=== PATIENT | male | born 1960 | race Two or more races ===

== ENCOUNTER 2016-04-04 10:57 | Inpatient (IN) | payer MEDICAID ==
--- NOTE | 2016-04-04 13:16 | SOAPPROG ---
TIFFANI Progress Note Assessment/Plan: Assessment: 1.) Stage IV Colon Cancer on systemic Tx with FOLFOX + Avastin 2.) Tobacco use 3.) Social situation- has no home address and no local family support. 4.) IV access needs for inpt. chemotherapy. Plan: 1.) PICC line placement 2.) FOLFOX ( Oxaliplatin + Leukovorin IV over 2 hours - day 1, 5 FU IVP, then 5 FU 46 hour IV continuous infusion + Avastin as 1-2 hour infusion on one day) 3.) Monitor toxicity of Tx. 4.) Discharge when stable 5.) Continue inpt. and outpt. meds during and after chemotherapy. 6.) Follow up with Dr. Lott at [facility] after discharge. 04/04/16 13:12 Subjective: Ed returns for his next cycle of FOLFOX + Avastin and has noted less abdominal pain since his last course of Tx. Objective: Ed is in NAD and is in good spirits. He is thin, VSS, Afebrile as noted here. HEENT- anicteric. Tobacco stained newton, no oral lesions Neck- supple, without LN enlargement Chest- clear CVS- RSR, no extra HS ABD- soft, NT, no mass, BS+, non-distended EXT- no edema, skin intact Vital Signs Temp Pulse Resp BP Pulse Ox 36.6 C 101 H 18 102/74 93 04/04/16 12:51 04/04/16 12:51 04/04/16 12:51 04/04/16 12:51 04/04/16 12:51 ICD10 Worksheet Patient Problems: Problems Problem Status Diagnosed Abdominal pain Acute Liver lesion Acute
[2016-04-04] MEDS ORDERED: ALTEPLASE 2 MG VIAL IVP PRN (13:29)
[2016-04-04] MEDS ORDERED: LORazepam 0.5 MG TAB PO PRN (13:31)
[2016-04-04] MEDS ORDERED: ONDANSETRON 4 MG/2 ML VIAL IVP PRN (13:31)
[2016-04-04] MEDS ORDERED: PROMETHAZINE HCL 25 MG/ML VIAL IVP PRN (13:31)
[2016-04-04] MEDS ORDERED: PROCHLORPERAZINE MALEATE 10 MG TAB PO PRN (14:21)
[2016-04-04] MEDS: ACETAMINOPHEN 325 MG TAB PO PRN ×2 (14:49→19:43)
[2016-04-04] MEDS: oxyCODONE IR 5 MG TAB PO PRN ×2 (14:49→19:41)
--- NOTE | 2016-04-04 14:54 | GHP ---
[f rep st] HISTORY AND PHYSICAL DATE OF ADMISSION: 04/04/2016 CHIEF COMPLAINT: Abdominal pain. Here for chemotherapy. HISTORY OF PRESENT ILLNESS: The patient is a 55-year-old homeless man with recently diagnosed metastatic colon cancer, being admitted for chemotherapy. His 1st round was in early February, second round late February, and he is here for his 3rd round. His main complaint is right upper quadrant pain where the bulk of his tumor has been located. Since his last chemotherapy, he says the pain has improved and he is hopeful that he will continue to improve with chemo. He is currently homeless. He has intermittent nausea that comes in waves. He denies any other chest pain, coughing, shortness of breath. No lower extremity edema. No urinary or bowel changes. REVIEW OF SYSTEMS: A 10-point review of systems was done, with pertinent positives present in the HPI. PAST MEDICAL HISTORY: 1. Metastatic colon cancer. 2. Type 2 diabetes. MEDICATIONS: The patient ran out of all of his medications except for Compazine. He was on DiaBeta 2.5 mg daily, oxy IR as needed, Ativan as needed for pain. ALLERGIES: No known drug allergies. SOCIAL HISTORY: He is homeless. He smokes about half a pack a day and denies any alcohol use. FAMILY HISTORY: Reviewed and noncontributory. PHYSICAL EXAMINATION: VITAL SIGNS: Afebrile. Heart rate 101, blood pressure 103/74, respirations 18. He is 92% on room air. GENERAL: He is a very pleasant, disheveled 55-year-old man. Mild distress. He is alert and oriented. HEENT atraumatic. Pupils equal. Extraocular movements intact. Mucous membranes moist. Oropharynx clear. NECK: Supple. No adenopathy. HEART: Regular rate and rhythm. No murmurs, gallop or rub. LUNGS: Clear to auscultation. No wheeze, rhonchi, or rales. ABDOMEN: He does have a hard, tender area in his right upper quadrant that is quite tender to palpation and he has some voluntary guarding. Left side is benign. Positive bowel sounds. EXTREMITIES: No clubbing, cyanosis, or edema. Pulses intact. MUSCULOSKELETAL : No obvious joint effusions or deformities. NEUROLOGICAL: He is intact. LABORATORY DATA: CBC is normal except for hemoglobin of 17.0. Platelet count of 138. Electrolytes are normal. Blood sugars 128. LFTs are unremarkable. CEA is 223. ASSESSMENT AND PLAN: A 55-year-old with metastatic colon cancer., presents for ongoing chemotherapy. Main issue is right upper quadrant pain due to tumor mass. 1. Metastatic colon cancer. Undergoing chemotherapy. Will need to place a PICC line. Defer to Oncology for chemo orders. Continue supportive care. 2. Tobacco use. Will provide a nicotine patch. 3. Type 2 diabetes. Controlled with DiaBeta. Will continue that at this time. Measure sugars q.a.c. and h.s. 4. DVT prophylaxis. Will provide low-molecular weight heparin. /[id number]/MODL MTDD
--- NOTE | 2016-04-04 19:53 | IR ---
Imaging Guided Peripherally Inserted Central Catheter History: Cancer of the liver. Technique: Following informed consent, the right arm was prepped and draped in sterile fashion. All e lements of maximal sterile barrier technique including cap, mask, sterile gown, sterile gloves, large sterile sheet, hand hygiene, and 2% chlorhexidine for cutaneous antisepsis, followed. Ultrasound tra nsducer was placed in sterile sleeve and sterile coupling gel was used. Ultrasound evaluation of pote ntial access sites was performed. After successfully identifying a patent vessel of adequate size, 1% Xylocaine was used for local anesthetic. Ultrasound guidance was used to puncture the basilic vein with a 21-gauge needle. 0.018 measuring wire was passed centrally under fluoroscopic control. A skin gibran with scalpel blade was followed by removing the access needle. A 5.5 Tristanian peel-away sheath wa s followed by a 5 Tristanian double-lumen central catheter , trimmed to 44 cm length. The tip of the cat heter was positioned centrally and the guidewire removed. AP fluoroscopic spot image was obtained in inspiration. The catheter irrigated easily. The hub of the catheter was secured to the skin using a S tatLock adhesive device, and a sterile dressing was applied. Fluoroscopy time in minutes: 0.1 . Estimated exposure in mGy: 1.4 . Findings: The tip of the central catheter terminates at the junction of the superior vena cava and th e right atrium. Impression: 5 Tristanian double lumen peripherally inserted central catheter is ready to use. - - - - - - - - - - - - - - - - - - - - - - - - - - - - - - - - - - - - - - - - - (Cross-cutting measures: Current medications were listed in the medical record, including all known prescriptions, [id number] medications, herbal medications, and nutritional supplements. The pat ient does not smoke. )
[2016-04-05 05:37] LABS: % IMMATURE GRANULYOCYTES 0.5 % (0.0-1.1); ABSOLUTE IMMATURE GRANULOCYTES 0.03 10^3/uL (0.00-0.10); ADD DIFF? NO; ADD MORPH? NO; ADD SCAN? NO; ATYPICAL LYMPHOCYTE FLAG 70 (0-99); FRAGMENT RBC FLAG 0 (0-99); HEMATOCRIT 43.3 % (40.0-51.0); HEMOGLOBIN 14.5 g/dL (13.7-17.5); LEFT SHIFT FLG 0 (0-99); LIPEMIA HEMOLYSIS FLAG 80 (0-99); MEAN CELL HEMOGLOBIN CONCENTR. 33.5 g/dL (32.4-36.7); MEAN CELL VOLUME 86.6 fL (81.5-99.8); MEAN PLATELET VOLUME 10.2 fL (8.7-11.7); PLATELET CLUMPS FLAG 0 (0-99); PLATELET COUNT 108 10^3/uL (150-400); RED CELL DISTRIBUTION WIDTH 16.4 % (11.5-15.2)
[2016-04-05] MEDS: ACETAMINOPHEN 325 MG TAB PO PRN ×2 (05:48→11:30)
[2016-04-05] MEDS: oxyCODONE IR 5 MG TAB PO PRN ×2 (05:49→11:30)
[2016-04-05] MEDS: ONDANSETRON DISINTEGRATING 4 MG TAB PO PRN ×2 (05:50→18:57)
[2016-04-05 05:52] LABS: ALANINE AMINOTRANSFERASE 61 IU/L (21-72); ALBUMIN 3.1 g/dL (3.5-5.0); ALKALINE PHOSPHATASE 201 IU/L (38-126); ANION GAP 7 mEq/L (8-16); ASPARTATE AMINOTRANSFERASE 46 IU/L (17-59); BILIRUBIN,TOTAL 0.6 mg/dL (0.1-1.4); CARBON DIOXIDE 26 mEq/l (22-31); CHLORIDE 108 mEq/L (97-110); CREATININE 0.7 mg/dL (0.7-1.3); GLOMERULAR FILTRATION RATE > 60; GLUCOSE 87 mg/dL (70-100); POTASSIUM 4.4 mEq/L (3.5-5.2); SODIUM 141 mEq/L (134-144); TOTAL PROTEIN 5.5 g/dL (6.3-8.2)
[2016-04-05] MEDS ORDERED: NICOTINE 21 MG/24 HR PATCH TD SCH (09:00)
[2016-04-05] MEDS ORDERED: PALONOSETRON HCL 0.25 MG/5 ML VIAL IVP ONE (09:30)
[2016-04-05] MEDS ORDERED: DEXAMETHASONE SOD PHOSPHATE 10 MG in NS 50 ML IV ONE (09:30)
[2016-04-05] MEDS: MULTIVITAMINS 1 EACH TAB PO SCH (09:58)
[2016-04-05] MEDS: CHOLECALCIFEROL VIT D3 1,000 UNITS TAB PO SCH (09:58)
[2016-04-05] MEDS: glyBURIDE 2.5 MG TAB PO SCH (09:58)
[2016-04-05] MEDS: ASCORBIC ACID 500 MG TAB PO SCH (09:58)
[2016-04-05] MEDS ORDERED: NS IV ONE (10:00)
[2016-04-05] MEDS ORDERED: BEVACIZUMAB IV ONE (10:00)
[2016-04-05] MEDS: ENOXAPARIN 40 MG/0.4 ML SYR SC SCH (10:07)
[2016-04-05] MEDS ORDERED: LEUCOVORIN CALCIUM IV ONE (11:00)
[2016-04-05] MEDS ORDERED: D5W IV ONE ×3 (11:00→13:30)
[2016-04-05] MEDS ORDERED: OXALIPLATIN IV ONE (11:00)
[2016-04-05] MEDS ORDERED: FLUOROURACIL IV ONE ×2 (13:15→13:30)
--- NOTE | 2016-04-05 13:46 | SOAPPROG ---
TIFFANI Progress Note Assessment/Plan: Assessment: 1.) Stage IV Colon Cancer on systemic Tx with FOLFOX + Avastin 2.) Tobacco use 3.) Social situation- has no home address and no local family support. 4.) IV access needs for inpt. chemotherapy. 5.) Tx related myelosuppression ( mild T-penia) Plan: 1.) PICC line placement 2.) FOLFOX ( Oxaliplatin + Leukovorin IV over 2 hours - day 1, 5 FU IVP, then 5 FU 46 hour IV continuous infusion + Avastin as 1-2 hour infusion on one day) 3.) Monitor toxicity of Tx. 4.) Discharge when stable 5.) Continue inpt. and outpt. meds during and after chemotherapy. 6.) Follow up with Dr. Lott at [facility] after discharge. 7.) Consider Mediport placement if feasible, instead of new PICC line with each course of Tx. 04/05/16 13:46 Subjective: Doing well with first day of this course of chemotherapy. No new sx. PICC line comfortable. Objective: VSS, afebrile as noted here HEENT- anicteric, no oral lesions Neck- supple, Chest- clear CVS- RSR, no extra HS ABD- soft, NT no mass or HSM EXT- Right PICC line in place and infusing. No LE edema. Labs as noted here. PLT 108,000 Vital Signs Temp Pulse Resp BP Pulse Ox 36.7 C 69 16 116/79 93 04/05/16 11:05 04/05/16 11:05 04/05/16 11:05 04/05/16 11:05 04/05/16 11:05 Laboratory Results 04/05/16 05:30 04/05/16 05:30 04/04/16 04/05/16 04/06/16 05:59 05:59 05:59 Intake Total 500 Balance 500 ICD10 Worksheet Patient Problems: Problems Problem Status Diagnosed Abdominal pain Acute Liver lesion Acute
[2016-04-05] MEDS ORDERED: NICOTINE POLACRILEX 2 MG GUM B PRN (16:12)
--- NOTE | 2016-04-05 19:12 | HOSPPROG ---
Hospitalist Progress Note Assessment/Plan: Assessment: 55-year-old male presents with stage IV colon cancer requiring inpatient chemotherapy Plan: 1. Stage IV colon cancer. Patient requires inpatient administration of FOLFOX and Avastin, orders being administered by the Oncology service -continue to monitor daily labs -patient currently tolerating treatment well -will require outpatient oncology follow-up 2. Diabetes mellitus type 2. Continue patient's home diabetic medications 3. Tobacco use disorder. Patient requiring adjustment from nicotine replacement patch to nicotine replacement gum Diet. Diabetic Prophylaxis. High risk patient, currently ambulating, will administer Lovenox 40 given his high risk from colon cancer Code. Full Disposition. Anticipated discharge is 04/07/2016, pending completion of inpatient chemotherapy. Subjective: Patient reports that he is feeling well and currently has no complaints Objective: Vital Signs Temp Pulse Resp BP Pulse Ox 36.8 C 76 16 127/79 H 91 L 04/05/16 17:30 04/05/16 17:30 04/05/16 17:30 04/05/16 17:30 04/05/16 17:30 Laboratory Results 04/05/16 05:30 04/05/16 05:30 04/04/16 04/05/16 04/06/16 05:59 05:59 05:59 Intake Total 500 Balance 500 - Physical Exam Constitutional: no apparent distress, appears nourished, not in pain, No uncomfortable Cardiovascular: regular rate and rhythym, no murmur, rub, or gallop Respiratory: no respiratory distress, no rales or rhonchi, clear to auscultation Gastrointestinal: normoactive bowel sounds, soft, non-tender abdomen, no palpable masses Skin: no rashes or abrasions, no fluctuance, no induration Neurologic: AAOx3, sensation intact bilaterally Psychiatric: interacting appropriately, not anxious, not encephalopathic, thought process linear ICD10 Worksheet Patient Problems: Problems Problem Status Diagnosed Abdominal pain Acute Liver lesion Acute
[2016-04-06] MEDS: ONDANSETRON DISINTEGRATING 4 MG TAB PO PRN (03:18)
[2016-04-06] MEDS: oxyCODONE IR 5 MG TAB PO PRN ×2 (03:18→11:53)
[2016-04-06] MEDS: ACETAMINOPHEN 325 MG TAB PO PRN ×2 (03:18→11:53)
--- NOTE | 2016-04-06 07:33 | SOAPPROG ---
TIFFANI Progress Note Assessment/Plan: Assessment: 1.) Stage IV Colon Cancer on systemic Tx with FOLFOX + Avastin 2.) Tobacco use 3.) Social situation- has no home address and no local family support. 4.) IV access needs for inpt. chemotherapy. 5.) Tx related myelosuppression ( mild T-penia) Plan: 1.) PICC line placement 2.) FOLFOX ( Oxaliplatin + Leukovorin IV over 2 hours - day 1, 5 FU IVP, then 5 FU 46 hour IV continuous infusion + Avastin as 1-2 hour infusion on one day) 3.) Monitor toxicity of Tx. 4.) Discharge when stable- pt's infusion will finish 04/07/16, with anticipated discharge late Sunday if pt. stable 5.) Continue inpt. and outpt. meds during and after chemotherapy. 6.) Follow up with Dr. Lott at [facility] after discharge. 7.) Consider Mediport placement if feasible, instead of new PICC line with each course of Tx. 04/06/16 07:32 Subjective: No new tx. toxicity or sx. 5 FU infusing well, except when patient bends his elbow. No diarrhea or mouth sores thus far. Objective: in NAD, VSS stable as noted here. HEENT- anicteric, no oral lesions. Neck - supple Chest- clear CVS- RSR, no extra HS ABD- soft, NT, no ascites, BS+ EXT- no edema. Skin intact Labs Hgb 14.5 PLT 108 - on 04/05. Vital Signs Temp Pulse Resp BP Pulse Ox 37.1 C 73 20 107/67 93 04/05/16 20:00 04/05/16 20:00 04/05/16 20:00 04/05/16 20:00 04/05/16 20:00 Laboratory Results 04/05/16 05:30 04/05/16 05:30 04/05/16 04/06/16 04/07/16 05:59 05:59 05:59 Intake Total 2064 Balance 2064 ICD10 Worksheet Patient Problems: Problems Problem Status Diagnosed Abdominal pain Acute Liver lesion Acute
[2016-04-06] MEDS: PROMETHAZINE HCL 25 MG TAB PO PRN ×2 (09:08→09:43)
[2016-04-06 09:30] VITALS: RESP 16
[2016-04-06] MEDS: ASCORBIC ACID 500 MG TAB PO SCH (11:48)
[2016-04-06] MEDS: CHOLECALCIFEROL VIT D3 1,000 UNITS TAB PO SCH (11:49)
[2016-04-06] MEDS: MULTIVITAMINS 1 EACH TAB PO SCH (11:49)
[2016-04-06] MEDS: ENOXAPARIN 40 MG/0.4 ML SYR SC SCH (11:54)
[2016-04-06] MEDS: glyBURIDE 2.5 MG TAB PO SCH (11:55)
[2016-04-06] MEDS ORDERED: D5W IV ONE (12:30)
[2016-04-06] MEDS ORDERED: FLUOROURACIL IV ONE (12:30)
[2016-04-06] MEDS ORDERED: LACTULOSE 20 GM/30 ML UDCUP PO PRN (12:55)
[2016-04-06] MEDS ORDERED: MAGNESIUM CITRATE 300 ML BOTTLE PO ONE (12:55)
[2016-04-06] MEDS ORDERED: POLYETHYLENE GLYCOL 3350 17 GM PKT PO PRN (12:55)
[2016-04-06] MEDS ORDERED: SENNOSIDES/DOCUSATE SODIUM TAB PO PRN (12:55)
[2016-04-06] MEDS ORDERED: BISACODYL 10 MG SUPP PR PRN (12:55)
[2016-04-06] MEDS ORDERED: MAGNESIUM HYDROXIDE 30 ML UDCUP PO PRN (12:55)
[2016-04-06] MEDS: DRONABINOL 2.5 MG CAP PO SCH ×2 (13:56→19:20)
[2016-04-06 15:03] VITALS: O2SAT 94
--- NOTE | 2016-04-06 16:58 | HOSPPROG ---
Hospitalist Progress Note Assessment/Plan: Assessment: 55-year-old male presents with stage IV colon cancer requiring inpatient chemotherapy Plan: 1. Stage IV colon cancer. Patient requires inpatient administration of FOLFOX and Avastin, orders being administered by the Oncology service -will have f/u labs next week as outpt -patient currently tolerating treatment well, has approx 24hrs remaining -will require outpatient oncology follow-up next week, will consider mediport to be arranged through Dr. Lott's office -adding marinol scheduled for nausea, plus ongoing use of PRN Rx 2. Diabetes mellitus type 2. Continue patient's home diabetic medications 3. Tobacco use disorder. Patient requiring adjustment from nicotine replacement patch to nicotine replacement gum 4. Constipation. Add Mag Cit + bowel regimen Diet. Diabetic Prophylaxis. High risk patient, currently ambulating, will administer Lovenox 40 given his high risk from colon cancer Code. Full Disposition. Anticipated discharge is 04/07/2016, pending completion of inpatient chemotherapy. It was noted by staff the patient had a knife in his bag, and the patient was approached by our security team to remove the weapon from the room. At no time were any staff members threatened by the knife, but after the weapon was removed from the room the patient became very aggressive in his resistance of the security team searching his other belongings for any other potentially dangerous items. Situation escalated, and the patient was counseled by our clinic in lead comma community living coach, oncology coordination nurse, director of case management, the floor nurse, and this physician. The patient requested to leave against medical advice, and we were able to deescalate the situation and reassure him that he would continue to receive all of his medical care as originally planned for the completion of his chemotherapy. Patient has agreed to complete his inpatient chemotherapy, and he has also requested that we contact the [facility] and request a medical bed for him on Sunday and Sunday nights. This request has been shared with our case consultant. Our intention is to complete his chemotherapy and provide him with of his necessary medications scripts tomorrow. Subjective: The patient was initially very calm, requesting additional as needed medications for nausea, has not moved his bowels Objective: Vital Signs Temp Pulse Resp BP Pulse Ox 36.8 C 49 L 16 126/80 H 94 04/06/16 15:02 04/06/16 15:02 04/06/16 15:02 04/06/16 15:02 04/06/16 15:02 Laboratory Results 04/05/16 05:30 04/05/16 05:30 04/05/16 04/06/16 04/07/16 05:59 05:59 05:59 Intake Total 2064 Balance 2064 - Time Spent With Patient Time Spent with Patient: greater than 35 minutes Time Spent with Patient: Greater than 35 minutes spent on this patients care, greater than 50% of time spent counseling, educating, and coordinating care regarding the above mentioned plan. - Physical Exam Constitutional: not in pain, uncomfortable Cardiovascular: regular rate and rhythym, no murmur, rub, or gallop Respiratory: no respiratory distress, no rales or rhonchi, clear to auscultation Gastrointestinal: normoactive bowel sounds, tenderness (Upper half of his abdomen), No guarding, No distension Neurologic: AAOx3, sensation intact bilaterally Psychiatric: interacting appropriately, not anxious, not encephalopathic, thought process linear, agitated (Somewhat) ICD10 Worksheet Patient Problems: Problems Problem Status Diagnosed Abdominal pain Acute Liver lesion Acute
[2016-04-07] MEDS ORDERED: DRONABINOL 2.5 MG CAP PO SCH
[2016-04-07] MEDS: PROMETHAZINE HCL 25 MG TAB PO PRN ×2 (01:45→12:36)
--- NOTE | 2016-04-07 08:00 | SOAPPROG ---
TIFFANI Progress Note Assessment/Plan: Assessment: 1.) Stage IV Colon Cancer on systemic Tx with FOLFOX + Avastin 2.) Tobacco use 3.) Social situation- has no home address and no local family support. 4.) IV access needs for inpt. chemotherapy. 5.) Tx related myelosuppression ( mild T-penia) Plan: 1.) PICC line to be D/C'ed prior to discharge today. 2.) FOLFOX ( Oxaliplatin + Leukovorin IV over 2 hours - day 1, 5 FU IVP, then 5 FU 46 hour IV continuous infusion + Avastin as 1-2 hour infusion on one day) to be completed by mid-day today 3.) Pt to follow up with Dr. Lott at [facility] next week as discussed with patient this AM. Rx at discharge: Oxycodone 5 mg, two tabs prn pain Q 8 hours, # 180 for 30 days. Dronabinol 5 mg prn nausea, # 30 Glyburide 2.5 mg QD, # 30. Rx placed in patient's floor chart, as d/w patient and staffing analyst. 04/07/16 08:00 Subjective: Had some nausea yesterday and now better controlled. Stated that dronabinol worked well. No mucositis or diarrhea as TX toxicity as of this AM. PICC line comfortable Objective: HEENT- anicteric, no oral lesions Neck- supple Chest- clear CVS- RSR, no extra HS ABD- soft, BS+, NT EXT- no edema, skin intact, PICC line intact and NT Labs- noted PLT 108,000 BMP WNL. Vital Signs Temp Pulse Resp BP Pulse Ox 36.8 C 49 L 16 126/80 H 94 04/06/16 15:02 04/06/16 15:02 04/06/16 15:02 04/06/16 15:02 04/06/16 15:02 Laboratory Results 04/05/16 05:30 04/05/16 05:30 04/06/16 04/07/16 04/08/16 05:59 05:59 05:59 Intake Total 5 964 Balance 5 964 ICD10 Worksheet Patient Problems: Problems Problem Status Diagnosed Abdominal pain Acute Liver lesion Acute
[2016-04-07 08:07] VITALS: BP 134/81; PULSE 70; TEMP 96.6
[2016-04-07] MEDS: ENOXAPARIN 40 MG/0.4 ML SYR SC SCH (08:19)
[2016-04-07] MEDS: glyBURIDE 2.5 MG TAB PO SCH (08:30)
[2016-04-07] MEDS: CHOLECALCIFEROL VIT D3 1,000 UNITS TAB PO SCH (08:30)
[2016-04-07] MEDS: MULTIVITAMINS 1 EACH TAB PO SCH (08:30)
[2016-04-07] MEDS: DRONABINOL 2.5 MG CAP PO SCH (08:30)
[2016-04-07] MEDS: ASCORBIC ACID 500 MG TAB PO SCH (08:30)
--- NOTE | 2016-04-07 14:42 | PDDCSUM ---
Discharge Summary Discharge Summary: DISCHARGE SUMMARY FOLLOW-UP ITEMS: Follow up blood counts next week at the discretion of Dr. Lott Placed MediPort once able DATE OF ADMISSION: 04/04/2016 DATE OF DISCHARGE: 04/07/2016 DISCHARGE DIAGNOSES: 1. Stage IV colon cancer 2. Diabetes mellitus type 2 3. Chronic pain with continuous opiate dependency CONSULTATIONS: Oncology PROCEDURES / IMAGING: PICC line placement and removal CHIEF COMPLAINT: Presented for chemotherapy, inpatient SUBJECTIVE: Patient is feeling well at time of discharge, he is experiencing some degree of nausea PHYSICAL EXAM ON DISCHARGE: Systolic blood pressure is 120, heart rate 170, afebrile overnight, satting well on room air, awake oriented x3, somewhat aggressive affect LABS ON DISCHARGE: None HOSPITAL COURSE BY PROBLEM: 1. Stage IV colon cancer. The patient required inpatient administration of FOLFOX and Avastin and his treatment completed on 04/07/2016 at 5:00 p.m.. The patient's main side effect from treatment was nausea as well as ongoing abdominal pain, and the patient was treated aggressively with oxycodone as needed, Phenergan as needed, pre treatment with Aloxi, and treatment with Marinol and Ativan. The patient will be discharged home with prescriptions for all of these medications, other than aloxi. He will follow up with Dr. Lott after an appointment has been arranged next week by javascript application developer Ann-Marie. He will have follow-up labs at that time. An outpatient MediPort will be arranged. 2. Diabetes mellitus type 2. Patient was continued on his home dose of glyburide. 3. Chronic pain with continuous opiate dependency. Patient requires oxycodone immediate release 10 mg for pain management and will continue to require this med. DISCHARGE MEDICATIONS: Please see official discharge medication reconciliation sheet in chart , oxycodone immediate release 5-10 mg as needed, Ativan 1 mg as needed, Marinol 5 mg as needed, Phenergan 25 mg as needed, glyburide 2.5 mg daily. DISCHARGE INSTRUCTIONS: Please contact Ann-Marie on Sunday to schedule follow-up appointment. TIME SPENT: Greater than 30 minutes were spent on direct patient care, as well as discharge planning and preparation.
[2016-04-07 16:40] LABS: % IMMATURE GRANULYOCYTES 0.5 % (0.0-1.1); ABSOLUTE IMMATURE GRANULOCYTES 0.02 10^3/uL (0.00-0.10); ADD DIFF? NO; ADD MORPH? NO; ADD SCAN? NO; ATYPICAL LYMPHOCYTE FLAG 10 (0-99); FRAGMENT RBC FLAG 0 (0-99); HEMATOCRIT 49.5 % (40.0-51.0); HEMOGLOBIN 17.5 g/dL (13.7-17.5); LEFT SHIFT FLG 0 (0-99); LIPEMIA HEMOLYSIS FLAG 90 (0-99); MEAN CELL HEMOGLOBIN 29.7 pg (27.9-34.1); MEAN CELL HEMOGLOBIN CONCENTR. 35.4 g/dL (32.4-36.7); MEAN PLATELET VOLUME 9.4 fL (8.7-11.7); PLATELET CLUMPS FLAG 0 (0-99); PLATELET COUNT 110 10^3/uL (150-400); RED BLOOD CELL COUNT 5.89 10^6/uL (4.40-6.38); RED CELL DISTRIBUTION WIDTH 17.1 % (11.5-15.2)
[2016-04-07 18:03] LABS: ANION GAP 9 mEq/L (8-16); CALCIUM 9.2 mg/dL (8.5-10.4); CARBON DIOXIDE 29 mEq/l (22-31); CHLORIDE 99 mEq/L (97-110); CREATININE 0.6 mg/dL (0.7-1.3); GLOMERULAR FILTRATION RATE > 60; GLUCOSE 115 mg/dL (70-100); POTASSIUM 4.6 mEq/L (3.5-5.2); SODIUM 137 mEq/L (134-144)
== END 2016-04-07 17:45 | disposition home or self-care (01) | DRG 847 ==
LOC: F1N 12:34 → OBSVTOIN 13:31 → UNDODISIN 04-07 17:00
PROVIDERS: ADMIT Internal Medicine Hematology & Oncology; ATTEND Internal Medicine Hematology & Oncology
PROC: 02HV33Z Insertion of Infusion Device into Superior Vena Cava, Percutaneous Approach (ICD-10-PCS; principal; 2016-04-04)
DX: Z51.11 Encounter for antineoplastic chemotherapy (principal); C18.9 Malignant neoplasm of colon, unspecified; Z59.0 Homelessness; E11.9 Type 2 diabetes mellitus without complications; K59.00 Constipation, unspecified; G89.29 Other chronic pain; F11.20 Opioid dependence, uncomplicated; F17.210 Nicotine dependence, cigarettes, uncomplicated
CPT/HCPCS: C1751; J0640; J1650; J2469; J2550; J9035; J9190; J9263

== ENCOUNTER 2016-04-18 17:50 | Inpatient (IN) | payer MEDICAID ==
[2016-04-18] MEDS ORDERED: ACETAMINOPHEN 325 MG TAB PO PRN ×2 (20:03→20:12)
[2016-04-18] MEDS ORDERED: ONDANSETRON 4 MG/2 ML VIAL IVP PRN (20:03)
[2016-04-18] MEDS ORDERED: ONDANSETRON DISINTEGRATING 4 MG TAB PO PRN (20:03)
--- NOTE | 2016-04-18 20:45 | GHP ---
[f rep st] HISTORY AND PHYSICAL DATE OF ADMISSION: 04/18/2016 HISTORY OF PRESENT ILLNESS: The patient is a pleasant 56-year-old gentleman with a history of metast atic colon cancer who presents for elective chemotherapy and port placement tomorrow. Since his disc harge from the hospital on the of this month, the patient has been doing well, eating and drinki ng well. No diarrhea. No fever chills, cough, sputum, nausea, vomiting, diarrhea. He has no compla ints today. He is eating well. REVIEW OF SYSTEMS: Complete 10-point review of systems conducted and negative except as noted in HPI . PAST MEDICAL HISTORY: 1. Metastatic colon cancer with mets to the liver. 2. Type 2 diabetes. ALLERGIES: No known drug allergies. HOME MEDICATIONS: Glyburide, OxyIR, Ativan, and vitamins. SOCIAL HISTORY: Homeless, smokes about a half pack a day. No alcohol. FAMILY HISTORY: Reviewed and unremarkable. PHYSICAL EXAM: VITAL SIGNS: Patient's presenting vitals: Pulse 70, blood pressure 134/81, __ 16, breathing 94% on room air, temp 36.9. GENERAL: No acute distress. HEENT: Sclerae anicteri c. Oropharynx clear. Mucous membranes are moist. NECK: Supple without lymphadenopathy or JVD. FAY NGS: Clear to auscultation bilaterally. HEART: S1, S2. ABDOMEN: Soft, nontender, nondistended. LOWER EXTREMITIES: Without edema. Calves are nontender. SKIN: Without rash. NEUROLOGIC: Nonfoca l. LABS: White count 8, hematocrit 47, platelets are 105,000. His Chem-7 is normal. LFTs are normal, other than elevated alkaline phosphatase 256. A1c is 7.2. Triglycerides are 176, LDL is 68. There is no imaging. ASSESSMENT/PLAN: This is a 56-year-old gentleman who presents for elective chemotherapy and port fabrizio cement. 1. Port placement. N.p.o. past midnight. His platelets of 105,000 should not preclude safe placeme nt. 2. Metastatic colon cancer. Chemotherapy to begin on the . 3. Diabetes. I will hold his Glyburide for now. We can start sliding scale after tomorrow. 4. Disposition: Inpatient status. /[id number]/MODL
[2016-04-18] MEDS: LORazepam 1 MG TAB PO PRN (21:11)
[2016-04-18] MEDS: DRONABINOL 2.5 MG CAP PO PRN (21:12)
[2016-04-18] MEDS: PROMETHAZINE HCL 25 MG TAB PO PRN (21:12)
[2016-04-18] MEDS: oxyCODONE IR 5 MG TAB PO PRN (21:12)
[2016-04-19 05:38] LABS: % IMMATURE GRANULYOCYTES 0.7 % (0.0-1.1); ABSOLUTE IMMATURE GRANULOCYTES 0.06 10^3/uL (0.00-0.10); ADD DIFF? NO; ADD MORPH? NO; ADD SCAN? NO; ATYPICAL LYMPHOCYTE FLAG 30 (0-99); FRAGMENT RBC FLAG 0 (0-99); HEMATOCRIT 42.1 % (40.0-51.0); HEMOGLOBIN 14.7 g/dL (13.7-17.5); LEFT SHIFT FLG 0 (0-99); LIPEMIA HEMOLYSIS FLAG 90 (0-99); MEAN CELL HEMOGLOBIN 30.1 pg (27.9-34.1); MEAN CELL HEMOGLOBIN CONCENTR. 34.9 g/dL (32.4-36.7); MEAN CELL VOLUME 86.3 fL (81.5-99.8); MEAN PLATELET VOLUME 9.4 fL (8.7-11.7); PLATELET CLUMPS FLAG 0 (0-99); PLATELET COUNT 97 10^3/uL (150-400); RED BLOOD CELL COUNT 4.88 10^6/uL (4.40-6.38); RED CELL DISTRIBUTION WIDTH 16.3 % (11.5-15.2)
[2016-04-19 05:49] LABS: PROTIME(PATIENT) 13.1 SEC (12.0-15.0)
[2016-04-19 05:50] LABS: APTT 27.1 SEC (23.0-38.0)
[2016-04-19 05:55] LABS: ANION GAP 8 mEq/L (8-16); CARBON DIOXIDE 22 mEq/l (22-31); CHLORIDE 107 mEq/L (97-110); CREATININE 0.6 mg/dL (0.7-1.3); GLOMERULAR FILTRATION RATE > 60; GLUCOSE 87 mg/dL (70-100); POTASSIUM 4.1 mEq/L (3.5-5.2); SODIUM 137 mEq/L (134-144)
[2016-04-19] MEDS ORDERED: LIDOCAINE 1% 30 ML SDV ONE (06:55)
[2016-04-19] MEDS ORDERED: BUPIVACAINE 0.5% 30 ML SDV ONE (06:55)
[2016-04-19] MEDS ORDERED: SODIUM BICARBONATE 10 MEQ/10 ML SYR IVP ONE (06:55)
[2016-04-19] MEDS ORDERED: MIDAZOLAM 2 MG/2 ML VIAL ONE (07:03)
[2016-04-19] MEDS ORDERED: PROPOFOL 200 MG/20 ML VIAL ONE ×2 (07:22→07:24)
--- NOTE | 2016-04-19 08:09 | SOAPPROG ---
TIFFANI Progress Note Assessment/Plan: Assessment: 56 MALE WITH METASTATIC COLON CA IN NEED OF PORT FOR CHEMO RISKS AND OPTIONS FULLY DISCUSSED AND HE WISHES TO PROCEED Plan: PORT 04/19/16 08:08 Objective: Vital Signs Temp Pulse Resp BP Pulse Ox 36.4 C 83 16 131/80 H 93 04/18/16 20:40 04/18/16 20:40 04/18/16 20:40 04/18/16 20:40 04/18/16 20:40 Laboratory Results 04/19/16 05:30 04/19/16 05:30 04/18/16 04/19/16 04/20/16 05:59 05:59 05:59 Intake Total 200 Balance 200 PT 13.1 SEC (12.0-15.0) 04/19/16 05:30 INR 1.00 (0.83-1.16) 04/19/16 05:30 ICD10 Worksheet Patient Problems: Problems Problem Status Diagnosed Abdominal pain Acute Liver lesion Acute
--- NOTE | 2016-04-19 08:15 | POSTOPPROG ---
Post Op Note Date of Operation: 04/19/16 Surgeon: Babatunde Martinez Anesthesiologist: SHAHLA Anesthesia: GET(General Endotracheal) Pre-op Diagnosis: METASTATIC COLON CA Post-op Diagnosis: SAME Indication: CHEMO ACCESS Procedure: RT SUBCLAVIAN PORT WITH FLOURO Findings: GOOD FLOW AND POSITION Inf/Abcess present in the surg proc area at time of surgery?: No Depth: Deep Incisional (Fascial) EBL: Minimal Complications: 0
[2016-04-19] MEDS ORDERED: oxyCODONE IR 5 MG TAB PO PRN (08:26)
--- NOTE | 2016-04-19 10:46 | DX ---
AP Upright portable chest Reason for examination: Follow-up port placement; comparison to the prior study February 03, 2016. FINDINGS: There has been placement of a right subclavian port with the tip projecting over the right heart. No pneumothorax is seen. Heart size remains normal and the lungs are clear. IMPRESSION: Uncomplicated port placement with no pneumothorax identified.
--- NOTE | 2016-04-19 10:59 | DX ---
Fluoroscopy: 21.5 seconds, 3.92 mGy, of intraoperative fluoroscopy was utilized by Dr. Babatunde ty for port plac ement. A single digital radiograph shows a port positioned from a right-sided approach.
--- NOTE | 2016-04-19 11:12 | GOP ---
[f rep st] OPERATIVE REPORT DATE OF OPERATION: 04/19/2016 SURGEON: Babatunde Martinez MD [employer] MANAGER: None. ANESTHESIOLOGIST: Dr. Daly. PREOPERATIVE DIAGNOSIS: Metastatic colon cancer. POSTOPERATIVE DIAGNOSIS: Metastatic colon cancer. PROCEDURE PERFORMED: Right subclavian port placement with fluoroscopic guidance. FINDINGS: Patient was found to have good position and good flow of the catheter. Chest x-ray is pending at the time of this dictation. ESTIMATED BLOOD LOSS: Negligible. DESCRIPTION OF PROCEDURE: Patient was taken to the operating room where he received satisfactory general laryngeal mask anesthesia by Dr. Daly. Prepped and draped in usual sterile fashion. Placed in supine position. He was then placed in Trendelenburg. A single stick was made in the right subclavian vein. A guidewire was introduced. Position was confirmed with fluoroscopy. A subcu pocket was made in the 2nd intercostal space. The port tubing was then passed from that pocket to the subclavian insertion site, trimmed to the appropriate length using fluoroscopic guidance, and introduced through the introducer sheath into the right atrium. Good backflow was achieved. The catheter was flushed with heparin and saline. The port was secured to the fascia with 3-0 Vicryl. The pocket was closed with 3-0 Vicryl in the subcu and a 4-0 Prolene subcuticular stitch for the skin. The entrance site was closed with a Prolene mattress suture. The wound was dressed. He tolerated the procedure well. He was taken to the recovery room in good condition. COMPLICATIONS: None. /[id number]/MODL MTDD
[2016-04-19] MEDS: CHOLECALCIFEROL VIT D3 1,000 UNITS TAB PO SCH (15:55)
[2016-04-19] MEDS: ASCORBIC ACID 500 MG TAB PO SCH (15:55)
[2016-04-19] MEDS: MULTIVITAMINS 1 EACH TAB PO SCH (15:55)
[2016-04-19] MEDS ORDERED: PROMETHAZINE HCL 25 MG/ML INJ IVP PRN (16:45)
[2016-04-19] MEDS: PROMETHAZINE HCL 25 MG TAB PO PRN (17:03)
[2016-04-19] MEDS: DRONABINOL 2.5 MG CAP PO PRN (17:08)
--- NOTE | 2016-04-19 17:29 | HOSPPROG ---
Hospitalist Progress Note Assessment/Plan: DIAGNOSIS: COLON CANCER, ADMITTED FOR PORT PLACEMENT AND TO BEGIN CHEMOTHERAPY DIABETES MELLITUS TYPE 2 ON ORAL THERAPY CHRONIC PAIN SYNDROME WITH CHRONIC PRESCRIBED NARCOTIC USE DAILY PLANS: -port placement today and OR with Dr. Martinez -begin chemotherapy after port placement -he is having nausea so I have increased the nausea medication orders at this time -fingerstick checks -DVT prophylaxis -pain management SUBJECTIVE: the patient mainly complains of nausea today so far not ideally controlled with current medicines. His pain is reasonable. OBJECTIVE Vitals reviewed: Stable without fever Exam: alert oriented skin warm dry color ok resps not labored lungs clear BSs heart regular abd soft nondistended nontender, bowel sounds present limbs warm, no edema iv site ok Objective: Vital Signs Temp Pulse Resp BP Pulse Ox 36.3 C 83 18 117/72 93 04/19/16 08:01 04/18/16 20:40 04/19/16 09:00 04/19/16 09:00 04/19/16 09:00 Laboratory Results 04/19/16 05:30 04/19/16 05:30 04/18/16 04/19/16 04/20/16 06:59 06:59 06:59 Intake Total 200 1000 Output Total 10 Balance 200 990 PT 13.1 SEC (12.0-15.0) 04/19/16 05:30 INR 1.00 (0.83-1.16) 04/19/16 05:30 ICD10 Worksheet Patient Problems: Problems Problem Status Diagnosed Abdominal pain Acute Liver lesion Acute
[2016-04-19] MEDS: oxyCODONE IR 5 MG TAB PO PRN (21:24)
[2016-04-20] MEDS: oxyCODONE IR 5 MG TAB PO PRN ×2 (06:13→14:46)
[2016-04-20] MEDS: LORazepam 1 MG TAB PO PRN ×2 (06:14→14:47)
[2016-04-20] MEDS: CHOLECALCIFEROL VIT D3 1,000 UNITS TAB PO SCH (09:22)
[2016-04-20] MEDS: ASCORBIC ACID 500 MG TAB PO SCH (09:22)
[2016-04-20] MEDS: PROCHLORPERAZINE MALEATE 10 MG TAB PO PRN ×2 (09:22→14:47)
[2016-04-20] MEDS: DRONABINOL 2.5 MG CAP PO PRN (09:22)
[2016-04-20] MEDS: MULTIVITAMINS 1 EACH TAB PO SCH (09:22)
[2016-04-20] MEDS ORDERED: DEXAMETHASONE SOD PHOSPHATE 10 MG in NS 50 ML IV SCH (14:00)
[2016-04-20] MEDS ORDERED: PALONOSETRON HCL 0.25 MG/5 ML VIAL IVP SCH (14:00)
[2016-04-20] MEDS ORDERED: BEVACIZUMAB IV SCH (14:30)
[2016-04-20] MEDS ORDERED: NS IV SCH (14:30)
--- NOTE | 2016-04-20 15:13 | GCON ---
[f rep st] CONSULTATION ONCOLOGY CONSULTATION NOTE. REASON FOR CONSULTATION: Patient with metastatic rectosigmoid carcinoma, admitted for chemotherapy. HISTORY OF PRESENT ILLNESS: Ricky Martinez is a 56-year-old male who was diagnosed in January 2016 wi th a sigmoid colon cancer. The tumor was resected but was adherent to the pelvic wall, and he was no karla to have significant liver disease. The tumor was staged as a stage IVb (T4b N0 M1b). Zero of 25 lymph nodes were involved, and the histology was consistent with adenocarcinoma. The patient is essentially homeless and has been receiving treatment in the hospital. He has receive d 3 cycles of chemotherapy thus far and just had a followup PET CT on March 14 showing multiple masses in the liver. He had a CT scan in January, and the PET CT was after only 1 cycle of chemothe rapy. CEA was 360 and more recently on April 18, has fallen to 79. The patient is generally tolerating the treatment well. He has some nausea and some diarrhea, but fi nds it manageable. He had a port placed last night with Dr. Martinez. He feels his abdominal pain is i mproving. PAST MEDICAL HISTORY: Diabetes mellitus type 2. PAST SURGICAL HISTORY: Partial colectomy in January 2016. FAMILY HISTORY: Noncontributory. SOCIAL HISTORY: Ricky is . He currently is not working. He is homeless and does not reall y have a support system. REVIEW OF SYSTEMS: Ten point of review of systems is negative other than HPI. PHYSICAL EXAMINATION: GENERAL: He is a relatively healthy-appearing, somewhat disheveled male who i s in no distress. VITAL SIGNS: Blood pressure 116/71, heart rate 68, respiratory rate 16, O2 sat 93 % on room air. He is afebrile. A port in the right upper chest without any erythema. LABORATORY DATA: White blood cell count 8.1, hematocrit 42, platelets are 97, and metabolic panel is unremarkable. IMPRESSION: This is a 56-year-old male with metastatic adenocarcinoma of the sigmoid colon, who is b eing admitted for his 4th cycle of chemotherapy with FOLFOX and Avastin. The significant drop in the CEA would suggest that he is responding to the treatment. He is tolerating the treatment well. The re is no indication for dose modifications. PLAN: He will start on cycle 4 of FOLFOX with Avastin today. Anticipate discharge on Sunday. /[id number]/MODL
--- NOTE | 2016-04-20 15:24 | HOSPPROG ---
Hospitalist Progress Note Assessment/Plan: DIAGNOSIS: -COLON CANCER, ADMITTED FOR PORT PLACEMENT AND TO BEGIN CHEMOTHERAPY -DIABETES MELLITUS TYPE 2 ON ORAL THERAPY - this may be elevated with steroids if used for nausea -CHRONIC PAIN SYNDROME WITH CHRONIC PRESCRIBED NARCOTIC USE DAILY -NAUSEA (BEFORE ONSET OF CHEMO) PLANS: -begin FOLFOX and avastin today -antiemetics as needed -fingerstick checks -DVT prophylaxis -pain management -follow closely for chemo side effects Anticipate discharge 04/22 unless complications arise. I have reviewed his condition and care plan in detail with Dr Colunga today. SUBJECTIVE: the patient mainly complains of nausea today so far not ideally controlled with current medicines. His pain is reasonable. OBJECTIVE Vitals reviewed: Stable without fever Exam: alert oriented skin warm dry color ok resps not labored lungs clear BSs heart regular abd soft nondistended nontender, bowel sounds present limbs warm, no edema iv site ok Objective: Vital Signs Temp Pulse Resp BP Pulse Ox 36.5 C 68 16 116/71 93 04/20/16 08:38 04/20/16 08:38 04/20/16 08:38 04/20/16 08:38 04/20/16 08:38 Laboratory Results 04/19/16 05:30 04/19/16 05:30 04/19/16 04/20/16 04/21/16 06:59 06:59 06:59 Intake Total 200 3100 Output Total 10 Balance 200 3090 PT 13.1 SEC (12.0-15.0) 04/19/16 05:30 INR 1.00 (0.83-1.16) 04/19/16 05:30 ICD10 Worksheet Patient Problems: Problems Problem Status Diagnosed Abdominal pain Acute Liver lesion Acute
[2016-04-20] MEDS ORDERED: LEUCOVORIN CALCIUM IV SCH (15:30)
[2016-04-20] MEDS ORDERED: OXALIPLATIN IV SCH (15:30)
[2016-04-20] MEDS ORDERED: D5W IV SCH ×3 (15:30→17:40)
[2016-04-20] MEDS ORDERED: FLUOROURACIL IV SCH ×2 (17:30→17:40)
[2016-04-20] MEDS: PROMETHAZINE HCL 25 MG TAB PO PRN (18:06)
[2016-04-21 08:14] VITALS: RESP 16
[2016-04-21] MEDS: ASCORBIC ACID 500 MG TAB PO SCH (08:24)
[2016-04-21] MEDS: oxyCODONE IR 5 MG TAB PO PRN (08:24)
[2016-04-21] MEDS: CHOLECALCIFEROL VIT D3 1,000 UNITS TAB PO SCH (08:24)
[2016-04-21] MEDS: MULTIVITAMINS 1 EACH TAB PO SCH (08:24)
[2016-04-21] MEDS: DRONABINOL 2.5 MG CAP PO PRN (09:37)
--- NOTE | 2016-04-21 10:46 | HOSPPROG ---
Hospitalist Progress Note Assessment/Plan: DIAGNOSIS: -COLON CANCER, ADMITTED FOR PORT PLACEMENT AND TO BEGIN CHEMOTHERAPY -DIABETES MELLITUS TYPE 2 ON ORAL THERAPY - this may be elevated if steroids are used for nausea -CHRONIC PAIN SYNDROME WITH CHRONIC PRESCRIBED NARCOTIC USE DAILY -NAUSEA (BEFORE ONSET OF CHEMO) PLANS: -continue FOLFOX and avastin today; should be able to discharge tomorrow -antiemetics as needed -fingerstick checks; he has been declining fingerstick checking so far but at this point it sounds like he will agree to checks -DVT prophylaxis -pain management -follow closely for chemo side effects I have reviewed his condition and care plan in detail with Dr Boykin today. SUBJECTIVE: Still with some nausea, better than yesterday and able to eat but needs more medication Pain is at his baseline of 6 and he seems reasonably satisfied with that at the moment OBJECTIVE Vitals reviewed: Stable without fever Exam: alert oriented skin warm dry color ok resps not labored lungs clear BSs heart regular abd soft nondistended nontender, bowel sounds present limbs warm, no edema iv site ok Objective: Vital Signs Temp Pulse Resp BP Pulse Ox 36.4 C 66 16 136/85 H 95 04/21/16 08:00 04/21/16 08:00 04/21/16 08:00 04/21/16 08:00 04/21/16 08:00 Laboratory Results 04/19/16 05:30 04/19/16 05:30 04/20/16 04/21/16 04/22/16 06:59 06:59 06:59 Intake Total 3100 2400 Output Total 10 Balance 3090 2400 PT 13.1 SEC (12.0-15.0) 04/19/16 05:30 INR 1.00 (0.83-1.16) 04/19/16 05:30 ICD10 Worksheet Patient Problems: Problems Problem Status Diagnosed Abdominal pain Acute Liver lesion Acute
--- NOTE | 2016-04-21 14:03 | SOAPPROG ---
SOAP Progress Note Assessment/Plan: A/P: * Metastatic colon cancer, responding to therapy. C4D2 FOLFOX/Avastin. After lengthy discussions with staff, he plans to leave AMA as he cannot leave the floor with chemo running. He has a behavioral contract in place. Safety issues were explained. I emphasized the effective administration of chemotherapy and that I would not interrupt his chemo periodically for him to leave the floor. Nicotine patch, etc. was offered. 04/21/16 14:04 Subjective: S: Port placed yesterday and chemo started last night. He is frustrated about not being able to leave the floor while receiving chemo. O: VS reviewed. Gen: Talking on the phone. NAD. Skin: port site without tenderness, erythema. Abd: refuses exam. Objective: Vital Signs Temp Pulse Resp BP Pulse Ox 36.4 C 66 16 136/85 H 95 04/21/16 08:00 04/21/16 08:00 04/21/16 08:00 04/21/16 08:00 04/21/16 08:00 Laboratory Results 04/19/16 05:30 04/19/16 05:30 04/20/16 04/21/16 04/22/16 05:59 05:59 05:59 Intake Total 3100 2400 Output Total 10 Balance 3090 2400 PT 13.1 SEC (12.0-15.0) 04/19/16 05:30 INR 1.00 (0.83-1.16) 04/19/16 05:30 ICD10 Worksheet Patient Problems: Problems Problem Status Diagnosed Abdominal pain Acute Liver lesion Acute
[2016-04-21] MEDS: NICOTINE 21 MG/24 HR PATCH TD SCH (14:58)
[2016-04-21] MEDS ORDERED: D5W IV SCH (16:40)
[2016-04-21] MEDS ORDERED: FLUOROURACIL IV SCH (16:40)
[2016-04-22] MEDS: PROMETHAZINE HCL 25 MG TAB PO PRN (08:30)
[2016-04-22] MEDS: oxyCODONE IR 5 MG TAB PO PRN ×2 (08:31→17:50)
[2016-04-22 08:35] VITALS: O2SAT 94
[2016-04-22] MEDS: DRONABINOL 2.5 MG CAP PO PRN ×2 (10:39→14:33)
--- NOTE | 2016-04-22 10:49 | SOAPPROG ---
SOAP Progress Note Assessment/Plan: Assessment/Plan 56 yo man w metastatic colon cancer admitted for C4 of FOLFOX + Avastin. CEA falling and liver smaller No dose adjustments made Labs and vitals not clinically significant Cont pain control and antiemetics D/C in morning 04/22/16 10:46 Subjective: No acute events Pt did not end up leaving AMA yesterday Objective: Vital Signs Temp Pulse Resp BP Pulse Ox 36.9 C 66 16 117/79 94 04/22/16 08:33 04/22/16 08:33 04/22/16 08:33 04/22/16 08:33 04/22/16 08:33 Laboratory Results 04/19/16 05:30 04/19/16 05:30 04/21/16 04/22/16 04/23/16 05:59 05:59 05:59 Intake Total 2400 1300 Output Total 4 Balance 2400 1296 PT 13.1 SEC (12.0-15.0) 04/19/16 05:30 INR 1.00 (0.83-1.16) 04/19/16 05:30 Gen - NAD, chronically ill HEENT - anicteric CV - RRR Lungs - clear did not examine abdomen Ext - no edema ICD10 Worksheet Patient Problems: Problems Problem Status Diagnosed Abdominal pain Acute Liver lesion Acute
--- NOTE | 2016-04-22 12:47 | HOSPPROG ---
Hospitalist Progress Note Assessment/Plan: DIAGNOSIS: -COLON CANCER, ADMITTED FOR PORT PLACEMENT AND TO BEGIN CHEMOTHERAPY -DIABETES MELLITUS TYPE 2 ON ORAL THERAPY - the patient is not allowing fingerstick monitoring -CHRONIC PAIN SYNDROME WITH CHRONIC PRESCRIBED NARCOTIC USE DAILY -NAUSEA (BEFORE ONSET OF CHEMO AND NOW WORSENED WITH CHEMOTHERAPY) PLANS: -continue FOLFOX and avastin today; he will finish after 8 o'clock tonight and the deadline for getting into a long term is at 7:30 a.m. so he will likely need to stay here over night again tonight - will increase antiemetics today -fingerstick checks; he has been declining fingerstick checking so far -DVT prophylaxis -pain management -follow closely for chemo side effects I have reviewed his condition and care plan in detail with Dr Friend today. SUBJECTIVE: Still with some nausea, increase this morning Pain is at his usual baseline of 6 and he seems reasonably satisfied with that at the moment OBJECTIVE Vitals reviewed: Stable without fever Exam: alert oriented skin warm dry color ok resps not labored lungs clear BSs heart regular abd soft nondistended nontender, bowel sounds present limbs warm, no edema iv site ok Objective: Vital Signs Temp Pulse Resp BP Pulse Ox 36.9 C 66 16 117/79 94 04/22/16 08:33 04/22/16 08:33 04/22/16 08:33 04/22/16 08:33 04/22/16 08:33 Laboratory Results 04/19/16 05:30 04/19/16 05:30 04/21/16 04/22/16 04/23/16 06:59 06:59 06:59 Intake Total 2400 1300 Output Total 4 Balance 2400 1296 PT 13.1 SEC (12.0-15.0) 04/19/16 05:30 INR 1.00 (0.83-1.16) 04/19/16 05:30 ICD10 Worksheet Patient Problems: Problems Problem Status Diagnosed Abdominal pain Acute Liver lesion Acute
[2016-04-22] MEDS: NICOTINE 21 MG/24 HR PATCH TD SCH (13:36)
[2016-04-22] MEDS: glyBURIDE 2.5 MG TAB PO SCH (13:42)
[2016-04-22] MEDS: ASCORBIC ACID 500 MG TAB PO SCH (14:29)
[2016-04-22] MEDS: CHOLECALCIFEROL VIT D3 1,000 UNITS TAB PO SCH (14:29)
[2016-04-22] MEDS: MULTIVITAMINS 1 EACH TAB PO SCH (14:30)
[2016-04-22 22:52] VITALS: BP 102/70; PULSE 80; TEMP 98
[2016-04-23] MEDS: NICOTINE 21 MG/24 HR PATCH TD SCH (07:59)
[2016-04-23] MEDS: ASCORBIC ACID 500 MG TAB PO SCH (09:31)
[2016-04-23] MEDS: oxyCODONE IR 5 MG TAB PO PRN (09:31)
[2016-04-23] MEDS: MULTIVITAMINS 1 EACH TAB PO SCH (09:32)
[2016-04-23] MEDS: CHOLECALCIFEROL VIT D3 1,000 UNITS TAB PO SCH (09:32)
[2016-04-23] MEDS: glyBURIDE 2.5 MG TAB PO SCH (09:32)
[2016-04-23] MEDS: PROMETHAZINE HCL 25 MG TAB PO PRN (09:32)
--- NOTE | 2016-04-23 17:10 | PDDCSUM ---
Discharge Summary Discharge Summary: DISCHARGE DIAGNOSES: -COLON CANCER, ADMITTED FOR PORT PLACEMENT AND TO BEGIN CHEMOTHERAPY -DIABETES MELLITUS TYPE 2 ON ORAL THERAPY - the patient is not allowing fingerstick monitoring -CHRONIC PAIN SYNDROME WITH CHRONIC PRESCRIBED NARCOTIC USE DAILY -NAUSEA (BEFORE ONSET OF CHEMO AND NOW WORSENED WITH CHEMOTHERAPY) CONSULTANTS: Dr. Babatunde Colunga PROCEDURES: Placement of MediPort Chemotherapy with FolFox HOSPITAL COURSE SUMMARY: This patient with known history of metastatic colon cancer has been receiving chemotherapy. He came in at this time to receive placement of MediPort and further chemotherapy. His MediPort placement without complication. He then received his chemotherapy without significant complications. He does have chronic pain, chronic nausea, and diabetes. All these were symptomatic in the hospital requiring medical attention but they were pretty much in his usual range in responded to his usual treatments. There are no signs of infection or other complications. The patient at this time is done his chemotherapy, is eating well, is up and about on his feet, has no respiratory issues, minimal oral mucosa symptoms. MEDICATION CHANGES: None FOLLOW-UP PLAN: At Oncology Clinic this week Greater than 35 minutes bedside and care coordination time today
== END 2016-04-23 11:14 | disposition home or self-care (01) | DRG 949 ==
LOC: F1N 17:50
PROVIDERS: ADMIT Surgery; ATTEND Internal Medicine
DX: Z45.2 Encounter for adjustment and management of vascular access device (principal); C18.9 Malignant neoplasm of colon, unspecified; C78.7 Secondary malignant neoplasm of liver and intrahepatic bile duct; F11.20 Opioid dependence, uncomplicated; E11.9 Type 2 diabetes mellitus without complications; G89.4 Chronic pain syndrome; Z59.0 Homelessness; Z72.0 Tobacco use
CPT/HCPCS: 82607-90; C1788; J0640; J0690; J2250; J2469; J2550; J2704; J9035; J9190; J9263

== ENCOUNTER 2016-05-09 14:25 | Inpatient (IN) | payer MEDICAID ==
[2016-05-09] MEDS ORDERED: PALONOSETRON HCL 0.25 MG/5 ML VIAL IVP SCH (16:00)
[2016-05-09] MEDS ORDERED: DEXAMETHASONE SOD PHOSPHATE 10 MG in NS 50 ML IV SCH (16:00)
[2016-05-09] MEDS ORDERED: BEVACIZUMAB IV SCH (16:30)
[2016-05-09] MEDS ORDERED: NS IV SCH (16:30)
[2016-05-09] MEDS ORDERED: LEUCOVORIN CALCIUM IV SCH (17:00)
[2016-05-09] MEDS ORDERED: OXALIPLATIN IV SCH (17:00)
[2016-05-09] MEDS ORDERED: D5W IV SCH ×2 (17:00)
[2016-05-09] MEDS ORDERED: ACETAMINOPHEN 325 MG TAB PO PRN (17:28)
[2016-05-09] MEDS ORDERED: ONDANSETRON 4 MG/2 ML VIAL IVP PRN (17:28)
[2016-05-09] MEDS ORDERED: ONDANSETRON DISINTEGRATING 4 MG TAB PO PRN (17:28)
[2016-05-09] MEDS ORDERED: D50W 25 GM/50 ML SYR IVP PRN (17:32)
[2016-05-09] MEDS ORDERED: PROCHLORPERAZINE MALEATE 10 MG TAB PO PRN (17:32)
[2016-05-09] MEDS ORDERED: LORazepam 1 MG TAB PO PRN (17:32)
[2016-05-09] MEDS ORDERED: MAGNESIUM HYDROXIDE 30 ML UDCUP PO PRN (17:33)
[2016-05-09] MEDS ORDERED: BISACODYL 10 MG SUPP PR PRN (17:33)
[2016-05-09] MEDS ORDERED: LACTULOSE 20 GM/30 ML UDCUP PO PRN (17:33)
[2016-05-09] MEDS ORDERED: POLYETHYLENE GLYCOL 3350 17 GM PKT PO PRN (17:33)
[2016-05-09] MEDS ORDERED: NICOTINE POLACRILEX 2 MG GUM B PRN (17:37)
--- NOTE | 2016-05-09 18:10 | GHP ---
[f rep st] HISTORY AND PHYSICAL DATE OF ADMISSION: 05/09/2016 CHIEF COMPLAINT: Admission for chemotherapy. HISTORY OF PRESENT ILLNESS: The patient is a 56-year-old male who was diagnosed with metastatic colon cancer in January 2016, and presents to the hospital after seeing his outpatient oncologist, Dr. Lott, to resume chemotherapy. He was initially admitted to [facility] on February 03, 2016, with right upper quadrant abdominal pain. He underwent workup, and ultimately a laparoscopic sigmoid colectomy for an obstructing colon cancer. He was also found to have widespread intra-abdominal metastatic disease, including hepatic metastases. He has since been followed by Dr. Lott and started chemotherapy in February 2016. He has tolerated chemotherapy fairly well. He does report chronic nausea, and chronic abdominal pain, for which he takes oxycodone. He denies fevers, though he endorses chills. He denies vomiting or diarrhea, and states he has a regular bowel movements. He did report a recent hemorrhoid that bled; but he denies any rectal bleeding for the past week. He had labs yesterday at his outpatient oncology office, which revealed a normal hemoglobin and hematocrit. At this time, he denies chest pain, shortness of breath, headache, vision changes, or other acute symptoms. He is admitted to the hospital for chemo. Dr. Lott has written chemo orders. He states his weight has been stable. He actually was up 1 pound at his recent clinic visit. PAST MEDICAL HISTORY: 1. Metastatic colon cancer. 2. Diabetes mellitus. 3. Depression. PAST SURGICAL HISTORY: Status post sigmoid colectomy, January 2016. MEDICATIONS: Please see [facility] for complete updated outpatient medication list. ALLERGIES: Patient has no known drug allergies. SOCIAL HISTORY: The patient is homeless. He smokes half a pack per day. He denies alcohol or drug use. He states he is working on getting housing; but that will not happen until August. FAMILY HISTORY: Reviewed and unremarkable. REVIEW OF SYSTEMS: A 10-point review of systems was performed and is negative except as per HPI. PHYSICAL EXAMINATION: VITAL SIGNS: Temperature is 36.8, blood pressure 114/82 , heart rate 91, respiratory rate 14. He is 92% on room air. GENERAL: The patient is awake, alert, oriented, no acute distress. HEENT: Head is atraumatic, normocephalic. Pupils equal, round, react to light. Extraocular muscles are intact. Oropharynx clear. Mucous members are moist. NECK: Supple. There is no JVD. HEART: Regular rate and rhythm. No murmur. LUNGS: Clear to auscultation bilaterally. ABDOMEN: Soft, nondistended. He has tenderness to palpation, mostly in the right upper quadrant with hepatomegaly. The border of the liver is palpated approximately 2-3 cm below the right costal margin versus palpable tumor in this region. He has normoactive bowel sounds. EXTREMITIES: Without cyanosis, clubbing, or edema. NEUROLOGIC: Grossly nonfocal. LABORATORY DATA: I reviewed his labs from yesterday. He had a normal white count, a normal Chem panel with the exception of slightly elevated blood sugar. Will repeat labs in the morning. ASSESSMENT AND PLAN: The patient is a 56-year-old male with a history of metastatic colon cancer. He was admitted to the hospital for chemotherapy. 1. Metastatic colon cancer: The patient most recently completed his 4th cycle of FOLFOX and Avastin on April 22, 2016. His CEA has been falling. It was initially 379 at the time of diagnosis, and his CEA yesterday was down to 46. Chemo orders are written per Dr. Lott. I will defer imaging plans to his Oncology team tomorrow. We will continue his p.r.n. Marinol to help stimulate his appetite. 2. Diabetes mellitus: I reviewed the patient's last hemoglobin A1c. It was 7.2. Will hold his glyburide, as he may have decreased oral intake given his nausea and chemotherapy plans. We will give him a dose-adjusted sliding scale insulin as needed, and follow the q.a.c., h.s. blood sugars. 3. Depression: The patient seems to be in better spirits than the last time I saw him. We will continue his p.r.n. Ativan for anxiety symptoms. Looks like he is not currently on an antidepressant. I think he declined this in the past. 4. Tobacco dependence: The patient again has preferred Nicorette gum, which was ordered during his hospitalization. 5. DVT prophylaxis: Lovenox. 6. Code status: Patient is full code. 7. Disposition: Patient admitted to inpatient status. Will likely require greater than 48 hours hospitalization for ongoing chemotherapy and close monitoring. /[id number]/MODL MTDD
[2016-05-09] MEDS: oxyCODONE IR 5 MG TAB PO PRN (18:11)
[2016-05-09] MEDS ORDERED: FLUOROURACIL IV SCH (19:00)
[2016-05-09] MEDS: DRONABINOL 2.5 MG CAP PO PRN (22:05)
[2016-05-09] MEDS: INSULIN LISPRO 100 UNIT/ML SC SCH (22:06)
[2016-05-09] MEDS: SENNOSIDES/DOCUSATE SODIUM TAB PO SCH (22:07)
[2016-05-10] MEDS: FLUOROURACIL IV SCH (02:48)
[2016-05-10] MEDS: D5W IV SCH (02:48)
[2016-05-10 02:50] LABS: % IMMATURE GRANULYOCYTES 1.2 % (0.0-1.1); ABSOLUTE IMMATURE GRANULOCYTES 0.04 10^3/uL (0.00-0.10); ADD DIFF? NO; ADD MORPH? NO; ADD SCAN? NO; ATYPICAL LYMPHOCYTE FLAG 30 (0-99); FRAGMENT RBC FLAG 0 (0-99); HEMATOCRIT 44.4 % (40.0-51.0); HEMOGLOBIN 15.3 g/dL (13.7-17.5); LEFT SHIFT FLG 10 (0-99); LIPEMIA HEMOLYSIS FLAG 90 (0-99); MEAN CELL HEMOGLOBIN 30.5 pg (27.9-34.1); MEAN CELL HEMOGLOBIN CONCENTR. 34.5 g/dL (32.4-36.7); MEAN CELL VOLUME 88.4 fL (81.5-99.8); MEAN PLATELET VOLUME 9.8 fL (8.7-11.7); PLATELET CLUMPS FLAG 0 (0-99); PLATELET COUNT 130 10^3/uL (150-400); RED BLOOD CELL COUNT 5.02 10^6/uL (4.40-6.38); RED CELL DISTRIBUTION WIDTH 17.5 % (11.5-15.2)
[2016-05-10 02:56] LABS: INR 0.95 (0.83-1.16); PROTIME(PATIENT) 12.6 SEC (12.0-15.0)
[2016-05-10 03:03] LABS: ALANINE AMINOTRANSFERASE 46 IU/L (21-72); ALBUMIN 3.4 g/dL (3.5-5.0); ALKALINE PHOSPHATASE 194 IU/L (38-126); ANION GAP 7 mEq/L (8-16); ASPARTATE AMINOTRANSFERASE 40 IU/L (17-59); BILIRUBIN,TOTAL 0.4 mg/dL (0.1-1.4); CALCIUM 8.8 mg/dL (8.5-10.4); CARBON DIOXIDE 25 mEq/l (22-31); CHLORIDE 102 mEq/L (97-110); CREATININE 0.5 mg/dL (0.7-1.3); GLOMERULAR FILTRATION RATE > 60; GLUCOSE 319 mg/dL (70-100); POTASSIUM 4.7 mEq/L (3.5-5.2); SODIUM 134 mEq/L (134-144); TOTAL PROTEIN 6.2 g/dL (6.3-8.2)
[2016-05-10] MEDS: INSULIN LISPRO 100 UNIT/ML SC SCH ×3 (08:31→19:43)
[2016-05-10] MEDS: oxyCODONE IR 5 MG TAB PO PRN ×2 (09:13→21:21)
[2016-05-10] MEDS: SENNOSIDES/DOCUSATE SODIUM TAB PO SCH (10:44)
[2016-05-10] MEDS: ENOXAPARIN 40 MG/0.4 ML SYR SC SCH (10:44)
[2016-05-10] MEDS: DRONABINOL 2.5 MG CAP PO PRN (13:27)
--- NOTE | 2016-05-10 15:14 | GHP ---
[f rep st] HISTORY AND PHYSICAL DATE OF ADMISSION: 05/09/2016 HISTORY OF PRESENT ILLNESS: The patient is a 56-year-old male with metastatic colon carcinoma admit karla for his 5th cycle of FOLFOX with Avastin. The patient was diagnosed in the Fall of 2015. He hernandez d a tumor adherent to his pelvic wall and multiple liver metastasis. He has done well on chemothera py and his CEA has been falling. He currently feels reasonably well. PAST MEDICAL HISTORY: Significant for metastatic colon cancer, diabetes, and depression. SOCIAL HISTORY: He is homeless, smokes about half pack cigarettes a day. REVIEW OF SYSTEMS: Otherwise negative except as discussed above. PHYSICAL EXAMINATION: VITAL SIGNS: Blood pressure 122/79, pulse 67, O2 saturation 93%. He is afeb rile. He is not icteric. LYMPH: I detect no adenopathy. LUNGS: Clear. CARDIAC: Exam is unrema rkable. ABDOMEN: Benign. The liver edge is palpated in the right upper quadrant. EXTREMITIES: N o edema. LABORATORY DATA: White count 3.24, hemoglobin 15.3, hematocrit 44, platelets 130,000, glucose is 31 9, alk phos 194, albumin 3.4. IMPRESSION: The patient is okay for a 5th cycle of FOLFOX with Avastin. We will proceed with treat ment as written. He will continue outpatient followup with Dr. Lott. PLAN: Six cycles of FOLFOX with Avastin and then Avastin maintenance. It is unclear from looking a t Dr. Lott's notes whether he also was to continue infusional 5-FU as part of the maintenance the rapy. /[id number]/MODL
--- NOTE | 2016-05-10 16:44 | HOSPPROG ---
Hospitalist Progress Note Assessment/Plan: # Metastatic colon cancer- presenting for elective chemotherapy- tolerated treatment overnight chest x-ray 04/11 ( personally reviewed and interpreted) no acute finding- oxygen saturations 95% on room air - continue chemo per Oncology - continue daily laboratory monitoring # diabetes- hemoglobin A1c 7 last checked - agree hold glyburide - sliding scale insulin as needed # mild constipation acute- bowel regimen # prophylaxis Lovenox # diet regular # disposition greater than 2 midnights as patient presenting for scheduled chemotherapy administration I have discussed the case with the RN- will advance bowel regimen as needed today Subjective: denies pain Objective: Vital Signs Temp Pulse Resp BP Pulse Ox 36.8 C 67 12 122/79 H 93 05/10/16 02:33 05/10/16 02:33 05/10/16 02:33 05/10/16 02:33 05/10/16 02:33 Laboratory Results 05/10/16 02:39 05/10/16 02:39 05/09/16 05/10/16 05/11/16 05:59 05:59 05:59 Intake Total 1445 Output Total 400 Balance 1045 PT 12.6 SEC (12.0-15.0) 05/10/16 02:39 INR 0.95 (0.83-1.16) 05/10/16 02:39 - Physical Exam Constitutional: chronically ill appearing Eyes: anicteric sclera Ears, Nose, Mouth, Throat: dry mucous membranes Cardiovascular: regular rate and rhythym Respiratory: no respiratory distress, no rales or rhonchi Gastrointestinal: normoactive bowel sounds, soft, non-tender abdomen Genitourinary: no bladder fullness Skin: warm, normal color Musculoskeletal: No asymmetric calves Neurologic: AAOx3 Psychiatric: interacting appropriately, No agitated Lymph, Heme, Immunologic: no cervical LAD ICD10 Worksheet Patient Problems: Problems Problem Status Onset Abdominal pain Acute Liver lesion Acute
[2016-05-10] MEDS: PROMETHAZINE HCL 25 MG TAB PO PRN (21:21)
[2016-05-11] MEDS: D5W IV SCH (02:09)
[2016-05-11] MEDS: FLUOROURACIL IV SCH (02:09)
[2016-05-11] MEDS: SENNOSIDES/DOCUSATE SODIUM TAB PO SCH ×3 (03:38→19:47)
[2016-05-11] MEDS: INSULIN LISPRO 100 UNIT/ML SC SCH ×3 (10:24→19:46)
[2016-05-11] MEDS: ENOXAPARIN 40 MG/0.4 ML SYR SC SCH (10:25)
[2016-05-11] MEDS: PROMETHAZINE HCL 25 MG TAB PO PRN ×2 (10:42→19:19)
[2016-05-11] MEDS: DRONABINOL 2.5 MG CAP PO PRN ×2 (10:43→19:19)
--- NOTE | 2016-05-11 15:13 | HOSPPROG ---
Hospitalist Progress Note Assessment/Plan: #Metastatic colon cancer: elective chemo 5/6 cycles of FOLFOX and Avastin, then Avastin maintenance #Constipation: bowel regimen #Controlled diabetes with hyperglycemia: holding Metformin. SSI (he has been refusing) #Diet: regular #DVT ppx: will DC Lovenox since refusing #Disp: DC once chemo completed Subjective: refusing exam. Minimal response to my questions Objective: Vital Signs Temp Pulse Resp BP Pulse Ox 36.9 C 71 20 139/82 H 93 05/11/16 09:48 05/11/16 09:48 05/11/16 09:48 05/11/16 09:48 05/11/16 09:48 Laboratory Results 05/10/16 02:39 05/10/16 02:39 05/10/16 05/11/16 05/12/16 05:59 05:59 05:59 Intake Total 1445 545 350 Output Total 400 1050 Balance 1045 545 -700 PT 12.6 SEC (12.0-15.0) 05/10/16 02:39 INR 0.95 (0.83-1.16) 05/10/16 02:39 - Physical Exam Constitutional: no apparent distress Neurologic: AAOx3, CN II-XII Intact Psychiatric: flat affect, agitated ICD10 Worksheet Patient Problems: Problems Problem Status Onset Abdominal pain Acute Liver lesion Acute
--- NOTE | 2016-05-11 15:48 | GHP ---
[f rep st] HISTORY AND PHYSICAL DATE OF ADMISSION: 05/09/2016 The patient is a 56-year-old male with metastatic colon carcinoma who is admitted for his 5th cycle of FOLFOX with Avastin. This afternoon, for unclear reasons, he wants to be discharged against [facility] advice. He has finished his oxaliplatin and bolus 5-FU, and has about 11 more hours to go on hi s infusional 5-FU. I discussed with him this decision. He is aware that this may impact the qualit y of remission from his chemotherapy, but he is quite insistent that he wants to be discharged. He is welcome to follow up with Dr. Chino Lott, his primary oncologist. /[id number]/MODL
[2016-05-11] MEDS: oxyCODONE IR 5 MG TAB PO PRN (19:19)
[2016-05-12 09:10] VITALS: BP 113/79; PULSE 105; RESP 12; TEMP 98.2; O2SAT 94
[2016-05-12] MEDS: PROMETHAZINE HCL 25 MG TAB PO PRN (09:25)
[2016-05-12] MEDS: DRONABINOL 2.5 MG CAP PO PRN (09:27)
[2016-05-12] MEDS: SENNOSIDES/DOCUSATE SODIUM TAB PO SCH (09:44)
[2016-05-12] MEDS: INSULIN LISPRO 100 UNIT/ML SC SCH ×2 (10:02→11:53)
--- NOTE | 2016-05-12 13:21 | GDS ---
[f rep st] DISCHARGE SUMMARY DISCHARGE DIAGNOSES: 1. Metastatic colon cancer: admission for 5th cycle FOLFOX with Avastin. 2. Diabetes. 3. Depression. HISTORY OF PRESENT ILLNESS: Patient is a 56-year-old male recently diagnosed with metastatic colon cancer in January 2016, presenting to the hospital for elective chemo per his primary oncologist Dr. Lott. He has tolerated chemo fairly well, that has started in February. He does report chronic nausea, abdominal pain. Denies fevers, vomiting or diarrhea. HOSPITAL COURSE BY PROBLEM: 1. Metastatic colon cancer: Patient was admitted for 5th cycle of FOLFOX with Avastin. 2. Control diabetes with hyperglycemia. Received sliding scale insulin here but he was refusing. Can continue glyburide. 3. Constipation with bowel regimen. 4. Chronic abdominal pain, p.r.n. oxycodone. 5. Depression/anxiety, p.r.n. Ativan. 6. Disposition. Patient stable for discharge. FOLLOWUP: Dr. Lott. /[id number]/MODL MTDD
== END 2016-05-12 14:00 | disposition left against medical advice (07) | DRG 847 ==
LOC: F1N 14:25
PROVIDERS: ADMIT Internal Medicine Hematology & Oncology; ATTEND Internal Medicine
DX: Z51.11 Encounter for antineoplastic chemotherapy (principal); C18.9 Malignant neoplasm of colon, unspecified; E11.9 Type 2 diabetes mellitus without complications; Z59.0 Homelessness
CPT/HCPCS: J0640; J2469; J9035; J9190; J9263

== ENCOUNTER 2016-05-24 06:38 | Inpatient (IN) | payer MEDICAID ==
[2016-05-24 11:03] LABS: % IMMATURE GRANULOCYTES 0.7 % (0.0-1.1); ABSOLUTE IMMATURE GRANULOCYTES 0.03 10^3/uL (0-0.10); HEMATOCRIT 42.7 % (40.0-51.0); HEMOGLOBIN 14.7 g/dL (13.7-17.5); MEAN CELL HEMOGLOBIN 30.6 pg (27.9-34.1); MEAN CELL HEMOGLOBIN CONC. 34.4 g/dL (32.4-36.7); MEAN PLATELET VOLUME 9.9 fL (8.7-11.7); RED BLOOD CELL COUNT 4.8 10^6/uL (4.40-6.38); RED CELL DISTRIBUTION WIDTH 17.2 % (11.5-15.2)
[2016-05-24 11:20] LABS: ALANINE AMINOTRANSFERASE 37 IU/L (21-72); ALBUMIN 3.4 g/dL (3.5-5.0); ALKALINE PHOSPHATASE 186 IU/L (38-126); ANION GAP 11 mEq/L (8-16); ASPARTATE AMINOTRANSFERASE 34 IU/L (17-59); BILIRUBIN,TOTAL 0.5 mg/dL (0.1-1.4); CARBON DIOXIDE 26 mEq/l (22-31); CHLORIDE 102 mEq/L (97-110); CREATININE 0.7 mg/dL (0.7-1.3); GLOMERULAR FILTRATION RATE > 60; GLUCOSE 177 mg/dL (70-100); POTASSIUM 4.8 mEq/L (3.5-5.2); SODIUM 139 mEq/L (134-144); TOTAL PROTEIN 6.9 g/dL (6.3-8.2)
[2016-05-25] MEDS ORDERED: ONDANSETRON 4 MG/2 ML VIAL IVP PRN (14:30)
[2016-05-25] MEDS ORDERED: PROMETHAZINE HCL 25 MG/ML INJ IVP PRN (14:30)
[2016-05-25] MEDS ORDERED: ACETAMINOPHEN 325 MG TAB PO PRN (14:30)
[2016-05-25] MEDS ORDERED: LIDOCAINE/PRILOCAINE 1 EACH CRTUBE TP ONE (14:30)
[2016-05-25] MEDS ORDERED: D50W 25 GM/50 ML SYR IVP PRN (14:38)
--- NOTE | 2016-05-25 15:11 | GHP ---
DATE OF ADMISSION: 05/25/2016 CHIEF COMPLAINT: Here for chemotherapy. HISTORY OF PRESENT ILLNESS: This is a 56-year-old male with history of metastatic colon cancer, sta tus post 5th cycle of FOLFOX with Avastin given to 05/10/2016 through 05/12/2016. He was directly a dmitted to the Cancer Care Unit to start cycle 6 of his chemotherapy. The patient states he has been having trouble with dental infection. He has been under the care of an oral surgeon who put him on penicillin which he took his last dose of this morning. He continues to have moderate to severe pain over his right lower jaw. He is planning to have a dental extracti on after this round of chemotherapy. He denies any fevers or chills. He reports a regular diet. H e denies any nausea, vomiting, or diarrhea. PAST MEDICAL HISTORY: 1. Metastatic colon cancer diagnosed in the fall with tumor adherent to the pelvic wall and multiple liver metastases. 2. Diabetes. 3. Depression. PAST SURGICAL HISTORY: 1. Appendectomy. 2. Sigmoid colon resection in January 2016. HOME MEDICATIONS: Reviewed. Refer to [facility] for details. ALLERGIES: No known drug allergies. SOCIAL HISTORY: The patient is homeless. He continues to smoke half pack a day. Denies any alcoho l or illicit drug use. FAMILY HISTORY: Reviewed and unremarkable. REVIEW OF SYSTEMS: Comprehensive 10-point review of systems was done and is negative except for as mentioned in the HPI. PHYSICAL EXAMINATION: VITAL SIGNS: Blood pressure 115/75, pulse 74, respiratory rate 16, O2 satura tion 89% on room air. Temperature afebrile. HEAD: Normocephalic, atraumatic. Eyes are PERRLA. S clerae anicteric. Mouth: Moist mucous membranes. There is poor dentition. The right molar is most ly absent and cracked and appears to be draining purulent material. NECK: Supple. There is no cer vical or submandibular lymphadenopathy. CARDIOVASCULAR: S1, S2. No murmurs, rubs, clicks, gallops, or JVD. No lower extremity edema. PULMONARY: Lungs are clear. No wheezes, rales, or rhonchi. A BDOMEN: Soft, mildly distended. There is no guarding or rebound tenderness. Normoactive bowel keiry nds. EXTREMITIES: No clubbing or cyanosis. NEURO: Cranial nerves 2-12 grossly intact. No focal motor or sensory deficits. SKIN: Clear. No rashes. DIAGNOSTIC STUDIES: WBC is 4, hemoglobin 14.7, hematocrit 42.7, platelets 142. Sodium 139, potassiu m 4.8, chloride 102, CO2 of 26, BUN 13, creatinine 0.7, glucose 177. CEA is 25.1, down from 46.4 on May 08, 2016. ASSESSMENT AND PLAN: This is a 56-year-old male with history of metastatic colon cancer presenting with: 1. Metastatic colon cancer with falling CEA. Plan: The patient will be admitted to the oncology u [facility] for cycle 6 of FOLFOX per Oncology. 2. Dental abscess. Plan: The patient will be started on Augmentin 875 mg p.o. twice daily and estella l be given oxycodone as needed for pain. If he continues to have severe pain and drainage, we may c onsider inpatient oral surgery consultation; otherwise, he can follow up with his oral surgeon as an outpatient for further definitive treatment of his abscessed tooth. 3. History of diabetes mellitus. Plan: The patient's home dose of glyburide will be held out of c oncerns for hypoglycemia. Will monitor his blood sugars AC and HS and treat with correctional insul in as indicated. 4. The patient will be admitted to the hospital under inpatient status. /[id number]/MODL
[2016-05-25] MEDS: AMOXICILLIN/CLAVULANATE POT 875/125 MG TAB PO SCH ×2 (15:31→21:10)
[2016-05-25] MEDS: oxyCODONE IR 5 MG TAB PO PRN ×2 (15:31→21:16)
--- NOTE | 2016-05-25 16:40 | GCON ---
INPATIENT ONCOLOGY CONSULTATION. DATE OF CONSULTATION: 05/25/2016 REFERRING PHYSICIAN: Tip Hoffmann DO OUTPATIENT ONCOLOGIST: Chino Lott MD. REASON FOR ADMISSION: Cycle 6 of FOLFOX chemo plus Avastin chemotherapy. HISTORY OF PRESENT ILLNESS: The patient is a 56-year-old man with metastatic colon cancer. He presented with a sigmoid tumor adherent to the pelvic wall and also had significant metastatic disease to the liver. He had surgery to remove the primary tumor and then started on FOLFOX and Avastin chemotherapy. He appears to be having a very good response with a marked reduction in his CEA. It was 1600 at diagnosis and has fallen to 25. He will be due for another CT scan shortly. He has not had any major complications of therapy including neuropathy. He has developed an abscess in some of his teeth as a result of some tooth fractures. He has been on amoxicillin. He is trying to schedule with an oral surgeon to have his teeth extracted. PAST MEDICAL HISTORY: Diabetes. CURRENT MEDICATIONS: Oxycodone, glyburide. ALLERGIES: He has no known drug allergies. FAMILY HISTORY: Noncontributory. SOCIAL HISTORY: He is homeless, he [place] [address] He does not smoke cigarettes or drink alcohol. REVIEW OF SYSTEMS: Aside from pertinent positives noted in the HPI, a 14-point review of systems was negative. PHYSICAL EXAMINATION: VITAL SIGNS: His temperature is 36.7, blood pressure 115/ 75, heart rate 74, oxygen saturation 90% on room air. GENERAL: He is chronically ill-appearing, though in no acute distress. EYES: Sclerae anicteric. LUNGS: Clear to auscultation bilaterally. CARDIAC: Regular rate and rhythm. No murmurs, gallops, rubs. ABDOMEN: Normoactive bowel sounds, nontender , nondistended. EXTREMITIES: Without edema. 2+ pulses. NEUROLOGIC: He is alert and oriented x3. Strength and sensation grossly normal. LABORATORY DATA: White count 4.2, hemoglobin 14.7, platelets 142. IMPRESSION: This is a 56-year-old man with metastatic colon cancer responding nicely to FOLFOX and Avastin. He has not had any dose-limiting toxicities and can proceed with his 6th cycle of chemotherapy today. We will put him on Augmentin for broader coverage of his dental infection. I encouraged him to schedule his oral surgery shortly before his next planned cycle of chemotherapy to minimize the risk of infectious complications. If the problem is getting worse during this admission, we will have oral surgery see him in-house. /[id number]/MODL MTDD
[2016-05-25] MEDS ORDERED: DEXAMETHASONE SOD PHOSPHATE 10 MG in NS 50 ML IV SCH (17:00)
[2016-05-25] MEDS ORDERED: PALONOSETRON HCL 0.25 MG/5 ML VIAL IVP SCH (17:00)
[2016-05-25] MEDS ORDERED: NS IV SCH (17:30)
[2016-05-25] MEDS ORDERED: BEVACIZUMAB IV SCH (17:30)
[2016-05-25] MEDS ORDERED: D5W IV SCH ×2 (18:00)
[2016-05-25] MEDS ORDERED: LEUCOVORIN CALCIUM IV SCH (18:00)
[2016-05-25] MEDS ORDERED: OXALIPLATIN IV SCH (18:00)
[2016-05-25] MEDS: INSULIN LISPRO 100 UNIT/ML SC SCH (18:13)
[2016-05-25] MEDS ORDERED: FLUOROURACIL IV SCH (20:00)
[2016-05-25] MEDS: FLUOROURACIL IV SCH (20:55)
[2016-05-25] MEDS: D5W IV SCH (20:55)
[2016-05-25] MEDS: NICOTINE 14 MG/24 HR PATCH TD SCH (22:31)
[2016-05-26] MEDS: oxyCODONE IR 5 MG TAB PO PRN ×4 (07:22→18:31)
[2016-05-26] MEDS: INSULIN LISPRO 100 UNIT/ML SC SCH ×3 (08:38→18:27)
[2016-05-26] MEDS: ENOXAPARIN 40 MG/0.4 ML SYR SC SCH (09:19)
[2016-05-26] MEDS: AMOXICILLIN/CLAVULANATE POT 875/125 MG TAB PO SCH ×2 (09:34→19:55)
[2016-05-26] MEDS: NICOTINE 14 MG/24 HR PATCH TD SCH (09:35)
--- NOTE | 2016-05-26 10:11 | SOAPPROG ---
SOAP Progress Note Assessment/Plan: Assessment: 1. Metastatic colon cancer 2. Dental infection Plan: - continue chemo - oral surgery consult - would be helpful to address his teeth while he is in house. His counts are fine right now. - anticipate d/c tomorrow -needs f/u with Dr. Lott 05/26/16 10:10 Subjective: feels well, except for his tooth which is hurting more. Objective: exam unchanged Vital Signs Temp Pulse Resp BP Pulse Ox 36.8 C 55 L 16 108/69 90 L 05/26/16 08:40 05/26/16 08:40 05/26/16 08:40 05/26/16 08:40 05/26/16 08:40 Laboratory Results 05/24/16 10:56 05/24/16 10:56 05/25/16 05/26/16 05/27/16 05:59 05:59 05:59 Intake Total 1077 Balance 1077 ICD10 Worksheet Patient Problems: Problems Problem Status Onset Abdominal pain Acute Liver lesion Acute
[2016-05-26 10:24] LABS: % IMMATURE GRANULYOCYTES 1.4 % (0.0-1.1); ABSOLUTE IMMATURE GRANULOCYTES 0.06 10^3/uL (0.00-0.10); ADD DIFF? NO; ADD MORPH? NO; ADD SCAN? NO; ATYPICAL LYMPHOCYTE FLAG 20 (0-99); FRAGMENT RBC FLAG 0 (0-99); HEMATOCRIT 40.9 % (40.0-51.0); HEMOGLOBIN 14.2 g/dL (13.7-17.5); LEFT SHIFT FLG 20 (0-99); LIPEMIA HEMOLYSIS FLAG 90 (0-99); MEAN CELL HEMOGLOBIN 30.2 pg (27.9-34.1); MEAN CELL HEMOGLOBIN CONCENTR. 34.7 g/dL (32.4-36.7); MEAN PLATELET VOLUME 9.7 fL (8.7-11.7); PLATELET CLUMPS FLAG 0 (0-99); PLATELET COUNT 178 10^3/uL (150-400); RED CELL DISTRIBUTION WIDTH 16.6 % (11.5-15.2)
--- NOTE | 2016-05-26 10:29 | HOSPPROG ---
Hospitalist Progress Note Assessment/Plan: 56 y/o male with metastatic colon cancer here for chemotherapy -cont chemo per onc -anticipate dc 05/27 #dental infection/tooth abscess -cont Augment D#2 -no oral surgeon clinical implementation specialist today -will need outpt followup and outpt antibiotics #tobacco abuse #h/o DM -cont correctional insulin and plan on restarting oral meds on dc Subjective: no fever or chills. tolerating diet Objective: Vital Signs Temp Pulse Resp BP Pulse Ox 36.8 C 55 L 16 108/69 90 L 05/26/16 08:40 05/26/16 08:40 05/26/16 08:40 05/26/16 08:40 05/26/16 08:40 Laboratory Results 05/26/16 10:09 05/25/16 05/26/16 05/27/16 05:59 05:59 05:59 Intake Total 1077 Balance 1077 - Physical Exam Constitutional: no apparent distress, appears nourished, not in pain Ears, Nose, Mouth, Throat: moist mucous membranes, hearing normal, ears appear normal, no oral mucosal ulcers, other (improved purulent drainage from broken right lower molar) Cardiovascular: regular rate and rhythym, no murmur, rub, or gallop Respiratory: no respiratory distress, no rales or rhonchi, clear to auscultation ICD10 Worksheet Patient Problems: Problems Problem Status Onset Liver lesion Acute Abdominal pain Acute
[2016-05-26 10:45] LABS: ANION GAP 5 mEq/L (8-16); CARBON DIOXIDE 26 mEq/l (22-31); CHLORIDE 104 mEq/L (97-110); CREATININE 0.5 mg/dL (0.7-1.3); GLOMERULAR FILTRATION RATE > 60; GLUCOSE 189 mg/dL (70-100); POTASSIUM 4.8 mEq/L (3.5-5.2); SODIUM 135 mEq/L (134-144)
[2016-05-26] MEDS ORDERED: IBUPROFEN 200 MG TAB PO PRN (14:39)
[2016-05-26] MEDS: FLUOROURACIL IV SCH (19:56)
[2016-05-26] MEDS: D5W IV SCH (19:56)
[2016-05-27] MEDS: NICOTINE 14 MG/24 HR PATCH TD SCH (07:55)
[2016-05-27] MEDS: ENOXAPARIN 40 MG/0.4 ML SYR SC SCH (07:55)
[2016-05-27] MEDS: INSULIN LISPRO 100 UNIT/ML SC SCH ×3 (07:55→16:49)
[2016-05-27] MEDS: AMOXICILLIN/CLAVULANATE POT 875/125 MG TAB PO SCH ×2 (09:58→22:34)
--- NOTE | 2016-05-27 10:04 | HOSPPROG ---
Hospitalist Progress Note Assessment/Plan: Colon cancer - receiving Cycle 6 Folfox, followed by Dr. Lott. Will complete chemo heriberto chung dc in am. Case discussed with Oncology. Tooth infection - Day 3 augmentin, no more pain. 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 Will refer to outpt oral surgery. DM - bg's 100-200. Glyburide held due to hypoglycemia risk with decreased appetite. Cont dose adjusted Lispro. Resume oral meds at d/c. DVT PPLX - Lovenox DNR Dispo - likely to intermediate tomorrow Subjective: Pt resting comfortably. Denies oral pain. No abdominal pain, N/V. Decreased appetite. Reports normal BM's. No fevers. Objective: Vital Signs Temp Pulse Resp BP Pulse Ox 36.9 C 69 18 124/71 H 92 05/26/16 19:58 05/26/16 19:58 05/26/16 19:58 05/26/16 19:58 05/26/16 19:58 Laboratory Results 05/26/16 10:09 05/26/16 10:09 05/26/16 05/27/16 05/28/16 05:59 05:59 05:59 Intake Total 1077 1220 Balance 1077 1220 - Physical Exam Constitutional: no apparent distress Eyes: PERRL Ears, Nose, Mouth, Throat: moist mucous membranes Cardiovascular: regular rate and rhythym, no murmur, rub, or gallop Respiratory: no respiratory distress, clear to auscultation Gastrointestinal: normoactive bowel sounds, soft, non-tender abdomen Skin: warm Neurologic: AAOx3 Psychiatric: interacting appropriately ICD10 Worksheet Patient Problems: Problems Problem Status Onset Liver lesion Acute Abdominal pain Acute
--- NOTE | 2016-05-27 12:21 | SOAPPROG ---
SOAP Progress Note Assessment/Plan: E&M colon cancer * Metastatic colon cancer: on FOLFOX which finishes late tonight. Probably go to nursing home early in am * Dental infection: seems better now tooth fell out. If no pain or swelling can hold off abx vs. out on PCN * Follow up with Dr. Lott in couple of weeks (prior to next cycle) Subjective: Denies any complaints. No further oral pain as tooth "fell out" Objective: Vital Signs Temp Pulse Resp BP Pulse Ox 36.9 C 69 18 124/71 H 92 05/26/16 19:58 05/26/16 19:58 05/26/16 19:58 05/26/16 19:58 05/26/16 19:58 Laboratory Results 05/26/16 10:09 05/26/16 10:09 05/26/16 05/27/16 05/28/16 05:59 05:59 05:59 Intake Total 1077 1220 Balance 1077 1220 Physical Exam - Physical Exam General Appearance: no apparent distress EENT: pharynx normal, other (tooth root back right in place but no sign of infection) Respiratory: lungs clear Cardiac/Chest: regular rate, rhythm Abdomen: non-tender, soft ICD10 Worksheet Patient Problems: Problems Problem Status Onset Abdominal pain Acute Liver lesion Acute
[2016-05-27] MEDS: oxyCODONE IR 5 MG TAB PO PRN (12:32)
[2016-05-27 13:57] LABS: % IMMATURE GRANULYOCYTES 0.7 % (0.0-1.1); ABSOLUTE IMMATURE GRANULOCYTES 0.02 10^3/uL (0.00-0.10); ADD DIFF? NO; ADD MORPH? NO; ADD SCAN? NO; ATYPICAL LYMPHOCYTE FLAG 20 (0-99); FRAGMENT RBC FLAG 0 (0-99); HEMATOCRIT 43.6 % (40.0-51.0); HEMOGLOBIN 15.1 g/dL (13.7-17.5); LEFT SHIFT FLG 10 (0-99); LIPEMIA HEMOLYSIS FLAG 90 (0-99); MEAN CELL HEMOGLOBIN 30.1 pg (27.9-34.1); MEAN CELL HEMOGLOBIN CONCENTR. 34.6 g/dL (32.4-36.7); MEAN CELL VOLUME 86.9 fL (81.5-99.8); MEAN PLATELET VOLUME 9.3 fL (8.7-11.7); PLATELET CLUMPS FLAG 0 (0-99); PLATELET COUNT 132 10^3/uL (150-400); RED BLOOD CELL COUNT 5.02 10^6/uL (4.40-6.38); RED CELL DISTRIBUTION WIDTH 16.9 % (11.5-15.2)
[2016-05-27 14:10] LABS: ANION GAP 9 mEq/L (8-16); CARBON DIOXIDE 27 mEq/l (22-31); CHLORIDE 101 mEq/L (97-110); CREATININE 0.6 mg/dL (0.7-1.3); GLOMERULAR FILTRATION RATE > 60; GLUCOSE 137 mg/dL (70-100); POTASSIUM 4.2 mEq/L (3.5-5.2); SODIUM 137 mEq/L (134-144)
[2016-05-28] MEDS: ENOXAPARIN 40 MG/0.4 ML SYR SC SCH (07:27)
[2016-05-28] MEDS: INSULIN LISPRO 100 UNIT/ML SC SCH (07:27)
[2016-05-28] MEDS: NICOTINE 14 MG/24 HR PATCH TD SCH (07:28)
[2016-05-28 09:20] VITALS: BP 124/91; PULSE 91; RESP 16; TEMP 97.4; O2SAT 94
[2016-05-28] MEDS: oxyCODONE IR 5 MG TAB PO PRN (09:29)
[2016-05-28] MEDS: AMOXICILLIN/CLAVULANATE POT 875/125 MG TAB PO SCH (09:30)
[2016-05-28 09:55] LABS: HEMATOCRIT 46.8 % (40.0-51.0); HEMOGLOBIN 16.3 g/dL (13.7-17.5); MEAN CELL HEMOGLOBIN 30.6 pg (27.9-34.1); MEAN CELL HEMOGLOBIN CONCENTR. 34.8 g/dL (32.4-36.7); MEAN CELL VOLUME 87.8 fL (81.5-99.8); RED BLOOD CELL COUNT 5.33 10^6/uL (4.40-6.38); RED CELL DISTRIBUTION WIDTH 17.1 % (11.5-15.2)
[2016-05-28 10:05] LABS: ANION GAP 11 mEq/L (8-16); CALCIUM 8.9 mg/dL (8.5-10.4); CARBON DIOXIDE 26 mEq/l (22-31); CHLORIDE 101 mEq/L (97-110); CREATININE 0.6 mg/dL (0.7-1.3); GLOMERULAR FILTRATION RATE > 60; GLUCOSE 197 mg/dL (70-100); POTASSIUM 3.9 mEq/L (3.5-5.2); SODIUM 138 mEq/L (134-144)
--- NOTE | 2016-05-28 21:34 | GDS ---
DISCHARGE DIAGNOSES: 1. Metastatic colon cancer. 2. Odontogenic infection. 3. Diabetes mellitus. CONSULTANTS: Dr. Cecilio Stallings, Oncology. HISTORY: For details, please see dictated history and physical dated May 25, 2016. In brief, the patient is a 56-year-old male with history of metastatic colon cancer who was directly admitted to [facility] to start cycle 6 of his chemotherapy. HOSPITAL COURSE: The patient was admitted to the oncology unit. Chemotherapy was administered per his oncology team. He completed his 6th cycle of FOLFOX the evening before discharge. Given his ho meless status, he was discharged to the half-way the following morning. During his hospitalization, he was found to have a dental infection. He was started on Augmentin. His tooth apparently fell ou t and his pain was significantly improved. He is discharged to complete 1 more week of Augmentin. DISPOSITION: Patient is discharged to the homeless half-way in stable condition. DISCHARGE MEDICATIONS: Please see [facility] for complete updated outpatient medication list. New me dication on discharge includes Augmentin 875 p.o. b.i.d., #14, no refills. He will continue all oth er outpatient medications as prescribed. FOLLOWUP: 1. Dr. Chino Lott, Oncology. 2. Dr. Darlene Neal, primary care provider. /[id number]/MODL
== END 2016-05-28 11:53 | disposition home or self-care (01) | DRG 847 ==
LOC: RMCCLAB 06:38 → EDSTATUS 05-25 12:15 → F1N 05-25 12:18 → OBSVTOIN 05-25 12:18 → F1N 05-25 12:34
PROVIDERS: ADMIT Internal Medicine Hematology & Oncology; ATTEND Family Medicine
PROC: 3E0330M Introduction of Antineoplastic, Monoclonal Antibody, into Peripheral Vein, Percutaneous Approach (ICD-10-PCS; principal; 2016-05-25)
DX: Z51.11 Encounter for antineoplastic chemotherapy (principal); C18.9 Malignant neoplasm of colon, unspecified; K04.7 Periapical abscess without sinus; E11.65 Type 2 diabetes mellitus with hyperglycemia; Z72.0 Tobacco use; Z59.0 Homelessness
CPT/HCPCS: J0640; J2405; J2469; J9035; J9190; J9263

== ENCOUNTER 2016-06-06 16:29 | Inpatient (IN) | payer MEDICAID ==
[2016-06-06] MEDS ORDERED: NS 1,000 ML IV ONE ×2 (16:48→18:47)
[2016-06-06] MEDS ORDERED: ONDANSETRON 4 MG/2 ML VIAL IVP ONE (17:06)
[2016-06-06] MEDS ORDERED: HYDROmorphONE/DILAUDID 1 MG/ML SYR IVP ONE (17:06)
--- NOTE | 2016-06-06 17:13 | EDPHY ---
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 Reports associated tooth and gum pain for over a week. Reports recent UTI for which he was treated with amoxicillin apparently during a recent hospitalization. Reports he was scheduled for an abdominal CT yesterday with Dr. Lott and missed his appointment. Denies URI symptoms, shortness of breath, chest pain, current abdominal pain, vomiting, diarrhea, , urinary symptoms, back or flank pain. Long-time 1/2 pack daily smoker with type 2 diabetes, chronic pain syndrome with chronic narcotic use, chronic nausea with metastatic colon CA with mets to the liver. He has been on chemo with folfox, last May 25. ROS:10 point review of systems is negative other than as stated in HPI Source: Patient Exam Limitations: No limitations - Personal History Current Tetanus/Diphtheria Vaccine: Yes Current Tetanus Diphtheria and Acellular Pertussis (TDAP): Yes - Medical/Surgical History Hx Asthma: No Hx Chronic Respiratory Disease: No Hx Diabetes: No Hx Cardiac Disease: No Hx Renal Disease: No Hx Cirrhosis: No Hx Alcoholism: No Hx HIV/AIDS: No Hx Splenectomy or Spleen Trauma: No Other PMH: diabetes type 2, Colon CA, stage 4 hepatic cancer - Family History Significant Family History: No pertinent family hx - Social History Smoking Status: Current every day smoker Alcohol Use: Rarely Drug Use: None Additional Social History: Occasionally homeless - Physical Exam Exam: Vital signs stable, reviewed by me General: Awake, alert, calm, cooperative. No acute distress. Head: Normalocephalic. Atraumatic. EENT: PERRLA. EOMI. No pallor or injection. Anicteric. No nystagmus. No injection. TMs intact bilaterally with normal landmarks. No rhinnorhea, nasal passages clear. Oropharynx without redness, exudates, or lesions. Tonsils 2+ bilaterally, no exudates. Neck: Supple, nontender. No lymphadenopathy. Full range of motion. No meningismus. Respiratory: Breathing unlabored. Breath sounds with fine rales right lower lobe. CV: Chest nontender, atraumatic. Heart rate regular. No murmur, distal pulses 2+ bilaterally. Brisk cap refill all extremities. GI: Abdomen soft, nontender. Bowel sounds normoactive and positive x4 quadrants. : No CVA or flank tenderness. Neuro: Alert. Oriented x 3. Speech clear. Nonfocal cranial nerves throughout. Sensation intact all extremities. Skin: Skin warm, dry, intact. No rashes, abrasions, or lacerations. Skin turgor normal. Dentition: Multiple necrotic teeth both posterior left and right molars. No evidence of purulent discharge or significant buccal edema Extremities: Full range of motion in all 4 extremities. Strength 5+ all extremities. Constitutional: Initial Vital Signs Temperature (C) 37.1 C 06/06/16 16:36 Heart Rate 98 06/06/16 16:36 Respiratory Rate 17 06/06/16 16:36 Blood Pressure 128/78 H 06/06/16 16:36 O2 Sat (%) 95 06/06/16 16:36 O2 Delivery Mode Room Air Allergies/Adverse Reactions: No Known Allergies Allergy (Verified 06/06/16 16:36) Home Medications: Medication Instructions Recorded Ascorbic Acid [Vitamin C 500 mg 2,000 mg PO DAILY 04/04/16 (*)] Cholecalciferol Vit D3 [Vitamin D3 1,000 units PO DAILY 04/04/16 (*)] Multivitamins [Multivitamin (*)] 1 each PO DAILY 04/04/16 Dronabinol [Marinol 2.5 MG (*)] 5 mg PO Q8H PRN #30 cap 04/07/16 Prochlorperazine Maleate 10 mg PO Q6HRS PRN 05/09/16 [Compazine 10mg (*)] Promethazine HCl [Phenergan 25mg 12.5 - 25 mg PO Q6HRS PRN #30 tab 05/12/16 (*)] Amoxicillin/Clavulanate Pot 875 mg PO BID #14 tab 05/28/16 [Augmentin 875 MG TAB (*)] LORazepam [Ativan (*)] 1 mg PO Q8 PRN #30 tab 05/28/16 glyBURIDE [Micronase] 2.5 mg PO DAILY@0800 #30 tab 05/28/16 oxyCODONE IR [Oxycodone Ir (*)] 5 - 10 mg PO Q6H PRN #30 tab 05/28/16 Medical Decision Making - Diagnostics Imaging: Chest, PA and Lateral History: Rales Comparison: 04/19/2016 Findings: A right chest wall implanted port remains in place with tip of its catheter at the cavoatrial junction. Lungs are clear, without infiltrate or consolidation. Heart size and pulmonary vascularity are normal. There is no pulmonary edema. Lung volumes are prominent consistent with a degree of air trapping. There is no adenopathy or mass lesion. There is no pleural effusion . There is chronic degenerative spurring in the lower thoracic spine.. Impression: No evidence for pneumonia or pulmonary edema. Dictated By: Cecilio Ewing MD Maxillofacial CT: Indication: Rule out mandibular abscess: Multiple periapical abscesses in his molars but no evidence of soft tissue abscess, final report pending at time this dictation ED Course/Re-evaluation: 48-year-old male presents to emergency department with chief concern profound fatigue, myalgias, arthralgias associated with chills x3 days. He is a type 2 diabetic with a history of metastatic colon CA. Reports recent diagnosis with possible tooth/jaw all abscess for which he was supposed to be evaluated by an oral surgeon but has not yet done so, as well as recent diagnosis of UTI. He has been receiving Folfax under the care of Dr. Lott. Was scheduled for a CT with Dr. Lott yesterday and missed his appointment. 171: IV started. Labs drawn. White count 88596. RBCs 4.68, hemoglobin 16.3, hematocrit 41.5. Platelets 88. Lactic acid 1.4. Sodium 131. CO2 21. Anion gap 11. Total bili 0.9, conjugated bili 0.6, unconjugated bili 0.3, alk-phos 189. Negative for flu. Chest x-ray negative for evidence of pneumonia or infiltrate, urinalysis pending, maxillofacial CT with IV contrast pending. 0: Pain has improved somewhat after [address] negative for soft tissue abscess. There are multiple periapical abscesses in his molars. Will begin a course of Augmentin. 1st dose given in ED. Patient understands he needs to follow up with an oral surgeon. 2nd L normal saline hung. Urinalysis still pending. 1900: Dr. Friend of Oncology was notified of this patient's ER visit. I have consulted Dr. Deacon Anderson of the hospitalist service and patient admission is pending. Care of this patient has been transferred to my colleague Dr. Miguel Angel Lopez. Differential Diagnosis: Differential diagnosis includes but is not limited to UTI, pneumonia, sepsis, dental abscess, metabolic derangement, metastasis - Data Points Laboratory Results: Laboratory Results 06/06/16 17:15 06/06/16 17:15 06/06/16 06/06/16 06/06/16 17:30 17:15 17:15 WBC RBC Hgb Hct MCV MCH MCHC RDW Plt Count MPV Neut % (Auto) Lymph % (Auto) Polk % (Auto) Eos % (Auto) Baso % (Auto) Nucleat RBC Rel Count Absolute Neuts (auto) Absolute Lymphs (auto) Absolute Monos (auto) Absolute Eos (auto) Absolute Basos (auto) Absolute Nucleated RBC Immature Gran % Immature Gran # VBG Lactic Acid 1.4 mmol/L mmol/L (0.7-2.1) Sodium 131 mEq/L L mEq/L (134-144) Potassium 4.2 mEq/L mEq/L (3.5-5.2) Chloride 99 mEq/L mEq/L (97-110) Carbon Dioxide 21 mEq/l L mEq/l (22-31) Anion Gap 11 mEq/L mEq/L (8-16) BUN 14 mg/dL mg/dL (7-23) Creatinine 0.6 mg/dL L mg/dL (0.7-1.3) Estimated GFR > 60 Glucose 169 mg/dL H mg/dL (70-100) Calcium 8.5 mg/dL mg/dL (8.5-10.4) Total Bilirubin 0.9 mg/dL mg/dL (0.1-1.4) Conjugated Bilirubin 0.6 mg/dL H mg/dL (0.0-0.5) Unconjugated Bilirubin 0.3 mg/dL mg/dL (0.0-1.1) AST 28 IU/L IU/L (17-59) ALT 38 IU/L IU/L (21-72) Alkaline Phosphatase 189 IU/L H IU/L (38-126) Total Protein 6.6 g/dL g/dL (6.3-8.2) Albumin 3.4 g/dL L g/dL (3.5-5.0) Influenza Typ A,B (DFA) NEGATIVE FOR FLU (NEGATIVE) 06/06/16 17:15 WBC 11.44 10^3/uL H 10^3/uL (3.80-9.50) RBC 4.68 10^6/uL 10^6/uL (4.40-6.38) Hgb 14.3 g/dL g/dL (13.7-17.5) Hct 41.5 % % (40.0-51.0) MCV 88.7 fL fL (81.5-99.8) MCH 30.6 pg pg (27.9-34.1) MCHC 34.5 g/dL g/dL (32.4-36.7) RDW 16.6 % H % (11.5-15.2) Plt Count 88 10^3/uL L 10^3/uL (150-400) MPV 9.5 fL fL (8.7-11.7) Neut % (Auto) 80.4 % H % (39.3-74.2) Lymph % (Auto) 10.9 % L % (15.0-45.0) Polk % (Auto) 7.8 % % (4.5-13.0) Eos % (Auto) 0.3 % L % (0.6-7.6) Baso % (Auto) 0.3 % % (0.3-1.7) Nucleat RBC Rel Count 0.0 % % (0.0-0.2) Absolute Neuts (auto) 9.20 10^3/uL H 10^3/uL (1.70-6.50) Absolute Lymphs (auto) 1.25 10^3/uL 10^3/uL (1.00-3.00) Absolute Monos (auto) 0.89 10^3/uL H 10^3/uL (0.30-0.80) Absolute Eos (auto) 0.03 10^3/uL 10^3/uL (0.03-0.40) Absolute Basos (auto) 0.03 10^3/uL 10^3/uL (0.02-0.10) Absolute Nucleated RBC 0.00 10^3/uL 10^3/uL (0-0.01) Immature Gran % 0.3 % % (0.0-1.1) Immature Gran # 0.04 10^3/uL 10^3/uL (0.00-0.10) VBG Lactic Acid Sodium Potassium Chloride Carbon Dioxide Anion Gap BUN Creatinine Estimated GFR Glucose Calcium Total Bilirubin Conjugated Bilirubin Unconjugated Bilirubin AST ALT Alkaline Phosphatase Total Protein Albumin Influenza Typ A,B (DFA) Medications Given: Discontinued Medications Hydromorphone HCl (Dilaudid) 1 mg IVP EDNOW ONE Stop: 06/06/16 17:07 Last Admin: 06/06/16 17:20 Dose: 1 mg Sodium Chloride (Ns) 1,000 mls @ 0 mls/hr IV ONCE ONE PRN Reason: Wide Open Stop: 06/06/16 16:49 Last Admin: 06/06/16 17:20 Dose: 1,000 mls Ondansetron HCl (Zofran) 4 mg IVP EDNOW ONE Stop: 06/06/16 17:07 Last Admin: 06/06/16 17:20 Dose: 4 mg Departure - Departure Referrals: Patient,NotPresent [Unknown] - As per Instructions
[2016-06-06 17:27] LABS: % IMMATURE GRANULYOCYTES 0.3 % (0.0-1.1); ABSOLUTE IMMATURE GRANULOCYTES 0.04 10^3/uL (0.00-0.10); ADD DIFF? NO; ADD MORPH? NO; ADD SCAN? NO; ATYPICAL LYMPHOCYTE FLAG 50 (0-99); FRAGMENT RBC FLAG 0 (0-99); HEMATOCRIT 41.5 % (40.0-51.0); HEMOGLOBIN 14.3 g/dL (13.7-17.5); LEFT SHIFT FLG 0 (0-99); LIPEMIA HEMOLYSIS FLAG 90 (0-99); MEAN CELL HEMOGLOBIN 30.6 pg (27.9-34.1); MEAN CELL HEMOGLOBIN CONCENTR. 34.5 g/dL (32.4-36.7); MEAN CELL VOLUME 88.7 fL (81.5-99.8); MEAN PLATELET VOLUME 9.5 fL (8.7-11.7); PLATELET CLUMPS FLAG 0 (0-99); PLATELET COUNT 88 10^3/uL (150-400); RED BLOOD CELL COUNT 4.68 10^6/uL (4.40-6.38); RED CELL DISTRIBUTION WIDTH 16.6 % (11.5-15.2)
[2016-06-06] MEDS ORDERED: IOPAMIDOL (ISOVUE-300) 100 ML BTL IV ONE (17:41)
[2016-06-06 17:48] LABS: ALANINE AMINOTRANSFERASE 38 IU/L (21-72); ALBUMIN 3.4 g/dL (3.5-5.0); ALKALINE PHOSPHATASE 189 IU/L (38-126); ANION GAP 11 mEq/L (8-16); ASPARTATE AMINOTRANSFERASE 28 IU/L (17-59); BILIRUBIN,TOTAL 0.9 mg/dL (0.1-1.4); BILIRUBIN-CONJUGATED 0.6 mg/dL (0.0-0.5); BILIRUBIN-UNCONJUGATED 0.3 mg/dL (0.0-1.1); CALCIUM 8.5 mg/dL (8.5-10.4); CARBON DIOXIDE 21 mEq/l (22-31); CHLORIDE 99 mEq/L (97-110); CREATININE 0.6 mg/dL (0.7-1.3); GLOMERULAR FILTRATION RATE > 60; GLUCOSE 169 mg/dL (70-100); POTASSIUM 4.2 mEq/L (3.5-5.2); SODIUM 131 mEq/L (134-144); TOTAL PROTEIN 6.6 g/dL (6.3-8.2)
[2016-06-06] MEDS ORDERED: AMOXICILLIN/CLAVULANATE POT 875/125 MG TAB PO ONE (18:40)
[2016-06-06] MEDS ORDERED: ONDANSETRON 4 MG/2 ML VIAL IVP PRN (19:40)
[2016-06-06] MEDS ORDERED: PROMETHAZINE HCL 25 MG TAB PO PRN ×2 (19:40→21:05)
[2016-06-06] MEDS ORDERED: ONDANSETRON DISINTEGRATING 4 MG TAB PO PRN (19:40)
[2016-06-06] MEDS ORDERED: diphenhydrAMINE 25 MG CAP PO PRN (19:40)
[2016-06-06 20:28] LABS: COLOR YELLOW; LEUKOCYTE ESTERASE,URINE 1+ (NEGATIVE); NITRITE,URINE NEGATIVE (NEGATIVE)
[2016-06-06 20:39] LABS: WBC,URINE 50-182 /hpf (0-3)
[2016-06-06] MEDS: NS 1,000 ML IV SCH (21:05)
[2016-06-06] MEDS: HYDROmorphONE/DILAUDID 2 MG TAB PO PRN (21:05)
[2016-06-06] MEDS ORDERED: AMOXICILLIN/CLAVULANATE POT 875/125 MG TAB PO SCH (21:30)
[2016-06-07] MEDS: NS 1,000 ML IV SCH (03:38)
[2016-06-07 06:03] LABS: % IMMATURE GRANULYOCYTES 0.6 % (0.0-1.1); ABSOLUTE IMMATURE GRANULOCYTES 0.06 10^3/uL (0.00-0.10); ADD DIFF? NO; ADD MORPH? NO; ADD SCAN? NO; ATYPICAL LYMPHOCYTE FLAG 0 (0-99); FRAGMENT RBC FLAG 0 (0-99); HEMATOCRIT 39.1 % (40.0-51.0); HEMOGLOBIN 13.5 g/dL (13.7-17.5); LEFT SHIFT FLG 0 (0-99); LIPEMIA HEMOLYSIS FLAG 90 (0-99); MEAN CELL HEMOGLOBIN 30.9 pg (27.9-34.1); MEAN CELL HEMOGLOBIN CONCENTR. 34.5 g/dL (32.4-36.7); MEAN CELL VOLUME 89.5 fL (81.5-99.8); PLATELET CLUMPS FLAG 10 (0-99); PLATELET COUNT 78 10^3/uL (150-400); RED BLOOD CELL COUNT 4.37 10^6/uL (4.40-6.38); RED CELL DISTRIBUTION WIDTH 16.3 % (11.5-15.2)
[2016-06-07 06:13] LABS: ALANINE AMINOTRANSFERASE 35 IU/L (21-72); ALBUMIN 3.1 g/dL (3.5-5.0); ALKALINE PHOSPHATASE 177 IU/L (38-126); ANION GAP 7 mEq/L (8-16); ASPARTATE AMINOTRANSFERASE 25 IU/L (17-59); BILIRUBIN,TOTAL 0.8 mg/dL (0.1-1.4); CALCIUM 8.1 mg/dL (8.5-10.4); CARBON DIOXIDE 23 mEq/l (22-31); CHLORIDE 105 mEq/L (97-110); CREATININE 0.6 mg/dL (0.7-1.3); GLOMERULAR FILTRATION RATE > 60; GLUCOSE 134 mg/dL (70-100); POTASSIUM 4.3 mEq/L (3.5-5.2); SODIUM 135 mEq/L (134-144)
[2016-06-07] MEDS: glyBURIDE 2.5 MG TAB PO SCH (07:58)
[2016-06-07] MEDS: oxyCODONE IR 5 MG TAB PO PRN ×2 (08:02→14:34)
[2016-06-07] MEDS: MULTIVITAMINS 1 EACH TAB PO SCH (08:02)
[2016-06-07] MEDS: ASCORBIC ACID 500 MG TAB PO SCH (08:02)
[2016-06-07] MEDS: ENOXAPARIN 40 MG/0.4 ML SYR SC SCH (08:05)
[2016-06-07] MEDS ORDERED: AMOXICILLIN/CLAVULANATE POT 875/125 MG TAB PO SCH (09:00)
--- NOTE | 2016-06-07 10:55 | GHP ---
[f rep st] HISTORY AND PHYSICAL DATE OF ADMISSION: 06/06/2016 PRIMARY ONCOLOGIST: Dr. Chino Lott. CHIEF COMPLAINT: Acute weakness. HISTORY OF PRESENT ILLNESS: A 56-year-old male presenting with acute weakness characterized as inability to ambulate secondary to generalized sensation of weakness with associated myalgias, arthralgias, chills. Onset of symptoms on the day of presentation and duration persistent and worsening thereafter. The patient's partner reports that he was unable to physically ambulate on the day of this presentation. The patient has experienced anorexia since his most recent chemotherapy treatment and he also reports that his teeth have begun to fracture and fall out. This has occurred in the setting of him taking the antibiotic he was prescribed at discharge, notably Augmentin. He reports that he has also had oliguria and poor oral intake of liquids. He reports that these symptoms are very different than any symptom he has experienced after any of his previous cycles of chemotherapy. He reports that his bowel movements have been normal in consistency and he has not been vomiting. He does endorse a mild cough and sore lymph nodes. REVIEW OF SYSTEMS: Significant for myalgias, arthralgias, chills, weakness. All other 10-point review of systems otherwise negative. PAST MEDICAL HISTORY: 1. Stage IV colon cancer with pelvic wall and liver metastases, status post FOLFOX chemotherapy, 6th cycle on 05/25/2016. 2. Periodontal abscesses with recent prescription of Augmentin. 3. Diabetes mellitus type 2. 4. Depression. PAST SURGICAL HISTORY: Appendectomy, sigmoid resection in January of 2016. HOME MEDICATIONS: Yet to be reconciled. SOCIAL HISTORY: The patient smokes. He does not drink alcohol. He is homeless. FAMILY HISTORY: The patient's partner/fiancee reports that she has been experiencing viral symptoms over the past several days but they have been improving. ALLERGIES: No known drug allergies. PHYSICAL EXAMINATION: VITAL SIGNS: Systolic blood pressure 128, heart rate 98, respirations 17, SpO2 95% on room air, temperature 37.1. GENERAL: Alert, awake, oriented x3. Mild amount of distress. The patient is symptomatically in pain. He is chronically ill appearing. NEUROLOGICAL: Motor strength is 5/5 bilateral lower extremities and 5/5 in the bilateral upper extremities. Sensation is intact bilaterally. The patient has facial symmetry. PSYCHIATRIC: Flat affect, not encephalopathic, not anxious or agitated. ENT: Moist mucous membranes, poor dentition, no oral thrush. EYES: Pupils equal, round, reactive to light, slightly injected. Conjunctivae anicteric. LYMPH: Tender 2+ cm bilateral anterior cervical lymph nodes without any posterior cervical lymphadenopathy or supraclavicular lymphadenopathy. RESPIRATORY: Clear to auscultation bilaterally. No crackles or wheezes. CARDIAC: Regular rate and rhythm. No murmurs, rubs, or gallops appreciated. No lower extremity edema. MUSCULOSKELETAL: Tenderness to palpation in the proximal tendon insertions of the calf muscles. No tenderness to palpation over the distal quad muscles. Full range of motion of bilateral knees and ankles without any pain. SKIN: No erythema, no ecchymosis, no induration at the port site. DATA: Lab values: Serum sodium 131, creatinine 0.6, white blood cell count 11, 400, hemoglobin 14.3, platelets 88,000. Lactate 1.4, flu DFA negative, liver panel unremarkable. IMAGING: Chest x-ray demonstrates no focal infiltrate. I personally interpreted this study. CT of the face demonstrates some periodontal abscesses. Outside records: 05/28/[address] Chandni Richter describes patient's most recent hospitalization for his 6th cycle of FOLFOX complicated by periodontal abscesses, prescribed 1 week of Augmentin at time of discharge. ASSESSMENT: A 56-year-old male presents with acute viral syndrome vs. bacteremia in the setting of recent chemotherapy. PLAN: 1. Suspected viral syndrome. Acute, new problem for this provider, further workup indicated. The symptoms include arthralgias, myalgias and chills with diffuse body pain. Discussed with Johana Ordoñez, emergency department provider. She has informed me that the patient has a negative flu DFA but I would like to get a flu PCR to ensure that he does not have contagious influenza. We will otherwise treat him supportively with IV fluids, Tylenol, ibuprofen, Dilaudid and advance his diet as tolerates. Will send blood cultures to rule out bacteremia. 2. I do not believe that this represents a FOLFOX toxicity as he has not experienced these symptoms after his chemotherapy regimens in the past. 3. Metastatic colon cancer. We will consult with the Oncology service in the a.m. He was due for staging as an outpatient and we will defer to them whether staging occurs at this time. 4. Diet. Regular. 5. Prophylaxis. High risk patient, Lovenox 40. 6. Code status. Full. DISPOSITION: Anticipated discharge uncertain, pending further w/u above, anticipate he will require > 48hrs inpatient admission to evaluate for possible bacteremia given how clinically ill he appears at present, as well as his high risk comorbidities. It was a pleasure serving the patient. /[id number]/MODL MTDD
--- NOTE | 2016-06-07 14:01 | GCON ---
[f rep st] CONSULTATION NEW PATIENT CONSULTATION. REQUESTING PHYSICIAN: ED Department and YAMILA Dorantes. REASON FOR CONSULTATION: Patient known to Dr. Lott with metastatic colon cancer, admitted with weakness, myalgias, and arthralgias. HISTORY OF PRESENT ILLNESS: The patient is a 56-year-old gentleman with a diagnosis of sigmoid colon cancer in January of 2016. This was resected, but was discovered to be adherent to pelvic wall and subsequently significant liver disease was discovered. He has significant psychosocial issues that complicate his therapy that include currently being homeless. He has been on FOLFOX therapy, recently completed cycle 6 of FOLFOX, which was given in hospital 05/25. He has also been getting Avastin for metastatic colorectal cancer. He was due for restaging scans this week, but he presented to the emergency department complaining of myalgias, arthralgias, and weakness. On recent admission, he was discovered to have a tooth abscess and was put on Augmentin. He did not fill the Augmentin as an outpatient, and then he started to complain of dysuria and cloudy urine, and then he filled the Augmentin and felt like his urinary symptoms resolved. Yesterday, he presented with acute weakness characterized by inability to ambulate with associated myalgias, arthralgias, and chills. He did not take a temperature at home. Patient has had anorexia and mild to moderate toxicities from his chemotherapy. He reported oliguria and poor intake of fluids. REVIEW OF SYSTEMS: As per HPI. Otherwise, he reports the dysuria had improved on the Augmentin. He denies any hematuria, new cough, bone pain, or neurologic symptoms. PAST MEDICAL HISTORY: 1. Stage IV colon cancer with pelvic wall and liver mets on FOLFOX chemotherapy status post cycle six 05/25/2016 pending restaging scans. 2. Periodontal abscess with recent prescription of Augmentin. 3. Diabetes mellitus type 2. 4. Depression. PAST SURGICAL HISTORY: 1. Appendectomy. 2. Sigmoid resection January 2016. MEDICATIONS: At home, reviewed in EMR. SOCIAL: Patient smokes. He does not drink alcohol. He is homeless. FAMILY HISTORY: Noncontributory. ALLERGIES: No known drug allergies. PHYSICAL EXAM: VITAL SIGNS: Blood pressure 125/74, pulse 71, respiration 18, saturating 95% on room air, temperature 37.1, on presentation was 36.6. GENERAL : Middle-age man, chronically ill appearing, not in acute distress. HEENT: Anicteric. Oropharynx is dry. HEART: Regular rate and rhythm. LUNGS: Clear to auscultation. ABDOMEN: Soft, tender to palpation right upper quadrant. Bowel sounds are positive. Denies suprapubic pain or tenderness to palpation. LOWER EXTREMITIES: No edema. SKIN: No rash. LABORATORY DATA: Today, white blood cell count 9.69, hemoglobin 13.5, hematocrit 39.1, platelet count of 78,000. Lactic acid was 1.4, sodium 135, potassium 4.3, BUN 9, creatinine 0.6, glucose 134, calcium 8.1, total bilirubin 0.8, AST 25, ALT 35, alkaline phosphatase 177, total protein 6.0. Urinalysis was yellow clear, 1+ blood with 10-15 RBCs, urine WBCs 50-182, leukocyte esterase was 1+. He was negative for flu. His blood cultures drawn yesterday came back positive for gram-negative rods growth in 2 out of 2 bottles. The final culture is E coli, and it seems as though sensitivities are pending. ASSESSMENT AND PLAN: A 56-year-old homeless gentleman with metastatic colorectal cancer on FOLFOX and Avastin chemotherapy most recently 05/25/2016. Patient presented with nonspecific weakness, myalgias and arthralgias, now discovered to have blood cultures positive for Escherichia coli and urinalysis suggestive of genitourinary source. 1. Urosepsis. Sensitivities on Escherichia coli are pending. Currently on ceftriaxone, which I think is reasonable, although patient reports urinary tract infections in the past and may have developed resistance. Vital signs are stable and patient is being hydrated. Was pending repeat imaging for restaging, and I think it is reasonable to hold off on this imaging, but important to evaluate why he may have recurrent urinary tract symptoms. Would discuss w ID whether or not MediPORT should be removed given positive blood cultures. May not need to be w E.coli 2. Recent periodontal abscess. Patient reports this pain is improved and remains on Augmentin. Will be discontinues now on ceftriaxone. The imaging done on this admission shows periapical abscess involving right maxillary and mandibular molars. No soft tissue abscess was identified. 3. Metastatic colon cancer, presumably responding to treatment and has been on FOLFOX and Avastin. Restaging scans were pending to determine if he was going to move on to maintenance Avastin. Patient has had a hard time with chemotherapy and requires hospital admission for infusion. 4. Pain, nausea and vomiting. Patient has outpatient p.r.n. medications including oxycodone and lorazepam. More than 30 minutes were spent with the patient, more than 50% of the time counseling and coordinating care. Will discuss with primary oncologist Dr. Lott and discuss with hospitalist. /[id number]/MODL MTDD
[2016-06-07] MEDS: LORazepam 1 MG TAB PO PRN (16:10)
[2016-06-07] MEDS: DRONABINOL 2.5 MG CAP PO PRN (16:10)
--- NOTE | 2016-06-07 16:17 | HOSPPROG ---
Hospitalist Progress Note Assessment/Plan: # acute E coli bacteremia- suspected source is urinary- patient presented with nonspecific complaints and leukocytosis status post recent chemotherapy urinalysis was abnormal at presentation with history of recurrent UTIs- - IV ceftriaxone empirically while awaiting sensitivities - will treat until the patient clears cultures- approximately 4 days of IV antibiotics - discuss with ID no need to remove the port in the setting of E coli bacteremia - surveillance cultures tomorrow # acute UTI- antibiotics as outlined above # acute leukocytosis- as above- chest x-ray (personally reviewed and interpreted) no infiltrates- oxygen saturations 93% on room air # stage IV metastatic colon cancer- oncology consulting # prophylaxis Lovenox # diet is tolerated # disposition greater than 2 midnights as patient is requiring IV antibiotics for gram-negative bacteremia I have discussed the case with Oncology- we will keep the patient's chemotherapy port in place and treat through with IV antibiotic Subjective: still feels weak Objective: Vital Signs Temp Pulse Resp BP Pulse Ox 36.4 C 79 18 127/83 H 93 06/07/16 12:00 06/07/16 12:00 06/07/16 12:00 06/07/16 12:00 06/07/16 12:00 Laboratory Results 06/07/16 05:40 06/07/16 05:40 06/06/16 06/07/16 06/08/16 05:59 05:59 05:59 Intake Total 3769 Output Total 975 Balance 2794 - Physical Exam Constitutional: chronically ill appearing Eyes: anicteric sclera Ears, Nose, Mouth, Throat: dry mucous membranes Cardiovascular: regular rate and rhythym Respiratory: no respiratory distress Gastrointestinal: normoactive bowel sounds, tenderness Genitourinary: no bladder fullness Skin: warm, normal color Musculoskeletal: No asymmetric calves Neurologic: AAOx3 Psychiatric: interacting appropriately Lymph, Heme, Immunologic: no cervical LAD ICD10 Worksheet Patient Problems: Problems Problem Status Onset Abdominal pain Acute Liver lesion Acute
[2016-06-07] MEDS: IBUPROFEN 200 MG TAB PO PRN (22:10)
[2016-06-07] MEDS: HYDROmorphONE/DILAUDID 2 MG TAB PO PRN (22:10)
[2016-06-08 03:59] LABS: HEMATOCRIT 42.2 % (40.0-51.0); HEMOGLOBIN 14.6 g/dL (13.7-17.5); MEAN CELL HEMOGLOBIN 30.9 pg (27.9-34.1); MEAN CELL HEMOGLOBIN CONCENTR. 34.6 g/dL (32.4-36.7); MEAN CELL VOLUME 89.2 fL (81.5-99.8); RED BLOOD CELL COUNT 4.73 10^6/uL (4.40-6.38); RED CELL DISTRIBUTION WIDTH 15.9 % (11.5-15.2)
[2016-06-08 04:10] LABS: ANION GAP 8 mEq/L (8-16); CALCIUM 8.5 mg/dL (8.5-10.4); CARBON DIOXIDE 25 mEq/l (22-31); CHLORIDE 107 mEq/L (97-110); CREATININE 0.6 mg/dL (0.7-1.3); GLOMERULAR FILTRATION RATE > 60; GLUCOSE 103 mg/dL (70-100); POTASSIUM 4.2 mEq/L (3.5-5.2); SODIUM 140 mEq/L (134-144)
[2016-06-08] MEDS: oxyCODONE IR 5 MG TAB PO PRN ×2 (07:53→20:14)
[2016-06-08] MEDS: glyBURIDE 2.5 MG TAB PO SCH (07:53)
[2016-06-08] MEDS: MULTIVITAMINS 1 EACH TAB PO SCH (09:38)
[2016-06-08] MEDS: ASCORBIC ACID 500 MG TAB PO SCH (09:38)
[2016-06-08] MEDS: ENOXAPARIN 40 MG/0.4 ML SYR SC SCH (09:40)
--- NOTE | 2016-06-08 14:11 | SOAPPROG ---
SOAP Progress Note Assessment/Plan: Assessment/Plan: 56 yo w Stage IV colorectal ca who p/w myalgias, arthralgias, and weakness discovered to have e. coli bacteremia presumably from urinary source 1. E. Coli bacteremia - on IV ceftriaxone. awaiting sensitivities but patient feeling much better Repeat blood cultures pending No need to remove MediPORT per IM/ID 2. Periodontal abscess - appear improved s/p abx 3. Stage IV colorectal ca w mets to liver - most recently on FOLFOX+Avastin and seemingly having a good response Pending re-staging scans May be moving towards maintenance Avastin 4. Pain, N/V - prn meds 5. Thrombocytopenia - chemo induced, improving 06/08/16 14:12 Subjective: Denies acute events Feeling better since admission Objective: Vital Signs Temp Pulse Resp BP Pulse Ox 36.3 C 63 12 126/79 H 95 06/08/16 08:00 06/08/16 08:00 06/08/16 08:00 06/08/16 08:00 06/08/16 08:00 Laboratory Results 06/08/16 03:55 06/08/16 03:55 Gen - NAD, up walking around HEENT - anicteric CV - RRR Abd -soft, TTP RUQ Ext - no sig edema ICD10 Worksheet Patient Problems: Problems Problem Status Onset Abdominal pain Acute Liver lesion Acute
--- NOTE | 2016-06-08 14:46 | HOSPPROG ---
Hospitalist Progress Note Assessment/Plan: # Acute E coli bacteremia- suspected source is urinary- patient presented with nonspecific complaints and leukocytosis status post recent chemotherapy urinalysis was abnormal at presentation with history of recurrent UTIs- WBC normalized to 6 this am on Ceftriaxone - IV ceftriaxone empirically while awaiting sensitivities - will treat until the patient clears cultures- - surveillance cultures drawn today if negative at 48 hours can dc on PO # acute UTI- antibiotics as outlined above # acute leukocytosis- as above- chest x-ray - no infiltrates- oxygen saturations 93% on room air # Acute on chronic Sinusitis - Face CT (personally reviewed and interpreted) shows bilateral sinusitis - cont ceftriaxone # stage IV metastatic colon cancer- oncology following # prophylaxis Lovenox # diet is tolerated # disposition greater than 2 midnights as patient is requiring IV antibiotics for gram-negative bacteremia I have discussed the case with RN - Surveillance cultures today to help guide length of IV antibiotics Subjective: feeling better Objective: Vital Signs Temp Pulse Resp BP Pulse Ox 36.3 C 63 12 126/79 H 95 06/08/16 08:00 06/08/16 08:00 06/08/16 08:00 06/08/16 08:00 06/08/16 08:00 Laboratory Results 06/08/16 03:55 06/08/16 03:55 - Physical Exam Constitutional: chronically ill appearing Eyes: anicteric sclera Ears, Nose, Mouth, Throat: moist mucous membranes Cardiovascular: regular rate and rhythym Respiratory: no respiratory distress Gastrointestinal: normoactive bowel sounds, soft, non-tender abdomen Genitourinary: no bladder fullness Skin: warm, normal color Musculoskeletal: No asymmetric calves Neurologic: AAOx3 Psychiatric: interacting appropriately Lymph, Heme, Immunologic: no cervical LAD ICD10 Worksheet Patient Problems: Problems Problem Status Onset Abdominal pain Acute Liver lesion Acute
[2016-06-09] MEDS: DRONABINOL 2.5 MG CAP PO PRN ×2 (00:20→15:37)
[2016-06-09] MEDS: LORazepam 1 MG TAB PO PRN ×2 (00:20→15:37)
[2016-06-09] MEDS: HYDROmorphONE/DILAUDID 1 MG/ML SYR IVP PRN ×7 (01:47→16:43)
[2016-06-09] MEDS ORDERED: KETOROLAC 30 MG/1 ML SDV IVP ONE (03:00)
[2016-06-09] MEDS ORDERED: HYDROmorphONE/DILAUDID 1 MG/ML SYR IVP ONE (03:00)
[2016-06-09] MEDS: oxyCODONE IR 5 MG TAB PO PRN (03:03)
[2016-06-09] MEDS ORDERED: oxyCODONE IR 5 MG TAB PO PRN (06:34)
[2016-06-09] MEDS: ENOXAPARIN 40 MG/0.4 ML SYR SC SCH (08:50)
[2016-06-09] MEDS: ASCORBIC ACID 500 MG TAB PO SCH (08:50)
[2016-06-09] MEDS: MULTIVITAMINS 1 EACH TAB PO SCH (08:50)
[2016-06-09] MEDS: glyBURIDE 2.5 MG TAB PO SCH (08:50)
[2016-06-09] MEDS: NS 1,000 ML IV SCH ×2 (08:58→15:36)
[2016-06-09] MEDS: CHOLECALCIFEROL VIT D3 1,000 UNITS TAB PO SCH (11:50)
--- NOTE | 2016-06-09 13:08 | SOAPPROG ---
SOAP Progress Note Assessment/Plan: Assessment: 1.) E. Coli Urosepsis 2.) Stage IV Colon cancer with liver mets at diagnosis, showing good response to multiple months of FOLFOX + Avastin regimen 3.) Abd. pain possibly due to ileus 4.) Hx. of Tobacco use 5.) Social situation: Homeless living arrangement 6.) COPD Plan: 1.) Continue antibiotics pending E. Coli sensitivities 2.) Abd. XRay today to evaluate for potential ileus 3.) Supportive meds 4.) Pt will need full recovery from this episode of sepsis before continuing Tx for his colon cancer. 06/09/16 13:08 Subjective: Very flat affect/ sedated/ looks uncomfortable, but in NAD. Friend at the bedside at the time of this visit. Objective: Looks withdrawn. VSS, Afebrile HEENT- pale anicteric, no oral thrush Neck - supple, no LN enlargement Chest- clear Mediport accessed/NT CVS- RSR, no extra HS ABD- soft,mildly distended, BS+, No ascites. No rebound EXT- no peripheral edema. Labs as noted here. E. Coli bacteremia awaiting sensitivities Vital Signs Temp Pulse Resp BP Pulse Ox 36.6 C 54 L 16 186/87 H 94 06/09/16 08:00 06/09/16 08:00 06/09/16 08:00 06/09/16 08:00 06/09/16 08:00 Laboratory Results 06/08/16 03:55 06/08/16 03:55 ICD10 Worksheet Patient Problems: Problems Problem Status Onset Abdominal pain Acute Liver lesion Acute
--- NOTE | 2016-06-09 15:04 | HOSPPROG ---
Hospitalist Progress Note Assessment/Plan: # Acute E coli bacteremia- suspected source is urinary- patient presented with nonspecific complaints and leukocytosis status post recent chemotherapy urinalysis was abnormal at presentation with history of recurrent UTIs- WBC normalized to 6 this am on Ceftriaxone - IV ceftriaxone - will transition to Levofloxacin PO as romo-sensitive when bcx neg x 48 hours - surveillance cultures negative x 24 hours # acute abdominal pain - new ovenright - normal BM yesterday - check Abd films to r/o ileus/SBO # acute UTI- antibiotics as outlined above # acute leukocytosis- as above- chest x-ray - no infiltrates- oxygen saturations 94% on room air # Acute on chronic Sinusitis - Face CT - shows bilateral sinusitis - cont ceftriaxone # stage IV metastatic colon cancer- oncology following # prophylaxis Lovenox # diet is tolerated # disposition greater than 2 midnights as patient is requiring IV antibiotics for gram-negative bacteremia I have discussed the case with RN - will check Abd film to rule out ileus Subjective: abd pain Objective: Vital Signs Temp Pulse Resp BP Pulse Ox 36.7 C 68 14 179/102 H 94 06/09/16 14:56 06/09/16 14:56 06/09/16 14:56 06/09/16 14:56 06/09/16 14:56 Laboratory Results 06/08/16 03:55 06/08/16 03:55 - Physical Exam Constitutional: chronically ill appearing Eyes: anicteric sclera Ears, Nose, Mouth, Throat: moist mucous membranes Cardiovascular: regular rate and rhythym Respiratory: no respiratory distress, no rales or rhonchi Gastrointestinal: normoactive bowel sounds, tenderness, No guarding, No rebound Genitourinary: no bladder fullness Skin: warm, normal color Musculoskeletal: No asymmetric calves Neurologic: AAOx3 Psychiatric: interacting appropriately, not anxious Lymph, Heme, Immunologic: no cervical LAD ICD10 Worksheet Patient Problems: Problems Problem Status Onset Abdominal pain Acute Liver lesion Acute
[2016-06-09] MEDS ORDERED: MAGNESIUM CITRATE 300 ML BOTTLE PO ONE (19:41)
[2016-06-09] MEDS: POLYETHYLENE GLYCOL 3350 17 GM PKT PO SCH ×2 (20:18→22:58)
[2016-06-10 04:45] LABS: HEMATOCRIT 54.8 % (40.0-51.0); HEMOGLOBIN 19.1 g/dL (13.7-17.5); MEAN CELL HEMOGLOBIN 30.4 pg (27.9-34.1); MEAN CELL HEMOGLOBIN CONCENTR. 34.9 g/dL (32.4-36.7); MEAN CELL VOLUME 87.1 fL (81.5-99.8); RED BLOOD CELL COUNT 6.29 10^6/uL (4.40-6.38); RED CELL DISTRIBUTION WIDTH 17.4 % (11.5-15.2)
[2016-06-10] MEDS: CHOLECALCIFEROL VIT D3 1,000 UNITS TAB PO SCH (08:12)
[2016-06-10] MEDS: ENOXAPARIN 40 MG/0.4 ML SYR SC SCH (08:12)
[2016-06-10] MEDS: ASCORBIC ACID 500 MG TAB PO SCH (08:15)
[2016-06-10] MEDS: MULTIVITAMINS 1 EACH TAB PO SCH (08:15)
[2016-06-10] MEDS: glyBURIDE 2.5 MG TAB PO SCH (08:15)
[2016-06-10] MEDS: POLYETHYLENE GLYCOL 3350 17 GM PKT PO SCH ×3 (08:29→20:33)
[2016-06-10] MEDS ORDERED: NS 1,000 ML IV ONE ×2 (08:45→15:52)
[2016-06-10] MEDS ORDERED: MAGNESIUM CITRATE 300 ML BOTTLE PO ONE (08:46)
--- NOTE | 2016-06-10 11:42 | HOSPPROG ---
Hospitalist Progress Note Assessment/Plan: # Sepsis - new leukocytosis and tachycardia - pt with abd pain overnight - Abd xray (personally reviewed and interpreted) constipation for obstruction or ileus Clinically seems stable and is without fever - entire CBC seems out of recent measurements (wonder if inaccurate) - tx with IVF bolus - more aggressive bowel regimen - if no improvement in VS or exam with order CT scan to rule out occult GI source # Acute E coli bacteremia- suspected source is urinary- patient presented with nonspecific complaints and leukocytosis status post recent chemotherapy urinalysis was abnormal at presentation with history of recurrent UTIs- WBC normalized to 6 this am on Ceftriaxone - IV ceftriaxone - will transition to Levofloxacin PO as romo-sensitive when bcx neg x 48 hours - surveillance cultures negative x 48 hours # acute UTI- antibiotics as outlined above # acute leukocytosis- 15-> 6 now 16 chest x-ray - no infiltrates- oxygen saturations 94% on room air # Acute on chronic Sinusitis - Face CT - shows bilateral sinusitis - cont ceftriaxone # stage IV metastatic colon cancer- oncology following # prophylaxis Lovenox # diet is tolerated # disposition greater than 2 midnights as patient is requiring IV antibiotics for gram-negative bacteremia and tx and work up for abd pain and tachycardia I have discussed the case with RN - we will begin with IVF and bowel regimen this am Subjective: still with abd pain Objective: Vital Signs Temp Pulse Resp BP Pulse Ox 36.6 C 137 H 18 98/75 L 93 06/10/16 08:00 06/10/16 08:00 06/10/16 08:00 06/10/16 08:00 06/10/16 08:00 Laboratory Results 06/10/16 04:15 06/08/16 03:55 06/09/16 06/10/16 06/11/16 05:59 05:59 05:59 Intake Total 1200 Output Total 750 Balance 450 - Physical Exam Constitutional: chronically ill appearing Eyes: anicteric sclera Ears, Nose, Mouth, Throat: dry mucous membranes Cardiovascular: tachycardia Respiratory: no respiratory distress Gastrointestinal: normoactive bowel sounds, tenderness Genitourinary: no bladder fullness Skin: warm Musculoskeletal: No asymmetric calves Neurologic: AAOx3 Psychiatric: depressed, flat affect Lymph, Heme, Immunologic: no cervical LAD ICD10 Worksheet Patient Problems: Problems Problem Status Onset Abdominal pain Acute Liver lesion Acute
--- NOTE | 2016-06-10 13:54 | SOAPPROG ---
SOAP Progress Note Assessment/Plan: A/P: * E. Coli sepsis: suspect urinary source. Abnl UA on admission 06/06, neg UCx may be due to antibiotic therapy. * Leukocytosis: suspicious that today's CBC results may be erroneous (normal plts and erythrocytosis today compared with his typical mild thrombocytopenia and low-nl Hgb). * Stage IV Colon cancer with liver mets at diagnosis, s/p C6 FOLFOX + Avastin (). * Abd. pain: xray with constipation. If persists despite constipation tx, may need CT. 06/10/16 13:49 Subjective: AP. Drinking mg citrate. No BM x 3days. PE: VS reviewed. Gen: fatigued. Lungs: breathing comfortably. Abd: distended. Microbiology 06/07/16 14:34 Urine,Clean Catch Urine Culture - Final 06/06/16 17:55 Blood Blood Culture - Final 06/06/16 17:55 Blood Blood Panel (PCR) - Final Escherichia Coli Escherichia Coli Laboratory Tests 06/10/16 04:15 WBC 16.62 H D Hgb 19.1 H Plt Count 359 D Objective: Vital Signs Temp Pulse Resp BP Pulse Ox 36.4 C 113 H 14 106/84 H 92 06/10/16 11:46 06/10/16 11:46 06/10/16 11:46 06/10/16 11:46 06/10/16 11:46 Laboratory Results 06/10/16 04:15 06/08/16 03:55 06/09/16 06/10/16 06/11/16 05:59 05:59 05:59 Intake Total 1200 Output Total 750 Balance 450 ICD10 Worksheet Patient Problems: Problems Problem Status Onset Abdominal pain Acute Liver lesion Acute
[2016-06-11 04:50] LABS: HEMATOCRIT 46.5 % (40.0-51.0); HEMOGLOBIN 16.5 g/dL (13.7-17.5); MEAN CELL HEMOGLOBIN 30.8 pg (27.9-34.1); MEAN CELL HEMOGLOBIN CONCENTR. 35.5 g/dL (32.4-36.7); MEAN CELL VOLUME 86.8 fL (81.5-99.8); RED BLOOD CELL COUNT 5.36 10^6/uL (4.40-6.38); RED CELL DISTRIBUTION WIDTH 16.7 % (11.5-15.2)
[2016-06-11 05:41] LABS: ANION GAP 16 mEq/L (8-16); CALCIUM 8.9 mg/dL (8.5-10.4); CARBON DIOXIDE 24 mEq/l (22-31); CHLORIDE 92 mEq/L (97-110); GLOMERULAR FILTRATION RATE > 60; GLUCOSE 251 mg/dL (70-100); POTASSIUM 4.7 mEq/L (3.5-5.2); SODIUM 132 mEq/L (134-144)
[2016-06-11] MEDS: ASCORBIC ACID 500 MG TAB PO SCH (09:01)
[2016-06-11] MEDS: POLYETHYLENE GLYCOL 3350 17 GM PKT PO SCH ×3 (09:02→20:42)
[2016-06-11] MEDS: glyBURIDE 2.5 MG TAB PO SCH (09:02)
[2016-06-11] MEDS: IBUPROFEN 200 MG TAB PO PRN (09:02)
[2016-06-11] MEDS: ENOXAPARIN 40 MG/0.4 ML SYR SC SCH (09:02)
[2016-06-11] MEDS: MULTIVITAMINS 1 EACH TAB PO SCH (09:02)
[2016-06-11] MEDS: CHOLECALCIFEROL VIT D3 1,000 UNITS TAB PO SCH (09:02)
[2016-06-11] MEDS ORDERED: NS 1,000 ML IV ONE (10:34)
--- NOTE | 2016-06-11 15:51 | HOSPPROG ---
Hospitalist Progress Note Assessment/Plan: # Sepsis - new leukocytosis and tachycardia - improved overnight - pt with abd pain Abd xray (personally reviewed and interpreted) constipation for obstruction or ileus patient treated with aggressive hydration and bowel regimen - with improved tachycardia and WBC - repeat IVF bolus this am - more aggressive bowel regimen # Acute E coli bacteremia- suspected source is urinary- patient presented with nonspecific complaints and leukocytosis status post recent chemotherapy urinalysis was abnormal at presentation with history of recurrent UTIs- WBC normalized to 6 this am on Ceftriaxone - IV ceftriaxone - will transition to Levofloxacin PO on discharge # acute UTI- antibiotics as outlined above # acute leukocytosis- 15-> 6 now 10 chest x-ray - no infiltrates- oxygen saturations 94% on room air # Acute on chronic Sinusitis - Face CT - shows bilateral sinusitis - cont ceftriaxone # stage IV metastatic colon cancer- oncology following # prophylaxis Lovenox # diet is tolerated # disposition greater than 2 midnights as patient is requiring IV antibiotics for gram-negative bacteremia and tx and work up for abd pain and tachycardia I have discussed the case with RN - we will repeat IVF this am - patient can dc tomorrow if tachycardia resolves Subjective: stooled Objective: Vital Signs Temp Pulse Resp BP Pulse Ox 36.4 C 101 H 16 133/88 H 93 06/11/16 08:00 06/11/16 08:00 06/11/16 08:00 06/11/16 08:00 06/11/16 08:00 Laboratory Results 06/11/16 04:30 06/11/16 04:30 06/10/16 06/11/16 06/12/16 05:59 05:59 05:59 Intake Total 1200 1000 1000 Output Total 750 Balance 450 1000 1000 - Physical Exam Constitutional: chronically ill appearing Eyes: anicteric sclera Ears, Nose, Mouth, Throat: dry mucous membranes Cardiovascular: tachycardia Respiratory: no respiratory distress, no rales or rhonchi Gastrointestinal: normoactive bowel sounds, tenderness Genitourinary: no bladder fullness Skin: warm, normal color Musculoskeletal: No asymmetric calves Neurologic: AAOx3 Psychiatric: interacting appropriately, not anxious Lymph, Heme, Immunologic: no cervical LAD ICD10 Worksheet Patient Problems: Problems Problem Status Onset Abdominal pain Acute Liver lesion Acute
[2016-06-12] MEDS: ASCORBIC ACID 500 MG TAB PO SCH (08:16)
[2016-06-12] MEDS: glyBURIDE 2.5 MG TAB PO SCH (08:16)
[2016-06-12] MEDS: CHOLECALCIFEROL VIT D3 1,000 UNITS TAB PO SCH (08:16)
[2016-06-12] MEDS: MULTIVITAMINS 1 EACH TAB PO SCH (08:16)
[2016-06-12] MEDS: POLYETHYLENE GLYCOL 3350 17 GM PKT PO SCH ×3 (08:16→20:19)
[2016-06-12] MEDS: ENOXAPARIN 40 MG/0.4 ML SYR SC SCH (08:17)
--- NOTE | 2016-06-12 08:50 | HOSPPROG ---
Hospitalist Progress Note Assessment/Plan: #Constipation: BM today and yesterday. AXR c/w ileus. D/C dilaudid IV/oral. PRN oxycodone less frequently. Bowel regimen. If symptoms don't improve, may need CT. Ensure electrolytes okay. #Sepsis: due to E Coli bacteremia. Cont IV Ceftriaxone #E Coli bacteremia: repeat bld cx 06/08 NGTD #Leukocytosis: improved #Tachycardia: resolved with IVFs #Sinusitis: on abx #Stage IV metastatic colon cancer: s/p C6 FOLFOX + Avastin Subjective: very small BM today. Passing flatus Objective: Vital Signs Temp Pulse Resp BP Pulse Ox 36.9 C 77 16 126/77 H 91 L 06/12/16 07:13 06/12/16 07:13 06/12/16 07:13 06/12/16 07:13 06/12/16 07:13 Laboratory Results 06/11/16 04:30 06/11/16 04:30 06/11/16 06/12/16 06/13/16 05:59 05:59 05:59 Intake Total 1000 1500 Balance 1000 1500 - Physical Exam Constitutional: chronically ill appearing Eyes: PERRL Ears, Nose, Mouth, Throat: moist mucous membranes, hearing normal, dry mucous membranes Cardiovascular: regular rate and rhythym, no murmur, rub, or gallop Respiratory: no respiratory distress, no rales or rhonchi Gastrointestinal: soft, non-tender abdomen, distension (not distended), other ( min distension. Quiet BS, but heard throughout) Genitourinary: no bladder fullness Skin: warm Musculoskeletal: full muscle strength Neurologic: AAOx3, CN II-XII Intact ICD10 Worksheet Patient Problems: Problems Problem Status Onset Abdominal pain Acute Liver lesion Acute
[2016-06-12] MEDS ORDERED: NS 1,000 ML IV SCH (11:30)
[2016-06-12] MEDS ORDERED: MAGNESIUM HYDROXIDE 30 ML UDCUP PO PRN (15:26)
[2016-06-12] MEDS ORDERED: BISACODYL 10 MG SUPP PR PRN (15:26)
[2016-06-12] MEDS ORDERED: MAGNESIUM CITRATE 300 ML BOTTLE PO ONE (16:00)
[2016-06-12] MEDS: SENNOSIDES/DOCUSATE SODIUM TAB PO SCH (20:37)
[2016-06-13] MEDS: POLYETHYLENE GLYCOL 3350 17 GM PKT PO SCH ×3 (05:32→23:01)
[2016-06-13 05:52] LABS: HEMATOCRIT 36.2 % (40.0-51.0); HEMOGLOBIN 12.4 g/dL (13.7-17.5); MEAN CELL HEMOGLOBIN 30.3 pg (27.9-34.1); MEAN CELL HEMOGLOBIN CONCENTR. 34.3 g/dL (32.4-36.7); MEAN CELL VOLUME 88.5 fL (81.5-99.8); RED BLOOD CELL COUNT 4.09 10^6/uL (4.40-6.38); RED CELL DISTRIBUTION WIDTH 15.8 % (11.5-15.2)
[2016-06-13 06:12] LABS: ANION GAP 8 mEq/L (8-16); CALCIUM 8.2 mg/dL (8.5-10.4); CARBON DIOXIDE 23 mEq/l (22-31); CHLORIDE 100 mEq/L (97-110); CREATININE 0.5 mg/dL (0.7-1.3); GLOMERULAR FILTRATION RATE > 60; GLUCOSE 119 mg/dL (70-100); SODIUM 131 mEq/L (134-144)
--- NOTE | 2016-06-13 08:37 | HOSPPROG ---
Hospitalist Progress Note Assessment/Plan: #Constipation: AXR c/w ileus, but still symptomatic. Stopped dilaudid IV/oral and oxycodone less frequently. Check CT today for obstruction. Electrolytes okay. #Sepsis: resolved. Due to E Coli bacteremia. Cont IV Ceftriaxone #E Coli bacteremia: repeat bld cx 06/08 NGTD #Leukocytosis: resolved #Tachycardia: resolved with IVFs #Sinusitis: on abx #Stage IV metastatic colon cancer: s/p C6 FOLFOX + Avastin #Controlled DM: glyburide #Diet: regular #DVT ppx: Lovenox #Disp: DC once tolerating PO and r/o obstruction Subjective: small BM and then loose stools thereafter. Mild nausea in morning Objective: Vital Signs Temp Pulse Resp BP Pulse Ox 36.8 C 66 14 143/86 H 93 06/13/16 08:00 06/13/16 08:00 06/13/16 08:00 06/13/16 08:00 06/13/16 08:00 Laboratory Results 06/13/16 05:40 06/13/16 05:40 06/12/16 06/13/16 06/14/16 05:59 05:59 05:59 Intake Total 1500 500 Balance 1500 500 - Physical Exam Constitutional: chronically ill appearing Eyes: PERRL Ears, Nose, Mouth, Throat: moist mucous membranes Cardiovascular: regular rate and rhythym, other (port in place with no erythema) Respiratory: no respiratory distress Gastrointestinal: tenderness (LLQ, hyperactive bowel sound) Genitourinary: no bladder fullness Skin: warm Musculoskeletal: full muscle strength Neurologic: AAOx3 ICD10 Worksheet Patient Problems: Problems Problem Status Onset Abdominal pain Acute Liver lesion Acute
[2016-06-13] MEDS: ASCORBIC ACID 500 MG TAB PO SCH (08:40)
[2016-06-13] MEDS: MULTIVITAMINS 1 EACH TAB PO SCH (08:41)
[2016-06-13] MEDS: CHOLECALCIFEROL VIT D3 1,000 UNITS TAB PO SCH (08:41)
[2016-06-13] MEDS: SENNOSIDES/DOCUSATE SODIUM TAB PO SCH ×2 (08:41→23:01)
[2016-06-13] MEDS: ENOXAPARIN 40 MG/0.4 ML SYR SC SCH (08:41)
[2016-06-13] MEDS: glyBURIDE 2.5 MG TAB PO SCH (08:41)
[2016-06-13] MEDS ORDERED: IOPAMIDOL (ISOVUE-300) 100 ML BTL IV ONE (14:09)
--- NOTE | 2016-06-13 17:01 | SOAPPROG ---
TIFFANI Progress Note Assessment/Plan: Assessment: 1) Metastatic colon cancer (responding to FOLFOX chemotherapy) 2) E.Coli sepsis 3) Enteritis Plan: I reviewed his CT results with him this evening. He appears to be responding to palliative chemotherapy with decreasing size of his known liver mets. He has no evidence of obstruction. He does have a segment of enteritis. Etiology unclear. Overall his symptoms are improving, so current management will be continued. He is slowly advancing his diet, and will hopefully be able to be discharged in next few days. I will notify Dr. Lott of his CT result. We will continue to follow his progress intermittantly. His questions were answered. Case d/w nursing. 06/13/16 16:57 06/13/16 16:58 06/13/16 17:03 Subjective: Still with intermittant diarrhea. Abdominal pain persists, but is improving. Had CT this afternoon. Objective: Vital Signs Temp Pulse Resp BP Pulse Ox 36.6 C 68 20 147/88 H 93 06/13/16 15:35 06/13/16 15:35 06/13/16 15:35 06/13/16 15:35 06/13/16 15:35 Microbiology 06/08/16 13:20 Blood Culture - Final Blood 06/08/16 13:14 Blood Culture - Final Blood Laboratory Results 06/13/16 05:40 06/13/16 05:40 06/12/16 06/13/16 06/14/16 05:59 05:59 05:59 Intake Total 1500 500 Balance 1500 500 - Time Spent With Patient Time Spent With Patient: 25 minutes Physical Exam - Physical Exam General Appearance: alert, no apparent distress EENT: PERRL/EOMI Abdomen: other (Soft. No distension. Mild mid abdominal tenderness with no mass or gaurding. No rebound tenderness.) Neuro/Psych: alert, normal mood/affect ICD10 Worksheet Patient Problems: Problems Problem Status Onset Abdominal pain Acute Liver lesion Acute
[2016-06-14 05:53] LABS: HEMATOCRIT 39.1 % (40.0-51.0); HEMOGLOBIN 13.6 g/dL (13.7-17.5); MEAN CELL HEMOGLOBIN CONCENTR. 34.8 g/dL (32.4-36.7); MEAN CELL VOLUME 86.1 fL (81.5-99.8); RED BLOOD CELL COUNT 4.54 10^6/uL (4.40-6.38); RED CELL DISTRIBUTION WIDTH 15.9 % (11.5-15.2)
[2016-06-14 06:07] LABS: ANION GAP 8 mEq/L (8-16); CALCIUM 8.3 mg/dL (8.5-10.4); CARBON DIOXIDE 23 mEq/l (22-31); CHLORIDE 102 mEq/L (97-110); CREATININE 0.5 mg/dL (0.7-1.3); GLOMERULAR FILTRATION RATE > 60; GLUCOSE 127 mg/dL (70-100); POTASSIUM 4.2 mEq/L (3.5-5.2); SODIUM 133 mEq/L (134-144)
--- NOTE | 2016-06-14 08:41 | HOSPPROG ---
Hospitalist Progress Note Assessment/Plan: #Constipation: AXR c/w ileus, but still symptomatic. Stopped dilaudid IV/oral and oxycodone less frequently. Check CT today for obstruction. Electrolytes okay. #Sepsis: resolved. Due to E Coli bacteremia. Cont IV Ceftriaxone #E Coli bacteremia: repeat bld cx 06/08 NGTD #Leukocytosis: resolved #Tachycardia: resolved with IVFs #Sinusitis: on abx #Stage IV metastatic colon cancer: s/p C6 FOLFOX + Avastin #Controlled DM: glyburide #Diet: regular #DVT ppx: Lovenox #Disp: Will DC in morning if conts to take in good PO Subjective: no N/V. Having BMs. Reports "black stool" Objective: Vital Signs Temp Pulse Resp BP Pulse Ox 36.7 C 73 16 133/83 H 95 06/14/16 08:00 06/14/16 08:00 06/14/16 08:00 06/14/16 08:00 06/14/16 08:00 Microbiology 06/08/16 13:20 Blood Culture - Final Blood 06/08/16 13:14 Blood Culture - Final Blood Laboratory Results 06/14/16 05:40 06/14/16 05:40 06/13/16 06/14/16 06/15/16 05:59 05:59 05:59 Intake Total 500 Balance 500 - Physical Exam Constitutional: cachectic Eyes: PERRL Ears, Nose, Mouth, Throat: moist mucous membranes, hearing normal Cardiovascular: regular rate and rhythym, no murmur, rub, or gallop Respiratory: no respiratory distress, no rales or rhonchi Gastrointestinal: tenderness (epigastrum) Genitourinary: no bladder fullness Skin: warm Musculoskeletal: full muscle strength Neurologic: AAOx3 Psychiatric: interacting appropriately ICD10 Worksheet Patient Problems: Problems Problem Status Onset Abdominal pain Acute Liver lesion Acute
[2016-06-14] MEDS: glyBURIDE 2.5 MG TAB PO SCH (10:27)
[2016-06-14] MEDS: IBUPROFEN 200 MG TAB PO PRN (10:27)
[2016-06-14] MEDS: ASCORBIC ACID 500 MG TAB PO SCH (10:28)
[2016-06-14] MEDS: CHOLECALCIFEROL VIT D3 1,000 UNITS TAB PO SCH (10:29)
[2016-06-14] MEDS: SENNOSIDES/DOCUSATE SODIUM TAB PO SCH ×2 (10:29→23:43)
[2016-06-14] MEDS: MULTIVITAMINS 1 EACH TAB PO SCH (10:29)
[2016-06-14] MEDS: ENOXAPARIN 40 MG/0.4 ML SYR SC SCH ×2 (10:29→10:36)
[2016-06-14] MEDS: POLYETHYLENE GLYCOL 3350 17 GM PKT PO SCH ×3 (10:30→23:43)
[2016-06-14] MEDS: DRONABINOL 2.5 MG CAP PO PRN (17:44)
[2016-06-14 22:56] VITALS: O2SAT 94
[2016-06-15] MEDS: ACETAMINOPHEN 325 MG TAB PO PRN ×2 (05:22→12:04)
[2016-06-15] MEDS: oxyCODONE IR 5 MG TAB PO PRN ×2 (05:22→12:04)
[2016-06-15 05:36] LABS: HEMATOCRIT 39.1 % (40.0-51.0); HEMOGLOBIN 13.6 g/dL (13.7-17.5); MEAN CELL HEMOGLOBIN 30.8 pg (27.9-34.1); MEAN CELL HEMOGLOBIN CONCENTR. 34.8 g/dL (32.4-36.7); MEAN CELL VOLUME 88.7 fL (81.5-99.8); RED BLOOD CELL COUNT 4.41 10^6/uL (4.40-6.38); RED CELL DISTRIBUTION WIDTH 15.9 % (11.5-15.2)
[2016-06-15 08:59] VITALS: BP 151/92; PULSE 63; RESP 18; TEMP 97.6
--- NOTE | 2016-06-15 09:25 | HOSPPROG ---
Hospitalist Progress Note Assessment/Plan: #Constipation: having BMs. Stopped dilaudid IV/oral and oxycodone less frequently. CT showed enteritis, no abscess or obstruction. Electrolytes okay. #Sepsis: resolved. Due to E Coli bacteremia. Transition to PO abx for total 14 days abx #E Coli bacteremia: repeat bld cx 06/08 NGTD. LQ x 5 days #Leukocytosis: resolved #Tachycardia: resolved with IVFs #Sinusitis: on abx #Stage IV metastatic colon cancer: s/p C6 FOLFOX + Avastin #Controlled DM: glyburide #Diet: regular #DVT ppx: Lovenox #Disp: DC today. Will FU with PCP for BZs, opioids. FU DR. Lott Subjective: no cough, dysuria, fever Objective: Vital Signs Temp Pulse Resp BP Pulse Ox 36.4 C 63 18 151/92 H 94 06/15/16 08:56 06/15/16 08:56 06/15/16 08:56 06/15/16 08:56 06/15/16 08:56 Laboratory Results 06/15/16 05:30 06/14/16 05:40 - Physical Exam Constitutional: no apparent distress Eyes: PERRL Ears, Nose, Mouth, Throat: moist mucous membranes, hearing normal Cardiovascular: regular rate and rhythym, no murmur, rub, or gallop Respiratory: no respiratory distress, no rales or rhonchi Gastrointestinal: normoactive bowel sounds, tenderness (mild TTP, +BS in all 4 quadrants) Genitourinary: no bladder fullness, no bladder tenderness Skin: warm Musculoskeletal: full muscle strength Neurologic: AAOx3 Psychiatric: interacting appropriately ICD10 Worksheet Patient Problems: Problems Problem Status Onset Abdominal pain Acute Liver lesion Acute
[2016-06-15] MEDS: ASCORBIC ACID 500 MG TAB PO SCH (09:53)
[2016-06-15] MEDS: CHOLECALCIFEROL VIT D3 1,000 UNITS TAB PO SCH (09:55)
[2016-06-15] MEDS: MULTIVITAMINS 1 EACH TAB PO SCH (09:56)
[2016-06-15] MEDS: ENOXAPARIN 40 MG/0.4 ML SYR SC SCH (09:58)
[2016-06-15] MEDS: SENNOSIDES/DOCUSATE SODIUM TAB PO SCH (09:58)
[2016-06-15] MEDS: POLYETHYLENE GLYCOL 3350 17 GM PKT PO SCH (09:58)
[2016-06-15] MEDS: glyBURIDE 2.5 MG TAB PO SCH (10:49)
--- NOTE | 2016-06-15 14:35 | GDS ---
[f rep st] DISCHARGE SUMMARY DISCHARGE DIAGNOSES: 1. Stage IV colon cancer with pelvic wall and liver metastasis on FOLFOX chemotherapy, status post cycle 6 on 05/25/2016. 2. Periodontal abscess with recent prescription of Augmentin. 3. Controlled Type 2 diabetes. 4. Depression. 5. Escherichia coli bacteremia. 6. Sepsis. 7. Leukocytosis. 8. Tachycardia. 9. Sinusitis. HISTORY OF PRESENT ILLNESS: Patient is a 56-year-old male with metastatic colon cancer with pelvic wall and liver mets, status post FOLFOX chemotherapy presented on 06/06 with generalized weakness, myalgias, and chills. His partner says he was unable to ambulate the day of presentation and has had anorexia since his most recent chemotherapy. Also says that his teeth have begun to fracture and fall out. He was recently taking Augmentin for a tooth infection. He also reports decreased urine output and poor oral intake. HOSPITAL COURSE BY PROBLEM: 1. Sepsis: Secondary to E coli bacteremia. This has since resolved. 2. Acute E coli bacteremia: seeded from UTI. Empirically treated with IV ceftriaxone and changed to Levaquin for total of 14 days abx. Blood cultures no growth to date from 06/08/2016. 3. Acute UTI. Antibiotics as noted above. 4. Acute leukocytosis likely secondary to bacteremia/UTI/enteritis. 5. Acute on chronic sinusitis. Face CT showed bilateral sinusitis. Patient was on appropriate therapy with ceftriaxone. 6. Stage IV metastatic colon cancer. The patient has finished 6 cycles FOLFOX on 05/25/2016. Follow up with Dr. Lott. 7. Tachycardia secondary to dehydration and sepsis. This has since resolved. 8. Constipation: Secondary to opioids. Had an x-ray that showed ileus, however, symptoms progressive. Obtained a CT that was negative for abscess or obstruction, showed some mild enteritis. Patient has remained afebrile. Blood cultures negative from 06/08/2016. 9. Patient is stable for discharge. FOLLOWUP: 1. PCP. 2. Dr. Lott. /[id number]/MODL MTDD
== END 2016-06-15 15:12 | disposition home or self-care (01) | DRG 872 ==
LOC: EDUNIT# → F3E 20:32 → OBSVTOIN 06-07 16:14
PROVIDERS: ADMIT Internal Medicine; ATTEND Internal Medicine
DX: A41.51 Sepsis due to Escherichia coli [E. coli] (principal); N39.0 Urinary tract infection, site not specified; K04.7 Periapical abscess without sinus; G89.4 Chronic pain syndrome; D69.59 Other secondary thrombocytopenia; E11.9 Type 2 diabetes mellitus without complications; J01.90 Acute sinusitis, unspecified; J32.9 Chronic sinusitis, unspecified; J44.9 Chronic obstructive pulmonary disease, unspecified; C18.9 Malignant neoplasm of colon, unspecified; C78.7 Secondary malignant neoplasm of liver and intrahepatic bile duct; C79.89 Secondary malignant neoplasm of other specified sites; K59.03 Drug induced constipation; F11.20 Opioid dependence, uncomplicated; F17.210 Nicotine dependence, cigarettes, uncomplicated; Z59.0 Homelessness
CPT/HCPCS: 96374; 97161-GP; G0378; J0696; J1170; J1650; J1885; J2405; Q9967

== ENCOUNTER 2016-06-27 08:29 | Inpatient (IN) | payer MEDICAID ==
[2016-06-27] MEDS ORDERED: ACETAMINOPHEN 325 MG TAB PO PRN (11:54)
--- NOTE | 2016-06-27 12:48 | GCON ---
[f rep st] CONSULTATION INPATIENT ONCOLOGY CONSULTATION DATE OF CONSULTATION: 06/27/2016 OUTPATIENT ONCOLOGIST: Dr. Chino Lott. REASON FOR CONSULTATION: FOLFOX chemotherapy for metastatic colon cancer. HISTORY OF PRESENT ILLNESS: The patient is a 56-year-old male with metastatic colon cancer. He pre sented with a sigmoid tumor adherent to the pelvic wall and also had multiple tumors in the liver. He underwent primary surgery to remove the primary tumor and then was started on FOLFOX and Avastin therapy. His CEA has fallen very dramatically from [address] scan also showed a very good response. He is currently admitted for cycle 7. He has had very few problems with the chemot herapy itself, though he does not like the inconvenience of coming into the hospital. He does repor t that he had E coli bacteremia which started as urinary tract infection. He was treated with 14 da ys of antibiotics. This delayed his 7th planned cycle of chemotherapy by several weeks. PAST MEDICAL HISTORY: 1. Metastatic colon cancer as described above. 2. Periodontal abscess. 3. Type 2 diabetes. CURRENT MEDICATIONS: Include Lovenox 40 mg subcutaneously daily, oxycodone, glyburide, Marinol as n eeded. ALLERGIES: He has no known drug allergies. FAMILY HISTORY: Noncontributory. SOCIAL HISTORY: He is homeless and is therefore admitted for his 48-hour chemotherapy infusions. REVIEW OF SYSTEMS: Aside from pertinent positives mentioned in HPI, 14-point review of systems nega tive. PHYSICAL EXAMINATION: VITAL SIGNS: Temperature is 36.6, blood pressure 119/76, heart rate 92, oxyg en saturation 94% on room air. GENERAL: He is a thin man in no acute distress. HEENT: Sclerae an icteric. Oropharynx clear. NECK: Supple without lymphadenopathy. LUNGS: Clear to auscultation b ilaterally. CARDIAC: Regular rate and rhythm. No murmurs, gallops, rubs. ABDOMEN: Normoactive b owel sounds, nontender. EXTREMITIES: No edema. 2+ pulses. NEUROLOGIC: Alert and oriented x3. LABORATORY DATA: White count 10.5, hemoglobin 13.5, platelets of 189. Comprehensive metabolic pane l was normal with the exception of an alk phos which was mildly elevated at 225. IMPRESSION: This is a 56-year-old man with metastatic colon cancer. He is having an excellent resp onse to chemotherapy. He recently had E coli urosepsis, for which he has completed a 14-day course of antibiotics. RECOMMENDATIONS: 1. Proceed with chemotherapy without any dose modification. 2. The patient asked about modifying or discontinuing the chemotherapy. I would suggest that he ta ke this up with Dr. Lott. I believe Dr. Lott is planning a total of 12 cycles and then we can reassess in terms of putting the patient on some sort of lower intensity maintenance therapy. 3. We should repeat his blood cultures while he is here to document clearance of the infection. /[id number]/MODL
[2016-06-27] MEDS ORDERED: DEXAMETHASONE SOD PHOSPHATE 10 MG in NS 50 ML IV SCH (13:30)
[2016-06-27] MEDS ORDERED: LIDOCAINE/PRILOCAINE 1 EACH CRTUBE TP ONE (13:30)
[2016-06-27] MEDS ORDERED: PALONOSETRON HCL 0.25 MG/5 ML VIAL IVP SCH (13:30)
[2016-06-27] MEDS ORDERED: BEVACIZUMAB IV SCH (14:00)
[2016-06-27] MEDS ORDERED: NS IV SCH (14:00)
[2016-06-27] MEDS ORDERED: LEUCOVORIN CALCIUM IV SCH (14:30)
[2016-06-27] MEDS ORDERED: D5W IV SCH ×3 (14:30→17:00)
[2016-06-27] MEDS ORDERED: OXALIPLATIN IV SCH (14:30)
[2016-06-27] MEDS ORDERED: PROMETHAZINE HCL 25 MG TAB PO PRN (14:38)
[2016-06-27] MEDS: oxyCODONE IR 15 MG TAB PO PRN ×2 (14:58→20:45)
[2016-06-27] MEDS ORDERED: FLUOROURACIL IV SCH ×2 (16:30→17:00)
--- NOTE | 2016-06-27 16:35 | PDGENHP ---
History and Physical - Chief Complaint Acute anxiety - History of Present Illness PCP: None Primary oncologist: Dr. Lott HPI: 56-year-old male presenting with acute anxiety characterized as frustration with an order for blood cultures, in the setting of associated chronic pain located in his right upper quadrant, onset is in the setting of scheduled inpatient chemotherapy. The patient is scheduled to complete cycle 7 of FOLFOX. He reports that he has otherwise been feeling well. He saw Dr. Lott yesterday and had labs drawn. His bowel movements have been normal and occasionally utilizes MiraLax. His abdominal pain has not been escalating recently. He chronically takes oxycodone as needed for pain relief. Lorazepam alleviates his anxiety. History Information - Allergies/Home Medication List Allergies/Adverse Reactions: No Known Allergies Allergy (Verified 06/06/16 16:36) Home Medications: Ascorbic Acid [Vitamin C 500 mg (*)] 2,000 mg PO DAILY 04/04/16 [Last Taken 04/11] Multivitamins [Multivitamin (*)] 1 each PO DAILY 04/04/16 [Last Taken 05/24/16] LORazepam [Ativan (*)] 1 mg PO Q8 PRN 06/06/16 [Last Taken 06/02/16] Promethazine HCl [Phenergan 25mg (*)] 12.5 - 25 mg PO Q6HRS PRN 06/06/16 [Last Taken Unknown] Cholecalciferol Vit D3 [Vitamin D3 (*)] 1,000 units PO DAILY 06/08/16 [Last Taken Unknown] Dronabinol [Marinol 2.5 MG (*)] 5 mg PO BID 06/27/16 [Last Taken 06/27/16] Polyethylene Glycol 3350 [Miralax 17 gm (*)] 17 gm PO DAILY 06/27/16 [Last Taken Unknown] oxyCODONE IR [Oxycodone Ir (*)] 15 mg PO Q4-6PRN PRN 06/27/16 [Last Taken Unknown] I have personally reviewed and updated: family history, medical history, social history, surgical history - Past Medical History diabetes type 2 Additional medical history: Stage IV colon cancer status post 6 cycles of FolFox with Avastin. E coli bacteremia secondary to UTI. Periodontal abscesses. Depression - Surgical History Additional surgical history: Colectomy of primary tumor - Family History Additional family history: His partner has not recently been sick - Social History Smoking Status: Current every day smoker Alcohol Use: None Drug Use: None Additional social history: Homeless Review of Systems ROS: 10pt was reviewed & negative except for what was stated in HPI & below Gastrointestinal: Reports: abdominal pain (Right upper quadrant) Neurological: Reports: other (Anxiety) Physical Exam Temp Pulse Resp BP Pulse Ox 36.6 C 92 16 119/76 94 06/27/16 11:48 06/27/16 11:48 06/27/16 11:48 06/27/16 11:48 06/27/16 11:48 Constitutional: no apparent distress, not in pain, chronically ill appearing, No uncomfortable Eyes: PERRL, anicteric sclera, EOMI Ears, Nose, Mouth, Throat: moist mucous membranes, no oral mucosal ulcers, No oral thrush Cardiovascular: regular rate and rhythym, no murmur, rub, or gallop, No edema Respiratory: no respiratory distress, no rales or rhonchi, clear to auscultation Gastrointestinal: normoactive bowel sounds, tenderness (Right upper quadrant), No guarding, No distension Skin: other (Port site has no erythema or surrounding induration) Neurologic: AAOx3, sensation intact bilaterally, No weakness (Motor strength 5/ 5 bilaterally) Psychiatric: not encephalopathic, thought process linear, anxious, agitated Assessment & Plan Assessment: 56-year-old male presents with stage IV colon cancer requiring cycle 7 of chemotherapy Plan: 1. Stage IV colon cancer. Initiating cycle 7 of FOLFOX, requires inpatient admission, receiving [facility] oncology consultation -chemo orders per Dr. Stallings -monitor baseline CBC and complete metabolic profile -hemoglobin and platelets stable on 06/26 lab drawn 2. Anxiety. Patient has a history of depression and suspected personality disorder versus a strong character traits which occasionally interfere with his care -discussed the indication for repeat blood cultures with Dr. Stallings, the patient has declined them at this time and he is becoming agitated -I have recommended that the patient discuss his concerns about repeating blood cultures with Dr. Stallings tomorrow -will continue the patient on his Ativan and Marinol 3. Chronic pain with continuous opiate dependency. Continue patient's oxycodone , patient utilizes this on a regular basis 4. History of recent E coli bacteremia. Reviewed outside records including 06/[address] Joelle Real, reporting the patient experienced E coli bacteremia secondary to UTI, with blood cultures no growth to date on 06/08/2016, transitioned from ceftriaxone to the levofloxacin and receiving a total of 14 days of therapy from negative culture date 5. Diabetes mellitus type 2. Continue sulfonylurea Diet. Regular diet as tolerated Prophylaxis. High risk patient, Lovenox 40 Code. Full Disposition. Anticipated discharge is uncertain this time, anticipated length stay is greater than 48 hours warranting inpatient admission status for inpatient chemotherapy for stage IV colon cancer as outlined above.
[2016-06-27] MEDS: LORazepam 1 MG TAB PO PRN (16:45)
[2016-06-27] MEDS: DRONABINOL 2.5 MG CAP PO SCH (20:45)
[2016-06-28 09:06] LABS: % IMMATURE GRANULYOCYTES 0.6 % (0.0-1.1); ABSOLUTE IMMATURE GRANULOCYTES 0.06 10^3/uL (0.00-0.10); ADD DIFF? NO; ADD MORPH? NO; ADD SCAN? NO; ATYPICAL LYMPHOCYTE FLAG 10 (0-99); FRAGMENT RBC FLAG 0 (0-99); HEMATOCRIT 40.5 % (40.0-51.0); HEMOGLOBIN 13.9 g/dL (13.7-17.5); LEFT SHIFT FLG 0 (0-99); LIPEMIA HEMOLYSIS FLAG 90 (0-99); MEAN CELL HEMOGLOBIN 30.5 pg (27.9-34.1); MEAN CELL HEMOGLOBIN CONCENTR. 34.3 g/dL (32.4-36.7); MEAN PLATELET VOLUME 8.9 fL (8.7-11.7); PLATELET CLUMPS FLAG 0 (0-99); PLATELET COUNT 163 10^3/uL (150-400); RED BLOOD CELL COUNT 4.55 10^6/uL (4.40-6.38); RED CELL DISTRIBUTION WIDTH 14.8 % (11.5-15.2)
[2016-06-28 09:41] LABS: ALANINE AMINOTRANSFERASE 33 IU/L (21-72); ALBUMIN 3.8 g/dL (3.5-5.0); ALKALINE PHOSPHATASE 219 IU/L (38-126); ANION GAP 13 mEq/L (8-16); ASPARTATE AMINOTRANSFERASE 28 IU/L (17-59); BILIRUBIN,TOTAL 0.8 mg/dL (0.1-1.4); CALCIUM 9.7 mg/dL (8.5-10.4); CARBON DIOXIDE 21 mEq/l (22-31); CHLORIDE 103 mEq/L (97-110); CREATININE 0.6 mg/dL (0.7-1.3); GLOMERULAR FILTRATION RATE > 60; GLUCOSE 151 mg/dL (70-100); MAGNESIUM 1.5 mg/dL (1.6-2.3); POTASSIUM 4.3 mEq/L (3.5-5.2); SODIUM 137 mEq/L (134-144); TOTAL PROTEIN 7.6 g/dL (6.3-8.2)
[2016-06-28] MEDS: MULTIVITAMINS 1 EACH TAB PO SCH (09:48)
[2016-06-28] MEDS: DRONABINOL 2.5 MG CAP PO SCH (09:48)
[2016-06-28] MEDS: glyBURIDE 2.5 MG TAB PO SCH (09:49)
[2016-06-28] MEDS: ASCORBIC ACID 500 MG TAB PO SCH (09:49)
[2016-06-28] MEDS: oxyCODONE IR 15 MG TAB PO PRN ×3 (09:49→18:31)
[2016-06-28] MEDS: CHOLECALCIFEROL VIT D3 1,000 UNITS TAB PO SCH (09:49)
[2016-06-28] MEDS: ENOXAPARIN 40 MG/0.4 ML SYR SC SCH (09:54)
[2016-06-28] MEDS: POLYETHYLENE GLYCOL 3350 17 GM PKT PO SCH (11:17)
--- NOTE | 2016-06-28 15:55 | SOAPPROG ---
SOAP Progress Note Assessment/Plan: Assessment: 1. Metastatic colon cancer 2. Recent E coli bacteremia Plan: - draw blood cultures today for surveillence- discussed the reason for this, he is willing to do it - complete chemo as scheduled. antiemetics PRN - f/u with Dr. Lott in 2 weeks 06/28/16 15:53 Subjective: mild nausea. Objective: exam unchanged Vital Signs Temp Pulse Resp BP Pulse Ox 36.6 C 75 16 125/82 H 95 06/28/16 08:27 06/28/16 08:27 06/28/16 08:27 06/28/16 08:27 06/28/16 08:27 Laboratory Results 06/28/16 08:43 06/28/16 08:43 06/27/16 06/28/16 06/29/16 05:59 05:59 05:59 Intake Total 2473.5 Output Total 1200 350 Balance 1273.5 -350 ICD10 Worksheet Patient Problems: Problems Problem Status Onset Abdominal pain Acute Liver lesion Acute
[2016-06-28] MEDS ORDERED: D5W IV SCH (16:00)
[2016-06-28] MEDS ORDERED: FLUOROURACIL IV SCH (16:00)
--- NOTE | 2016-06-28 16:12 | HOSPPROG ---
Hospitalist Progress Note Assessment/Plan: Assessment: 56-year-old male presents with stage IV colon cancer requiring cycle 7 of chemotherapy Plan: 1. Stage IV colon cancer. Initiated cycle 7 of FOLFOX, requires inpatient admission -appreciate oncology consultation -chemo orders per Dr. Stallings -monitor baseline CBC and complete metabolic profile -give phenergan for nausea 2. Anxiety. Patient has a history of depression and suspected personality disorder versus strong character traits which occasionally interfere with his care -will continue the patient on his Ativan and Marinol 3. Chronic pain with continuous opiate dependency. Continue patient's oxycodone , patient utilizes this on a regular basis 4. History of recent E coli bacteremia. Resolved 5. Diabetes mellitus type 2. Continue sulfonylurea Diet. Regular diet as tolerated Prophylaxis. High risk patient, Lovenox 40 Code. Full Disposition. Anticipated discharge pending completion of chemo. Subjective: Patient reports nausea, has had 1 bowel movement Objective: Vital Signs Temp Pulse Resp BP Pulse Ox 36.6 C 75 16 125/82 H 95 06/28/16 08:27 06/28/16 08:27 06/28/16 08:27 06/28/16 08:27 06/28/16 08:27 Laboratory Results 06/28/16 08:43 06/28/16 08:43 06/27/16 06/28/16 06/29/16 05:59 05:59 05:59 Intake Total 2473.5 Output Total 1200 350 Balance 1273.5 -350 - Physical Exam Constitutional: no apparent distress, not in pain, chronically ill appearing, uncomfortable Cardiovascular: regular rate and rhythym, no murmur, rub, or gallop Respiratory: no respiratory distress, no rales or rhonchi, clear to auscultation Gastrointestinal: normoactive bowel sounds, no palpable masses, tenderness ( Mild comma to moderate palpation), No distension Neurologic: AAOx3, No facial droop Psychiatric: not encephalopathic, thought process linear, anxious, flat affect ICD10 Worksheet Patient Problems: Problems Problem Status Onset Liver lesion Acute Abdominal pain Acute
[2016-06-29] MEDS: DRONABINOL 2.5 MG CAP PO SCH ×3 (00:56→18:39)
[2016-06-29] MEDS: ENOXAPARIN 40 MG/0.4 ML SYR SC SCH (08:28)
[2016-06-29] MEDS: LORazepam 1 MG TAB PO PRN ×2 (08:32→21:20)
[2016-06-29] MEDS: glyBURIDE 2.5 MG TAB PO SCH (08:33)
[2016-06-29] MEDS: MULTIVITAMINS 1 EACH TAB PO SCH (08:33)
[2016-06-29] MEDS: CHOLECALCIFEROL VIT D3 1,000 UNITS TAB PO SCH (08:33)
[2016-06-29] MEDS: ASCORBIC ACID 500 MG TAB PO SCH (08:33)
[2016-06-29] MEDS: POLYETHYLENE GLYCOL 3350 17 GM PKT PO SCH (10:08)
[2016-06-29] MEDS: oxyCODONE IR 15 MG TAB PO PRN ×3 (13:37→21:19)
--- NOTE | 2016-06-29 14:37 | HOSPPROG ---
Hospitalist Progress Note Assessment/Plan: Assessment: 56-year-old male presents with stage IV colon cancer requiring cycle 7 of chemotherapy Plan: 1. Stage IV colon cancer. Initiated cycle 7 of FOLFOX, requires inpatient admission -appreciate oncology consultation -chemo orders per Dr. Stallings -monitor baseline CBC and complete metabolic profile, if patient permits -give phenergan for nausea 2. Anxiety. Patient has a history of depression and suspected personality disorder versus strong character traits which occasionally interfere with his care -will continue the patient on his Ativan and Marinol -extensive patient and friend counseling today, mostly surrounding his despair surrounding his chemo and ultimate trajectory -he currently feels hopeless that his condition will not improve, and he is contemplating discontinuing further chemo if he is unable to become more hopeful -one of his significant concerns is chemo-induced anorexia and weight loss, loss of taste for food -we will start megace 400mg now and gauge effect -message left for Ann-Marie Wang, managed care provider, to request emotional asst for patient -will d/w patient in AM whether he would like to have the Palliative team offer him a palliative perspective 3. Chronic pain with continuous opiate dependency. Continue patient's oxycodone , patient utilizes this on a regular basis 4. History of recent E coli bacteremia. Resolved 5. Diabetes mellitus type 2. Continue sulfonylurea Diet. Regular diet as tolerated Prophylaxis. High risk patient, Lovenox 40 Code. Full Disposition. Anticipated discharge pending completion of chemo, 06/30 Subjective: Patient is reporting significant amount of despair Objective: Vital Signs Temp Pulse Resp BP Pulse Ox 36.6 C 80 16 136/87 H 95 06/29/16 08:15 06/29/16 08:15 06/29/16 08:15 06/29/16 08:15 06/29/16 08:15 Laboratory Results 06/28/16 08:43 06/28/16 08:43 06/28/16 06/29/16 06/30/16 05:59 05:59 05:59 Intake Total 2473.5 3097 Output Total 1200 550 Balance 1273.5 2547 - Time Spent With Patient Time Spent with Patient: greater than 35 minutes Time Spent with Patient: Greater than 35 minutes spent on this patients care, greater than 50% of time spent counseling, educating, and coordinating care regarding the above mentioned plan. - Pending Discharge Pending Discharge Within 24 Hours: Yes Pending Discharge Date: 06/30/16 Pending Discharge Time: 11:00 - Physical Exam Constitutional: no apparent distress (Mild amount of distress), chronically ill appearing, uncomfortable Psychiatric: anxious, depressed, flat affect ICD10 Worksheet Patient Problems: Problems Problem Status Onset Liver lesion Acute Abdominal pain Acute
[2016-06-29] MEDS: MEGESTROL ACETATE 400 MG/10 ML UDL PO SCH (18:35)
[2016-06-30 05:45] VITALS: BP 100/70; PULSE 97; RESP 17; TEMP 98; O2SAT 93
[2016-06-30 05:51] LABS: % IMMATURE GRANULYOCYTES 0.2 % (0.0-1.1); ABSOLUTE IMMATURE GRANULOCYTES 0.01 10^3/uL (0.00-0.10); ADD DIFF? NO; ADD MORPH? NO; ADD SCAN? NO; ATYPICAL LYMPHOCYTE FLAG 0 (0-99); FRAGMENT RBC FLAG 0 (0-99); HEMATOCRIT 42.3 % (40.0-51.0); HEMOGLOBIN 14.7 g/dL (13.7-17.5); LEFT SHIFT FLG 0 (0-99); LIPEMIA HEMOLYSIS FLAG 90 (0-99); MEAN CELL HEMOGLOBIN 30.9 pg (27.9-34.1); MEAN CELL HEMOGLOBIN CONCENTR. 34.8 g/dL (32.4-36.7); MEAN CELL VOLUME 89.1 fL (81.5-99.8); PLATELET CLUMPS FLAG 20 (0-99); PLATELET COUNT 140 10^3/uL (150-400); RED BLOOD CELL COUNT 4.75 10^6/uL (4.40-6.38); RED CELL DISTRIBUTION WIDTH 14.7 % (11.5-15.2)
[2016-06-30] MEDS: oxyCODONE IR 15 MG TAB PO PRN ×2 (05:51→10:41)
[2016-06-30 06:05] LABS: ALANINE AMINOTRANSFERASE 43 IU/L (21-72); ALBUMIN 3.8 g/dL (3.5-5.0); ALKALINE PHOSPHATASE 179 IU/L (38-126); ANION GAP 12 mEq/L (8-16); ASPARTATE AMINOTRANSFERASE 31 IU/L (17-59); CALCIUM 9.4 mg/dL (8.5-10.4); CARBON DIOXIDE 24 mEq/l (22-31); CHLORIDE 100 mEq/L (97-110); CREATININE 0.6 mg/dL (0.7-1.3); GLOMERULAR FILTRATION RATE > 60; GLUCOSE 165 mg/dL (70-100); MAGNESIUM 2.2 mg/dL (1.6-2.3); POTASSIUM 4.3 mEq/L (3.5-5.2); SODIUM 136 mEq/L (134-144); TOTAL PROTEIN 7.3 g/dL (6.3-8.2)
[2016-06-30] MEDS: glyBURIDE 2.5 MG TAB PO SCH (08:25)
[2016-06-30] MEDS ORDERED: MEGESTROL ACETATE 400 MG/10 ML UDL PO SCH (09:00)
[2016-06-30] MEDS: ENOXAPARIN 40 MG/0.4 ML SYR SC SCH (09:39)
[2016-06-30] MEDS: ASCORBIC ACID 500 MG TAB PO SCH (10:31)
[2016-06-30] MEDS: MULTIVITAMINS 1 EACH TAB PO SCH (10:31)
[2016-06-30] MEDS: CHOLECALCIFEROL VIT D3 1,000 UNITS TAB PO SCH (10:32)
[2016-06-30] MEDS: DRONABINOL 2.5 MG CAP PO SCH (10:35)
[2016-06-30] MEDS: MEGESTROL ACETATE 400 MG/10 ML UDL PO SCH (10:39)
--- NOTE | 2016-06-30 10:54 | PDDCSUM ---
Discharge Summary Discharge Summary: DISCHARGE SUMMARY FOLLOW-UP ITEMS: Outpatient labs, outpatient oral surgery follow-up DATE OF ADMISSION: 06/27/16 DATE OF DISCHARGE: 06/29/16 DISCHARGE DIAGNOSES: 1. Stage IV colon cancer 2. Anxiety 3. Chronic pain with continuous opiate and benzodiazepine dependency 4. History of recent E coli bacteremia 5. Diabetes mellitus type 2 CONSULTATIONS: Oncology PROCEDURES / IMAGING: None CHIEF COMPLAINT: Inpatient chemotherapy SUBJECTIVE: Patient is feeling well at time of discharge, he reports that his appetite has improved with Megace PHYSICAL EXAM ON DISCHARGE: Vital signs stable, chronically ill-appearing, thin, pain level 0/10 LABS ON DISCHARGE: White blood cell count 5000, hemoglobin 14.7, platelets [id number], creatinine 0.6, liver panel unremarkable, potassium 4.3 HOSPITAL COURSE BY PROBLEM: 1. Stage IV colon cancer. Patient received inpatient FOLFOX, cycle 7, requiring inpatient admission. He tolerated the treatment well with some nausea and anorexia. His anorexia has been increasingly bothersome and he would like to start an appetite stimulant. We initiated Megace, and he noted significant benefit. We will discharge him with a prescription for daily dosing and he can follow up with Dr. Lott regarding ongoing use of this medication. Will also be discharged with scheduled Marinol. The patient also began to question whether he would like to continue his chemotherapy treatments and we offered him the support of our cancer nebulizer. The patient declined palliative consultation during this hospitalization but I would recommend reassessing this need with the patient in the future. 2. Anxiety. Chronic with a history of depression suspected personality disorder versus strong character traits which occasionally interfere with his care. The patient intermittently refused lab draws and requested anxiolytic medications on a regular basis. At the time of discharge, the patient is feeling calm and he is able to care for himself. 3. Chronic pain with continuous opiate and benzodiazepine dependency. Patient was continued on oxycodone and Ativan during this hospitalization, provided with scripts both of these meds at discharge. 4. History recent E coli bacteremia. Patient declined repeat blood cultures to demonstrate ongoing clearance. Patient did request a reference for an oral surgeon to evaluate his teeth, as the patient believes this was the source of his infection. That being said review of his previous records indicate that his medical providers felt like his primary source was urinary. 5. Diabetes mellitus type 2. Patient was continued on a sulfonylurea. DISCHARGE MEDICATIONS: Please see official discharge medication reconciliation sheet in chart , Megace 400 mg daily, continue all other home medications. DISCHARGE INSTRUCTIONS: Please follow up with Dr. Lott as scheduled and have labs drawn at that time. TIME SPENT: Greater than 30 minutes were spent on direct patient care, as well as discharge planning and preparation.
[2016-06-30] MEDS: POLYETHYLENE GLYCOL 3350 17 GM PKT PO SCH (11:52)
== END 2016-06-30 13:06 | disposition home or self-care (01) | DRG 847 ==
LOC: F1N 11:07
PROVIDERS: ADMIT Internal Medicine; ATTEND Internal Medicine
DX: Z51.11 Encounter for antineoplastic chemotherapy (principal); C18.9 Malignant neoplasm of colon, unspecified; F41.9 Anxiety disorder, unspecified; E11.9 Type 2 diabetes mellitus without complications; G89.29 Other chronic pain; F11.20 Opioid dependence, uncomplicated; F13.20 Sedative, hypnotic or anxiolytic dependence, uncomplicated; Z59.0 Homelessness
CPT/HCPCS: J0640; J1642; J1650; J2469; J9035; J9190; J9263

== ENCOUNTER 2016-07-11 10:43 | Inpatient (IN) | payer MEDICAID ==
[2016-07-11] MEDS ORDERED: TEMAZEPAM 15 MG CAP PO PRN (11:04)
[2016-07-11] MEDS ORDERED: ACETAMINOPHEN 325 MG TAB PO PRN (11:04)
[2016-07-11] MEDS ORDERED: NS 1,000 ML IV ONE (11:15)
--- NOTE | 2016-07-11 11:49 | GHP ---
[f rep st] HISTORY AND PHYSICAL DATE OF ADMISSION: 07/11/2016 CHIEF COMPLAINT: Admitted for chemotherapy, abdominal pain. HISTORY OF PRESENT ILLNESS: This is a 56-year-old man with a history of stage IV colon cancer, who is admitted for inpatient chemotherapy. Plan is to complete cycle 8 of FOLFOX. He complains of an acute onset of abdominal pain. This morning. He describes it as lower abdominal radiating up into his upper abdomen, it is bilateral and severe. He has had about a dozen episodes of emesis today. He had a small bowel movement this morning. He notes that he ate meatballs at [facility] last night. He had some chills but no real fevers today. He is refusing to have l abs drawn at this point as he had labs drawn yesterday. PAST MEDICAL HISTORY: 1. Diabetes mellitus type 2. 2. Stage IV colon cancer status post 7 cycles of FOLFOX. 3. History of E coli bacteremia presumed secondary to a UTI. 4. Periodontal abscess. 5. Depression. PAST SURGICAL HISTORY: Colectomy. FAMILY HISTORY: No history of colon cancer. SOCIAL HISTORY: He is currently smoking and he is homeless. REVIEW OF SYSTEMS: A 10-point review of systems is conducted and is negative except per HPI. PHYSICAL EXAM: GENERAL: The patient appears mildly uncomfortable lying in bed, holding his abdomen , in some distress. HEENT: Shows him to be normocephalic, atraumatic. CARDIOVASCULAR: Shows a re gular rate and rhythm. No murmurs, rubs, or gallops. PULMONARY: Shows lungs clear to auscultation bilaterally. ABDOMEN: Shows him to have a soft abdomen. I do not appreciate any masses or hepato splenomegaly. He is diffusely tender to palpation. There is no guarding or rebound. He has normal bowel sounds. SKIN: No rash. : Shows no Alvarez. NEUROLOGIC: Shows him to be alert and orient ed x3. He is moving all extremities. PSYCHIATRIC: Shows normal mood and affect. LABS: Labs from yesterday were reviewed. They show platelets of 121, white count of 8.9, creatinin e of 0.9. CEA of 14. DATA: 1. I briefly discussed this with Dr. Royal, including plans to admit for chemotherapy and obtain a CT scan. 2. I reviewed his old chart. IMPRESSION AND PLAN: A 56-year-old man admitted electively for chemotherapy with acute onset of abd ominal pain. 1. Abdominal pain: Given history of colon cancer I will get a stat CT scan. He had creatinine nadiya wn yesterday which was 0.9. I will give him IV contrast. Multiple potential etiologies, we will in [facility]ve Surgery if there appears to be a surgical need. 2. Stage IV colon cancer: Admitted for cycle 8 of FOLFOX. We will wait until we see the results o f the CT scan to review this. 3. Homelessness: We will need some case management support. 4. Diabetes: We will likely continue his glyburide. 5. Chronic pain on continuous narcotics: We will continue these. 6. Anxiety: We will continue his Ativan. 7. Code status: He would like to be do not resuscitate. 8. Venous thromboembolism risk: He is moderate to high risk: I will give him Lovenox. /[id number]/MODL
--- NOTE | 2016-07-11 12:09 | GHP ---
[f rep st] HISTORY AND PHYSICAL DATE OF ADMISSION: 07/11/2016 HISTORY OF PRESENT ILLNESS: The patient is a 56-year-old male who presented last year with colon ca rcinoma metastatic to the liver. He has been on chemotherapy with FOLFOX plus Avastin and has recei jorgito 7 cycles. So far, he has tolerated chemotherapy well and a recent CT scan done 2-3 weeks ago sh ows significant improvement in his known liver metastasis. His CEA has been dropping as well. He i s admitted for his 8th cycle of FOLFOX with Avastin; however, over the last 12 hours or so, has deve loped some abdominal pain and a number of significant vomiting episodes without diarrhea. He did ea t at a homeless care home last night. He says the pain is primarily in his mid abdomen. He denies an y fevers or chills. PAST MEDICAL HISTORY: Significant for metastatic colon cancer and type 2 diabetes. ALLERGIES: He has no known drug allergies. SOCIAL HISTORY: He is homeless. PHYSICAL EXAMINATION: GENERAL: Today, he is in mild distress. VITAL SIGNS: Pending. HEENT: He is not icteric. Mucous membranes are well hydrated. NECK/LYMPH: I detect no adenopathy. LUNGS: Clear. CARDIAC: Unremarkable. ABDOMEN: Somewhat high-pitched bowel sounds. He is slightly tende r to percussion without rebound. LABORATORY: Exam from yesterday shows a white count of 8.95, hemoglobin of 13.8, hematocrit of 40.9 , platelets are 121,000. Chemistry panel was generally unremarkable. IMPRESSION: Patient with metastatic colon cancer and fairly acute onset of nausea and some abdomina l pain. I am more suspicious of a food poisoning type issue rather than progression of his colon ca ncer which seems to have been under very good control. He is status post an exploratory laparotomy, so something such as a bowel obstruction related to adhesions could also be a possibility. PLAN: To obtain a CT scan of his abdomen and pelvis. Hydrate him and follow him carefully. We are going to hold chemotherapy until this acute issue is sorted out. /[id number]/MODL
[2016-07-11] MEDS ORDERED: LIDOCAINE/PRILOCAINE 1 EACH CRTUBE TP PRN (12:18)
[2016-07-11] MEDS: oxyCODONE IR 15 MG TAB PO PRN ×3 (12:58→21:24)
[2016-07-11] MEDS: ONDANSETRON 4 MG/2 ML VIAL IVP PRN (13:28)
[2016-07-11 13:41] LABS: % IMMATURE GRANULYOCYTES 0.5 % (0.0-1.1); ABSOLUTE IMMATURE GRANULOCYTES 0.04 10^3/uL (0.00-0.10); ADD DIFF? NO; ADD MORPH? NO; ADD SCAN? NO; ATYPICAL LYMPHOCYTE FLAG 60 (0-99); FRAGMENT RBC FLAG 0 (0-99); HEMATOCRIT 38.9 % (40.0-51.0); HEMOGLOBIN 13.3 g/dL (13.7-17.5); LEFT SHIFT FLG 0 (0-99); LIPEMIA HEMOLYSIS FLAG 90 (0-99); MEAN CELL HEMOGLOBIN 30.4 pg (27.9-34.1); MEAN CELL HEMOGLOBIN CONCENTR. 34.2 g/dL (32.4-36.7); MEAN CELL VOLUME 88.8 fL (81.5-99.8); MEAN PLATELET VOLUME 8.7 fL (8.7-11.7); PLATELET CLUMPS FLAG 0 (0-99); PLATELET COUNT 96 10^3/uL (150-400); RED BLOOD CELL COUNT 4.38 10^6/uL (4.40-6.38); RED CELL DISTRIBUTION WIDTH 14.8 % (11.5-15.2)
[2016-07-11 13:57] LABS: INR 0.96 (0.83-1.16); PROTIME(PATIENT) 12.7 SEC (12.0-15.0)
[2016-07-11 14:13] LABS: ALANINE AMINOTRANSFERASE 44 IU/L (21-72); ALBUMIN 3.6 g/dL (3.5-5.0); ALKALINE PHOSPHATASE 217 IU/L (38-126); ANION GAP 9 mEq/L (8-16); ASPARTATE AMINOTRANSFERASE 36 IU/L (17-59); BILIRUBIN,TOTAL 0.7 mg/dL (0.1-1.4); CARBON DIOXIDE 21 mEq/l (22-31); CHLORIDE 106 mEq/L (97-110); CREATININE 0.5 mg/dL (0.7-1.3); GLOMERULAR FILTRATION RATE > 60; GLUCOSE 139 mg/dL (70-100); POTASSIUM 4.1 mEq/L (3.5-5.2); SODIUM 136 mEq/L (134-144); TOTAL PROTEIN 6.6 g/dL (6.3-8.2)
[2016-07-11] MEDS: MEGESTROL ACETATE 400 MG/10 ML UDL PO SCH (16:30)
[2016-07-11] MEDS ORDERED: IOPAMIDOL (ISOVUE-300) 100 ML BTL IV ONE (16:39)
[2016-07-11] MEDS ORDERED: POLYETHYLENE GLYCOL 3350 17 GM PKT PO PRN (17:30)
[2016-07-12] MEDS: oxyCODONE IR 15 MG TAB PO PRN ×5 (01:00→20:04)
[2016-07-12] MEDS: ONDANSETRON 4 MG/2 ML VIAL IVP PRN ×4 (01:00→20:03)
[2016-07-12] MEDS: NS 1,000 ML IV SCH ×2 (07:49→16:35)
[2016-07-12] MEDS: ENOXAPARIN 40 MG/0.4 ML SYR SC SCH (08:39)
[2016-07-12 09:16] LABS: % IMMATURE GRANULYOCYTES 0.6 % (0.0-1.1); ABSOLUTE IMMATURE GRANULOCYTES 0.04 10^3/uL (0.00-0.10); ADD DIFF? NO; ADD MORPH? NO; ADD SCAN? NO; ATYPICAL LYMPHOCYTE FLAG 50 (0-99); FRAGMENT RBC FLAG 0 (0-99); LEFT SHIFT FLG 0 (0-99); LIPEMIA HEMOLYSIS FLAG 80 (0-99); MEAN CELL HEMOGLOBIN 30.2 pg (27.9-34.1); MEAN CELL HEMOGLOBIN CONCENTR. 33.3 g/dL (32.4-36.7); MEAN CELL VOLUME 90.5 fL (81.5-99.8); MEAN PLATELET VOLUME 9.3 fL (8.7-11.7); PLATELET CLUMPS FLAG 0 (0-99); PLATELET COUNT 99 10^3/uL (150-400); RED BLOOD CELL COUNT 4.31 10^6/uL (4.40-6.38); RED CELL DISTRIBUTION WIDTH 14.9 % (11.5-15.2)
[2016-07-12 09:34] LABS: ALANINE AMINOTRANSFERASE 38 IU/L (21-72); ALBUMIN 3.3 g/dL (3.5-5.0); ALKALINE PHOSPHATASE 197 IU/L (38-126); ANION GAP 6 mEq/L (8-16); ASPARTATE AMINOTRANSFERASE 36 IU/L (17-59); BILIRUBIN,TOTAL 0.6 mg/dL (0.1-1.4); CALCIUM 8.5 mg/dL (8.5-10.4); CARBON DIOXIDE 24 mEq/l (22-31); CHLORIDE 103 mEq/L (97-110); CREATININE 0.6 mg/dL (0.7-1.3); GLOMERULAR FILTRATION RATE > 60; GLUCOSE 203 mg/dL (70-100); POTASSIUM 4.2 mEq/L (3.5-5.2); SODIUM 133 mEq/L (134-144); TOTAL PROTEIN 6.4 g/dL (6.3-8.2)
--- NOTE | 2016-07-12 10:40 | HOSPPROG ---
Hospitalist Progress Note Assessment/Plan: 56-year-old man with stage IV colon cancer admitted for elective chemotherapy. Found to have a partial small bowel obstruction. # partial SBO - seems to be responding to conservative treatment - cont IVF, recheck AXR, hope to advance diet # colon ca, stage IV - holding chemo until SBO resolves # homeless # DM2 - glyburide # chronic pain on continuous narcotics ## discussed with Dr Royal Subjective: no BM; ongoing abd pain; no emesis Objective: Vital Signs Temp Pulse Resp BP Pulse Ox 36.7 C 82 16 141/83 H 95 07/12/16 08:15 07/12/16 08:15 07/12/16 08:15 07/12/16 08:15 07/12/16 08:15 Laboratory Results 07/12/16 08:47 07/12/16 08:47 07/11/16 07/12/16 07/13/16 05:59 05:59 05:59 Intake Total 1200 Output Total 600 300 Balance 600 -300 PT 12.7 SEC (12.0-15.0) 07/11/16 13:33 INR 0.96 (0.83-1.16) 07/11/16 13:33 - Physical Exam Constitutional: no apparent distress, appears nourished Gastrointestinal: other (+BS; soft; TTP, mostly RUQ; not distended) ICD10 Worksheet Patient Problems: Problems Problem Status Onset Abdominal pain Acute Liver lesion Acute
[2016-07-12] MEDS: MEGESTROL ACETATE 400 MG/10 ML UDL PO SCH (10:49)
[2016-07-12] MEDS: glyBURIDE 2.5 MG TAB PO SCH (10:49)
[2016-07-12] MEDS: POLYETHYLENE GLYCOL 3350 17 GM PKT PO SCH ×2 (10:50→15:29)
--- NOTE | 2016-07-12 10:52 | SOAPPROG ---
SOAP Progress Note Assessment/Plan: Assessment: 1. colon ca 2. bowel obstruction 3. diabetes Plan:Conservative rx bowel obstruction, hopefully from benign stricture, hold chemo for now 07/12/16 10:50 Subjective: Feels a bit better Objective: Vital Signs Temp Pulse Resp BP Pulse Ox 98.0 F 82 16 141/83 H 95 07/12/16 08:15 07/12/16 08:15 07/12/16 08:15 07/12/16 08:15 07/12/16 08:15 Laboratory Results 07/12/16 08:47 07/12/16 08:47 07/11/16 07/12/16 07/13/16 05:59 05:59 05:59 Intake Total 1200 Output Total 600 300 Balance 600 -300 PT 12.7 SEC (12.0-15.0) 07/11/16 13:33 INR 0.96 (0.83-1.16) 07/11/16 13:33 Physical Exam - Physical Exam General Appearance: alert, no apparent distress Respiratory: normal breath sounds Cardiac/Chest: regular rate, rhythm Abdomen: non-tender, No normal bowel sounds (few bs) ICD10 Worksheet Patient Problems: Problems Problem Status Onset Abdominal pain Acute Liver lesion Acute
[2016-07-13] MEDS: PROMETHAZINE HCL 25 MG TAB PO PRN (00:09)
[2016-07-13] MEDS: oxyCODONE IR 15 MG TAB PO PRN ×6 (00:09→22:00)
[2016-07-13] MEDS: ENOXAPARIN 40 MG/0.4 ML SYR SC SCH (07:40)
--- NOTE | 2016-07-13 08:46 | HOSPPROG ---
Hospitalist Progress Note Assessment/Plan: #Recurrent SBO: due to colon cancer. Symptoms improved, having BMs. Advance diet #Metastatic colon cancer: chemo tomorrow if clinically stable #Controlled DM: glyburide #Chronic abd pain: cont home meds #Diet: regular #DVt ppx: Lovenox Disp: inpt admission, chemo tomorrow Subjective: having BMs. No N/V Objective: Vital Signs Temp Pulse Resp BP Pulse Ox 36.7 C 90 16 148/90 H 93 07/13/16 00:00 07/13/16 00:00 07/13/16 00:00 07/13/16 00:00 07/13/16 00:00 Laboratory Results 07/12/16 08:47 07/12/16 08:47 07/12/16 07/13/16 07/14/16 05:59 05:59 05:59 Intake Total 1200 4868 Output Total 600 2003 Balance 600 2865 PT 12.7 SEC (12.0-15.0) 07/11/16 13:33 INR 0.96 (0.83-1.16) 07/11/16 13:33 - Physical Exam Constitutional: no apparent distress Eyes: PERRL Ears, Nose, Mouth, Throat: moist mucous membranes Cardiovascular: regular rate and rhythym, no murmur, rub, or gallop Respiratory: no respiratory distress, no rales or rhonchi Gastrointestinal: normoactive bowel sounds, soft, non-tender abdomen, tenderness (RLQ, no rebound, guarding) ICD10 Worksheet Patient Problems: Problems Problem Status Onset Abdominal pain Acute Liver lesion Acute
[2016-07-13] MEDS: glyBURIDE 2.5 MG TAB PO SCH (09:38)
[2016-07-13] MEDS: POLYETHYLENE GLYCOL 3350 17 GM PKT PO SCH ×2 (09:39→18:13)
[2016-07-13] MEDS: MEGESTROL ACETATE 400 MG/10 ML UDL PO SCH (09:39)
[2016-07-13] MEDS: ONDANSETRON DISINTEGRATING 4 MG TAB PO PRN ×4 (09:44→21:24)
--- NOTE | 2016-07-13 10:31 | SOAPPROG ---
SOAP Progress Note Assessment/Plan: Assessment: 1. colon ca 2. bowel obstruction, resolving 3. diabetes Plan:He feels much better with BM's times 3, wants to to try reg diet. Will plan on chemo tomorrow if he is ok 07/12/16 10:50 07/13/16 10:29 Subjective: Feels much better Objective: Vital Signs Temp Pulse Resp BP Pulse Ox 98.0 F 98 16 120/73 93 07/13/16 09:36 07/13/16 09:36 07/13/16 09:36 07/13/16 09:36 07/13/16 09:36 Laboratory Results 07/12/16 08:47 07/12/16 08:47 07/12/16 07/13/16 07/14/16 05:59 05:59 05:59 Intake Total 1200 4868 Output Total 600 2003 Balance 600 2865 PT 12.7 SEC (12.0-15.0) 07/11/16 13:33 INR 0.96 (0.83-1.16) 07/11/16 13:33 Physical Exam - Physical Exam General Appearance: no apparent distress Respiratory: lungs clear Cardiac/Chest: regular rate, rhythm Abdomen: normal bowel sounds, non-tender ICD10 Worksheet Patient Problems: Problems Problem Status Onset Abdominal pain Acute Liver lesion Acute
[2016-07-14] MEDS: oxyCODONE IR 15 MG TAB PO PRN ×5 (02:13→19:35)
[2016-07-14] MEDS: ONDANSETRON DISINTEGRATING 4 MG TAB PO PRN (06:17)
[2016-07-14 07:10] LABS: ANION GAP 7 mEq/L (8-16); CALCIUM 9.1 mg/dL (8.5-10.4); CARBON DIOXIDE 26 mEq/l (22-31); CHLORIDE 105 mEq/L (97-110); CREATININE 0.6 mg/dL (0.7-1.3); GLOMERULAR FILTRATION RATE > 60; GLUCOSE 129 mg/dL (70-100); POTASSIUM 4.5 mEq/L (3.5-5.2); SODIUM 138 mEq/L (134-144)
--- NOTE | 2016-07-14 08:30 | HOSPPROG ---
Hospitalist Progress Note Assessment/Plan: #Recurrent SBO: due to colon cancer. Having BMs. Tolerating regular diet #Metastatic colon cancer: chemo today #Controlled DM: glyburide #Chronic abd pain: cont home meds #Diet: regular #DVt ppx: Lovenox Disp: inpt admission, chemo tomorrow Subjective: having loose stools. No N/V Objective: Vital Signs Temp Pulse Resp BP Pulse Ox 36.8 C 84 16 114/77 95 07/13/16 19:58 07/13/16 19:58 07/13/16 19:58 07/13/16 19:58 07/13/16 19:58 Laboratory Results 07/12/16 08:47 07/14/16 Unknown 07/13/16 07/14/16 07/15/16 05:59 05:59 05:59 Intake Total 4868 4000 Output Total 2002 Balance 2865 4000 PT 12.7 SEC (12.0-15.0) 07/11/16 13:33 INR 0.96 (0.83-1.16) 07/11/16 13:33 - Physical Exam Constitutional: no apparent distress Eyes: PERRL Ears, Nose, Mouth, Throat: moist mucous membranes Cardiovascular: regular rate and rhythym, no murmur, rub, or gallop Respiratory: no respiratory distress, no rales or rhonchi Gastrointestinal: normoactive bowel sounds, other (soft ND, mild LLQ pain) Genitourinary: no bladder fullness Skin: warm Musculoskeletal: full muscle strength Neurologic: AAOx3 ICD10 Worksheet Patient Problems: Problems Problem Status Onset Abdominal pain Acute Liver lesion Acute
[2016-07-14] MEDS: glyBURIDE 2.5 MG TAB PO SCH (09:44)
[2016-07-14] MEDS: MEGESTROL ACETATE 400 MG/10 ML UDL PO SCH (09:44)
[2016-07-14] MEDS: POLYETHYLENE GLYCOL 3350 17 GM PKT PO SCH ×2 (09:45→21:53)
[2016-07-14] MEDS: ENOXAPARIN 40 MG/0.4 ML SYR SC SCH (10:04)
--- NOTE | 2016-07-14 10:57 | SOAPPROG ---
SOAP Progress Note Assessment/Plan: Assessment: 1. colon ca 2. bowel obstruction, resolving 3. diabetes Plan: Folfox with yair today 07/12/16 10:50 07/13/16 10:29 07/14/16 10:56 Subjective: Feels ok, still mild abdominal cramping Objective: Vital Signs Temp Pulse Resp BP Pulse Ox 98.1 F 97 16 131/78 H 94 07/14/16 08:34 07/14/16 08:34 07/14/16 08:34 07/14/16 08:34 07/14/16 08:34 Laboratory Results 07/12/16 08:47 07/14/16 Unknown 07/13/16 07/14/16 07/15/16 05:59 05:59 05:59 Intake Total 4868 4000 Output Total 2002 Balance 2865 4000 PT 12.7 SEC (12.0-15.0) 07/11/16 13:33 INR 0.96 (0.83-1.16) 07/11/16 13:33 Physical Exam - Physical Exam General Appearance: alert, no apparent distress Respiratory: normal breath sounds Cardiac/Chest: regular rate, rhythm Abdomen: normal bowel sounds, non-tender ICD10 Worksheet Patient Problems: Problems Problem Status Onset Abdominal pain Acute Liver lesion Acute
[2016-07-14] MEDS ORDERED: DEXAMETHASONE SOD PHOSPHATE 10 MG in NS 50 ML IV ONE (11:30)
[2016-07-14] MEDS ORDERED: PALONOSETRON HCL 0.25 MG/5 ML VIAL IVP ONE (11:30)
[2016-07-14] MEDS ORDERED: NS IV ONE ×2 (12:00)
[2016-07-14] MEDS ORDERED: BEVACIZUMAB IV ONE ×2 (12:00)
[2016-07-14] MEDS ORDERED: OXALIPLATIN IV ONE (12:30)
[2016-07-14] MEDS ORDERED: D5W IV ONE ×2 (12:30)
[2016-07-14] MEDS ORDERED: LEUCOVORIN CALCIUM IV ONE (12:30)
[2016-07-14] MEDS ORDERED: FLUOROURACIL IV ONE (14:45)
[2016-07-14] MEDS: FLUOROURACIL IV SCH (17:15)
[2016-07-14] MEDS: D5W IV SCH (17:15)
[2016-07-15] MEDS: oxyCODONE IR 15 MG TAB PO PRN ×3 (05:30→20:32)
[2016-07-15 10:08] LABS: HEMATOCRIT 41.2 % (40.0-51.0); HEMOGLOBIN 14.2 g/dL (13.7-17.5); MEAN CELL HEMOGLOBIN 30.6 pg (27.9-34.1); MEAN CELL HEMOGLOBIN CONCENTR. 34.5 g/dL (32.4-36.7); MEAN CELL VOLUME 88.8 fL (81.5-99.8); RED BLOOD CELL COUNT 4.64 10^6/uL (4.40-6.38); RED CELL DISTRIBUTION WIDTH 14.3 % (11.5-15.2)
[2016-07-15] MEDS: glyBURIDE 2.5 MG TAB PO SCH (10:26)
[2016-07-15] MEDS: POLYETHYLENE GLYCOL 3350 17 GM PKT PO SCH (10:26)
[2016-07-15] MEDS: MULTIVITAMINS 1 EACH TAB PO SCH (10:26)
[2016-07-15] MEDS: CHOLECALCIFEROL VIT D3 1,000 UNITS TAB PO SCH (10:26)
[2016-07-15] MEDS: ASCORBIC ACID 500 MG TAB PO SCH (10:26)
[2016-07-15] MEDS: MEGESTROL ACETATE 400 MG/10 ML UDL PO SCH ×2 (10:27→10:33)
[2016-07-15] MEDS: ENOXAPARIN 40 MG/0.4 ML SYR SC SCH (10:33)
[2016-07-15 10:34] LABS: ANION GAP 12 mEq/L (8-16); CALCIUM 9.5 mg/dL (8.5-10.4); CARBON DIOXIDE 22 mEq/l (22-31); CHLORIDE 101 mEq/L (97-110); CREATININE 0.6 mg/dL (0.7-1.3); GLOMERULAR FILTRATION RATE > 60; GLUCOSE 194 mg/dL (70-100); SODIUM 135 mEq/L (134-144)
[2016-07-15] MEDS: PROMETHAZINE HCL 25 MG TAB PO PRN (13:27)
[2016-07-15] MEDS: LORazepam 1 MG TAB PO PRN ×2 (13:27→20:32)
--- NOTE | 2016-07-15 15:50 | HOSPPROG ---
Hospitalist Progress Note Assessment/Plan: #Recurrent SBO: due to colon cancer. Having BMs. Tolerating regular diet #Metastatic colon cancer: chemo today #Controlled DM: glyburide #Chronic abd pain: cont home meds #Diet: regular #DVt ppx: Lovenox Disp: inpt admission, on chemo Subjective: upset about lab draws this morning Objective: Vital Signs Temp Pulse Resp BP Pulse Ox 36.6 C 79 16 140/84 H 94 07/15/16 08:00 07/15/16 08:00 07/15/16 08:00 07/15/16 08:00 07/15/16 08:00 Laboratory Results 07/15/16 09:45 07/15/16 09:45 07/14/16 07/15/16 07/16/16 05:59 05:59 05:59 Intake Total 4000 4300 1000 Output Total 450 Balance 4000 4300 550 PT 12.7 SEC (12.0-15.0) 07/11/16 13:33 INR 0.96 (0.83-1.16) 07/11/16 13:33 Physical Exam: Refused physical exam today ICD10 Worksheet Patient Problems: Problems Problem Status Onset Abdominal pain Acute Liver lesion Acute
[2016-07-15] MEDS: D5W IV SCH (18:35)
[2016-07-15] MEDS: FLUOROURACIL IV SCH (18:35)
[2016-07-16] MEDS: oxyCODONE IR 15 MG TAB PO PRN ×3 (07:32→16:39)
[2016-07-16] MEDS: PROMETHAZINE HCL 25 MG TAB PO PRN ×2 (07:32→16:39)
[2016-07-16] MEDS: MULTIVITAMINS 1 EACH TAB PO SCH (11:47)
[2016-07-16] MEDS: CHOLECALCIFEROL VIT D3 1,000 UNITS TAB PO SCH (11:47)
[2016-07-16] MEDS: glyBURIDE 2.5 MG TAB PO SCH (11:47)
--- NOTE | 2016-07-16 11:48 | HOSPPROG ---
Hospitalist Progress Note Assessment/Plan: #Recurrent SBO: due to colon cancer. Having BMs. Tolerating regular diet #Metastatic colon cancer: FOLFOX + yair; last dose chemo this kary #Nausea/diarrhea: due to chemo. If persistent diarrhea, will check C diff #Controlled DM: glyburide #Chronic abd pain: cont home meds #Diet: regular #DVt ppx: Lovenox Disp: DC tomorrow if clinicaly stable Subjective: nausea/vomiting this morn. Diarrhea and no appetite Objective: Vital Signs Temp Pulse Resp BP Pulse Ox 36.5 C 98 20 127/86 H 97 07/16/16 11:43 07/16/16 11:43 07/16/16 11:43 07/16/16 11:43 07/16/16 11:43 Laboratory Results 07/15/16 09:45 07/15/16 09:45 07/15/16 07/16/16 07/17/16 05:59 05:59 05:59 Intake Total 4300 1767 Output Total 450 Balance 4300 1317 PT 12.7 SEC (12.0-15.0) 07/11/16 13:33 INR 0.96 (0.83-1.16) 07/11/16 13:33 - Physical Exam Constitutional: other (ill-appearing, tired.) Eyes: PERRL Ears, Nose, Mouth, Throat: moist mucous membranes Respiratory: no respiratory distress Gastrointestinal: normoactive bowel sounds, tenderness Skin: warm Musculoskeletal: full muscle strength Neurologic: AAOx3 Psychiatric: flat affect ICD10 Worksheet Patient Problems: Problems Problem Status Onset Abdominal pain Acute Liver lesion Acute
[2016-07-16] MEDS: ASCORBIC ACID 500 MG TAB PO SCH (11:51)
[2016-07-16] MEDS: MEGESTROL ACETATE 400 MG/10 ML UDL PO SCH (11:53)
[2016-07-16] MEDS: ENOXAPARIN 40 MG/0.4 ML SYR SC SCH (11:53)
--- NOTE | 2016-07-16 12:15 | SOAPPROG ---
SOAP Progress Note Assessment/Plan: Assessment/Plan: 56 yo w Stage IV colon cancer admitted w bowel obx 1. Bowel obx - resolved w conservative management 2. Colon ca - next cycle of FOLFOX + yair started 07/14 Having a response, CEA down to 14 +N/diarrhea today getting IV anti-emetics, fluids will monitor closely if diarrhea continues, send C. Diff 3. Dispo - homeless, will likely d/c tomorrow if Sx improve 07/16/16 12:11 07/16/16 12:14 Subjective: Feeling ill today +nausea and some diarrhea that he thinks is from Miralax abd pain ongoing - no sig change Objective: Vital Signs Temp Pulse Resp BP Pulse Ox 36.5 C 98 20 127/86 H 97 07/16/16 11:43 07/16/16 11:43 07/16/16 11:43 07/16/16 11:43 07/16/16 11:43 Laboratory Results 07/15/16 09:45 07/15/16 09:45 07/15/16 07/16/16 07/17/16 05:59 05:59 05:59 Intake Total 4300 1767 Output Total 450 Balance 4300 1317 PT 12.7 SEC (12.0-15.0) 07/11/16 13:33 INR 0.96 (0.83-1.16) 07/11/16 13:33 Vitals reviewed Gen - ill appearing but nontoxic CV - RRR Chest - clear anteriorly Abd - BS+ Ext - no sig edema ICD10 Worksheet Patient Problems: Problems Problem Status Onset Abdominal pain Acute Liver lesion Acute
[2016-07-17 06:32] LABS: % IMMATURE GRANULYOCYTES 0.2 % (0.0-1.1); ABSOLUTE IMMATURE GRANULOCYTES 0.01 10^3/uL (0.00-0.10); ADD DIFF? NO; ADD MORPH? NO; ADD SCAN? NO; ATYPICAL LYMPHOCYTE FLAG 0 (0-99); FRAGMENT RBC FLAG 0 (0-99); HEMATOCRIT 45.8 % (40.0-51.0); HEMOGLOBIN 15.5 g/dL (13.7-17.5); LEFT SHIFT FLG 10 (0-99); LIPEMIA HEMOLYSIS FLAG 90 (0-99); MEAN CELL HEMOGLOBIN CONCENTR. 33.8 g/dL (32.4-36.7); MEAN CELL VOLUME 88.8 fL (81.5-99.8); MEAN PLATELET VOLUME 9.1 fL (8.7-11.7); PLATELET CLUMPS FLAG 10 (0-99); PLATELET COUNT 112 10^3/uL (150-400); RED BLOOD CELL COUNT 5.16 10^6/uL (4.40-6.38); RED CELL DISTRIBUTION WIDTH 14.4 % (11.5-15.2)
[2016-07-17 07:10] LABS: ANION GAP 9 mEq/L (8-16); CALCIUM 9.5 mg/dL (8.5-10.4); CARBON DIOXIDE 25 mEq/l (22-31); CHLORIDE 100 mEq/L (97-110); CREATININE 0.6 mg/dL (0.7-1.3); GLOMERULAR FILTRATION RATE > 60; GLUCOSE 120 mg/dL (70-100); POTASSIUM 4.4 mEq/L (3.5-5.2); SODIUM 134 mEq/L (134-144)
[2016-07-17] MEDS: POLYETHYLENE GLYCOL 3350 17 GM PKT PO SCH (07:52)
[2016-07-17] MEDS: oxyCODONE IR 15 MG TAB PO PRN ×3 (09:05→17:12)
[2016-07-17 09:08] VITALS: RESP 20; TEMP 97.7
[2016-07-17] MEDS ORDERED: LORazepam 1 MG TAB PO PRN (09:23)
--- NOTE | 2016-07-17 09:27 | HOSPPROG ---
Hospitalist Progress Note Assessment/Plan: 56 yo M w/hx of stage 4 colon cancer admitted for planned chemo complicated by sbo present on admission # SBO: mild and recurrent in setting of stage 4 colon cancer and prior partial colectomy, resolved with conservative mgmt # stage 4 colon cancer: with known liver mets, admit for planned cycle 8 FOLFOX + yair started on 07/14. Having significant n/v related to treatment but otherwise tolerating well and appears to be responding to tx with CEA trending down. Abd CT from admission personally reviewed showing stable liver mets/ stable moderate splenomegaly and mild sbo as above. #n/v/d: diarrhea resolved, still with n/v limiting ability to take po. Responds best to ativan rather than phenergan (holding zofran for now post chemo per protocol). Monitoring, if sxs controlled can likely dc later today. # DM: continue glyburide # chronic abdominal pain with continuous opiate use and dependency: will continue usual regimen # DNR # dispo: IP, may be ready to dc later today if sxs better improved Patient new to my care. Old records reviewed and summarized as above. Further hx obtained from patient partner present at bedside. Subjective: no signficiant overnight events, patient still nauseated today, not walking more than a few feet given weakness Objective: Vital Signs Temp Pulse Resp BP Pulse Ox 36.5 C 104 H 20 125/88 H 95 07/17/16 09:07 07/17/16 09:07 07/17/16 09:07 07/17/16 09:07 07/17/16 09:07 Laboratory Results 07/17/16 06:00 07/17/16 06:00 07/16/16 07/17/16 07/18/16 05:59 05:59 05:59 Intake Total 1767 704 Output Total 450 1600 Balance 1317 -896 PT 12.7 SEC (12.0-15.0) 07/11/16 13:33 INR 0.96 (0.83-1.16) 07/11/16 13:33 - Physical Exam Constitutional: chronically ill appearing, uncomfortable Eyes: PERRL, anicteric sclera Ears, Nose, Mouth, Throat: moist mucous membranes, hearing normal Cardiovascular: regular rate and rhythym, no murmur, rub, or gallop, No edema Respiratory: no respiratory distress, no rales or rhonchi, clear to auscultation Gastrointestinal: normoactive bowel sounds, soft, non-tender abdomen, No guarding, No rebound, No distension Genitourinary: no bladder tenderness Skin: warm, normal color Musculoskeletal: no muscle tenderness, No asymmetric calves Neurologic: AAOx3 Psychiatric: interacting appropriately, not anxious, not encephalopathic ICD10 Worksheet Patient Problems: Problems Problem Status Onset Liver lesion Acute Abdominal pain Acute
[2016-07-17] MEDS: glyBURIDE 2.5 MG TAB PO SCH (10:35)
[2016-07-17] MEDS: ASCORBIC ACID 500 MG TAB PO SCH (10:36)
[2016-07-17] MEDS: MULTIVITAMINS 1 EACH TAB PO SCH (10:37)
[2016-07-17] MEDS: CHOLECALCIFEROL VIT D3 1,000 UNITS TAB PO SCH (10:37)
[2016-07-17] MEDS: ENOXAPARIN 40 MG/0.4 ML SYR SC SCH (10:38)
[2016-07-17] MEDS: MEGESTROL ACETATE 400 MG/10 ML UDL PO SCH (10:38)
--- NOTE | 2016-07-17 14:14 | SOAPPROG ---
SOAP Progress Note Assessment/Plan: Assessment: 56 yo w Stage IV colon cancer admitted w bowel obx and for chemo 1. Bowel obx - resolved w conservative management 2. Colon ca - next cycle of FOLFOX + yair started 07/14 Having a response, CEA down to 14 N/V improved this afternoon 3. Dispo - homeless, will likely d/c tomorrow if Sx improve Plan: - Ok for d/c from acute care setting. [facility] - f/u in office with Dr. Lott on 07/24/16 as planned - Subjective: No vomiting this PM. Pain is controlled. Nausea is better. Objective: Vital Signs Temp Pulse Resp BP Pulse Ox 36.5 C 104 H 20 125/88 H 95 07/17/16 09:07 07/17/16 09:07 07/17/16 09:07 07/17/16 09:07 07/17/16 09:07 Laboratory Results 07/17/16 06:00 07/17/16 06:00 07/15/16 07/16/16 07/17/16 23:59 23:59 23:59 Intake Total 1000 1321 150 Output Total 450 1600 Balance 550 -279 150 PT 12.7 SEC (12.0-15.0) 07/11/16 13:33 INR 0.96 (0.83-1.16) 07/11/16 13:33 Physical Exam - Physical Exam General Appearance: alert, no apparent distress Respiratory: lungs clear Cardiac/Chest: regular rate, rhythm Abdomen: normal bowel sounds, other (R upper and mid upper abdomen. no rebound tenderness) Skin: normal color, warm/dry Neuro/Psych: no motor/sensory deficits, oriented x 3 ICD10 Worksheet Patient Problems: Problems Problem Status Onset Abdominal pain Acute Liver lesion Acute
--- NOTE | 2016-07-17 15:24 | PDDCSUM ---
Discharge Summary Discharge Summary: Dates of service 07/11-07/17/16 Procedures: abd ct Consultation: oncology Hospital course by problem: # SBO: mild and recurrent in setting of stage 4 colon cancer and prior partial colectomy, resolved with conservative mgmt # stage 4 colon cancer: with known liver mets, admit for planned cycle 8 FOLFOX + yair started on 07/14. Having significant n/v related to treatment but otherwise tolerating well and appears to be responding to tx with CEA trending down. Abd CT from admission personally reviewed showing stable liver mets/ stable moderate splenomegaly and mild sbo as above. #n/v/d: diarrhea resolved, still with n/v limiting ability to take po. Responds best to ativan rather than phenergan (holding zofran for now post chemo per protocol). Marinol also very helpful per patient. Will dc with atival/marinol. # DM: continue glyburide # chronic abdominal pain with continuous opiate use and dependency: will continue usual regimen # DNR DC to custodial F/u with oncology and pcp > 35 minutes spent in dc of patient more than half in coordination of care and face to face counseling of patient and his family
[2016-07-17] MEDS ORDERED: DRONABINOL 2.5 MG CAP PO SCH (16:00)
[2016-07-17 17:15] VITALS: BP 110/92; PULSE 119; O2SAT 94
== END 2016-07-17 17:29 | disposition home or self-care (01) | DRG 847 ==
LOC: F1N 10:43 → OBSVTOIN 11:04
PROVIDERS: ADMIT Internal Medicine Hematology & Oncology; ATTEND Internal Medicine
DX: Z51.11 Encounter for antineoplastic chemotherapy (principal); K56.60 Unspecified intestinal obstruction; C18.9 Malignant neoplasm of colon, unspecified; C78.7 Secondary malignant neoplasm of liver and intrahepatic bile duct; E11.9 Type 2 diabetes mellitus without complications; F41.8 Other specified anxiety disorders; F17.210 Nicotine dependence, cigarettes, uncomplicated; G89.3 Neoplasm related pain (acute) (chronic); F11.20 Opioid dependence, uncomplicated; Z79.84 Long term (current) use of oral hypoglycemic drugs; Z90.49 Acquired absence of other specified parts of digestive tract; Z59.0 Homelessness
CPT/HCPCS: J0640; J1642; J1650; J2405; J2469; J9035; J9190; J9263; Q9967

== ENCOUNTER 2016-07-22 08:48 | Inpatient (IN) | payer MEDICAID ==
[2016-07-22] MEDS ORDERED: ONDANSETRON 4 MG/2 ML VIAL IVP ONE (08:56)
[2016-07-22] MEDS ORDERED: NS 1,000 ML IV ONE (08:56)
--- NOTE | 2016-07-22 09:02 | EDPHY ---
H & P HPI/ROS: CHIEF COMPLAINT: Abdominal pain, constipation HISTORY OF PRESENT ILLNESS: Patient reports history of colon cancer status post partial colectomy, metastases to the liver, and recently completed chemotherapy last week. Is discharged home with pain medications. Feels now that he is constipated. Says that he has been taking MiraLax but no stool softeners. The patient thought that MiraLax was a stool softener. Notes increasing pain from his baseline the changed yesterday. It is severe, generalized pain. Worse with palpation, movement or inspiration. No position of comfort. No vomiting but he has been nauseated. No bowel movements since yesterday. No bloody stools. No fever chills. No trauma or injury. PREVIOUS ABDOMINAL SURGERIES/DIAGNOSES: Colon cancer with hepatic metastases. Status post appendectomy and partial colectomy REVIEW OF SYSTEMS: Ten systems reviewed and are negative unless otherwise noted in the HPI EXAMINATION: General Appearance: Alert, no distress Head: normocephalic, atraumatic Eyes: Pupils equal and round, no conjunctival pallor or injection ENT, Mouth: Mucous membranes moist. Uvula midline. No erythema or edema. Neck: Normal inspection, supple, non-tender. Trachea midline. Respiratory: Lungs are clear to auscultation. No wheezing, rhonchi or crackles. Cardiovascular: Regular rate and rhythm. No murmur. Pulses intact distally. Gastrointestinal: Abdomen is soft. Tenderness in all quadrants out of proportion to examination. Mild tympany. No rigidity. Guarding in all quadrants. No Rovsing. No CVA tenderness. Nonacute abdomen. Neurological: GCS 15 A&O, nonfocal. Strength is symmetric in all 4 limbs. Skin: Warm and dry, no rash Extremities: Nontender, no pedal edema Psychiatric: Mood and affect normal DIFFERENTIAL DIAGNOSES: Including but not limited to constipation, obstipation, bowel obstruction, chronic pain, acute exacerbation of chronic pain, enteritis, colitis, diverticulitis, UTI MDM: 9:00 a.m. Acute exacerbation of ongoing abdominal pain in a patient with colon cancer with metastases to the liver. He is very tender on examination. I have ordered a CT scan of the abdomen pelvis given his significant medical history. Vital signs are within normal limits. He is not actively vomiting. 10:15 a.m. Notified by radiologist Dr. Ewing. CT scan of the abdomen pelvis reveals worsening of the partial small-bowel obstruction. He recommends NG tube for the patient. 10:25 a.m. I discussed the case with the hospitalist team. The patient will be admitted to Dr. Hoffmann. They requested an oncology bed. I have updated the patient regarding the findings and the need for NG tube. He is verbally consented to both. He is admitted in stable condition. ED Precautions: Worsening pain. Fever. Bloody stools. Bloody emesis. Constipation or diarrhea. SUPERVISION: This patient was independently evaluated without direct examination by the attending physician. Case was discussed with attending physician. Source: Patient, Family, EMS, Old records Exam Limitations: No limitations - Medical/Surgical History Hx Asthma: No Hx Chronic Respiratory Disease: No Hx Diabetes: No Hx Cardiac Disease: No Hx Renal Disease: No Hx Cirrhosis: No Hx Alcoholism: No Hx HIV/AIDS: No Hx Splenectomy or Spleen Trauma: No Other PMH: diabetes type 2, Colon CA, stage 4 hepatic cancer - Social History Smoking Status: Current every day smoker Constitutional: Initial Vital Signs Temperature (C) 98.4 F 07/22/16 09:00 Heart Rate 80 07/22/16 09:00 Respiratory Rate 18 07/22/16 09:00 Blood Pressure 137/85 H 07/22/16 09:00 O2 Sat (%) 98 07/22/16 09:00 O2 Delivery Mode Room Air Allergies/Adverse Reactions: No Known Allergies Allergy (Verified 07/22/16 09:00) Home Medications: Medication Instructions Recorded Ascorbic Acid [Vitamin C 500 mg 2,000 mg PO DAILY 04/04/16 (*)] Multivitamins [Multivitamin (*)] 1 each PO DAILY 04/04/16 Promethazine HCl [Phenergan 25mg 12.5 - 25 mg PO Q6HRS PRN 06/06/16 (*)] Cholecalciferol Vit D3 [Vitamin D3 1,000 units PO DAILY 06/08/16 (*)] Polyethylene Glycol 3350 [Miralax 17 gm PO DAILY 06/27/16 17 gm (*)] Acetaminophen [Tylenol 325mg (*)] 650 mg PO Q4HRS PRN #0 tab 06/30/16 Acetaminophen [Tylenol 325mg (*)] 650 mg PO Q4HRS PRN #0 tab 07/17/16 Dronabinol [Marinol 2.5 MG (*)] 2.5 mg PO TID #60 cap 07/17/16 LORazepam [Ativan (*)] 1 - 2 mg PO Q8 PRN #60 tab 07/17/16 Megestrol Acetate 400 mg PO DAILY #30 dose 07/17/16 Polyethylene Glycol 3350 [Miralax 17 gm PO DAILY PRN #0 pkt 07/17/16 17 gm (*)] glyBURIDE [Micronase] 2.5 mg PO DAILY@0800 #30 tab 07/17/16 oxyCODONE IR [Oxycodone Ir (*)] 15 mg PO Q4 PRN #60 tab 07/17/16 Medical Decision Making - Data Points Laboratory Results: Laboratory Results 07/22/16 Unknown 07/22/16 Unknown 07/22/16 07/22/16 07/22/16 Unknown Unknown Unknown WBC 10.82 10^3/uL H 10^3/uL (3.80-9.50) RBC 4.94 10^6/uL 10^6/uL (4.40-6.38) Hgb 15.0 g/dL g/dL (13.7-17.5) POC Hgb Hct 44.1 % % (40.0-51.0) POC Hct MCV 89.3 fL fL (81.5-99.8) MCH 30.4 pg pg (27.9-34.1) MCHC 34.0 g/dL g/dL (32.4-36.7) RDW 14.0 % % (11.5-15.2) Plt Count 136 10^3/uL L 10^3/uL (150-400) MPV 9.1 fL fL (8.7-11.7) Neut % (Auto) 70.4 % % (39.3-74.2) Lymph % (Auto) 22.8 % % (15.0-45.0) [place] % (Auto) 5.7 % % (4.5-13.0) Eos % (Auto) 0.3 % L % (0.6-7.6) Baso % (Auto) 0.3 % % (0.3-1.7) Nucleat RBC Rel Count 0.0 % % (0.0-0.2) Absolute Neuts (auto) 7.62 10^3/uL H 10^3/uL (1.70-6.50) Absolute Lymphs (auto) 2.47 10^3/uL 10^3/uL (1.00-3.00) Absolute Monos (auto) 0.62 10^3/uL 10^3/uL (0.30-0.80) Absolute Eos (auto) 0.03 10^3/uL 10^3/uL (0.03-0.40) Absolute Basos (auto) 0.03 10^3/uL 10^3/uL (0.02-0.10) Absolute Nucleated RBC 0.00 10^3/uL 10^3/uL (0-0.01) Immature Gran % 0.5 % % (0.0-1.1) Immature Gran # 0.05 10^3/uL 10^3/uL (0.00-0.10) PT 12.5 SEC SEC (12.0-15.0) INR 0.94 (0.83-1.16) APTT 27.5 SEC SEC (23.0-38.0) POC Sodium Sodium 137 mEq/L mEq/L (134-144) POC Potassium Potassium 4.2 mEq/L mEq/L (3.5-5.2) POC Chloride Chloride 101 mEq/L mEq/L (97-110) Carbon Dioxide 24 mEq/l mEq/l (22-31) Anion Gap 12 mEq/L mEq/L (8-16) POC BUN BUN 9 mg/dL mg/dL (7-23) Creatinine 0.7 mg/dL mg/dL (0.7-1.3) POC Creatinine Estimated GFR > 60 Glucose 206 mg/dL H mg/dL (70-100) POC Glucose Calcium 9.4 mg/dL mg/dL (8.5-10.4) Total Bilirubin 0.8 mg/dL mg/dL (0.1-1.4) Conjugated Bilirubin 0.4 mg/dL mg/dL (0.0-0.5) Unconjugated Bilirubin 0.4 mg/dL mg/dL (0.0-1.1) AST 39 IU/L IU/L (17-59) ALT 38 IU/L IU/L (21-72) Alkaline Phosphatase 195 IU/L H IU/L (38-126) Total Protein 7.4 g/dL g/dL (6.3-8.2) Albumin 4.2 g/dL g/dL (3.5-5.0) Lipase 56.0 IU/L IU/L (23-300) 07/22/16 08:55 WBC RBC Hgb POC Hgb 16.0 gm/dL gm/dL (14.5-17.3) Hct POC Hct 47 % % (42.8-50.6) MCV MCH MCHC RDW Plt Count MPV Neut % (Auto) Lymph % (Auto) [place] % (Auto) Eos % (Auto) Baso % (Auto) Nucleat RBC Rel Count Absolute Neuts (auto) Absolute Lymphs (auto) Absolute Monos (auto) Absolute Eos (auto) Absolute Basos (auto) Absolute Nucleated RBC Immature Gran % Immature Gran # PT INR APTT POC Sodium 139 mEq/L mEq/L (134-144) Sodium POC Potassium 4.1 mEq/L mEq/L (3.3-5.0) Potassium POC Chloride 100 mEq/L mEq/L (96-108) Chloride Carbon Dioxide Anion Gap POC BUN 8 mg/dL mg/dL (7-23) BUN Creatinine POC Creatinine 0.7 mg/dL L mg/dL (0.8-1.5) Estimated GFR Glucose POC Glucose 210 mg/dL H mg/dL (70-100) Calcium Total Bilirubin Conjugated Bilirubin Unconjugated Bilirubin AST ALT Alkaline Phosphatase Total Protein Albumin Lipase Medications Given: Discontinued Medications Sodium Chloride (Ns) 1,000 mls @ 0 mls/hr IV ONCE ONE PRN Reason: Wide Open Stop: 07/22/16 08:57 Last Admin: 07/22/16 09:14 Dose: 1,000 mls Morphine Sulfate (Morphine) 6 mg IVP EDNOW ONE Stop: 07/22/16 08:57 Last Admin: 07/22/16 09:14 Dose: 6 mg Ondansetron HCl (Zofran) 4 mg IVP EDNOW ONE Stop: 07/22/16 08:57 Last Admin: 07/22/16 09:14 Dose: 4 mg Point of Care Test Results: 07/22/16 08:55 POC Sodium 139 POC Potassium 4.1 POC Chloride 100 POC BUN 8 POC Creatinine 0.7 L POC Glucose 210 H Departure - Departure Disposition: [facility] Acute Clinical Impression: Partial small bowel obstruction, Liver metastases Colon cancer Qualifiers: Colon location: unspecified part of colon Qualified Code(s): C18.9 - Malignant neoplasm of colon, unspecified Condition: Good Referrals: Darlene Neal MD [Primary Care Provider] - As per Instructions
[2016-07-22 09:04] LABS: % IMMATURE GRANULYOCYTES 0.5 % (0.0-1.1); ABSOLUTE IMMATURE GRANULOCYTES 0.05 10^3/uL (0.00-0.10); ADD DIFF? NO; ADD MORPH? NO; ADD SCAN? NO; ATYPICAL LYMPHOCYTE FLAG 20 (0-99); FRAGMENT RBC FLAG 0 (0-99); HEMATOCRIT 44.1 % (40.0-51.0); LEFT SHIFT FLG 0 (0-99); LIPEMIA HEMOLYSIS FLAG 90 (0-99); MEAN CELL HEMOGLOBIN 30.4 pg (27.9-34.1); MEAN CELL VOLUME 89.3 fL (81.5-99.8); MEAN PLATELET VOLUME 9.1 fL (8.7-11.7); PLATELET CLUMPS FLAG 0 (0-99); PLATELET COUNT 136 10^3/uL (150-400); RED BLOOD CELL COUNT 4.94 10^6/uL (4.40-6.38)
[2016-07-22] MEDS ORDERED: IOPAMIDOL (ISOVUE-300) 100 ML BTL IV ONE (09:17)
[2016-07-22 09:19] LABS: INR 0.94 (0.83-1.16); PROTIME(PATIENT) 12.5 SEC (12.0-15.0)
[2016-07-22 09:20] LABS: APTT 27.5 SEC (23.0-38.0)
[2016-07-22 09:29] LABS: ALANINE AMINOTRANSFERASE 38 IU/L (21-72); ALBUMIN 4.2 g/dL (3.5-5.0); ALKALINE PHOSPHATASE 195 IU/L (38-126); ANION GAP 12 mEq/L (8-16); ASPARTATE AMINOTRANSFERASE 39 IU/L (17-59); BILIRUBIN,TOTAL 0.8 mg/dL (0.1-1.4); BILIRUBIN-CONJUGATED 0.4 mg/dL (0.0-0.5); BILIRUBIN-UNCONJUGATED 0.4 mg/dL (0.0-1.1); CALCIUM 9.4 mg/dL (8.5-10.4); CARBON DIOXIDE 24 mEq/l (22-31); CHLORIDE 101 mEq/L (97-110); CREATININE 0.7 mg/dL (0.7-1.3); GLOMERULAR FILTRATION RATE > 60; GLUCOSE 206 mg/dL (70-100); POTASSIUM 4.2 mEq/L (3.5-5.2); SODIUM 137 mEq/L (134-144); TOTAL PROTEIN 7.4 g/dL (6.3-8.2)
[2016-07-22] MEDS ORDERED: LIDOCAINE/PRILOCAINE 1 EACH CRTUBE TP ONE (11:19)
[2016-07-22 11:21] LABS: COLOR YELLOW; LEUKOCYTE ESTERASE,URINE NEGATIVE (NEGATIVE); NITRITE,URINE NEGATIVE (NEGATIVE)
--- NOTE | 2016-07-22 13:07 | SOAPPROG ---
SOAP Progress Note Assessment/Plan: Assessment: 56 MALE WITH PARTIAL SBO, RRECURRENT/ SP COLECTOMY FOR METASTATIC COLON CA NO EMESIS BUT STOMACH VERY LARGE ON CT/ REFUSING NG NOW AFTER INITIAL FAILURE TO PASS ABD TENDER RUQ, +BS, MILDLY DISTENDED/ CHEST CLEAR/ HEENT NONICTERIC PT STATES HE IS PASSING FLATUS Plan:NPO/ OBS/ NG IF EMESIS OR FAILURE TO IMPROVE 07/22/16 13:03 Objective: Vital Signs Temp Pulse Resp BP Pulse Ox 36.9 C 97 16 123/79 H 94 07/22/16 09:00 07/22/16 11:23 07/22/16 11:23 07/22/16 11:23 07/22/16 11:23 Laboratory Results 07/22/16 Unknown 07/22/16 Unknown 07/21/16 07/22/16 07/23/16 05:59 05:59 05:59 Intake Total 1000 Balance 1000 PT 12.5 SEC (12.0-15.0) 07/22/16 Unknown INR 0.94 (0.83-1.16) 07/22/16 Unknown ICD10 Worksheet Patient Problems: Problems Problem Status Onset Colon cancer Acute Liver metastases Acute Partial small bowel obstruction Acute Abdominal pain Acute Liver lesion Acute
--- NOTE | 2016-07-22 13:41 | PDGENHP ---
History and Physical - Chief Complaint abdominal pain - History of Present Illness 56 y/o male with history of metastatic colon cancer and liver metastases status post op colectomy presenting with increased abdominal pain and constipation. He was last admitted on the July 11 at which time he was found to have a small bowel obstruction. His symptoms resolved with conservative treatment using Ativan and Marinol. Today he states he is feeling similar abdominal pain. The pain is described as sharp and severe in his bilateral upper quadrants. He denies nausea or vomiting. He reports having a BM last night and again this morning. He has been using stool softeners and oral narcotics. An NG tube was attempted in the ED, but was unsuccessful. History Information - Allergies/Home Medication List Allergies/Adverse Reactions: No Known Allergies Allergy (Verified 07/22/16 09:00) Home Medications: Ascorbic Acid [Vitamin C 500 mg (*)] 2,000 mg PO DAILY 04/04/16 [Last Taken 04/11] Multivitamins [Multivitamin (*)] 1 each PO DAILY 04/04/16 [Last Taken 05/24/16] Promethazine HCl [Phenergan 25mg (*)] 12.5 - 25 mg PO Q6HRS PRN 06/06/16 [Last Taken Unknown] Cholecalciferol Vit D3 [Vitamin D3 (*)] 1,000 units PO DAILY 06/08/16 [Last Taken Unknown] Polyethylene Glycol 3350 [Miralax 17 gm (*)] 17 gm PO DAILY 06/27/16 [Last Taken Unknown] I have personally reviewed and updated: family history, medical history, social history, surgical history Past Medical History: Hospitalization early this month for SBO. metastatic colon cancer dx fall 2015 with lever mets. DM. Depression - Surgical History Reports: appendectomy Additional surgical history: sigmoid colon resection 01/2016 - Social History Smoking Status: Current every day smoker Tobacco Use: Cigarettes Alcohol Use: None Additional social history: homeless Review of Systems ROS: 10pt was reviewed & negative except for what was stated in HPI & below Physical Exam Temp Pulse Resp BP Pulse Ox 36.9 C 97 16 123/79 H 94 07/22/16 09:00 07/22/16 11:23 07/22/16 11:23 07/22/16 11:23 07/22/16 11:23 Constitutional: no apparent distress, appears nourished, not in pain Ears, Nose, Mouth, Throat: moist mucous membranes, hearing normal, ears appear normal, no oral mucosal ulcers Cardiovascular: regular rate and rhythym, no murmur, rub, or gallop, No edema Respiratory: no respiratory distress, no rales or rhonchi, clear to auscultation Gastrointestinal: tenderness, distension, other (hypoactive bowel sounds), No guarding, No rebound Genitourinary: no bladder fullness, no bladder tenderness Skin: warm, normal color, no rashes or abrasions, no fluctuance, no induration, No mottled Musculoskeletal: full muscle strength, no muscle tenderness, normal joint ROM, no joint effusions Neurologic: AAOx3, CN II-XII Intact, No facial droop Psychiatric: interacting appropriately, not anxious, not encephalopathic, thought process linear Lymph, Heme, Immunologic: no cervical LAD, no supraclavicular LAD Lab Data & Imaging Review 07/22/16 Unknown 07/22/16 Unknown WBC 10.82 10^3/uL (3.80-9.50) H 07/22/16 Unknown RBC 4.94 10^6/uL (4.40-6.38) 07/22/16 Unknown Hgb 15.0 g/dL (13.7-17.5) 07/22/16 Unknown POC Hgb 16.0 gm/dL (14.5-17.3) 07/22/16 08:55 Hct 44.1 % (40.0-51.0) 07/22/16 Unknown POC Hct 47 % (42.8-50.6) 07/22/16 08:55 MCV 89.3 fL (81.5-99.8) 07/22/16 Unknown MCH 30.4 pg (27.9-34.1) 07/22/16 Unknown MCHC 34.0 g/dL (32.4-36.7) 07/22/16 Unknown RDW 14.0 % (11.5-15.2) 07/22/16 Unknown Plt Count 136 10^3/uL (150-400) L 07/22/16 Unknown MPV 9.1 fL (8.7-11.7) 07/22/16 Unknown Neut % (Auto) 70.4 % (39.3-74.2) 07/22/16 Unknown Lymph % (Auto) 22.8 % (15.0-45.0) 07/22/16 Unknown [place] % (Auto) 5.7 % (4.5-13.0) 07/22/16 Unknown Eos % (Auto) 0.3 % (0.6-7.6) L 07/22/16 Unknown Baso % (Auto) 0.3 % (0.3-1.7) 07/22/16 Unknown Nucleat RBC Rel Count 0.0 % (0.0-0.2) 07/22/16 Unknown Absolute Neuts (auto) 7.62 10^3/uL (1.70-6.50) H 07/22/16 Unknown Absolute Lymphs (auto) 2.47 10^3/uL (1.00-3.00) 07/22/16 Unknown Absolute Monos (auto) 0.62 10^3/uL (0.30-0.80) 07/22/16 Unknown Absolute Eos (auto) 0.03 10^3/uL (0.03-0.40) 07/22/16 Unknown Absolute Basos (auto) 0.03 10^3/uL (0.02-0.10) 07/22/16 Unknown Absolute Nucleated RBC 0.00 10^3/uL (0-0.01) 07/22/16 Unknown Immature Gran % 0.5 % (0.0-1.1) 07/22/16 Unknown Immature Gran # 0.05 10^3/uL (0.00-0.10) 07/22/16 Unknown PT 12.5 SEC (12.0-15.0) 07/22/16 Unknown INR 0.94 (0.83-1.16) 07/22/16 Unknown APTT 27.5 SEC (23.0-38.0) 07/22/16 Unknown POC Sodium 139 mEq/L (134-144) 07/22/16 08:55 Sodium 137 mEq/L (134-144) 07/22/16 Unknown POC Potassium 4.1 mEq/L (3.3-5.0) 07/22/16 08:55 Potassium 4.2 mEq/L (3.5-5.2) 07/22/16 Unknown POC Chloride 100 mEq/L (96-108) 07/22/16 08:55 Chloride 101 mEq/L (97-110) 07/22/16 Unknown Carbon Dioxide 24 mEq/l (22-31) 07/22/16 Unknown Anion Gap 12 mEq/L (8-16) 07/22/16 Unknown POC BUN 8 mg/dL (7-23) 07/22/16 08:55 BUN 9 mg/dL (7-23) 07/22/16 Unknown Creatinine 0.7 mg/dL (0.7-1.3) 07/22/16 Unknown POC Creatinine 0.7 mg/dL (0.8-1.5) L 07/22/16 08:55 Estimated GFR > 60 07/22/16 Unknown Glucose 206 mg/dL (70-100) H 07/22/16 Unknown POC Glucose 210 mg/dL (70-100) H 07/22/16 08:55 Calcium 9.4 mg/dL (8.5-10.4) 07/22/16 Unknown Total Bilirubin 0.8 mg/dL (0.1-1.4) 07/22/16 Unknown Conjugated Bilirubin 0.4 mg/dL (0.0-0.5) 07/22/16 Unknown Unconjugated Bilirubin 0.4 mg/dL (0.0-1.1) 07/22/16 Unknown AST 39 IU/L (17-59) 07/22/16 Unknown ALT 38 IU/L (21-72) 07/22/16 Unknown Alkaline Phosphatase 195 IU/L (38-126) H 07/22/16 Unknown Total Protein 7.4 g/dL (6.3-8.2) 07/22/16 Unknown Albumin 4.2 g/dL (3.5-5.0) 07/22/16 Unknown Lipase 56.0 IU/L (23-300) 07/22/16 Unknown Urine Color YELLOW 07/22/16 11:00 Urine Appearance CLEAR 07/22/16 11:00 Urine pH 5.0 (5.0-7.5) 07/22/16 11:00 Ur Specific [place] > 1.035 (1.002-1.030) H 07/22/16 11:00 Urine Protein NEGATIVE (NEGATIVE) 07/22/16 11:00 Urine Ketones NEGATIVE (NEGATIVE) 07/22/16 11:00 Urine Blood NEGATIVE (NEGATIVE) 07/22/16 11:00 Urine Nitrate NEGATIVE (NEGATIVE) 07/22/16 11:00 Urine Bilirubin NEGATIVE (NEGATIVE) 07/22/16 11:00 Urine Urobilinogen 2.0 EU (0.2-1.0) H 07/22/16 11:00 Ur Leukocyte Esterase NEGATIVE (NEGATIVE) 07/22/16 11:00 Urine Glucose NEGATIVE (NEGATIVE) 07/22/16 11:00 Imaging Review: ct abd/pelvis reviewed I discussed the results with the patient and Dr. Martinez showing worsening partial sbo Assessment & Plan Assessment: 56 y/o male with history of metastatic colon cancer and liver metastases and recent hospitalization for SBO presenting with #SBO -I discussed the case with Dr. Martinez who recommended decompression with NGT that has been refused by the patient -will continue supportive care with IVF, IV narcotics, and IV Ativan NPO status for now
[2016-07-22] MEDS ORDERED: POLYETHYLENE GLYCOL 3350 17 GM PKT PO PRN (14:04)
[2016-07-22] MEDS ORDERED: ACETAMINOPHEN 325 MG TAB PO PRN (14:04)
[2016-07-22] MEDS: DOCUSATE SODIUM 100 MG CAP PO SCH ×2 (16:40→20:49)
[2016-07-22] MEDS: D5W 1/2 NS W/ 20 KCl/L 1,000 ML IV SCH (16:40)
[2016-07-22] MEDS: DRONABINOL 2.5 MG CAP PO SCH ×2 (16:40→20:49)
[2016-07-22] MEDS: HYDROmorphONE/DILAUDID 2 MG/ML INJ IVP PRN ×2 (16:40→20:49)
[2016-07-22] MEDS: LORazepam 2 MG/ML INJ IVP PRN (19:28)
[2016-07-23] MEDS: HYDROmorphONE/DILAUDID 2 MG/ML INJ IVP PRN ×6 (00:41→20:31)
[2016-07-23] MEDS: D5W 1/2 NS W/ 20 KCl/L 1,000 ML IV SCH ×2 (00:42→08:10)
[2016-07-23] MEDS: ASCORBIC ACID 500 MG TAB PO SCH (09:14)
[2016-07-23] MEDS: DRONABINOL 2.5 MG CAP PO SCH ×3 (09:14→20:30)
[2016-07-23] MEDS: MULTIVITAMINS 1 EACH TAB PO SCH (09:14)
[2016-07-23] MEDS: CHOLECALCIFEROL VIT D3 1,000 UNITS TAB PO SCH (09:14)
[2016-07-23] MEDS: ENOXAPARIN 40 MG/0.4 ML SYR SC SCH (09:15)
[2016-07-23] MEDS: DOCUSATE SODIUM 100 MG CAP PO SCH ×2 (09:15→20:30)
[2016-07-23] MEDS: POLYETHYLENE GLYCOL 3350 17 GM PKT PO SCH (09:16)
--- NOTE | 2016-07-23 10:58 | SOAPPROG ---
SOAP Progress Note Assessment/Plan: Assessment: 56 MALE WITH PARTIAL SBO, RRECURRENT/ SP COLECTOMY FOR METASTATIC COLON CA NO EMESIS BUT STOMACH VERY LARGE ON CT/ REFUSING NG NOW AFTER INITIAL FAILURE TO PASS ABD TENDER RUQ, +BS, MILDLY DISTENDED/ CHEST CLEAR/ HEENT NONICTERIC PT STATES HE IS PASSING FLATUS Plan:NPO/ OBS/ NG IF EMESIS OR FAILURE TO IMPROVE 07/22/16 13:03 07/23/16 10:57 COOPERATIVE UNCOMFORTABLE / POSITIVE BOWEL MOVEMENT AND FLATUS / ABDOMEN SOFT MILDLY TENDER / 2 ABDOMEN STILL SUGGEST A PARTIAL SMALL BOWEL OBSTRUCTION BUT LOTS OF GAS AND FECES IN HIS COLON / CLINICALLY IMPROVING STEADILY BUT CONSIDER SMALL-BOWEL FOLLOW-THROUGH PRIOR TO DISCHARGE Objective: Vital Signs Temp Pulse Resp BP Pulse Ox 36.7 C 70 14 112/73 96 07/23/16 08:49 07/23/16 08:49 07/23/16 08:49 07/23/16 08:49 07/23/16 08:49 Microbiology 07/22/16 11:00 Urine Culture - Final Unspecified Laboratory Results 07/22/16 Unknown 07/22/16 Unknown 07/22/16 07/23/16 07/24/16 05:59 05:59 05:59 Intake Total 2615 Output Total 1402 Balance 1213 PT 12.5 SEC (12.0-15.0) 07/22/16 Unknown INR 0.94 (0.83-1.16) 07/22/16 Unknown ICD10 Worksheet Patient Problems: Problems Problem Status Onset Colon cancer Acute Liver metastases Acute Partial small bowel obstruction Acute Abdominal pain Acute Liver lesion Acute
[2016-07-23] MEDS: LORazepam 2 MG/ML INJ IVP PRN ×3 (11:07→23:13)
--- NOTE | 2016-07-23 14:02 | HOSPPROG ---
Hospitalist Progress Note Assessment/Plan: 56 y/o male with history of metastatic colon cancer and liver metastases and recent hospitalization for SBO presenting with #SBO -tolerating clear liquids -advance to full liquids -will continue supportive care with IVF, IV narcotics, and IV Ativan dispo: dc once tolerating POs and feeling better case discussed with Dr. Martinez Subjective: having BM. no vomiting Objective: Vital Signs Temp Pulse Resp BP Pulse Ox 36.7 C 70 14 112/73 96 07/23/16 08:49 07/23/16 08:49 07/23/16 08:49 07/23/16 08:49 07/23/16 08:49 Microbiology 07/22/16 11:00 Urine Culture - Final Unspecified Laboratory Results 07/22/16 Unknown 07/22/16 Unknown 07/22/16 07/23/16 07/24/16 05:59 05:59 05:59 Intake Total 2615 Output Total 1402 250 Balance 1213 -250 PT 12.5 SEC (12.0-15.0) 07/22/16 Unknown INR 0.94 (0.83-1.16) 07/22/16 Unknown kub reviewed from today consistent with partial SBO - Physical Exam Constitutional: no apparent distress, appears nourished, not in pain Gastrointestinal: normoactive bowel sounds, distension, No guarding, No rebound ICD10 Worksheet Patient Problems: Problems Problem Status Onset Liver lesion Acute Abdominal pain Acute Partial small bowel obstruction Acute Colon cancer Acute Liver metastases Acute
[2016-07-24] MEDS: HYDROmorphONE/DILAUDID 2 MG/ML INJ IVP PRN ×5 (04:16→21:11)
[2016-07-24] MEDS: LORazepam 2 MG/ML INJ IVP PRN ×2 (07:56→21:11)
[2016-07-24] MEDS: MULTIVITAMINS 1 EACH TAB PO SCH (08:52)
[2016-07-24] MEDS: CHOLECALCIFEROL VIT D3 1,000 UNITS TAB PO SCH (08:52)
[2016-07-24] MEDS: DRONABINOL 2.5 MG CAP PO SCH ×3 (08:52→23:33)
[2016-07-24] MEDS: ASCORBIC ACID 500 MG TAB PO SCH (08:53)
[2016-07-24] MEDS: DOCUSATE SODIUM 100 MG CAP PO SCH ×2 (08:53→21:11)
[2016-07-24] MEDS: ENOXAPARIN 40 MG/0.4 ML SYR SC SCH (09:21)
[2016-07-24] MEDS: POLYETHYLENE GLYCOL 3350 17 GM PKT PO SCH (09:21)
--- NOTE | 2016-07-24 09:40 | HOSPPROG ---
Hospitalist Progress Note Assessment/Plan: 56 y/o male with history of metastatic colon cancer and liver metastases and recent hospitalization for SBO presenting with #SBO -tolerating Full liquids -SBFT today dispo: dc later today as long as sbft does not show obstruction Subjective: tolerating full liquids. +flatus. +bm. improving abd pain. still with bloating Objective: Vital Signs Temp Pulse Resp BP Pulse Ox 36.7 C 70 14 112/73 96 07/23/16 08:49 07/23/16 08:49 07/23/16 08:49 07/23/16 08:49 07/23/16 08:49 Microbiology 07/22/16 11:00 Urine Culture - Final Unspecified Laboratory Results 07/22/16 Unknown 07/22/16 Unknown 07/23/16 07/24/16 07/25/16 05:59 05:59 05:59 Intake Total 2615 1500 Output Total 1402 1250 Balance 1213 250 PT 12.5 SEC (12.0-15.0) 07/22/16 Unknown INR 0.94 (0.83-1.16) 07/22/16 Unknown - Physical Exam Constitutional: no apparent distress, appears nourished, not in pain Gastrointestinal: normoactive bowel sounds, soft, non-tender abdomen, no palpable masses, distension, No guarding, No rebound ICD10 Worksheet Patient Problems: Problems Problem Status Onset Liver lesion Acute Abdominal pain Acute Partial small bowel obstruction Acute Colon cancer Acute Liver metastases Acute
--- NOTE | 2016-07-24 09:42 | SOAPPROG ---
SOAP Progress Note Assessment/Plan: Assessment/Plan: 56 Y M metastatic colon CA now c SBO. SBO seems to be improving. SBFT today. Seen and discussed with medicine. S: passing gas. +BMs. Feels bloated. Difficult time with chicken the other day. Ok with full liquid/soft diet. O: alert, nad abd softly bloated, llq tenderness, +BS, well healed lower midline scar 07/24/16 09:40 Objective: Vital Signs Temp Pulse Resp BP Pulse Ox 36.7 C 70 14 112/73 96 07/23/16 08:49 07/23/16 08:49 07/23/16 08:49 07/23/16 08:49 07/23/16 08:49 Microbiology 07/22/16 11:00 Urine Culture - Final Unspecified Laboratory Results 07/22/16 Unknown 07/22/16 Unknown 07/23/16 07/24/16 07/25/16 05:59 05:59 05:59 Intake Total 2615 1500 Output Total 1402 1250 Balance 1213 250 PT 12.5 SEC (12.0-15.0) 07/22/16 Unknown INR 0.94 (0.83-1.16) 07/22/16 Unknown ICD10 Worksheet Patient Problems: Problems Problem Status Onset Colon cancer Acute Liver metastases Acute Partial small bowel obstruction Acute Abdominal pain Acute Liver lesion Acute
--- NOTE | 2016-07-24 11:09 | SOAPPROG ---
SOAP Progress Note Assessment/Plan: Assessment: 56 MALE WITH PARTIAL SBO, RRECURRENT/ SP COLECTOMY FOR METASTATIC COLON CA NO EMESIS BUT STOMACH VERY LARGE ON CT/ REFUSING NG NOW AFTER INITIAL FAILURE TO PASS ABD TENDER RUQ, +BS, MILDLY DISTENDED/ CHEST CLEAR/ HEENT NONICTERIC PT STATES HE IS PASSING FLATUS Plan:NPO/ OBS/ NG IF EMESIS OR FAILURE TO IMPROVE 07/22/16 13:03 07/23/16 10:57 COOPERATIVE UNCOMFORTABLE / POSITIVE BOWEL MOVEMENT AND FLATUS / ABDOMEN SOFT MILDLY TENDER / 2 ABDOMEN STILL SUGGEST A PARTIAL SMALL BOWEL OBSTRUCTION BUT LOTS OF GAS AND FECES IN HIS COLON / CLINICALLY IMPROVING STEADILY BUT CONSIDER SMALL-BOWEL FOLLOW-THROUGH PRIOR TO DISCHARGE 07/24/16 11:08 abd soft but still having some cramps/ SBFT today/ risks and options fully discussed/ he wants to avoid surgery if possible Objective: Vital Signs Temp Pulse Resp BP Pulse Ox 36.7 C 70 14 112/73 96 07/23/16 08:49 07/23/16 08:49 07/23/16 08:49 07/23/16 08:49 07/23/16 08:49 Microbiology 07/22/16 11:00 Urine Culture - Final Unspecified Laboratory Results 07/22/16 Unknown 07/22/16 Unknown 07/23/16 07/24/16 07/25/16 05:59 05:59 05:59 Intake Total 2615 1500 Output Total 1402 1250 Balance 1213 250 PT 12.5 SEC (12.0-15.0) 07/22/16 Unknown INR 0.94 (0.83-1.16) 07/22/16 Unknown ICD10 Worksheet Patient Problems: Problems Problem Status Onset Colon cancer Acute Liver metastases Acute Partial small bowel obstruction Acute Abdominal pain Acute Liver lesion Acute
[2016-07-24] MEDS: oxyCODONE IR 15 MG TAB PO PRN (11:16)
[2016-07-25] MEDS: HYDROmorphONE/DILAUDID 2 MG/ML INJ IVP PRN ×6 (06:02→22:26)
[2016-07-25 06:06] LABS: % IMMATURE GRANULYOCYTES 0.4 % (0.0-1.1); ABSOLUTE IMMATURE GRANULOCYTES 0.02 10^3/uL (0.00-0.10); ADD DIFF? NO; ADD MORPH? NO; ADD SCAN? NO; ATYPICAL LYMPHOCYTE FLAG 20 (0-99); FRAGMENT RBC FLAG 0 (0-99); HEMATOCRIT 38.7 % (40.0-51.0); HEMOGLOBIN 13.2 g/dL (13.7-17.5); LEFT SHIFT FLG 0 (0-99); LIPEMIA HEMOLYSIS FLAG 90 (0-99); MEAN CELL HEMOGLOBIN 30.6 pg (27.9-34.1); MEAN CELL HEMOGLOBIN CONCENTR. 34.1 g/dL (32.4-36.7); MEAN CELL VOLUME 89.6 fL (81.5-99.8); MEAN PLATELET VOLUME 8.7 fL (8.7-11.7); PLATELET CLUMPS FLAG 30 (0-99); PLATELET COUNT 83 10^3/uL (150-400); RED BLOOD CELL COUNT 4.32 10^6/uL (4.40-6.38); RED CELL DISTRIBUTION WIDTH 14.5 % (11.5-15.2)
[2016-07-25 06:18] LABS: ANION GAP 7 mEq/L (8-16); CALCIUM 8.9 mg/dL (8.5-10.4); CARBON DIOXIDE 22 mEq/l (22-31); CHLORIDE 106 mEq/L (97-110); CREATININE 0.6 mg/dL (0.7-1.3); GLOMERULAR FILTRATION RATE > 60; GLUCOSE 104 mg/dL (70-100); POTASSIUM 4.2 mEq/L (3.5-5.2); SODIUM 135 mEq/L (134-144)
[2016-07-25] MEDS: DOCUSATE SODIUM 100 MG CAP PO SCH ×2 (10:16→20:12)
[2016-07-25] MEDS: ASCORBIC ACID 500 MG TAB PO SCH (13:04)
[2016-07-25] MEDS: CHOLECALCIFEROL VIT D3 1,000 UNITS TAB PO SCH (13:04)
[2016-07-25] MEDS: DRONABINOL 2.5 MG CAP PO SCH ×3 (13:04→20:13)
[2016-07-25] MEDS: ENOXAPARIN 40 MG/0.4 ML SYR SC SCH (13:04)
[2016-07-25] MEDS: POLYETHYLENE GLYCOL 3350 17 GM PKT PO SCH (13:05)
[2016-07-25] MEDS: MULTIVITAMINS 1 EACH TAB PO SCH (13:05)
--- NOTE | 2016-07-25 15:11 | GCON ---
[f rep st] CONSULTATION ONCOLOGY CONSULTATION NOTE DATE OF CONSULTATION: 07/25/2016 REASON FOR CONSULTATION: Metastatic colorectal carcinoma. HISTORY OF PRESENT ILLNESS: The patient is a 56-year-old gentleman who is followed by my partner, Dar Lott. He was diagnosed with stage IV colorectal cancer in January of this year. He presente d to the hospital with obstructive symptoms. Imaging studies revealed diffuse metastatic disease in the liver. The patient underwent segmental resection of the involved colon (rectosigmoid colon) on February 07, 2016. He has received 8 cycles of palliative FOLFOX/bevacizumab. His serum CEA level has responded dramatically, pretreatment measuring approximately 1600 and more recently measuring 1 4. The patient has been admitted to the hospital on several occasions with partial small-bowel obstruct ion that has resolved spontaneously with conservative management. He was just discharged from the [facility] on July 17 after an admission for small bowel obstruction. He is now readmitted with abd ominal pain. Repeat CT scan done on July 22 showed worsened partial small bowel obstruction. Th e patient declined NG tube placement. He is scheduled to undergo a small-bowel follow-through study today. He is passing flatus. He passed stool approximately 18 hours ago. He does note less diste ntion. The patient was due to receive his 9th cycle of FOLFOX/bevacizumab today. He would like to defer ch emotherapy currently in light of his ongoing partial small bowel obstruction. PAST MEDICAL HISTORY: 1. Metastatic colorectal carcinoma as outlined above. 2. Depression. 3. Diabetes mellitus. PAST SURGICAL HISTORY: 1. Sigmoid colectomy January 2016. 2. Appendectomy. SOCIAL HISTORY: The patient is currently homeless. He is an every-day smoker. REVIEW OF SYSTEMS: As above. Additionally, denies fevers, chills, chest pain, cough, exertional dy spnea. Denies nausea at the current time. Reports mild anorexia. PHYSICAL EXAM: GENERAL: The patient is lying in bed comfortably. He is no acute distress. HEENT: Pupils equal. Sclerae nonicteric. ABDOMEN: Mildly distended. There is mild diffuse tenderness more pronounced on the left side with no palpable mass. Bowel sounds normoactive. No guarding or r ebound tenderness. He is alert, oriented and appropriate. No extremity swelling or edema. IMAGING STUDIES: As outlined above. LABORATORY STUDIES: From today, white count 4.6, hemoglobin 13.2, hematocrit 38.7, platelet count i s 83,000. Absolute neutrophil count is 3100. Sodium 135, potassium 4.2, chloride 106, bicarb 22, B UN 6, creatinine 0.6, calcium 8.9. IMPRESSION: 1. Metastatic colorectal carcinoma (patiently currently on palliative FOLFOX/bevacizumab with docum ented response). 2. Intermittent partial small bowel obstruction. Mr. Martinez is a 56-year-old gentleman who has been readmitted to the hospital with recurrent partial small bowel obstruction. He has declined NG-tube. He is scheduled to undergo a small-bowel follow- through study today. If his symptoms do not improve, surgery is being considered. Dr. Martinez has be en involved in his case. I greatly appreciate the assistance of Dr. Martinez in this patient's care. I discussed with Mr. Martinez that he is due for his next cycle of FOLFOX and bevacizumab. He does not feel up to receiving therapy currently which is understandable, and I think in light of the possibi lity of impending surgery, we will hold this until his current issue is resolved. He is agreeable t o this plan. We will continue to follow his progress during this hospital stay, and I will notify Dar Lott of his admission. His questions were answered. Total time for today's visit was approximately 40 minutes. /[id number]/MODL
--- NOTE | 2016-07-25 15:30 | HOSPPROG ---
Hospitalist Progress Note Assessment/Plan: 56 y/o male with history of metastatic colon cancer and liver metastases and recent hospitalization for SBO presenting with #SBO -tolerating Full liquids -SBFT today # colon cancer - I discussed case with Dr. Bustos from Oncology who will see the patient in consultation today to evaluate for starting his next round of chemotherapy which was due to start today dispo: dc once obstruction resolved Subjective: abdominal pain is improved from yesterday with persists. He is passing flatus. He is tolerating full liquids Objective: Vital Signs Temp Pulse Resp BP Pulse Ox 36.9 C 83 16 119/80 95 07/24/16 20:00 07/25/16 06:04 07/25/16 06:04 07/25/16 06:04 07/25/16 06:04 Laboratory Results 07/25/16 05:50 07/25/16 05:50 07/24/16 07/25/16 07/26/16 05:59 05:59 05:59 Intake Total 1500 300 Output Total 1250 Balance 250 300 PT 12.5 SEC (12.0-15.0) 07/22/16 Unknown INR 0.94 (0.83-1.16) 07/22/16 Unknown - Physical Exam Constitutional: no apparent distress, appears nourished, not in pain Cardiovascular: regular rate and rhythym, no murmur, rub, or gallop Respiratory: no respiratory distress, no rales or rhonchi, clear to auscultation Gastrointestinal: normoactive bowel sounds, distension, No guarding, No rebound ICD10 Worksheet Patient Problems: Problems Problem Status Onset Liver lesion Acute Abdominal pain Acute Partial small bowel obstruction Acute Colon cancer Acute Liver metastases Acute
--- NOTE | 2016-07-25 18:38 | SOAPPROG ---
SOAP Progress Note Assessment/Plan: Assessment/Plan: 56 Y M metastatic colon CA now c SBO. SBFT shows easy transit of contrast. Patient still with some left sided pain. Chronic 2/2 metastatic colon CA? Tolerating soft diet. Would continue to advance diet with caution. S: ate yogurt. some crampy pain in 3 spots of left abdomen. +BM and gas. No nausea. Has chronic "diaphragm" pain from cancer he says. O: alert, nad abd soft 07/25/16 18:36 Objective: Vital Signs Temp Pulse Resp BP Pulse Ox 36.4 C 106 H 18 98/73 L 95 07/25/16 18:15 07/25/16 18:15 07/25/16 18:15 07/25/16 18:15 07/25/16 18:15 Laboratory Results 07/25/16 05:50 07/25/16 05:50 07/24/16 07/25/16 07/26/16 05:59 05:59 05:59 Intake Total 1500 300 Output Total 1250 Balance 250 300 PT 12.5 SEC (12.0-15.0) 07/22/16 Unknown INR 0.94 (0.83-1.16) 07/22/16 Unknown ICD10 Worksheet Patient Problems: Problems Problem Status Onset Colon cancer Acute Liver metastases Acute Partial small bowel obstruction Acute Abdominal pain Acute Liver lesion Acute
[2016-07-25] MEDS: oxyCODONE IR 15 MG TAB PO PRN (20:14)
[2016-07-26] MEDS: oxyCODONE IR 15 MG TAB PO PRN ×5 (00:14→19:08)
[2016-07-26] MEDS: HYDROmorphONE/DILAUDID 2 MG/ML INJ IVP PRN ×8 (00:15→21:31)
[2016-07-26] MEDS: LORazepam 2 MG/ML INJ IVP PRN ×3 (05:07→19:09)
[2016-07-26] MEDS: CHOLECALCIFEROL VIT D3 1,000 UNITS TAB PO SCH (09:15)
[2016-07-26] MEDS: ASCORBIC ACID 500 MG TAB PO SCH (09:15)
[2016-07-26] MEDS: DOCUSATE SODIUM 100 MG CAP PO SCH ×2 (09:15→22:09)
[2016-07-26] MEDS: MULTIVITAMINS 1 EACH TAB PO SCH (09:16)
[2016-07-26] MEDS: ENOXAPARIN 40 MG/0.4 ML SYR SC SCH (09:16)
[2016-07-26] MEDS: POLYETHYLENE GLYCOL 3350 17 GM PKT PO SCH (09:16)
[2016-07-26] MEDS: DRONABINOL 2.5 MG CAP PO SCH ×3 (09:40→22:10)
--- NOTE | 2016-07-26 11:02 | HOSPPROG ---
Hospitalist Progress Note Assessment/Plan: * metastatic colon cancer with partial small-bowel obstruction * Obstruction seems to be resolving * Will try regular diet * Watch another day * Oncology and surgery following * Continue IV narcotics as needed * type 2 diabetes * Holding sulfonylurea * Not sure why he is not on metformin as this may have some anticancer effects Subjective: Feels like bowels have loosened. Having watery bowel movements. Wants to try solid food Objective: Vital Signs Temp Pulse Resp BP Pulse Ox 36.5 C 93 16 111/75 96 07/26/16 08:00 07/26/16 08:00 07/26/16 08:00 07/26/16 08:00 07/26/16 08:00 Laboratory Results 07/25/16 05:50 07/25/16 05:50 07/25/16 07/26/16 07/27/16 05:59 05:59 05:59 Intake Total 300 300 Output Total 4 Balance 300 296 PT 12.5 SEC (12.0-15.0) 07/22/16 Unknown INR 0.94 (0.83-1.16) 07/22/16 Unknown Small-bowel follow-through reviewed interpreted Discussed with Oncology - Physical Exam Constitutional: no apparent distress, appears nourished, not in pain Eyes: anicteric sclera, EOMI Ears, Nose, Mouth, Throat: moist mucous membranes, hearing normal Cardiovascular: regular rate and rhythym Gastrointestinal: normoactive bowel sounds, other (Soft mild right upper quadrant tenderness), No guarding, No rebound, No distension Skin: warm Neurologic: AAOx3 Psychiatric: interacting appropriately, not anxious, not encephalopathic, thought process linear ICD10 Worksheet Patient Problems: Problems Problem Status Onset Colon cancer Acute Liver metastases Acute Partial small bowel obstruction Acute Abdominal pain Acute Liver lesion Acute
--- NOTE | 2016-07-26 14:34 | SOAPPROG ---
SOAP Progress Note Assessment/Plan: Assessment: 1) Metastatic colon cancer (on palliative FOLFOX chemotherapy with response) 2) Partial SBO -- resolving Plan: His SBFT yesterday looked improved. He has moved his bowels. His SBO appears to be resolving on it's own. Plan on holding chemotherapy this week in light of recent events. Probable d/c tomorrow if improvement continues. Will plan on having him follow up with Dr. Lott next week. Plan d/w patient and nursing. 07/26/16 14:31 Subjective: SBFT yesterday demonstrates improvement. Patient sleeping. Easily awakens. Objective: Vital Signs Temp Pulse Resp BP Pulse Ox 36.5 C 93 16 111/75 96 07/26/16 08:00 07/26/16 08:00 07/26/16 08:00 07/26/16 08:00 07/26/16 08:00 Laboratory Results 07/25/16 05:50 07/25/16 05:50 07/25/16 07/26/16 07/27/16 05:59 05:59 05:59 Intake Total 300 300 Output Total 4 Balance 300 296 PT 12.5 SEC (12.0-15.0) 07/22/16 Unknown INR 0.94 (0.83-1.16) 07/22/16 Unknown - Time Spent With Patient Time Spent With Patient: 15 minutes Physical Exam - Physical Exam General Appearance: alert, no apparent distress Abdomen: normal bowel sounds, non-tender, soft Neuro/Psych: normal mood/affect ICD10 Worksheet Patient Problems: Problems Problem Status Onset Colon cancer Acute Liver metastases Acute Partial small bowel obstruction Acute Abdominal pain Acute Liver lesion Acute
[2016-07-27] MEDS: HYDROmorphONE/DILAUDID 2 MG/ML INJ IVP PRN ×3 (04:49→12:18)
[2016-07-27] MEDS: LORazepam 2 MG/ML INJ IVP PRN ×2 (04:49→12:18)
[2016-07-27] MEDS: oxyCODONE IR 15 MG TAB PO PRN ×3 (04:56→15:16)
[2016-07-27 07:28] VITALS: BP 129/77; PULSE 82; RESP 16; TEMP 97.2; O2SAT 93
[2016-07-27] MEDS: ASCORBIC ACID 500 MG TAB PO SCH (08:20)
[2016-07-27] MEDS: MULTIVITAMINS 1 EACH TAB PO SCH (08:20)
[2016-07-27] MEDS: DRONABINOL 2.5 MG CAP PO SCH (08:20)
[2016-07-27] MEDS: POLYETHYLENE GLYCOL 3350 17 GM PKT PO SCH (08:20)
[2016-07-27] MEDS: CHOLECALCIFEROL VIT D3 1,000 UNITS TAB PO SCH (08:20)
[2016-07-27] MEDS: ENOXAPARIN 40 MG/0.4 ML SYR SC SCH (08:20)
[2016-07-27] MEDS: DOCUSATE SODIUM 100 MG CAP PO SCH (08:21)
--- NOTE | 2016-07-27 09:09 | SOAPPROG ---
[facility] Progress Note Assessment/Plan: Assessment: 1) Metastatic colon cancer (on palliative FOLFOX chemotherapy with response) 2) Partial SBO -- resolving Plan: His SBFT looked improved. He is moving his bowels and tolerating a regular diet. His SBO appears to be resolving on it's own. Plan on holding chemotherapy this week in light of recent events. He will likely be discharged today. Will plan on having him follow up with Dr. Lott next week. He is asked to call [facility] to make a follow up appointment with Dr. Lott next week. 07/26/16 14:31 07/27/16 09:07 Objective: Vital Signs Temp Pulse Resp BP Pulse Ox 36.2 C 82 16 129/77 H 93 07/26/16 21:35 07/27/16 04:50 07/27/16 04:50 07/27/16 04:50 07/27/16 04:50 Laboratory Results 07/25/16 05:50 07/25/16 05:50 07/26/16 07/27/16 07/28/16 05:59 05:59 05:59 Intake Total 300 300 Output Total 4 Balance 296 300 PT 12.5 SEC (12.0-15.0) 07/22/16 Unknown INR 0.94 (0.83-1.16) 07/22/16 Unknown - Time Spent With Patient Time Spent With Patient: 15 minutes Physical Exam - Physical Exam General Appearance: alert, no apparent distress Abdomen: normal bowel sounds, non-tender, soft Neuro/Psych: alert, oriented x 3 ICD10 Worksheet Patient Problems: Problems Problem Status Onset Colon cancer Acute Liver metastases Acute Partial small bowel obstruction Acute Abdominal pain Acute Liver lesion Acute
--- NOTE | 2016-07-27 16:21 | GDS ---
[f rep st] DISCHARGE SUMMARY DISCHARGE DIAGNOSES: 1. Metastatic colon cancer with partial small bowel obstruction. 2. Type 2 diabetes. HISTORY: This is a 56-year-old male with a history of metastatic colon cancer. He is undergoing ch emotherapy. He presented with symptoms of partial small bowel obstruction. HOSPITAL COURSE: The patient was admitted and Surgery was consulted. After a few days, a small bow el follow-through was obtained, showing improved small bowel distention, consistent with a resolving ileus. He was started on a regular diet and continued to improve. He is going to be discharged ho ri. Of note, the patient has been exhibiting a quite challenging behavior, including aggression and spit ting at staff. It is recommended at next admission that clear boundaries are set for the patient wi th consequences. Greater than 30 minutes was spent on discharge. /[id number]/MODL
== END 2016-07-27 15:58 | disposition home or self-care (01) | DRG 375 ==
LOC: EDUNIT# → F1N 11:27
PROVIDERS: ADMIT Family Medicine; ATTEND Family Medicine
DX: C18.9 Malignant neoplasm of colon, unspecified (principal); K56.7 Ileus, unspecified; C78.7 Secondary malignant neoplasm of liver and intrahepatic bile duct; F11.20 Opioid dependence, uncomplicated; E11.9 Type 2 diabetes mellitus without complications; F41.8 Other specified anxiety disorders; F17.210 Nicotine dependence, cigarettes, uncomplicated; Z79.84 Long term (current) use of oral hypoglycemic drugs; Z90.49 Acquired absence of other specified parts of digestive tract; Z59.0 Homelessness
CPT/HCPCS: 82947-QW; 96374; J1170; J1642; J1650; J2060; J2405; Q9967

== ENCOUNTER 2016-07-28 14:16 | Inpatient (IN) | payer MEDICAID, OTHER ==
--- NOTE | 2016-07-28 14:29 | EDPHY ---
HPI/HX/ROS/PE/MDM Narrative: CHIEF COMPLAINT: Abdominal pain. HISTORY OF PRESENT ILLNESS: The patient is a 56-year-old male with history of metastatic colon cancer and liver metastases who presents with abdominal pain that started Sunday. The patient was admitted for partial small bowel obstruction and discharged yesterday after being able to tolerate fluids. He returns today with the same complaint of abdominal pain. The patient states his pain improved after he was placed on an all liquid diet. Once he started solids yesterday the pain returned. The patient had diarrhea this morning and an episode of emesis while in the ED. He takes Lorazepam and oxycodone for pain. He denies urinary complaints. REVIEW OF SYSTEMS: Aside from elements discussed in the HPI, a comprehensive 10-point review of systems was reviewed and is negative. PAST MEDICAL HISTORY: 1. Metastatic colon cancer with partial small bowel obstruction. 2. Type II diabetes. Past Surgical History: Appendectomy, Sigmoid colon [id number]. SOCIAL HISTORY: Daily cigarette smoker. Homeless. VITAL SIGNS: Reviewed by me GENERAL: Alert, thin appearing, appears uncomfortable. HEENT: Atraumatic. Eyes: No icterus, no injection. Mouth: moist mucous membranes. No erythema or lesions. Neck: supple with no adenopathy. LUNGS: Clear to auscultation bilaterally, no wheezes, rhonchi or rales. CARDIAC: Regular rate and rhythm, no rubs, murmurs or gallops. ABDOMEN: Surgical scar to abdomen. Visibly distended, diffuse tenderness that is worse on the left than right, no abdominal wave. BACK: No CVA tenderness. EXTREMITIES: No trauma. No peripheral edema. Range of motion is normal throughout. NEURO: Alert and oriented, grossly nonfocal. SKIN: Warm and dry, no rash. PSYCHIATRIC: Normal mentation, no agitation. Portions of this note were transcribed by a medical staff director. I personally performed a history, physical exam, medical decision making, and confirmed accuracy of information the transcribed note. ED Course: The patient is a 56-year-old male with history of colon cancer with metastases to the liver, who presents with abdominal pain. The patient was admitted for partial small bowel obstruction. He was discharged yesterday 07/27/16 after symptoms improved with diet. Patient returns today with continued abdominal pain. He had diarrhea this morning and 1 episode of emesis while in the ED. On exam, patient is visibly distended. He has diffuse abdominal tenderness. Plan for abdominal x-ray. I will check lab work including BMP, CBC, Lipase, and LFP. IV was established, patient received 2mg Dilaudid and 1L normal saline. I viewed the X-ray of the abdomen myself on the PACS system. X-ray is recurrent partial bowel obstruction. Please see the full radiology report in the imaging section. 3:30 p.m.: I spoke to the hospitalist, the patient will be admitted to Dr. Messer. 3:34 p.m.: I spoke to Dr. Martinez, General surgery, who will consult on the patient. MDM: After obtaining the patients history and performing an examination, differential diagnosis considered included but was not limited to bowel obstruction, metastatic colon cancer, perforation, volvulus, chronic abdominal pain, pancreatitis, intraabdominal abscess. - Data Points Imaging Results: Imaging Impressions Abdomen X-Ray 07/28/16 15:04 Impression: Recurrent partial small bowel obstruction. Imaging: Discussed imaging studies w/ manager training Radiologist Laboratory Results: Laboratory Results 07/28/16 15:10 07/28/16 07/28/16 15:10 15:10 WBC Pending RBC Pending Hgb Pending Hct Pending MCV Pending MCH Pending MCHC Pending RDW Pending Plt Count Pending MPV Pending Neut % (Auto) Pending Lymph % (Auto) Pending Pender % (Auto) Pending Eos % (Auto) Pending Baso % (Auto) Pending Nucleat RBC Rel Count Pending Absolute Neuts (auto) Pending Absolute Lymphs (auto) Pending Absolute Monos (auto) Pending Absolute Eos (auto) Pending Absolute Basos (auto) Pending Absolute Nucleated RBC Pending Immature Gran % Pending Immature Gran # Pending Sodium 138 mEq/L mEq/L (134-144) Potassium 4.3 mEq/L mEq/L (3.5-5.2) Chloride 102 mEq/L mEq/L (97-110) Carbon Dioxide 25 mEq/l mEq/l (22-31) Anion Gap 11 mEq/L mEq/L (8-16) BUN 9 mg/dL mg/dL (7-23) Creatinine 0.6 mg/dL L mg/dL (0.7-1.3) Estimated GFR > 60 Glucose 142 mg/dL H mg/dL (70-100) Calcium 8.9 mg/dL mg/dL (8.5-10.4) Total Bilirubin 0.7 mg/dL mg/dL (0.1-1.4) Conjugated Bilirubin 0.4 mg/dL mg/dL (0.0-0.5) Unconjugated Bilirubin 0.3 mg/dL mg/dL (0.0-1.1) AST 35 IU/L IU/L (17-59) ALT 40 IU/L IU/L (21-72) Alkaline Phosphatase 206 IU/L H IU/L (38-126) Total Protein 7.0 g/dL g/dL (6.3-8.2) Albumin 4.0 g/dL g/dL (3.5-5.0) Lipase 55.0 IU/L IU/L (23-300) Medications Given: Discontinued Medications Hydromorphone HCl (Dilaudid) 1 mg IVP EDNOW ONE Stop: 07/28/16 15:01 Last Admin: 07/28/16 15:15 Dose: 1 mg Hydromorphone HCl (Dilaudid) 1 mg IVP EDNOW ONE Stop: 07/28/16 15:03 Last Admin: 07/28/16 15:16 Dose: 1 mg General Time Seen by Provider: 07/28/16 14:24 Initial Vital Signs: Initial Vital Signs Temperature (C) 36.8 C 07/28/16 14:22 Heart Rate 76 07/28/16 14:22 Respiratory Rate 22 H 07/28/16 14:22 Blood Pressure 146/92 H 07/28/16 14:22 O2 Sat (%) 95 07/28/16 14:22 O2 Delivery Mode Room Air Allergies/Adverse Reactions: No Known Allergies Allergy (Verified 07/22/16 09:00) Home Medications: Medication Instructions Recorded Ascorbic Acid [Vitamin C 500 mg 1,000 mg PO DAILY 07/28/16 (*)] Cholecalciferol Vit D3 [Vitamin D3 1,000 units PO DAILY 07/28/16 (*)] Ibuprofen [Motrin (*)] 200 - 400 mg PO DAILY 07/28/16 LORazepam [Ativan (*)] 1 - 2 mg PO DAILY PRN 07/28/16 Multivitamins [Multivitamin (*)] 1 each PO DAILY 07/28/16 Promethazine HCl [Phenergan 25mg 25 mg PO Q6H PRN 07/28/16 (*)] glyBURIDE [Glyburide] 2.5 mg PO DAILY 07/28/16 oxyCODONE IR [Oxycodone Ir (*)] 15 mg PO QID PRN 07/28/16 Departure - Departure Disposition: [facility] Acute Clinical Impression: Partial bowel obstruction, Abdominal pain, Colon cancer, Liver metastases Condition: Fair
[2016-07-28] MEDS ORDERED: HYDROmorphONE/DILAUDID 1 MG/ML SYR ONE (14:56)
[2016-07-28] MEDS ORDERED: HYDROmorphONE/DILAUDID 1 MG/ML SYR IVP ONE ×2 (15:00→15:02)
[2016-07-28] MEDS ORDERED: NS 1,000 ML IV ONE (15:03)
[2016-07-28 15:24] LABS: % IMMATURE GRANULYOCYTES 0.3 % (0.0-1.1); ABSOLUTE IMMATURE GRANULOCYTES 0.02 10^3/uL (0.00-0.10); ADD DIFF? NO; ADD MORPH? NO; ADD SCAN? YES; FRAGMENT RBC FLAG 0 (0-99); HEMOGLOBIN 13.7 g/dL (13.7-17.5); LEFT SHIFT FLG 0 (0-99); LIPEMIA HEMOLYSIS FLAG 90 (0-99); MEAN CELL HEMOGLOBIN 30.6 pg (27.9-34.1); MEAN CELL HEMOGLOBIN CONCENTR. 34.3 g/dL (32.4-36.7); MEAN CELL VOLUME 89.5 fL (81.5-99.8); MEAN PLATELET VOLUME 9.7 fL (8.7-11.7); PLATELET CLUMPS FLAG 0 (0-99); PLATELET COUNT 101 10^3/uL (150-400); RED BLOOD CELL COUNT 4.47 10^6/uL (4.40-6.38); RED CELL DISTRIBUTION WIDTH 14.3 % (11.5-15.2)
[2016-07-28 15:30] LABS: ATYPICAL LYMPHOCYTE FLAG 140 (0-99)
[2016-07-28 15:37] LABS: ALANINE AMINOTRANSFERASE 40 IU/L (21-72); ALKALINE PHOSPHATASE 206 IU/L (38-126); ANION GAP 11 mEq/L (8-16); ASPARTATE AMINOTRANSFERASE 35 IU/L (17-59); BILIRUBIN,TOTAL 0.7 mg/dL (0.1-1.4); BILIRUBIN-CONJUGATED 0.4 mg/dL (0.0-0.5); BILIRUBIN-UNCONJUGATED 0.3 mg/dL (0.0-1.1); CALCIUM 8.9 mg/dL (8.5-10.4); CARBON DIOXIDE 25 mEq/l (22-31); CHLORIDE 102 mEq/L (97-110); CREATININE 0.6 mg/dL (0.7-1.3); GLOMERULAR FILTRATION RATE > 60; GLUCOSE 142 mg/dL (70-100); POTASSIUM 4.3 mEq/L (3.5-5.2); SODIUM 138 mEq/L (134-144)
[2016-07-28 16:28] LABS: SCAN NEGATIVE
[2016-07-28] MEDS ORDERED: oxyCODONE IR 5 MG TAB PO PRN (16:51)
[2016-07-28] MEDS ORDERED: HYDROmorphONE/DILAUDID 1 MG/ML SYR IVP PRN ×2 (16:51→18:22)
[2016-07-28] MEDS ORDERED: ONDANSETRON DISINTEGRATING 4 MG TAB PO PRN (16:51)
[2016-07-28] MEDS ORDERED: ZOLPIDEM TARTRATE 5 MG TAB PO PRN (16:51)
[2016-07-28] MEDS ORDERED: PROMETHAZINE HCL 25 MG TAB PO PRN ×2 (16:51→17:53)
[2016-07-28] MEDS ORDERED: ACETAMINOPHEN 325 MG TAB PO PRN (16:51)
[2016-07-28] MEDS ORDERED: LORazepam 1 MG TAB PO PRN (17:53)
[2016-07-28] MEDS: NS 1,000 ML IV SCH (18:18)
--- NOTE | 2016-07-28 18:29 | PDGENHP ---
History and Physical - Chief Complaint abdominal pain/n/v - History of Present Illness 56 yo M with hx of metastatic colon cancer s/p 8 rounds of palliative FOLFOX chemotherapy with good response however complicated by recurrent SBO presenting shortly after being discharged with recurrent abdominal pain/n/v and abdominal xray consistent with recurrent SBO. He notes that he never really felt 100% better at his last hospital discharge and had not been able to eat much food, though he was eating some. After leaving, his abdominal pain got worse and today after trying to eat the pain became very severe, he had associated nausea and vomiting, and ultimately returned here for further evaluation. His last hospital stays were complicated by significant issues with staff, including instances of the patient spitting on staff, and having issues following instructions such as remaining NPO and not going outside to smoke cigarettes and marijuana. The patient notes to me that he is very reluctant to take any care suggestions that are not "natural" as he feels that he is not healing 2/2 treatments such as chemotherapy. He states he would very much like to avoid surgery, and it is not clear that he would be amenable to surgery even if it was felt to be necessary. He would like to try alternative treatments as much as possible, is very interested in acupuncture and other such treatments if possible. History Information - Allergies/Home Medication List Allergies/Adverse Reactions: No Known Allergies Allergy (Verified 07/22/16 09:00) Home Medications: Ascorbic Acid [Vitamin C 500 mg (*)] 1,000 mg PO DAILY 07/28/16 [Last Taken Unknown] Cholecalciferol Vit D3 [Vitamin D3 (*)] 1,000 units PO DAILY 07/28/16 [Last Taken Unknown] Ibuprofen [Motrin (*)] 200 - 400 mg PO DAILY 07/28/16 [Last Taken Unknown] LORazepam [Ativan (*)] 1 - 2 mg PO DAILY PRN 07/28/16 [Last Taken Unknown] Multivitamins [Multivitamin (*)] 1 each PO DAILY 07/28/16 [Last Taken Unknown] Promethazine HCl [Phenergan 25mg (*)] 25 mg PO Q6H PRN 07/28/16 [Last Taken 07/10] glyBURIDE [Glyburide] 2.5 mg PO DAILY 07/28/16 [Last Taken 07/28/16] oxyCODONE IR [Oxycodone Ir (*)] 15 mg PO QID PRN 07/28/16 [Last Taken 07/28/16 13:00 2 TABS] I have personally reviewed and updated: family history, medical history, social history, surgical history Past Medical History: recurrent SBO. metastatic colon cancer dx fall 2015 with lever mets s/p 8 rounds FOLFOX. DM. Depression - Past Medical History cancer (metastatic colon cancer), diabetes type 2 - Surgical History Reports: appendectomy Additional surgical history: sigmoid colon resection 01/2016 - Family History Positive for: non-pertinent - Social History Smoking Status: Current every day smoker Alcohol Use: Occasionally Drug Use: Marijuana Additional social history: homeless Review of Systems ROS: 10pt was reviewed & negative except for what was stated in HPI & below Physical Exam Temp Pulse Resp BP Pulse Ox 36.7 C 69 16 124/76 H 96 07/28/16 16:51 07/28/16 16:51 07/28/16 16:51 07/28/16 16:51 07/28/16 16:51 Constitutional: no apparent distress, chronically ill appearing Eyes: PERRL Ears, Nose, Mouth, Throat: moist mucous membranes, hearing normal Cardiovascular: regular rate and rhythym, no murmur, rub, or gallop, No edema Respiratory: no respiratory distress, no rales or rhonchi Gastrointestinal: tenderness, distension, No normoactive bowel sounds, No guarding, No rebound Genitourinary: no bladder tenderness Skin: warm, normal color Musculoskeletal: full muscle strength Neurologic: AAOx3 Psychiatric: interacting appropriately, anxious, depressed Lab Data & Imaging Review 07/28/16 15:10 07/28/16 15:10 WBC 6.16 10^3/uL (3.80-9.50) 07/28/16 15:10 RBC 4.47 10^6/uL (4.40-6.38) 07/28/16 15:10 Hgb 13.7 g/dL (13.7-17.5) 07/28/16 15:10 Hct 40.0 % (40.0-51.0) 07/28/16 15:10 MCV 89.5 fL (81.5-99.8) 07/28/16 15:10 MCH 30.6 pg (27.9-34.1) 07/28/16 15:10 MCHC 34.3 g/dL (32.4-36.7) 07/28/16 15:10 RDW 14.3 % (11.5-15.2) 07/28/16 15:10 Plt Count 101 10^3/uL (150-400) L 07/28/16 15:10 MPV 9.7 fL (8.7-11.7) 07/28/16 15:10 Neut % (Auto) 62.5 % (39.3-74.2) 07/28/16 15:10 Lymph % (Auto) 30.2 % (15.0-45.0) 07/28/16 15:10 Winkler % (Auto) 6.3 % (4.5-13.0) 07/28/16 15:10 Eos % (Auto) 0.5 % (0.6-7.6) L 07/28/16 15:10 Baso % (Auto) 0.2 % (0.3-1.7) L 07/28/16 15:10 Nucleat RBC Rel Count 0.0 % (0.0-0.2) 07/28/16 15:10 Absolute Neuts (auto) 3.85 10^3/uL (1.70-6.50) 07/28/16 15:10 Absolute Lymphs (auto) 1.86 10^3/uL (1.00-3.00) 07/28/16 15:10 Absolute Monos (auto) 0.39 10^3/uL (0.30-0.80) 07/28/16 15:10 Absolute Eos (auto) 0.03 10^3/uL (0.03-0.40) 07/28/16 15:10 Absolute Basos (auto) 0.01 10^3/uL (0.02-0.10) L 07/28/16 15:10 Absolute Nucleated RBC 0.00 10^3/uL (0-0.01) 07/28/16 15:10 Immature Gran % 0.3 % (0.0-1.1) 07/28/16 15:10 Immature Gran # 0.02 10^3/uL (0.00-0.10) 07/28/16 15:10 Sodium 138 mEq/L (134-144) 07/28/16 15:10 Potassium 4.3 mEq/L (3.5-5.2) 07/28/16 15:10 Chloride 102 mEq/L (97-110) 07/28/16 15:10 Carbon Dioxide 25 mEq/l (22-31) 07/28/16 15:10 Anion Gap 11 mEq/L (8-16) 07/28/16 15:10 BUN 9 mg/dL (7-23) 07/28/16 15:10 Creatinine 0.6 mg/dL (0.7-1.3) L 07/28/16 15:10 Estimated GFR > 60 07/28/16 15:10 Glucose 142 mg/dL (70-100) H 07/28/16 15:10 Calcium 8.9 mg/dL (8.5-10.4) 07/28/16 15:10 Total Bilirubin 0.7 mg/dL (0.1-1.4) 07/28/16 15:10 Conjugated Bilirubin 0.4 mg/dL (0.0-0.5) 07/28/16 15:10 Unconjugated Bilirubin 0.3 mg/dL (0.0-1.1) 07/28/16 15:10 AST 35 IU/L (17-59) 07/28/16 15:10 ALT 40 IU/L (21-72) 07/28/16 15:10 Alkaline Phosphatase 206 IU/L (38-126) H 07/28/16 15:10 Total Protein 7.0 g/dL (6.3-8.2) 07/28/16 15:10 Albumin 4.0 g/dL (3.5-5.0) 07/28/16 15:10 Lipase 55.0 IU/L (23-300) 07/28/16 15:10 Visualized and Interpreted imaging results: Yes Interpretation: abd xray c/w recurrent SBO Assessment & Plan Assessment: Partial bowel obstruction (Acute) 56 yo M with PMH of metastatic colon cancer with recurrent SBO last dc on 07/27 for same returning with n/v/abdominal pain and recurrent sbo # sbo: multiple recurrences versus incomplete resolution, last dc one day ago for same. Plan for conservative mgmt--bowel rest, IVF, antiemetics and prn opiate pain medications. Surgery consulted, though patient very reluctant to ever agree to surgery per his report. He would like to try alternative therapies --will try to get acupuncture consult and ask palliative care to get involved. # n/v/abdominal pain: 2/2 above as well as chronic pain from underlying metastatic colon cancer. Patient does not wish to try NGT at this time, and nausea fairly well controlled currently. Symptomatic mgmt as above. # metastatic colon cancer: s/p 8 rounds FOLFOX with good response per oncology records. He is somewhat off schedule now given recurrent hospitalizations. 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 currently behaviorally controlled # dispo: observation status Patient new to my care. Old records reviewed and summarized as above. Care plan reviewed with ER doctor and CM. further hx obtained from patients GF present at bedside.
[2016-07-28] MEDS: oxyCODONE IR 15 MG TAB PO PRN (18:35)
[2016-07-28] MEDS: LORazepam 2 MG/ML INJ IVP PRN (20:40)
[2016-07-28] MEDS: HYDROmorphONE/DILAUDID 1 MG/ML SYR IVP PRN (21:20)
--- NOTE | 2016-07-28 21:48 | SOAPPROG ---
TIFFANI Progress Note Assessment/Plan: Assessment: 56-year-old male with history of colon cancer readmitted tonight because of recurrent partial small-bowel obstruction / he has refused to surgery on the last 2 admissions and has seemed to improve enough to be discharged. He is only out of the hospital for 24 hours and is returned. 2 way is consistent with a significant small-bowel obstruction. Risks and options been fully discussed with the patient but he still wishes to avoid surgery but does agree to an NG tube appears uncomfortable in ill / abdomen distended minimal tenderness and very active bowel sounds / no hernias palpable / chest is clear and cardiac exam was regular rhythm HEENT reveals no adenopathy or icterus Plan: NG suction and continue monitoring of his small bowel obstruction / I have recommended surgery to the patient again 07/28/16 21:45 Objective: Vital Signs Temp Pulse Resp BP Pulse Ox 36.6 C 82 18 142/83 H 92 07/28/16 21:15 07/28/16 21:15 07/28/16 21:15 07/28/16 21:15 07/28/16 21:15 07/27/16 07/28/16 07/29/16 05:59 05:59 05:59 Intake Total 1000 Balance 1000 ICD10 Worksheet Patient Problems: Problems Problem Status Onset Partial bowel obstruction Acute Abdominal pain Acute Colon cancer Acute Liver lesion Acute Liver metastases Acute Partial small bowel obstruction Acute
[2016-07-29] MEDS: NS 1,000 ML IV SCH (02:13)
[2016-07-29] MEDS: HYDROmorphONE/DILAUDID 1 MG/ML SYR IVP PRN ×5 (02:13→15:17)
[2016-07-29] MEDS: oxyCODONE IR 15 MG TAB PO PRN ×3 (02:13→13:04)
[2016-07-29] MEDS: LORazepam 2 MG/ML INJ IVP PRN ×3 (05:03→22:38)
[2016-07-29] MEDS: ONDANSETRON 4 MG/2 ML VIAL IVP PRN (05:10)
[2016-07-29 06:12] LABS: ANION GAP 6 mEq/L (8-16); CALCIUM 8.4 mg/dL (8.5-10.4); CARBON DIOXIDE 26 mEq/l (22-31); CHLORIDE 107 mEq/L (97-110); CREATININE 0.5 mg/dL (0.7-1.3); GLOMERULAR FILTRATION RATE > 60; GLUCOSE 120 mg/dL (70-100); MAGNESIUM 1.8 mg/dL (1.6-2.3); SODIUM 139 mEq/L (134-144)
[2016-07-29 06:15] LABS: % IMMATURE GRANULYOCYTES 0.2 % (0.0-1.1); ABSOLUTE IMMATURE GRANULOCYTES 0.01 10^3/uL (0.00-0.10); ADD DIFF? NO; ADD MORPH? NO; ADD SCAN? YES; FRAGMENT RBC FLAG 0 (0-99); HEMATOCRIT 37.9 % (40.0-51.0); HEMOGLOBIN 12.7 g/dL (13.7-17.5); LEFT SHIFT FLG 0 (0-99); LIPEMIA HEMOLYSIS FLAG 80 (0-99); MEAN CELL HEMOGLOBIN CONCENTR. 33.5 g/dL (32.4-36.7); MEAN CELL VOLUME 89.6 fL (81.5-99.8); MEAN PLATELET VOLUME 9.3 fL (8.7-11.7); PLATELET CLUMPS FLAG 10 (0-99); PLATELET COUNT 95 10^3/uL (150-400); RED BLOOD CELL COUNT 4.23 10^6/uL (4.40-6.38); RED CELL DISTRIBUTION WIDTH 14.5 % (11.5-15.2)
[2016-07-29 06:29] LABS: ATYPICAL LYMPHOCYTE FLAG 190 (0-99)
[2016-07-29 07:14] LABS: SCAN POSITIVE
[2016-07-29 07:19] LABS: PLATELET ESTIMATE DECREASED (ADEQ)
[2016-07-29] MEDS: glyBURIDE 2.5 MG TAB PO SCH (09:18)
[2016-07-29] MEDS: CHOLECALCIFEROL VIT D3 1,000 UNITS TAB PO SCH (09:18)
[2016-07-29] MEDS: ENOXAPARIN 40 MG/0.4 ML SYR SC SCH (09:18)
[2016-07-29] MEDS: ASCORBIC ACID 500 MG TAB PO SCH (09:18)
[2016-07-29] MEDS: MULTIVITAMINS 1 EACH TAB PO SCH (09:19)
[2016-07-29] MEDS: IBUPROFEN 200 MG TAB PO SCH (09:19)
--- NOTE | 2016-07-29 13:21 | SOAPPROG ---
SOAP Progress Note Assessment/Plan: Assessment: 56yo M with history of colon cancer and recurrent small-bowel obstruction NG tube was not tolerated - patient is reconsidering Discussed surgical options again, he would like to manage non-operatively IV pain medication NPO, sips and chips for comfort Dispo: continue inpatient until return of bowel function. S: Continues to have nausea and vomiting. Reports passing gas and having a bowel movement this morning. O: Lying in bed, appears uncomfortable, non no acute distress No increased work of breathing, Positive bowel sounds, softly distended, tender left lower quadrant. Surgical incision clean dry and intact without evidence of infection Objective: Vital Signs Temp Pulse Resp BP Pulse Ox 36.6 C 72 16 139/80 H 95 07/29/16 08:11 07/29/16 08:11 07/29/16 08:11 07/29/16 08:11 07/29/16 08:11 Laboratory Results 07/29/16 05:50 07/29/16 05:50 07/28/16 07/29/16 07/30/16 05:59 05:59 05:59 Intake Total 2337 Balance 2337 ICD10 Worksheet Patient Problems: Problems Problem Status Onset Partial bowel obstruction Acute Abdominal pain Acute Colon cancer Acute Liver lesion Acute Liver metastases Acute Partial small bowel obstruction Acute
--- NOTE | 2016-07-29 13:52 | GCON ---
[f rep st] CONSULTATION ONCOLOGY INITIAL VISIT REASON FOR CONSULTATION: Assist in management of metastatic colon cancer. PRIMARY ONCOLOGIST: Dr. Chino Lott. HISTORY OF PRESENT ILLNESS: The patient was diagnosed with stage IV colon cancer in January 2016 after presenting with obstruction. He underwent segmental resection of the colon and was noted to have metastatic disease in the liver. He was started on palliative FOLFOX with bevacizumab, and apparently his CEA has responded dramatically and, I believe, the CT scan is showing response. He was admitted about 3 weeks ago with an E coli infection, but the discharge summary report said he had a small bowel obstruction. He then was admitted earlier this week with the same results. Surgical correction has been recommended but he has refused. He was admitted again yesterday with nausea and vomiting. He is feeling a little bit better but still no bowel movement and feeling bloated. He declined NG tube placement. PAST MEDICAL HISTORY: 1. Chronic illnesses include colon cancer, as described in the HPI. 2. Depression. 3. Type 2 diabetes. ALLERGIES: No known drug allergies. MEDICATIONS: Include ibuprofen, Phenergan, oxycodone, multivitamins, lorazepam , glyburide, vitamin D, and ascorbic acid. PAST SURGICAL HISTORY: Includes a sigmoid colectomy in January 2016 and an appendectomy. SOCIAL HISTORY: He is essentially homeless and he is an everyday smoker. FAMILY HISTORY: Noncontributory. REVIEW OF SYSTEMS: 10-point review of systems performed. Pertinent positives in HPI, otherwise negative. PHYSICAL EXAMINATION: VITAL SIGNS: Temp is 36.6. Pulse is 72 and blood pressure is 139/80. General: He is comfortable, in no distress. HEENT: Unremarkable. LUNGS: Clear. CARDIAC: Regular. ABDOMEN: Mildly distended, soft, and absent bowel sounds. EXTREMITIES: No edema. LABS: Mild anemia at 12.7 g/dL. Platelet count is 95,000. Chemistries are unremarkable. IMAGING STUDIES: His plain abdominal films showed recurrent partial small bowel obstruction. His most recent abdominal CT showed a partial small bowel obstruction, thought to be possibly related to an internal hernia or adhesion at the level of the left iliac crest. Small bowel follow-through showed resolution of obstruction, but this was performed on July 25. IMPRESSION: Recurrent small bowel obstruction. He seems to get worse and then he will get better, but this is now at least the 3rd admission for this problem , and his last chemotherapy was on, I believe, July 10. His counts are adequate if he needed surgery. I talked to him about the situation and explained that because he keeps having recurrent symptoms and because his cancer has responded well to chemotherapy, I did not think this was something that was just going to go away and not continue to come back. Most likely, it is not due to malignancy in the area, but probably due to either the hernia or scar tissue. The only way to know for certain would be to undergo an exploratory surgical procedure. He is open to discussing this with the surgeon , which will be arranged for him today. We will follow along with you. /[id number]/MODL MTDD
[2016-07-29 14:14] LABS: COLOR YELLOW; LEUKOCYTE ESTERASE,URINE NEGATIVE (NEGATIVE); NITRITE,URINE NEGATIVE (NEGATIVE)
[2016-07-29] MEDS ORDERED: LIDOCAINE 2% JELLY 20 ML (UROJECT) UR ONE (14:44)
[2016-07-29] MEDS ORDERED: CEPACOL LOZENGE PO PRN (15:19)
[2016-07-29] MEDS ORDERED: NALOXONE HCL 0.4 MG/ML INJ IVP PRN (15:50)
[2016-07-29] MEDS ORDERED: HYDROmorphONE/DILAUDID 1 MG/ML SYR IVP PRN (15:51)
--- NOTE | 2016-07-29 15:51 | HOSPPROG ---
Hospitalist Progress Note Assessment/Plan: * recurrent small-bowel obstruction * This is his 3rd episode * Continue NG-tube placement and possible surgery if not better * pain * Will start Dilaudid [employer]IC * metastatic colon cancer * type 2 diabetes * Hold medications Subjective: Abdominal distention pain better with NG tube Objective: Vital Signs Temp Pulse Resp BP Pulse Ox 36.6 C 72 16 139/80 H 95 07/29/16 08:11 07/29/16 08:11 07/29/16 08:11 07/29/16 08:11 07/29/16 08:[address] Burgos Abdominal x-ray personally reviewed interpreted - Physical Exam Constitutional: no apparent distress, appears nourished, not in pain Eyes: anicteric sclera, EOMI Ears, Nose, Mouth, Throat: moist mucous membranes, hearing normal, ears appear normal Cardiovascular: regular rate and rhythym, no murmur, rub, or gallop Respiratory: no respiratory distress, no rales or rhonchi, clear to auscultation Gastrointestinal: other (Decreased bowel sounds, mild distention nontender) Skin: warm Neurologic: AAOx3 Psychiatric: interacting appropriately, not anxious, not encephalopathic, thought process linear ICD10 Worksheet Patient Problems: Problems Problem Status Onset Partial bowel obstruction Acute Abdominal pain Acute Colon cancer Acute Liver lesion Acute Liver metastases Acute Partial small bowel obstruction Acute
--- NOTE | 2016-07-29 15:57 | GCON ---
[f rep st] CONSULTATION CONSULTATION. REASON FOR CONSULTATION: Requested as a 2nd opinion by Dr. Magana. HISTORY: Focused history reveals that the patient is a 56-year-old white male who was discovered on January 29 (when he was in [place]) to have a sigmoid colon cancer with metastasis to his liver. He has returned to the community and underwent a sigmoid colectomy. Stage IV was confirmed. A port was placed. He has received chemotherapy. He has received 8 of 12 cycles of chemotherapy. This is his 3rd admission in the past 3 weeks for a bowel obstruction. The 1st one apparently resolved straight away. He then came back. CAT scans and x- rays were performed. He subsequently underwent a small bowel follow-through. Initially it was felt that there was an area of partial obstruction at the region of the left pelvic brim. This area of obstruction was not seen on a follow up small bowel follow through. He did go home and returned the next day. He had vomited poorly chewed broccoli at that time. An NG tube placement was attempted yesterday, but that was not tolerated by the patient. He does feel somewhat better today. He has not passed any gas. He has not had a bowel movement. SOCIAL HISTORY: He smoked from age 28, currently at a peak of half pack a day. He does not drink. ALLERGIES: He has no known drug allergies. PAST MEDICAL HISTORY: He is a type 2 diabetic and takes glyburide 2.5 mg a day. He has been using oxycodone for pain. He uses lorazepam for anxiety, Zofran and Phenergan for nausea and a multivitamin. His only other abdominal surgery has been an appendectomy. He has no history of rheumatic fever, tuberculosis, hepatitis or transfusions. REVIEW OF SYSTEMS: He has been a diabetic for 2 years. He wears lenses for visual correction. Since his 3rd episode of chemotherapy he has had intermittent problems with epistaxis. He has had nocturia 3-6 times a night. He was not on any steroids in the last 6 months. No there are no limits on his activities. The patient is seen in room 157, lying comfortably in bed. Over the course of my discussion he does develop hiccups. PHYSICAL EXAMINATION: His skull is normocephalic and atraumatic. NEURO: He is awake, alert and oriented. No focal lateralizing neurologic findings. BACK: Unremarkable. LUNGS: Are clear to auscultation. NECK: There is no cervical, supraclavicular, axillary, inguinal lymphadenopathy. I do not detect any carotid bruits or thyroid enlargement. CARDIAC: Shows S1, S2 to be normal with normal split of S2, without murmurs, rubs, or gallops. ABDOMEN: Shows intermittently normal and slightly high- pitched bowel sounds. He is distinctly tympanitic. Hernias are not appreciated. He has a midline hypogastric incision which is well healed. He is nontender with cough. LABORATORY: Reveal a white blood cell count of 5.2 with 53% neutrophils and 5% bands. His total lymphocyte count was 1860. A prealbumin level is pending. His hematocrit is 37.9, his platelets are 95,000. His BUN is 8, his creatinine is 0.5, his lipase is 55. A followup film today shows essentially no chemical cell changer yesterday. There are differential air-fluid levels in his small bowel. There was no progression of gas into the colon. I have discussed with him his presentation. Given the fact that he had a normal small bowel follow through on July 25 without a distinct area of narrowing identified, I suspect this is intermittent blockage. It is unclear whether it is an internal hernia or looping around a band. The fact that he did well and then did not, that vomited intact food that he had not chewed is consistent with poor dentition and poor chewing contributing to a partial SBO. At this point, I feel we do need to moeller to surgery, but rather I suggest we try NG suction for 24-36 hours. If he does open up again I would recommend a pureed diet and then in approximately 2 weeks a small-bowel follow-through to make sure that we still do not have an issue to address. He is amenable to this approach. He understands that if this fails surgery will be strongly recommended and there will be an added advantage that his intestine will be more decompressed. He understands and wishes to proceed. /[id number]/MODL MTDD
[2016-07-29] MEDS: HYDROmorphONE/DILAUDID 6 MG/30 ML PCA IV PRN ×2 (16:47→22:21)
[2016-07-30] MEDS: LORazepam 2 MG/ML INJ IVP PRN ×2 (10:16→20:04)
[2016-07-30] MEDS: ENOXAPARIN 40 MG/0.4 ML SYR SC SCH (10:17)
[2016-07-30] MEDS: ASCORBIC ACID 500 MG TAB PO SCH (10:17)
[2016-07-30] MEDS: CHOLECALCIFEROL VIT D3 1,000 UNITS TAB PO SCH (10:17)
--- NOTE | 2016-07-30 10:17 | SOAPPROG ---
SOAP Progress Note Assessment/Plan: SECOND OPINION FOLLOW-UP 07/30/16 10:10 Assessment: ~ 1200 cc out NG since placement. Partial resolution noted as some gas now seen in ascending colon. No flatus or stool noted. Plan: Discussed options with Mr. Martinez and his significant other. I have told him that there is a possibility that his SBO will resolve again but that with three episodes in this short time frame and only partial resolution today that I feel that he will most probably need surgery for this problem. I have also noted that even with surgery, he still may have a bowel obstruction(s ) in the future. He understands that the NG tube must remain in place until either he resolves or he has surgery. He will ponder his options and decide how he wishes to proceed. Subjective: No stool or flatus Objective: Vital Signs Temp Pulse Resp BP Pulse Ox 36.4 C 77 18 148/93 H 94 07/30/16 07:55 07/30/16 07:55 07/30/16 07:55 07/30/16 07:55 07/30/16 07:55 07/29/16 07/30/16 07/31/16 05:59 05:59 05:59 Intake Total 1405 Output Total 800 1000 Balance 605 -1000 - Time Spent With Patient Time Spent With Patient: 25 - Pending Discharge Pending Discharge Within 24 Hours: No Pending Discharge Within 48 Hours: No Physical Exam - Physical Exam General Appearance: WD/WN, alert, moderate distress Neck: non-tender, full range of motion, supple, normal inspection Respiratory: chest non-tender, lungs clear, normal breath sounds Cardiac/Chest: regular rate, rhythm Abdomen: non-tender, soft, distended, other (+/- bowel sounds) Male Genitalia: deferred Rectal: deferred Back: Normal inspection Skin: normal color, warm/dry Extremities: normal range of motion Neuro/Psych: no motor/sensory deficits, alert, normal mood/affect, oriented x 3 ICD10 Worksheet Patient Problems: Problems Problem Status Onset Partial bowel obstruction Acute Abdominal pain Acute Colon cancer Acute Liver lesion Acute Liver metastases Acute Partial small bowel obstruction Acute
[2016-07-30] MEDS: glyBURIDE 2.5 MG TAB PO SCH (10:18)
[2016-07-30] MEDS: IBUPROFEN 200 MG TAB PO SCH (10:18)
[2016-07-30] MEDS: MULTIVITAMINS 1 EACH TAB PO SCH (10:18)
--- NOTE | 2016-07-30 12:02 | SOAPPROG ---
SOAP Progress Note Assessment/Plan: E&M for Colon Cancer * Metastatic colon cancer on FOLFOX + Avastin: Good CEA response from [address] shows probable response without new disease. Last dose of Avastin was ; nearly 3 weeks ago. This will increase risk of bleeding and slow healing but he isn't getting better and the drug can be held post op for about a month. * SBO: agree that surgery is necessary to relieve his obstruction. Patient was agreeable today. Subjective: NG tube placed. Not feeling any better. No flatus. Objective: Vital Signs Temp Pulse Resp BP Pulse Ox 36.4 C 72 16 149/89 H 94 07/30/16 07:55 07/30/16 10:42 07/30/16 10:42 07/30/16 10:42 07/30/16 10:42 07/29/16 07/30/16 07/31/16 05:59 05:59 05:59 Intake Total 1405 Output Total 800 1000 Balance 605 -1000 Abdomen, Two Views July 30, 2016 at 0933 Hours History: Small bowel obstruction, nasogastric tube. Comparison: July 29, 2016. Findings: Nasogastric tube has the tip in the region of the body of the stomach. Multiple air- fluid levels throughout the small bowel with distention, consistent with small bowel obstruction. Scattered gas and stool in the colon. No pneumoperitoneum. Central line in the right atrium. Impression: 1. Small bowel obstruction. 2. Nasogastric tube in the stomach. Dictated By: Regino Hester Physical Exam - Physical Exam General Appearance: no apparent distress Respiratory: lungs clear Cardiac/Chest: regular rate, rhythm Abdomen: soft, No normal bowel sounds ICD10 Worksheet Patient Problems: Problems Problem Status Onset Partial bowel obstruction Acute Abdominal pain Acute Colon cancer Acute Liver lesion Acute Liver metastases Acute Partial small bowel obstruction Acute
--- NOTE | 2016-07-30 12:22 | SOAPPROG ---
SOAP Progress Note Assessment/Plan: Assessment: 56yo M with history of colon cancer and recurrent small-bowel obstruction Abdominal x-rays this morning with persistent small bowel obstruction, some gas in colon NG tube to suction - nausea/vomiting improved Worsening abdominal pain and cramping. reconsidering surgery. Dr. Burgos following UNDERBASTER NPO, sips and chips for comfort Dispo: Appreciate hospitalists and Oncology. likely to OR today for ex lap, poss SB resection. S: Abdominal pain and cramping much worse this morning. More bloated. Nausea improved since NG placed O: Lying in bed, appears uncomfortable, no acute distress NG tube with thin bilious output No increased work of breathing, clear to auscultation anteriorly Regular rate and rhythm Positive bowel sounds, softly distended, tender left lower quadrant. More tender and slightly more distended than yesterday Objective: Vital Signs Temp Pulse Resp BP Pulse Ox 36.4 C 72 16 149/89 H 94 07/30/16 07:55 07/30/16 10:42 07/30/16 10:42 07/30/16 10:42 07/30/16 10:42 07/29/16 07/30/16 07/31/16 05:59 05:59 05:59 Intake Total 1405 Output Total 800 1000 Balance 605 -1000 ICD10 Worksheet Patient Problems: Problems Problem Status Onset Partial bowel obstruction Acute Abdominal pain Acute Colon cancer Acute Liver lesion Acute Liver metastases Acute Partial small bowel obstruction Acute
[2016-07-30] MEDS ORDERED: PANTOPRAZOLE SODIUM 40 MG in NS 100 ML IV ONE (12:33)
[2016-07-30] MEDS ORDERED: ERTAPENEM 1 GM in NS 100 ML IV ONE (12:34)
[2016-07-30 12:50] LABS: % IMMATURE GRANULYOCYTES 0.4 % (0.0-1.1); ABSOLUTE IMMATURE GRANULOCYTES 0.02 10^3/uL (0.00-0.10); ADD DIFF? NO; ADD MORPH? NO; ADD SCAN? YES; FRAGMENT RBC FLAG 0 (0-99); HEMATOCRIT 39.7 % (40.0-51.0); HEMOGLOBIN 13.4 g/dL (13.7-17.5); LEFT SHIFT FLG 0 (0-99); LIPEMIA HEMOLYSIS FLAG 90 (0-99); MEAN CELL HEMOGLOBIN CONCENTR. 33.8 g/dL (32.4-36.7); MEAN PLATELET VOLUME 8.9 fL (8.7-11.7); PLATELET CLUMPS FLAG 0 (0-99); PLATELET COUNT 87 10^3/uL (150-400); RED BLOOD CELL COUNT 4.46 10^6/uL (4.40-6.38)
[2016-07-30 12:55] LABS: ATYPICAL LYMPHOCYTE FLAG 140 (0-99)
[2016-07-30 13:04] LABS: INR 1.01 (0.83-1.16); PROTIME(PATIENT) 13.2 SEC (12.0-15.0)
[2016-07-30 13:08] LABS: ANION GAP 8 mEq/L (8-16); CALCIUM 8.2 mg/dL (8.5-10.4); CARBON DIOXIDE 25 mEq/l (22-31); CHLORIDE 102 mEq/L (97-110); CREATININE 0.5 mg/dL (0.7-1.3); GLOMERULAR FILTRATION RATE > 60; GLUCOSE 109 mg/dL (70-100); POTASSIUM 3.9 mEq/L (3.5-5.2); SODIUM 135 mEq/L (134-144)
[2016-07-30 13:14] LABS: SCAN POSITIVE
[2016-07-30 13:17] LABS: PLATELET ESTIMATE DECREASED (ADEQ)
[2016-07-30] MEDS ORDERED: MIDAZOLAM 2 MG/2 ML VIAL ONE (13:29)
[2016-07-30] MEDS ORDERED: LIDOCAINE 1% 5 ML SDV ONE (13:31)
[2016-07-30] MEDS ORDERED: PROPOFOL/EMULSION 500 MG/50 ML BOTTLE IV ONE (13:36)
[2016-07-30] MEDS ORDERED: fentaNYL 250 MCG/5 ML INJ ONE (13:41)
[2016-07-30] MEDS ORDERED: DEXAMETHASONE 4 MG/ML VIAL ONE (14:24)
[2016-07-30] MEDS ORDERED: ONDANSETRON 4 MG/2 ML VIAL ONE (14:24)
[2016-07-30] MEDS ORDERED: ROCURONIUM 100 MG/10 ML VIAL ONE (14:25)
[2016-07-30] MEDS ORDERED: SUCCINYLCHOLINE CHLORIDE*ANESTHESIA ONLY*200 MG/10 ML SYR IVP ONE (14:25)
[2016-07-30] MEDS ORDERED: LIDOCAINE 2% 5 ML SDV ONE (14:25)
--- NOTE | 2016-07-30 14:35 | HOSPPROG ---
Hospitalist Progress Note Assessment/Plan: * recurrent small-bowel obstruction * This is his 3rd episode * patient is going for surgery this afternoon * pain * continue Dilaudid POLICE SERGEANT * metastatic colon cancer * type 2 diabetes * Hold medications Subjective: patient is in surgery Objective: Vital Signs Temp Pulse Resp BP Pulse Ox 36.6 C 78 16 142/90 H 94 07/30/16 12:30 07/30/16 12:30 07/30/16 12:30 07/30/16 12:30 07/30/16 12:30 Laboratory Results 07/30/16 12:45 07/30/16 12:45 07/29/16 07/30/16 07/31/16 05:59 05:59 05:59 Intake Total 1405 Output Total 800 1000 Balance 605 -1000 PT 13.2 SEC (12.0-15.0) 07/30/16 12:45 INR 1.01 (0.83-1.16) 07/30/16 12:[address] Burgos ICD10 Worksheet Patient Problems: Problems Problem Status Onset Partial bowel obstruction Acute Abdominal pain Acute Colon cancer Acute Liver lesion Acute Liver metastases Acute Partial small bowel obstruction Acute
[2016-07-30] MEDS ORDERED: fentaNYL 100 MCG/2 ML INJ ONE ×3 (15:19→18:02)
[2016-07-30] MEDS ORDERED: ROCURONIUM 50 MG/5 ML VIAL ONE (16:32)
[2016-07-30] MEDS ORDERED: HYDROmorphONE/DILAUDID 2 MG/ML INJ ONE (16:45)
[2016-07-30] MEDS ORDERED: SUGAMMADEX SODIUM 200 MG/2 ML VIAL IVP ONE (16:51)
--- NOTE | 2016-07-30 17:06 | POSTOPPROG ---
Post Op Note Date of Operation: 07/30/16 Surgeon: Otto Burgos Asic Engineer: jennifer aguilar Anesthesiologist: sailaja Anesthesia: GET(General Endotracheal) Pre-op Diagnosis: sbo Post-op Diagnosis: sbo with internal hernia Indication: 56 yo with history of colectomy for colon cancer now with repeated bowel ob Procedure: lap SOLO, open adhesiolysis, open repair of enterotomy and repair of defect Findings: mesenteric defect at descending colon Inf/Abcess present in the surg proc area at time of surgery?: No EBL: 50-100 Specimen(s): small bowel
[2016-07-30] MEDS ORDERED: KETOROLAC 15 MG/1 ML SDV IVP SCH (18:00)
--- NOTE | 2016-07-30 18:03 | POSTOPPROG ---
Post Op Note Date of Operation: 07/30/16 Surgeon: Otto Burgos [employer] Supervisor: Ann-Marie Layne Anesthesia: GET(General Endotracheal) Pre-op Diagnosis: SBO due to adhesions, Stage 4 colon carcinoma Post-op Diagnosis: SBO due to adhesions ( multiple and extensive), internal hernia, Stage 4 Ca Indication: SBO due to adhesions Procedure: Laparoscopic enterolysis, Laparotomy w/ enterolysis & repair of enterotomy, Findings: SBO due to adhesions ( multiple and extensive),internal h stage 4 colon ca. Inf/Abcess present in the surg proc area at time of surgery?: No EBL: 100-500 Total fluids administered: 1999 Complications: lysis of extensive adhesions resulted in an enterotomy that was repaired with a minimal resection and side to side functional end to end stapled anastomosis. Specimen(s): none
[2016-07-30] MEDS ORDERED: HYDROmorphONE/DILAUDID 1 MG/ML SYR ONE ×2 (18:16→19:13)
[2016-07-30] MEDS ORDERED: ACETAMINOPHEN 325 MG TAB PO PRN (18:24)
[2016-07-30] MEDS ORDERED: KETOROLAC 30 MG/1 ML SDV IVP PRN (18:26)
[2016-07-30] MEDS ORDERED: LABETALOL HCL 5 MG/ML 20 ML MDV ONE (18:50)
[2016-07-30] MEDS ORDERED: LABETALOL HCL 50 MG/10 ML SYR IVP PRN (18:55)
[2016-07-30] MEDS: HYDROmorphONE/DILAUDID 1 MG/ML SYR IVP PRN ×2 (20:04→23:31)
--- NOTE | 2016-07-30 20:49 | GOP ---
[f rep st] OPERATIVE REPORT DATE OF OPERATION: 07/30/2016 SURGEON: Otto Burgos MD LEVERMAN: Ann-Marie Hsieh MD, FACS. ANESTHESIA: General endotracheal. PREOPERATIVE DIAGNOSIS: Small bowel obstruction secondary to adhesions and internal hernia. POSTOPERATIVE DIAGNOSIS: PROCEDURE PERFORMED: 1. Laparoscopic enterolysis. 2. Laparotomy with enterolysis and repair of enterotomy and internal hernia. FINDINGS: 1. Small bowel obstruction due to adhesions (multiple and extensive). 2. Internal hernia. 3. Stage IV colon carcinoma. There was no deep infection. SPECIMENS: There were no specimens. ESTIMATED BLOOD LOSS: Approximately 100-500 cc. INDICATIONS: Small bowel obstruction secondary to adhesions. DESCRIPTION OF PROCEDURE: The patient was placed in the operating room in the supine position. He has previously empty his bladder. He was placed under general endotracheal anesthesia. Laparoscopic approach was attempted first. A supraumbilical midline incision was made and dissection was carried down to the rectus sheath. The rectus sheath was incised with cautery. The rectus sheath was elevated with Allis clamps. The peritoneum was entered. Pursestring of 0-PDS was placed. A Gaston trocar was positioned. Intra-abdominal insufflation was carried out to 15 mmHg. There were several bandlike adhesions to the anterior abdominal wall. Two right abdominal 5 mm ports were placed and subsequently 1 left upper quadrant 5 mm port was placed. Multiple bandlike adhesions were taken down in the right abdomen. There was a band which was encasing a loop of small bowel near the left pelvic brim. This was taken down. In the left mid abdomen, another adhesion was identified and taken down. The small bowel was carefully traced proximally. There was a large knuckle of bowel which went through the mesentery of the sigmoid colon. There were dense adhesions. Attempted lysis of these adhesions laparoscopically with Harmonic scalp was limited. Decision was made to open the abdomen. Once this was done, the dense complex adhesions were carefully taken down over about 30 minutes. An enterotomy was performed in the process of lysing these very tight adhesions. It was identified and clamped off with Danny clamps. The bowel was further mobilized. The bowel was subsequently reduced through the defect in the mesentery of the sigmoid colon. The bowel was reconstructed as follows; 2 anti-mesenteric sutures of 3-0 GI silk were placed at approximately 5 cm from the open ends of the bowel. Danny clamps were placed. A sterile field was developed with lap tapes in case there were any spills. The ends of the bowel were opened. The 75 mm KAUR was used to staple and create an anti-mesenteric anastomosis. Edges of the open end of the bowel were elevated with Allis clamps. The TA 60 was placed across the open end of the anastomosis so that there will be a triangular anastomosis. A small section of bowel had been resected with this approach. Anastomotic lines were reinforced with interrupted Lambert sutures of #3-0 GI silk. There was no significant small bowel mesenteric defect to be closed at this time. The defect in the sigmoid colon mesentery was closed with a running suture of #3 -0 chromic. The abdomen was carefully inspected. Hemostasis was excellent. The abdomen was irrigated with 3 L of warm water. The abdominal wall was repaired with running sutures of #0 PDS. The skin was closed with florentino. The patient was transferred to recovery in stable and satisfactory condition. TOTAL FLUIDS ADMINISTERED: Approximately 2000 cc. COMPLICATIONS: Lysis of extensive adhesions resulting in an enterotomy that was repaired with minimal small bowel resection. A [id number] functional end- to-end stapled anastomosis was carried out. DRAINS: There were no drains. /[id number]/MODL MTDD
[2016-07-30] MEDS: KETOROLAC 30 MG/1 ML SDV IVP SCH (23:30)
[2016-07-31] MEDS: HYDROmorphONE/DILAUDID 1 MG/ML SYR IVP PRN (05:20)
[2016-07-31] MEDS: KETOROLAC 30 MG/1 ML SDV IVP SCH ×3 (05:20→18:22)
[2016-07-31 05:35] LABS: % IMMATURE GRANULYOCYTES 0.2 % (0.0-1.1); ABSOLUTE IMMATURE GRANULOCYTES 0.01 10^3/uL (0.00-0.10); ADD DIFF? NO; ADD MORPH? NO; ADD SCAN? YES; FRAGMENT RBC FLAG 0 (0-99); HEMATOCRIT 37.1 % (40.0-51.0); LEFT SHIFT FLG 60 (0-99); LIPEMIA HEMOLYSIS FLAG 90 (0-99); MEAN CELL HEMOGLOBIN 30.5 pg (27.9-34.1); MEAN CELL VOLUME 87.1 fL (81.5-99.8); PLATELET CLUMPS FLAG 0 (0-99); PLATELET COUNT 96 10^3/uL (150-400); RED BLOOD CELL COUNT 4.26 10^6/uL (4.40-6.38); RED CELL DISTRIBUTION WIDTH 14.3 % (11.5-15.2)
[2016-07-31 05:58] LABS: ATYPICAL LYMPHOCYTE FLAG 120 (0-99)
[2016-07-31 06:03] LABS: ALANINE AMINOTRANSFERASE 32 IU/L (21-72); ALBUMIN 2.5 g/dL (3.5-5.0); ALKALINE PHOSPHATASE 94 IU/L (38-126); ANION GAP 8 mEq/L (8-16); ASPARTATE AMINOTRANSFERASE 23 IU/L (17-59); BILIRUBIN,TOTAL 0.7 mg/dL (0.1-1.4); CALCIUM 7.8 mg/dL (8.5-10.4); CARBON DIOXIDE 23 mEq/l (22-31); CHLORIDE 103 mEq/L (97-110); CREATININE 0.6 mg/dL (0.7-1.3); GLOMERULAR FILTRATION RATE > 60; GLUCOSE 151 mg/dL (70-100); POTASSIUM 4.2 mEq/L (3.5-5.2); SODIUM 134 mEq/L (134-144); TOTAL PROTEIN 4.8 g/dL (6.3-8.2)
[2016-07-31 06:39] LABS: SCAN POSITIVE
[2016-07-31 06:42] LABS: PLATELET ESTIMATE DECREASED (ADEQ)
[2016-07-31 06:43] LABS: POLYCHROMASIA 1+
[2016-07-31] MEDS: ERTAPENEM 1 GM in NS 100 ML IV SCH (08:36)
[2016-07-31] MEDS ORDERED: D50W 25 GM/50 ML SYR IVP PRN (08:52)
[2016-07-31] MEDS ORDERED: NALOXONE HCL 0.4 MG/ML INJ IVP PRN (08:53)
--- NOTE | 2016-07-31 09:16 | SOAPPROG ---
SOAP Progress Note Assessment/Plan: Assessment: 56yo M with history of colon cancer and recurrent small-bowel obstruction POD#1 s/p ex lap adhesiolysis and small bowel resection NG tube to suction SALESPERSON PIANOS AND ORGANS NPO, sips and chips for comfort Thrombocytopenia - hold lovenox. SCDs Dispo: Appreciate hospitalists and Oncology. Continue inpatient until return of bowel function S: Abdominal pain. No nausea. No flatus O: Lying in bed, appears uncomfortable, no acute distress NG tube with dark bilious output No increased work of breathing, clear to auscultation anteriorly Regular rate and rhythm Absent bowel sounds, softly distended, tender left lower quadrant and around incisions. Dressings intact Objective: Vital Signs Temp Pulse Resp BP Pulse Ox 36.9 C 80 18 126/78 H 97 07/31/16 08:00 07/31/16 08:00 07/31/16 08:00 07/31/16 08:00 07/31/16 08:00 Laboratory Results 07/31/16 05:18 07/31/16 05:18 07/30/16 07/31/16 08/01/16 05:59 05:59 05:59 Intake Total 1405 4891.3 Output Total 800 1850 Balance 605 3041.3 PT 13.2 SEC (12.0-15.0) 07/30/16 12:45 INR 1.01 (0.83-1.16) 07/30/16 12:45 ICD10 Worksheet Patient Problems: Problems Problem Status Onset Partial bowel obstruction Acute Abdominal pain Acute Colon cancer Acute Liver lesion Acute Liver metastases Acute Partial small bowel obstruction Acute
[2016-07-31] MEDS: HYDROmorphONE/DILAUDID 6 MG/30 ML PCA IV PRN (09:25)
[2016-07-31] MEDS: NS 1,000 ML IV SCH ×2 (11:16→21:50)
--- NOTE | 2016-07-31 12:34 | SOAPPROG ---
SOAP Progress Note Assessment/Plan: Assessment/Plan: 56 yo man w Stage IV colon cancer w multiple admissions for SBO, now POD#1 enterolysis for multiple adhesions/internal hernia 1. SBO POD #1 on CAPTAIN ASSISTANT/IVF and bowel rest Operative findings noted Pt doing well from a recovery standpoint Advance diet per surgery 2. Stage IV colon ca - scans and CEA demonstrate response Last chemotherapy was 07/14/16 (FOLFOX + Avastin) would delay chemo at least 2-3 weeks post op (depending how he does) and would delay Avastin 4 weeks to allow for better wound healing 3. Thrombocytopenia - chemo induced, monitor 07/31/16 12:30 07/31/16 12:33 07/31/16 12:37 Subjective: Pt reports feeling sore Denies flatus NPO Objective: Vital Signs Temp Pulse Resp BP Pulse Ox 36.6 C 96 16 111/78 96 07/31/16 11:47 07/31/16 11:47 07/31/16 11:47 07/31/16 11:47 07/31/16 11:47 Laboratory Results 07/31/16 05:18 07/31/16 05:18 07/30/16 07/31/16 08/01/16 05:59 05:59 05:59 Intake Total 1405 4891.3 Output Total 800 1850 350 Balance 605 3041.3 -350 PT 13.2 SEC (12.0-15.0) 07/30/16 12:45 INR 1.01 (0.83-1.16) 07/30/16 12:45 Gen - NAD HEENT - anicteric CV - RRR Abd - absent bowel sounds; wound bandaged Ext - no edema ICD10 Worksheet Patient Problems: Problems Problem Status Onset Partial bowel obstruction Acute Abdominal pain Acute Colon cancer Acute Liver lesion Acute Liver metastases Acute Partial small bowel obstruction Acute
--- NOTE | 2016-07-31 15:55 | HOSPPROG ---
Hospitalist Progress Note Assessment/Plan: # SBO s/p SOLO and small bowel resection - small enterotomy interoperatively - invanz - pain control with MANAGER EMBALMER FUNERAL DIRECTOR and toradol # stage IV colon ca # DM2 - holding meds Subjective: +flatuws; significant abd pain Objective: Vital Signs Temp Pulse Resp BP Pulse Ox 36.6 C 96 16 111/78 96 07/31/16 11:47 07/31/16 11:47 07/31/16 11:47 07/31/16 11:47 07/31/16 11:47 Laboratory Results 07/31/16 05:18 07/31/16 05:18 07/30/16 07/31/16 08/01/16 05:59 05:59 05:59 Intake Total 1405 4891.3 Output Total 800 1850 350 Balance 605 3041.3 -350 PT 13.2 SEC (12.0-15.0) 07/30/16 12:45 INR 1.01 (0.83-1.16) 07/30/16 12:45 chart reviewed op note reviewed AXR personally reviewed - Physical Exam Constitutional: uncomfortable Cardiovascular: regular rate and rhythym, no murmur, rub, or gallop Respiratory: no respiratory distress, no rales or rhonchi Gastrointestinal: other (faint BS; abd very TTP, soft; gauze with small amount of blood) ICD10 Worksheet Patient Problems: Problems Problem Status Onset Liver lesion Acute Abdominal pain Acute Partial small bowel obstruction Acute Colon cancer Acute Liver metastases Acute Partial bowel obstruction Acute
[2016-07-31] MEDS: LORazepam 2 MG/ML INJ IVP PRN (20:05)
[2016-07-31] MEDS: ONDANSETRON 4 MG/2 ML VIAL IVP PRN (20:07)
[2016-08-01] MEDS: KETOROLAC 30 MG/1 ML SDV IVP SCH ×4 (01:00→17:02)
[2016-08-01] MEDS: HYDROmorphONE/DILAUDID 6 MG/30 ML PCA IV PRN (06:25)
[2016-08-01] MEDS: NS 1,000 ML IV SCH (06:32)
[2016-08-01] MEDS: LORazepam 2 MG/ML INJ IVP PRN ×2 (06:35→17:02)
[2016-08-01 07:48] LABS: % IMMATURE GRANULYOCYTES 0.7 % (0.0-1.1); ABSOLUTE IMMATURE GRANULOCYTES 0.04 10^3/uL (0.00-0.10); ADD DIFF? NO; ADD MORPH? NO; ADD SCAN? NO; ATYPICAL LYMPHOCYTE FLAG 0 (0-99); FRAGMENT RBC FLAG 0 (0-99); HEMATOCRIT 34.8 % (40.0-51.0); HEMOGLOBIN 11.9 g/dL (13.7-17.5); LEFT SHIFT FLG 30 (0-99); LIPEMIA HEMOLYSIS FLAG 90 (0-99); MEAN CELL HEMOGLOBIN 30.4 pg (27.9-34.1); MEAN CELL HEMOGLOBIN CONCENTR. 34.2 g/dL (32.4-36.7); MEAN PLATELET VOLUME 9.2 fL (8.7-11.7); PLATELET CLUMPS FLAG 10 (0-99); PLATELET COUNT 112 10^3/uL (150-400); RED BLOOD CELL COUNT 3.91 10^6/uL (4.40-6.38); RED CELL DISTRIBUTION WIDTH 14.5 % (11.5-15.2)
[2016-08-01 08:14] LABS: ANION GAP 6 mEq/L (8-16); CALCIUM 7.8 mg/dL (8.5-10.4); CARBON DIOXIDE 23 mEq/l (22-31); CHLORIDE 104 mEq/L (97-110); CREATININE 0.6 mg/dL (0.7-1.3); GLOMERULAR FILTRATION RATE > 60; GLUCOSE 110 mg/dL (70-100); SODIUM 133 mEq/L (134-144)
[2016-08-01] MEDS: ERTAPENEM 1 GM in NS 100 ML IV SCH (09:41)
--- NOTE | 2016-08-01 09:53 | SOAPPROG ---
SOAP Progress Note Assessment/Plan: Assessment: 56yo M with history of colon cancer and recurrent small-bowel obstruction POD#2 s/p ex lap adhesiolysis and small bowel resection NG tube removed by patient yesterday - no nausea or vomiting BIOPROCESS DEVELOPMENT ENGINEER Passing flatus. Advance to clear liquids Will change dressing after his walk Thrombocytopenia - hold lovenox. SCDs Dispo: Appreciate hospitalists and Oncology. Continue inpatient until return of bowel function S: Pain much better this morning. walking. no nausea. O: Walking around room, comfortable, no acute distress No increased work of breathing, clear to auscultation anteriorly Regular rate and rhythm +BS, soft, min distended, nontender. Dressings intact Objective: Vital Signs Temp Pulse Resp BP Pulse Ox 36.5 C 78 18 129/81 H 91 L 08/01/16 07:17 08/01/16 07:17 08/01/16 07:17 08/01/16 07:17 08/01/16 07:17 Laboratory Results 08/01/16 07:19 08/01/16 07:19 07/31/16 08/01/16 08/02/16 05:59 05:59 05:59 Intake Total 4891.3 1273.1 Output Total 1850 750 200 Balance 3041.3 523.1 -200 PT 13.2 SEC (12.0-15.0) 07/30/16 12:45 INR 1.01 (0.83-1.16) 07/30/16 12:45 ICD10 Worksheet Patient Problems: Problems Problem Status Onset Abdominal pain Acute Colon cancer Acute Liver metastases Acute Partial bowel obstruction Acute Liver lesion Acute Partial small bowel obstruction Acute
--- NOTE | 2016-08-01 14:22 | HOSPPROG ---
Hospitalist Progress Note Assessment/Plan: # SBO s/p SOLO and small bowel resection - small enterotomy interoperatively - invanz - pain control with WIRE MACHINE CUTTER and toradol # stage IV colon ca # DM2 - holding meds # VTE ppx - will d/w Dr Hsieh Subjective: +flatus; no BM Objective: Vital Signs Temp Pulse Resp BP Pulse Ox 36.5 C 78 18 129/81 H 91 L 08/01/16 07:17 08/01/16 07:17 08/01/16 07:17 08/01/16 07:17 08/01/16 07:17 Laboratory Results 08/01/16 07:19 08/01/16 07:19 07/31/16 08/01/16 08/02/16 05:59 05:59 05:59 Intake Total 4891.3 1273.1 Output Total 1850 750 200 Balance 3041.3 523.1 -200 PT 13.2 SEC (12.0-15.0) 07/30/16 12:45 INR 1.01 (0.83-1.16) 07/30/16 12:45 - Physical Exam Constitutional: unkempt Cardiovascular: regular rate and rhythym, no murmur, rub, or gallop Respiratory: no respiratory distress, no rales or rhonchi, clear to auscultation Gastrointestinal: normoactive bowel sounds, other (soft, diffusely TTP; gauze over surgical incision; no masses) ICD10 Worksheet Patient Problems: Problems Problem Status Onset Liver lesion Acute Abdominal pain Acute Partial small bowel obstruction Acute Colon cancer Acute Liver metastases Acute Partial bowel obstruction Acute
[2016-08-01] MEDS ORDERED: MAGNESIUM HYDROXIDE 30 ML UDCUP PO PRN (18:53)
[2016-08-01] MEDS ORDERED: BISACODYL 10 MG SUPP PR PRN (18:53)
[2016-08-01] MEDS ORDERED: POLYETHYLENE GLYCOL 3350 17 GM PKT PO PRN (18:53)
[2016-08-01] MEDS ORDERED: LACTULOSE 20 GM/30 ML UDCUP PO PRN (18:53)
[2016-08-01] MEDS: SENNOSIDES/DOCUSATE SODIUM TAB PO SCH (20:26)
[2016-08-02] MEDS: LORazepam 2 MG/ML INJ IVP PRN ×2 (00:57→17:27)
[2016-08-02] MEDS: KETOROLAC 15 MG/1 ML SDV IVP SCH ×5 (00:57→23:36)
[2016-08-02] MEDS: HYDROmorphONE/DILAUDID 6 MG/30 ML PCA IV PRN ×2 (00:57→12:39)
[2016-08-02] MEDS: NS 1,000 ML IV SCH ×2 (00:58→23:39)
[2016-08-02 05:27] LABS: HEMATOCRIT 31.1 % (40.0-51.0); HEMOGLOBIN 10.3 g/dL (13.7-17.5)
[2016-08-02] MEDS: ERTAPENEM 1 GM in NS 100 ML IV SCH (09:30)
[2016-08-02] MEDS: ASCORBIC ACID 500 MG TAB PO SCH (09:30)
[2016-08-02] MEDS: SENNOSIDES/DOCUSATE SODIUM TAB PO SCH ×2 (09:30→21:17)
--- NOTE | 2016-08-02 11:56 | SOAPPROG ---
SOAP Progress Note Assessment/Plan: Assessment: 56yo M with history of colon cancer and recurrent small-bowel obstruction POD#3 s/p ex lap adhesiolysis and small bowel resection No nausea or vomiting SUPERVISOR RECEIVING AND PROCESSING - transition to PO Regular diet Thrombocytopenia - stable Dispo: Maybe home tomorrow. Appreciate hospitalists and Oncology. Continue inpatient until return of bowel function. Seen c Dr. Hsieh S: Walking. Pain controlled c IV pain meds. O: Walking around room, comfortable, no acute distress No increased work of breathing +BS, soft, min distended, nontender. Incision CDI florentino intact 08/02/16 13:11 Objective: Vital Signs Temp Pulse Resp BP Pulse Ox 36.6 C 104 H 12 136/76 H 92 08/02/16 08:38 08/02/16 08:38 08/02/16 08:38 08/02/16 08:38 08/02/16 08:38 Laboratory Results 08/02/16 04:46 08/01/16 07:19 08/01/16 08/02/16 08/03/16 05:59 05:59 05:59 Intake Total 1273.1 1550 Output Total 750 200 Balance 523.1 1350 PT 13.2 SEC (12.0-15.0) 07/30/16 12:45 INR 1.01 (0.83-1.16) 07/30/16 12:45 ICD10 Worksheet Patient Problems: Problems Problem Status Onset Abdominal pain Acute Colon cancer Acute Liver metastases Acute Partial bowel obstruction Acute Liver lesion Acute Partial small bowel obstruction Acute
--- NOTE | 2016-08-02 12:18 | HOSPPROG ---
Hospitalist Progress Note Assessment/Plan: # SBO s/p SOLO and small bowel resection - small enterotomy interoperatively - invanz - pain control with CLAIM SERVICE REPRESENTATIVE and toradol - diet advanced # stage IV colon ca # DM2 - holding meds - continue to hold for now # VTE ppx - restart today Subjective: obd slowly improving Objective: Vital Signs Temp Pulse Resp BP Pulse Ox 36.6 C 104 H 12 136/76 H 92 08/02/16 08:38 08/02/16 08:38 08/02/16 08:38 08/02/16 08:38 08/02/16 08:38 Laboratory Results 08/02/16 04:46 08/01/16 07:19 08/01/16 08/02/16 08/03/16 05:59 05:59 05:59 Intake Total 1273.1 1550 Output Total 750 200 Balance 523.1 1350 PT 13.2 SEC (12.0-15.0) 07/30/16 12:45 INR 1.01 (0.83-1.16) 07/30/16 12:45 - Physical Exam Constitutional: no apparent distress Cardiovascular: regular rate and rhythym, no murmur, rub, or gallop Respiratory: no respiratory distress, no rales or rhonchi, clear to auscultation Gastrointestinal: other (soft, surgical gauze CDI), No rebound, No distension ICD10 Worksheet Patient Problems: Problems Problem Status Onset Liver lesion Acute Abdominal pain Acute Partial small bowel obstruction Acute Colon cancer Acute Liver metastases Acute Partial bowel obstruction Acute
[2016-08-03] MEDS: KETOROLAC 15 MG/1 ML SDV IVP SCH ×3 (05:14→17:55)
[2016-08-03] MEDS: LORazepam 2 MG/ML INJ IVP PRN ×2 (09:48→13:52)
[2016-08-03] MEDS: ASCORBIC ACID 500 MG TAB PO SCH (09:48)
[2016-08-03] MEDS: SENNOSIDES/DOCUSATE SODIUM TAB PO SCH ×3 (09:48→21:16)
[2016-08-03] MEDS: ENOXAPARIN 40 MG/0.4 ML SYR SC SCH (09:48)
[2016-08-03] MEDS: ERTAPENEM 1 GM in NS 100 ML IV SCH (09:48)
[2016-08-03 12:26] LABS: % IMMATURE GRANULYOCYTES 0.6 % (0.0-1.1); ABSOLUTE IMMATURE GRANULOCYTES 0.03 10^3/uL (0.00-0.10); ADD DIFF? NO; ADD MORPH? NO; ADD SCAN? NO; ATYPICAL LYMPHOCYTE FLAG 80 (0-99); FRAGMENT RBC FLAG 0 (0-99); HEMATOCRIT 31.4 % (40.0-51.0); HEMOGLOBIN 10.7 g/dL (13.7-17.5); LEFT SHIFT FLG 0 (0-99); LIPEMIA HEMOLYSIS FLAG 90 (0-99); MEAN CELL HEMOGLOBIN 30.3 pg (27.9-34.1); MEAN CELL HEMOGLOBIN CONCENTR. 34.1 g/dL (32.4-36.7); MEAN PLATELET VOLUME 8.9 fL (8.7-11.7); PLATELET CLUMPS FLAG 10 (0-99); PLATELET COUNT 124 10^3/uL (150-400); RED BLOOD CELL COUNT 3.53 10^6/uL (4.40-6.38); RED CELL DISTRIBUTION WIDTH 13.8 % (11.5-15.2)
--- NOTE | 2016-08-03 12:38 | SOAPPROG ---
SOAP Progress Note Assessment/Plan: Assessment/Plan: 56 yo man w Stage IV colon cancer w multiple admissions for SBO s/p enterolysis for multiple adhesions/internal hernia 1. SBO on DATA WAREHOUSE MANAGER/IVF, advacing diet Operative findings noted Pt doing well from a recovery standpoint but still having pain Advance diet per surgery 2. Stage IV colon ca - scans and CEA demonstrate response Last chemotherapy was 07/14/16 (FOLFOX + Avastin) would delay chemo at least 2-3 weeks post op (depending how he does) and would delay Avastin 4 weeks to allow for better wound healing 3. Thrombocytopenia - chemo induced, improved 4. Agree w lovenox for ppx 08/03/16 12:36 08/03/16 12:37 Subjective: BM today Pain still an issues advancing diet Objective: Vital Signs Temp Pulse Resp BP Pulse Ox 36.5 C 71 20 137/78 H 95 08/03/16 10:47 08/03/16 10:47 08/03/16 10:47 08/03/16 10:47 08/03/16 10:47 Laboratory Results 08/03/16 12:15 08/02/16 08/03/16 08/04/16 05:59 05:59 05:59 Intake Total 1550 3262.2 Output Total 200 4 Balance 1350 3258.2 PT 13.2 SEC (12.0-15.0) 07/30/16 12:45 INR 1.01 (0.83-1.16) 07/30/16 12:45 Gen - chronically ill HEENT - anicteric CV - RRR Abd - soft, BS present but diminished Ext - no edema ICD10 Worksheet Patient Problems: Problems Problem Status Onset Abdominal pain Acute Colon cancer Acute Liver metastases Acute Partial bowel obstruction Acute Liver lesion Acute Partial small bowel obstruction Acute
[2016-08-03 12:48] LABS: ANION GAP 5 mEq/L (8-16); CALCIUM 7.4 mg/dL (8.5-10.4); CARBON DIOXIDE 23 mEq/l (22-31); CHLORIDE 108 mEq/L (97-110); CREATININE 0.5 mg/dL (0.7-1.3); GLOMERULAR FILTRATION RATE > 60; GLUCOSE 103 mg/dL (70-100); POTASSIUM 3.6 mEq/L (3.5-5.2); SODIUM 136 mEq/L (134-144)
[2016-08-03] MEDS: NS 1,000 ML IV SCH (14:52)
--- NOTE | 2016-08-03 15:07 | HOSPPROG ---
Hospitalist Progress Note Assessment/Plan: # SBO s/p SOLO and small bowel resection - small enterotomy interoperatively - invanz - pain control with REFRIGERATION SERVICE INSPECTOR and toradol + oxycodone - diet advanced # stage IV colon ca # DM2 - holding meds - continue to hold for now with glucs well controlled # VTE ppx - lovenox Subjective: had a small BM today Objective: Vital Signs Temp Pulse Resp BP Pulse Ox 36.4 C 92 18 138/76 H 92 08/03/16 13:26 08/03/16 13:26 08/03/16 13:26 08/03/16 13:26 08/03/16 13:26 Laboratory Results 08/03/16 12:15 08/03/16 12:15 08/02/16 08/03/16 08/04/16 05:59 05:59 05:59 Intake Total 1550 3262.2 Output Total 200 4 Balance 1350 3258.2 PT 13.2 SEC (12.0-15.0) 07/30/16 12:45 INR 1.01 (0.83-1.16) 07/30/16 12:45 - Physical Exam Constitutional: no apparent distress, appears nourished Cardiovascular: regular rate and rhythym, no murmur, rub, or gallop Respiratory: no respiratory distress, no rales or rhonchi, clear to auscultation Gastrointestinal: normoactive bowel sounds, other (soft, dressing CDI) ICD10 Worksheet Patient Problems: Problems Problem Status Onset Liver lesion Acute Abdominal pain Acute Partial small bowel obstruction Acute Colon cancer Acute Liver metastases Acute Partial bowel obstruction Acute
[2016-08-03] MEDS: oxyCODONE IR 15 MG TAB PO PRN ×2 (17:55→21:17)
--- NOTE | 2016-08-03 22:16 | SOAPPROG ---
SOAP Progress Note Assessment/Plan: Assessment: s/p gael and partial bowel resection return of bowel function dc deputy coroner investigator oxycodone prn IV pain meds encouraged him to eat S: feels like discharged too early. No nausea. Tolerating diet although not eating very much. BM today. Flatus x 3 days O: Lying in bed. Dressings dry. Soft and non tender. Plan: 08/03/16 22:14 Objective: Vital Signs Temp Pulse Resp BP Pulse Ox 36.4 C 92 18 138/76 H 92 08/03/16 13:26 08/03/16 13:26 08/03/16 13:26 08/03/16 13:26 08/03/16 13:26 Laboratory Results 08/03/16 12:15 08/03/16 12:15 08/02/16 08/03/16 08/04/16 05:59 05:59 05:59 Intake Total 1550 3262.2 Output Total 200 4 Balance 1350 3258.2 PT 13.2 SEC (12.0-15.0) 07/30/16 12:45 INR 1.01 (0.83-1.16) 07/30/16 12:45 ICD10 Worksheet Patient Problems: Problems Problem Status Onset Abdominal pain Acute Colon cancer Acute Liver metastases Acute Partial bowel obstruction Acute Liver lesion Acute Partial small bowel obstruction Acute
[2016-08-04] MEDS: KETOROLAC 15 MG/1 ML SDV IVP SCH ×4 (00:12→19:09)
[2016-08-04] MEDS: oxyCODONE IR 15 MG TAB PO PRN ×5 (00:19→23:52)
[2016-08-04] MEDS: LORazepam 2 MG/ML INJ IVP PRN ×2 (01:53→23:52)
--- NOTE | 2016-08-04 10:14 | HOSPPROG ---
Hospitalist Progress Note Assessment/Plan: 56-year-old man with a history of stage IV colon cancer, getting chemotherapy. Admitted with small-bowel obstruction, status post lysis of adhesions and resection. There is a small enterotomy intraoperatively which was repaired. Had been improving with return of bowel function, had worsening abdominal pain last night and this morning. Abdominal x-ray shows free air - unclear if this is new or postoperative. # worse abd pain/free air on AXR - CT scan; Dr Hsieh aware # SBO s/p SOLO and small bowel resection - small enterotomy interoperatively - cont invanz - pain control with REAL ESTATE ASSESSOR and toradol + oxycodone - diet per gen surg # stage IV colon ca, last chemo 07/11 # DM2 - holding meds - continue to hold for now with glucs well controlled # VTE ppx - lovenox Subjective: sharp L sided abd pain last night Objective: Vital Signs Temp Pulse Resp BP Pulse Ox 37.7 C 91 17 141/81 H 90 L 08/04/16 08:00 08/04/16 08:00 08/04/16 08:00 08/04/16 08:00 08/04/16 08:00 Laboratory Results 08/03/16 12:15 08/03/16 12:15 08/03/16 08/04/16 08/05/16 05:59 05:59 05:59 Intake Total 3262.2 Output Total 4 300 Balance 3258.2 -300 PT 13.2 SEC (12.0-15.0) 07/30/16 12:45 INR 1.01 (0.83-1.16) 07/30/16 12:[address] Hsieh; AXR personally reviewed - Physical Exam Constitutional: uncomfortable, unkempt Cardiovascular: regular rate and rhythym, no murmur, rub, or gallop, systolic murmur Respiratory: no respiratory distress, no rales or rhonchi, clear to auscultation Gastrointestinal: normoactive bowel sounds, other (distended, bilat pain, ), No guarding, No rebound ICD10 Worksheet Patient Problems: Problems Problem Status Onset Liver lesion Acute Abdominal pain Acute Partial small bowel obstruction Acute Colon cancer Acute Liver metastases Acute Partial bowel obstruction Acute
[2016-08-04] MEDS: ASCORBIC ACID 500 MG TAB PO SCH (10:40)
[2016-08-04] MEDS: ENOXAPARIN 40 MG/0.4 ML SYR SC SCH (10:41)
[2016-08-04] MEDS: SENNOSIDES/DOCUSATE SODIUM TAB PO SCH ×2 (10:41→15:28)
--- NOTE | 2016-08-04 10:47 | SOAPPROG ---
<WhitMay - Last Filed: 08/04/16 10:46> SOAP Progress Note Assessment/Plan: Assessment: 56yo M with history of colon cancer and recurrent small-bowel obstruction POD#5 s/p ex lap adhesiolysis and small bowel resection New pneumoperitoneum on abdominal xray Check abdominal CT PO pain medication Worsening pain - back off on diet Dispo: Awaiting abd CT. Seen c Dr. Hsieh S: Worsening pain this morning with distension. O: Laying in bed, uncomfortable No increased work of breathing Min BS, distension worse left abdomen, tender L abd. Incision CDI florentino intact Objective: Vital Signs Temp Pulse Resp BP Pulse Ox 37.7 C 91 17 141/81 H 90 L 08/04/16 08:00 08/04/16 08:00 08/04/16 08:00 08/04/16 08:00 08/04/16 08:00 Laboratory Results 08/03/16 12:15 08/03/16 12:15 08/03/16 08/04/16 08/05/16 05:59 05:59 05:59 Intake Total 3262.2 Output Total 4 300 Balance 3258.2 -300 PT 13.2 SEC (12.0-15.0) 07/30/16 12:45 INR 1.01 (0.83-1.16) 07/30/16 12:45 ICD10 Worksheet Patient Problems: Problems Problem Status Onset Abdominal pain Acute Colon cancer Acute Liver metastases Acute Partial bowel obstruction Acute Liver lesion Acute Partial small bowel obstruction Acute <Ann-Marie Hsieh - Last Filed: 08/04/16 23:21> SOAP Progress Note Assessment/Plan: Assessment: CT with increased fluid and more free air than expected on POD # 5. Bowel appears thickened. Although he has normal vitals and WBC, he is more distended and more tender. I am worried. I explained the findings and recommended OR. He wanted to think about it. I am leaving town and I asked my colleague Dr. Gonzalez to see him and assist if he chose to go to the operating room. Plan: 08/04/16 23:19 Objective: Vital Signs Temp Pulse Resp BP Pulse Ox 37.0 C 91 17 154/92 H 96 08/04/16 22:34 08/04/16 22:34 08/04/16 22:34 08/04/16 22:34 08/04/16 22:34 Laboratory Results 08/03/16 12:15 08/03/16 12:15 08/03/16 08/04/16 08/05/16 05:59 05:59 05:59 Intake Total 3262.2 1400 Output Total 4 300 1035 Balance 3258.2 -300 365 PT 13.2 SEC (12.0-15.0) 07/30/16 12:45 INR 1.01 (0.83-1.16) 07/30/16 12:45
[2016-08-04] MEDS ORDERED: IOPAMIDOL (ISOVUE-300) 100 ML BTL ONE (13:08)
[2016-08-04] MEDS ORDERED: LIDOCAINE 1% 30 ML SDV ONE (19:38)
[2016-08-04] MEDS ORDERED: BUPIVACAINE 0.5% 30 ML SDV ONE (19:38)
[2016-08-04] MEDS ORDERED: POLYMYXIN B SULFATE 500,000 UNIT/10 ML SYR IRR ONE (19:38)
[2016-08-04] MEDS ORDERED: fentaNYL 100 MCG/2 ML INJ ONE ×3 (19:59→21:47)
[2016-08-04] MEDS ORDERED: LIDOCAINE 2% 100 MG/5 ML SYR ONE (19:59)
[2016-08-04] MEDS ORDERED: ROCURONIUM 50 MG/5 ML VIAL ONE (19:59)
[2016-08-04] MEDS ORDERED: ONDANSETRON 4 MG/2 ML VIAL ONE ×2 (19:59→22:01)
[2016-08-04] MEDS ORDERED: PROPOFOL 200 MG/20 ML VIAL ONE (19:59)
[2016-08-04] MEDS ORDERED: DEXAMETHASONE 4 MG/ML VIAL ONE (19:59)
[2016-08-04] MEDS ORDERED: MIDAZOLAM 2 MG/2 ML VIAL ONE (20:00)
[2016-08-04] MEDS ORDERED: PHENYLEPHRINE HCL 100 MCG/ML SYR ONE (20:30)
[2016-08-04] MEDS ORDERED: ceFAZolin 1 GM VIAL ONE ×2 (20:35)
--- NOTE | 2016-08-04 20:40 | SOAPPROG ---
SOAP Progress Note Assessment/Plan: Assessment/Plan: 56 yo man with hx of stage 4 colon cancer with hepatic mets POD#5 s/p exlap gael with enterectomy Failing to thrive CT today shows free air and fluid consistent with leak/perforation Severe protein calorie malnutrition Peritonitis on exam Afebrile WBC 5-7 Recommend exploration as suggested by Dr Layne After review of CT with patient and significant other proceed to OR Risks benefits and alternatives outlined thoroughly with verbal confirmation of understanding. 08/04/16 20:36 Objective: Vital Signs Temp Pulse Resp BP Pulse Ox 37.2 C 96 16 139/83 H 91 L 08/04/16 16:00 08/04/16 16:00 08/04/16 16:00 08/04/16 16:00 08/04/16 16:00 Laboratory Results 08/03/16 12:15 08/03/16 12:15 08/03/16 08/04/16 08/05/16 05:59 05:59 05:59 Intake Total 3262.2 Output Total 4 300 Balance 3258.2 -300 PT 13.2 SEC (12.0-15.0) 07/30/16 12:45 INR 1.01 (0.83-1.16) 07/30/16 12:45 ICD10 Worksheet Patient Problems: Problems Problem Status Onset Abdominal pain Acute Colon cancer Acute Liver metastases Acute Partial bowel obstruction Acute Liver lesion Acute Partial small bowel obstruction Acute
[2016-08-04] MEDS ORDERED: SUGAMMADEX SODIUM 200 MG/2 ML VIAL IVP ONE (21:18)
[2016-08-04] MEDS ORDERED: HYDROmorphONE/DILAUDID 1 MG/ML SYR ONE (21:47)
--- NOTE | 2016-08-04 22:33 | POSTOPPROG ---
Post Op Note Date of Operation: 08/04/16 Surgeon: Javan Gonzalez Anesthesia: GET(General Endotracheal) Pre-op Diagnosis: leak Post-op Diagnosis: partial obstruction/ascities Procedure: exlap gael Findings: intact anastomosis Inf/Abcess present in the surg proc area at time of surgery?: No EBL: Minimal Complications: none Specimen(s): none
[2016-08-05 04:19] LABS: % IMMATURE GRANULYOCYTES 0.5 % (0.0-1.1); ABSOLUTE IMMATURE GRANULOCYTES 0.04 10^3/uL (0.00-0.10); ADD DIFF? NO; ADD MORPH? NO; ADD SCAN? NO; ATYPICAL LYMPHOCYTE FLAG 20 (0-99); FRAGMENT RBC FLAG 0 (0-99); HEMATOCRIT 35.1 % (40.0-51.0); HEMOGLOBIN 11.6 g/dL (13.7-17.5); LEFT SHIFT FLG 0 (0-99); LIPEMIA HEMOLYSIS FLAG 80 (0-99); MEAN CELL HEMOGLOBIN 29.7 pg (27.9-34.1); MEAN CELL VOLUME 89.8 fL (81.5-99.8); MEAN PLATELET VOLUME 8.8 fL (8.7-11.7); PLATELET CLUMPS FLAG 0 (0-99); PLATELET COUNT 157 10^3/uL (150-400); RED BLOOD CELL COUNT 3.91 10^6/uL (4.40-6.38)
[2016-08-05 04:32] LABS: ALANINE AMINOTRANSFERASE 23 IU/L (21-72); ALBUMIN 2.5 g/dL (3.5-5.0); ALKALINE PHOSPHATASE 141 IU/L (38-126); ANION GAP 7 mEq/L (8-16); ASPARTATE AMINOTRANSFERASE 21 IU/L (17-59); BILIRUBIN,TOTAL 0.7 mg/dL (0.1-1.4); CALCIUM 8.1 mg/dL (8.5-10.4); CARBON DIOXIDE 24 mEq/l (22-31); CHLORIDE 107 mEq/L (97-110); CREATININE 0.5 mg/dL (0.7-1.3); GLOMERULAR FILTRATION RATE > 60; GLUCOSE 159 mg/dL (70-100); POTASSIUM 4.4 mEq/L (3.5-5.2); SODIUM 138 mEq/L (134-144); TOTAL PROTEIN 5.2 g/dL (6.3-8.2)
[2016-08-05] MEDS: ENOXAPARIN 40 MG/0.4 ML SYR SC SCH (08:05)
[2016-08-05] MEDS: LORazepam 2 MG/ML INJ IVP PRN ×2 (08:05→17:20)
[2016-08-05] MEDS: ASCORBIC ACID 500 MG TAB PO SCH (08:05)
[2016-08-05] MEDS: SENNOSIDES/DOCUSATE SODIUM TAB PO SCH ×2 (08:17→19:24)
--- NOTE | 2016-08-05 09:27 | SOAPPROG ---
SOAP Progress Note Assessment/Plan: Assessment/Plan: 56 yo man with hx of stage 4 colon cancer with hepatic mets POD#6/1 s/p exlap gael with enterectomy/ washout Failing to thrive Feels better today tolerating po No flatus Alvarez out Severe protein calorie malnutrition No peritonitis on exam Afebrile WBC 7 Normal expected post op course encourage ambulation and po protein calories with meals Ascitic fluid does not appear to be from hepatic failure or leak 08/05/16 09:24 Objective: Vital Signs Temp Pulse Resp BP Pulse Ox 37.1 C 88 16 151/90 H 94 08/04/16 23:22 08/04/16 23:22 08/04/16 23:22 08/04/16 23:22 08/04/16 23:22 Laboratory Results 08/05/16 04:05 08/05/16 04:05 08/04/16 08/05/16 08/06/16 05:59 05:59 05:59 Intake Total 1400 Output Total 300 1035 Balance -300 365 PT 13.2 SEC (12.0-15.0) 07/30/16 12:45 INR 1.01 (0.83-1.16) 07/30/16 12:45 ICD10 Worksheet Patient Problems: Problems Problem Status Onset Abdominal pain Acute Colon cancer Acute Liver metastases Acute Partial bowel obstruction Acute Liver lesion Acute Partial small bowel obstruction Acute
--- NOTE | 2016-08-05 10:17 | GOP ---
[f rep st] OPERATIVE REPORT DATE OF OPERATION: 08/04/2016 SURGEON: Javan Gonzalez MD SUPERVISORY INVESTIGATIVE SPECIALIST: None. ANESTHESIOLOGIST: Michael Alcazar MD PREOPERATIVE DIAGNOSIS: 1. Ascites. 2. Failure to thrive. 3. Possible anastomotic leak. POSTOPERATIVE DIAGNOSIS: 1. Partial or early small-bowel obstruction. 2. Ascites. 3. No indication of leak or one that has previously sealed. PROCEDURE PERFORMED: 1. Exploratory laparotomy. 2. Washout of abdomen. 3. Lysis of adhesions. FINDINGS: SPECIMENS: No specimens. ESTIMATED BLOOD LOSS: 25 mL. Ascitic fluid aspirated 3 L. INDICATIONS: This is a 56-year-old gentleman with known colorectal cancer, receiving chemotherapy f or hepatic metastases. The patient underwent laparotomy with extensive lysis of adhesions and antre ctomy for bowel obstruction last week. He is postop day 5 with increasing amounts of ascites, free air, and failing to thrive. The patient denies having a bowel movement and just feels otherwise unw ell. White blood cell count was normal. No signs of acidosis on his blood work. DESCRIPTION OF PROCEDURE: The patient was brought into the operating room. After induction of endo tracheal anesthesia in the supine position, his abdomen was prepped with chlorhexidine and draped st erilely. The florentino were removed from the midline, and a small hematoma was noted in the subcutane ous tissue. This was irrigated out and the abdomen was opened. There was cloudy fluid that was asp irated. It is light brown in color. There was no sign of bile or acute infection within the fluid. This was aspirated and irrigated until clear. There were early postop adhesions as expected, whic h were gently dissected with finger fracture technique. The area where the previous anastomosis was done was thoroughly inspected. The anastomosis was intact, but stuck to the area that the bowel hernandez d initially been removed. There was also an area of omentum that was stuck to the right paracolic g utter. This was taken down with clamp, cut, tie technique to prevent internal hernia that could hav e happened between the omentum and the colon where this connection was. The bowel was run from liga ment of Treitz to the ileocecal valve, and the colon was palpated. There was no sign of any injury. There were no pockets of pus or collection. The abdomen was again irrigated out with saline, and t hen the bowels were placed in a way to drape the omentum over the anastomosis and the midline abdomi nal wound. The abdomen was closed using 0 PDS and florentino. Dressing was applied. The patient was awakened, extubated, and taken to recovery room in stable condition. No immediate complications. /[id number]/MODL
--- NOTE | 2016-08-05 11:20 | SOAPPROG ---
TIFFANI Progress Note Assessment/Plan: Assessment: 56-year-old male with history of colon cancer readmitted tonight because of recurrent partial small-bowel obstruction / he has refused to surgery on the last 2 admissions and has seemed to improve enough to be discharged. He is only out of the hospital for 24 hours and is returned. [address] way is consistent with a significant small-bowel obstruction. Risks and options been fully discussed with the patient but he still wishes to avoid surgery but does agree to an NG tube appears uncomfortable in ill / abdomen distended minimal tenderness and very active bowel sounds / no hernias palpable / chest is clear and cardiac exam was regular rhythm HEENT reveals no adenopathy or icterus Plan: NG suction and continue monitoring of his small bowel obstruction / I have recommended surgery to the patient again 07/28/16 21:45 08/05/16 11:19 OK POSTOP/ WOUND OK/ -FLATUS/ AFEBRILE Objective: Vital Signs Temp Pulse Resp BP Pulse Ox 37.1 C 88 16 151/90 H 94 08/04/16 23:22 08/04/16 23:22 08/04/16 23:22 08/04/16 23:22 08/04/16 23:22 Laboratory Results 08/05/16 04:05 08/05/16 04:05 08/04/16 08/05/16 08/06/16 05:59 05:59 05:59 Intake Total 1400 Output Total 300 1035 Balance -300 365 PT 13.2 SEC (12.0-15.0) 07/30/16 12:45 INR 1.01 (0.83-1.16) 07/30/16 12:45 ICD10 Worksheet Patient Problems: Problems Problem Status Onset Abdominal pain Acute Colon cancer Acute Liver metastases Acute Partial bowel obstruction Acute Liver lesion Acute Partial small bowel obstruction Acute
[2016-08-05] MEDS: oxyCODONE IR 15 MG TAB PO PRN ×3 (12:29→22:33)
--- NOTE | 2016-08-05 19:08 | HOSPPROG ---
Hospitalist Progress Note Objective: Vital Signs Temp Pulse Resp BP Pulse Ox 36.6 C 73 16 144/88 H 93 08/05/16 16:00 08/05/16 16:00 08/05/16 16:00 08/05/16 16:00 08/05/16 16:00 Laboratory Results 08/05/16 04:05 08/05/16 04:05 08/04/16 08/05/16 08/06/16 05:59 05:59 05:59 Intake Total 1400 680 Output Total 300 1035 Balance -300 365 680 PT 13.2 SEC (12.0-15.0) 07/30/16 12:45 INR 1.01 (0.83-1.16) 07/30/16 12:45 ICD10 Worksheet Patient Problems: Problems Problem Status Onset Abdominal pain Acute Colon cancer Acute Liver metastases Acute Partial bowel obstruction Acute Liver lesion Acute Partial small bowel obstruction Acute
--- NOTE | 2016-08-05 19:15 | HOSPPROG ---
Hospitalist Progress Note Assessment/Plan: The patient is a 56-year-old male with PMH stage IV colon cancer on chemotherapy who was admitted for small bowel obstruction and underwent 2 abdominal surgeries. ASSESSMENT/PLAN: Abdominal pain, s/p ex-lap w/ washout, SOLO, POD #1 SBO-s/p SOLO and SB resection and small enterotomy POD #7 Stage IV colon cancer with liver mets, last chemo 07/11 Ascites, recurrent Failure to thrive Diabetes mellitus type 2 -continue with current analgesic regimen. -Ativan as needed to help with distress. -continue with postoperative care -general surgery recommendations appreciated -Oncology recommendations appreciated VTE prophylaxis: Lovenox Code Status: DNR Status: Inpatient Disposition: Oncology unit with no anticipated discharge ____ SUBJECTIVE: Today patient complains of pain around the site of surgery. He has not had a bowel movement. No flatus. OBJECTIVE: Physical Exam: General: The patient is a middle-aged male who is awake and in mild acute distress. HEENT: normocephalic, extraocular movements intact, conjunctivae clear. Mucous membranes moist. Neck: trachea midline, no visible masses. CV: +S1/S2, RRR, no MRG. Resp: unlabored, CTAB no RRW. Abd: soft and mildly distended. Bowel sounds hypoactive. Moderately tender throughout, worse near surgical incisions. Incisions appear to be healing. Musculoskeletal: Adequate muscle tone/bulk. Neuro: cranial nerves II XII grossly intact. Intact gross motor and sensory function. Psych: Appropriate mood and appropriate affect. Skin: Mild pallor. No petechiae. Heme/lymph: No peripheral edema at bilateral lower legs. Labs/Imaging/Other Tests: Personally reviewed/interpreted. Personally discussed case with RN. Objective: Vital Signs Temp Pulse Resp BP Pulse Ox 36.6 C 73 16 144/88 H 93 08/05/16 16:00 08/05/16 16:00 08/05/16 16:00 08/05/16 16:00 08/05/16 16:00 Laboratory Results 08/05/16 04:05 08/05/16 04:05 08/04/16 08/05/16 08/06/16 05:59 05:59 05:59 Intake Total 1400 680 Output Total 300 1035 Balance -300 365 680 PT 13.2 SEC (12.0-15.0) 07/30/16 12:45 INR 1.01 (0.83-1.16) 07/30/16 12:45 ICD10 Worksheet Patient Problems: Problems Problem Status Onset Abdominal pain Acute Colon cancer Acute Liver metastases Acute Partial bowel obstruction Acute Liver lesion Acute Partial small bowel obstruction Acute
[2016-08-06] MEDS: oxyCODONE IR 15 MG TAB PO PRN ×4 (06:18→19:29)
[2016-08-06] MEDS: ASCORBIC ACID 500 MG TAB PO SCH (07:20)
[2016-08-06] MEDS: ENOXAPARIN 40 MG/0.4 ML SYR SC SCH (07:30)
[2016-08-06] MEDS: SENNOSIDES/DOCUSATE SODIUM TAB PO SCH ×2 (07:30→23:52)
--- NOTE | 2016-08-06 08:31 | SOAPPROG ---
SOAP Progress Note Assessment/Plan: Assessment:no new overnight concerns. pain adeq controlled. min nausea. no flatus yet. bonita clears - small volume yesterday. AVSS. up in halls ambulating. abd soft. incis clean. s/p abd re-explor with washout pod#2. cont supportive care. diet as able. await resolution of ileus. Plan: 08/06/16 08:29 Objective: Vital Signs Temp Pulse Resp BP Pulse Ox 36.6 C 80 18 143/90 H 92 08/06/16 06:17 08/06/16 06:17 08/06/16 06:17 08/06/16 06:17 08/06/16 06:17 Laboratory Results 08/05/16 04:05 08/05/16 04:05 08/05/16 08/06/16 08/07/16 05:59 05:59 05:59 Intake Total 1400 680 Output Total 1035 800 Balance 365 680 -800 PT 13.2 SEC (12.0-15.0) 07/30/16 12:45 INR 1.01 (0.83-1.16) 07/30/16 12:45 ICD10 Worksheet Patient Problems: Problems Problem Status Onset Abdominal pain Acute Colon cancer Acute Liver metastases Acute Partial bowel obstruction Acute Liver lesion Acute Partial small bowel obstruction Acute
--- NOTE | 2016-08-06 08:41 | SOAPPROG ---
TIFFANI Progress Note Assessment/Plan: Assessment: 56-year-old male with history of colon cancer readmitted tonight because of recurrent partial small-bowel obstruction / he has refused to surgery on the last 2 admissions and has seemed to improve enough to be discharged. He is only out of the hospital for 24 hours and is returned. [address] way is consistent with a significant small-bowel obstruction. Risks and options been fully discussed with the patient but he still wishes to avoid surgery but does agree to an NG tube appears uncomfortable in ill / abdomen distended minimal tenderness and very active bowel sounds / no hernias palpable / chest is clear and cardiac exam was regular rhythm HEENT reveals no adenopathy or icterus Plan: NG suction and continue monitoring of his small bowel obstruction / I have recommended surgery to the patient again 07/28/16 21:45 08/05/16 11:19 OK POSTOP/ WOUND OK/ -FLATUS/ AFEBRILE 08/06/16 08:40 slowly improving/ afebrile/ no bm yet/ wound ok/ eating poorly Objective: Vital Signs Temp Pulse Resp BP Pulse Ox 36.6 C 80 18 143/90 H 92 08/06/16 06:17 08/06/16 06:17 08/06/16 06:17 08/06/16 06:17 08/06/16 06:17 Laboratory Results 08/05/16 04:05 08/05/16 04:05 08/05/16 08/06/16 08/07/16 05:59 05:59 05:59 Intake Total 1400 680 Output Total 1035 800 Balance 365 680 -800 PT 13.2 SEC (12.0-15.0) 07/30/16 12:45 INR 1.01 (0.83-1.16) 07/30/16 12:45 ICD10 Worksheet Patient Problems: Problems Problem Status Onset Abdominal pain Acute Colon cancer Acute Liver metastases Acute Partial bowel obstruction Acute Liver lesion Acute Partial small bowel obstruction Acute
[2016-08-06] MEDS: LORazepam 2 MG/ML INJ IVP PRN ×2 (11:00→19:37)
--- NOTE | 2016-08-06 14:56 | HOSPPROG ---
Hospitalist Progress Note Assessment/Plan: The patient is a 56-year-old male with PMH stage IV colon cancer on chemotherapy who was admitted for small bowel obstruction and underwent 2 abdominal surgeries. ASSESSMENT/PLAN: Post-op ileus vs recurrent SBO Abdominal pain, s/p ex-lap w/ washout, SOLO, POD #2 SBO-s/p SOLO and SB resection and small enterotomy POD #8 Stage IV colon cancer with liver mets, last chemo 4 Ascites, recurrent Failure to thrive Diabetes mellitus type 2 -continue with current analgesic regimen. -Ativan as needed to help with distress. -continue with postoperative care -general surgery recommendations appreciated -Oncology recommendations appreciated -Pall Med re-consulted to help improve pt comfort VTE prophylaxis: Lovenox Code Status: DNR Status: Inpatient Disposition: Oncology unit with no anticipated discharge ____ SUBJECTIVE: Today patient complains of pain in abd, around the site of surgery. He has not had a bowel movement. No flatus. OBJECTIVE: Physical Exam: General: The patient is a middle-aged male who is awake and in mild acute distress. HEENT: normocephalic, extraocular movements intact, conjunctivae clear. Mucous membranes moist. Neck: trachea midline, no visible masses. CV: +S1/S2, RRR, no MRG. Resp: unlabored, CTAB no RRW. Abd: soft and mildly distended. Bowel sounds absent. Moderately tender throughout, worse near surgical incisions. Incisions appear to be healing. Musculoskeletal: Adequate muscle tone/bulk. Neuro: cranial nerves II XII grossly intact. Intact gross motor and sensory function. Psych: Appropriate mood and appropriate affect. Skin: Mild pallor. No petechiae. Heme/lymph: No peripheral edema at bilateral lower legs. Labs/Imaging/Other Tests: Personally reviewed/interpreted. Personally discussed case with RN. Objective: Vital Signs Temp Pulse Resp BP Pulse Ox 36.8 C 92 14 129/86 H 93 08/06/16 12:05 08/06/16 12:05 08/06/16 12:05 08/06/16 12:05 08/06/16 12:05 Laboratory Results 08/05/16 04:05 08/05/16 04:05 08/05/16 08/06/16 08/07/16 05:59 05:59 05:59 Intake Total 1400 680 Output Total 1035 800 Balance 365 680 -800 PT 13.2 SEC (12.0-15.0) 07/30/16 12:45 INR 1.01 (0.83-1.16) 07/30/16 12:45 ICD10 Worksheet Patient Problems: Problems Problem Status Onset Abdominal pain Acute Colon cancer Acute Liver metastases Acute Partial bowel obstruction Acute Liver lesion Acute Partial small bowel obstruction Acute
[2016-08-06] MEDS: NS 1,000 ML IV SCH (15:42)
[2016-08-07] MEDS: oxyCODONE IR 15 MG TAB PO PRN ×3 (06:25→21:39)
[2016-08-07] MEDS: SENNOSIDES/DOCUSATE SODIUM TAB PO SCH ×2 (06:31→21:39)
--- NOTE | 2016-08-07 07:33 | SOAPPROG ---
SOAP Progress Note Assessment/Plan: Assessment/Plan: 56 yo man with hx of stage 4 colon cancer with hepatic mets POD#8/3 s/p exlap gael with enterectomy/ washout Failing to thrive Feels better today tolerating po No flatus Alvarez out Severe protein calorie malnutrition No peritonitis on exam Afebrile Normal expected post op course encourage ambulation and po protein calories with meals Ascitic fluid does not appear to be from hepatic failure or leak Okay for furlough per surgery May need TPN if ileus persists 08/07/16 07:32 Objective: Vital Signs Temp Pulse Resp BP Pulse Ox 36.7 C 95 14 147/87 H 91 L 08/07/16 06:25 08/07/16 06:25 08/07/16 06:25 08/07/16 06:25 08/07/16 06:25 Laboratory Results 08/05/16 04:05 08/05/16 04:05 08/06/16 08/07/16 08/08/16 05:59 05:59 05:59 Intake Total 680 500 Output Total 1975 Balance 680 -1475 PT 13.2 SEC (12.0-15.0) 07/30/16 12:45 INR 1.01 (0.83-1.16) 07/30/16 12:45 ICD10 Worksheet Patient Problems: Problems Problem Status Onset Abdominal pain Acute Colon cancer Acute Liver metastases Acute Partial bowel obstruction Acute Liver lesion Acute Partial small bowel obstruction Acute
[2016-08-07] MEDS: ASCORBIC ACID 500 MG TAB PO SCH (11:27)
[2016-08-07] MEDS: ENOXAPARIN 40 MG/0.4 ML SYR SC SCH (11:27)
--- NOTE | 2016-08-07 11:35 | HOSPPROG ---
Hospitalist Progress Note Assessment/Plan: 56-year-old male with PMH of stage IV colon cancer on chemotherapy. He was admitted with a small-bowel obstruction and underwent small bowel resection and then subsequently underwent a lysis of adhesions. Patient has eaten poorly for the last 8-10 days. Today he is taking some clear liquids but reports no flatus or bowel movements. -small-bowel obstruction, status post SOLO and SB resection and small enterotomy postop day #8 -status post exploratory lap with washout, SOLO, postop day 2. Patient is very slowly progressing. He continues to have significant abdominal pain and he has had no bowel movement and is not moving any flatus he is tolerating clear liquids without nausea or vomiting. -severe protein caloric malnutrition: Patient has not had significant nutrition in the last 8-10 days and appears weak and cachectic. Examination shows ascites with probably secondary from metastatic disease and liver Mets. Today patient refuses TPN as he wants to give it 1 more day. I am agreeable to this. -abdominal pain: By report is poorly controlled. He is only intermittently taking doses of MS IV and oxycodone. It is possible the oxycodone is not being adequately absorbed due to a partial small bowel obstruction or just poor bowel function. Plan: Changed to PACKAGER AND STRAPPER and long-acting OxyContin. Reassess pain management daily. -diabetes mellitus type 2: Mild hyper glycemia but in good control. -stage IV colon cancer with liver Mets, last chemotherapy 07/11. -tobacco use: Current no signs of pulmonary disease today. -code status: DNR -the SUJATHA prophylaxis: Lovenox -disposition: No anticipated date of discharge Oncology in General surgery recommendations are appreciated. Will proceed with PACKAGER AND STRAPPER pump for pain control, assess nutritional intake today, and if nutritional intake is in adequate will proceed with TPN tomorrow. Subjective: Reports significant abdominal pain without nausea or vomiting says he is tolerating clear liquids but has had no flatus or bowel movement. Abdomen is tender all over but particularly on the left side. No fever chills. He reports a cough which is productive of slight sputum. Denies prior use of a pulmonary inhaler Objective: Vital Signs Temp Pulse Resp BP Pulse Ox 36.7 C 87 18 135/85 H 93 08/07/16 08:00 08/07/16 08:00 08/07/16 08:00 08/07/16 08:00 08/07/16 08:00 Laboratory Results 08/05/16 04:05 08/05/16 04:05 08/06/16 08/07/16 08/08/16 05:59 05:59 05:59 Intake Total 680 500 Output Total 1975 Balance 680 -1475 PT 13.2 SEC (12.0-15.0) 07/30/16 12:45 INR 1.01 (0.83-1.16) 07/30/16 12:45 Laboratory Tests 07/30/16 08/05/16 08/05/16 12:45 04:05 04:05 WBC 5.21 7.44 Hgb 13.4 L 11.6 L Albumin 2.5 L - Time Spent With Patient Time Spent with Patient: greater than 35 minutes Time Spent with Patient: Greater than 35 minutes spent on this patients care, greater than 50% of time spent counseling, educating, and coordinating care regarding the above mentioned plan. - Pending Discharge Pending Discharge Within 24 Hours: No Pending Discharge Within 48 Hours: No - Physical Exam Constitutional: no apparent distress, chronically ill appearing, cachectic Eyes: PERRL, anicteric sclera Ears, Nose, Mouth, Throat: moist mucous membranes, hearing normal Cardiovascular: regular rate and rhythym, no murmur, rub, or gallop Respiratory: no respiratory distress, no rales or rhonchi, clear to auscultation , other (Reduced air movement with poor inspiratory excursion) Gastrointestinal: other Skin: warm Musculoskeletal: generalized weakness Neurologic: AAOx3, CN II-XII Intact Psychiatric: interacting appropriately ICD10 Worksheet Patient Problems: Problems Problem Status Onset Abdominal pain Acute Colon cancer Acute Liver metastases Acute Partial bowel obstruction Acute Liver lesion Acute Partial small bowel obstruction Acute
[2016-08-07] MEDS ORDERED: NALOXONE HCL 0.4 MG/ML INJ IVP PRN (11:49)
[2016-08-07] MEDS ORDERED: HYDROmorphONE/DILAUDID 6 MG/30 ML PCA IV PRN (11:49)
[2016-08-07] MEDS: fentaNYL 75 MCG PATCH TD SCH (12:22)
[2016-08-07 12:44] LABS: HEMATOCRIT 34.1 % (40.0-51.0); HEMOGLOBIN 11.8 g/dL (13.7-17.5); MEAN CELL HEMOGLOBIN 30.2 pg (27.9-34.1); MEAN CELL HEMOGLOBIN CONCENTR. 34.6 g/dL (32.4-36.7); MEAN CELL VOLUME 87.2 fL (81.5-99.8); RED BLOOD CELL COUNT 3.91 10^6/uL (4.40-6.38)
[2016-08-07 13:17] LABS: ANION GAP 7 mEq/L (8-16); CALCIUM 7.8 mg/dL (8.5-10.4); CARBON DIOXIDE 25 mEq/l (22-31); CHLORIDE 101 mEq/L (97-110); CREATININE 0.5 mg/dL (0.7-1.3); GLOMERULAR FILTRATION RATE > 60; GLUCOSE 138 mg/dL (70-100); MAGNESIUM 1.7 mg/dL (1.6-2.3); POTASSIUM 3.6 mEq/L (3.5-5.2); SODIUM 133 mEq/L (134-144)
--- NOTE | 2016-08-07 16:34 | SOAPPROG ---
TIFFANI Progress Note Assessment/Plan: Assessment: Colon cancer, mets to liver. Pt has been on FOLFOX/Avastin with excellent response on imaging and 90%+ reduction in CEA. Now admitted with SBO. s/p lysis of adhesions 07/31. Brought back to OR 08/05 for persistent ascites and lack of bowel function. No gross evidence of cancer. Plan: - will check CEA - paracentesis to evaluate for peritoneal involvement w/ dz. Even if the cytology is positive, though, it would be unusual for there to be no peritoneal carcinomatosis seen on ex lap if that were truly the cause of his bowel obstruction. Could be a rare side effect of Avastin (grade 3/4 bowel obstruction described in 4% of patients) - agree w/ starting TPN d/w Dr. Murillo 08/07/16 16:31 Subjective: pt with upper abd pain. still no appetite, or flatus. Objective: exam: Gen: chronically ill Lungs CTAB CV RRR no MGR abd: quiet Bs. mod distension. diffusely tender. ext: no edema Vital Signs Temp Pulse Resp BP Pulse Ox 36.7 C 87 18 135/85 H 93 08/07/16 08:00 08/07/16 08:00 08/07/16 08:00 08/07/16 08:00 08/07/16 08:00 Laboratory Results 08/07/16 12:38 08/07/16 12:38 08/06/16 08/07/16 08/08/16 05:59 05:59 05:59 Intake Total 680 500 Output Total 1975 Balance 680 -1475 PT 13.2 SEC (12.0-15.0) 07/30/16 12:45 INR 1.01 (0.83-1.16) 07/30/16 12:45 ICD10 Worksheet Patient Problems: Problems Problem Status Onset Abdominal pain Acute Colon cancer Acute Liver metastases Acute Partial bowel obstruction Acute Liver lesion Acute Partial small bowel obstruction Acute
[2016-08-08] MEDS: oxyCODONE IR 15 MG TAB PO PRN ×6 (01:29→21:44)
[2016-08-08] MEDS: NS 1,000 ML IV SCH (06:13)
[2016-08-08 06:38] LABS: INR 1.02 (0.83-1.16); PROTIME(PATIENT) 13.3 SEC (12.0-15.0)
[2016-08-08 06:39] LABS: APTT 33.8 SEC (23.0-38.0)
[2016-08-08 07:16] LABS: ANION GAP 4 mEq/L (8-16); CALCIUM 7.9 mg/dL (8.5-10.4); CARBON DIOXIDE 27 mEq/l (22-31); CHLORIDE 105 mEq/L (97-110); CREATININE 0.5 mg/dL (0.7-1.3); GLOMERULAR FILTRATION RATE > 60; GLUCOSE 126 mg/dL (70-100); SODIUM 136 mEq/L (134-144)
[2016-08-08] MEDS: ASCORBIC ACID 500 MG TAB PO SCH (10:08)
[2016-08-08] MEDS: SENNOSIDES/DOCUSATE SODIUM TAB PO SCH ×2 (10:08→20:39)
[2016-08-08] MEDS: ENOXAPARIN 40 MG/0.4 ML SYR SC SCH (10:08)
--- NOTE | 2016-08-08 10:27 | SOAPPROG ---
SOAP Progress Note Assessment/Plan: Assessment/Plan: 56 yo man with hx of stage 4 colon cancer with hepatic mets POD#9/4 s/p exlap gael with enterectomy/ washout Failing to thrive. Possible malignant ascites Feels better today tolerating po Flatus per patient Severe protein calorie malnutrition Afebrile normal wbc No peritonitis on exam More distended fluid wave Normal expected post op course encourage ambulation and po protein calories with meals Ascitic fluid does not appear to be from hepatic failure or leak ? malignant May need TPN if ileus persists 08/08/16 10:26 Objective: Vital Signs Temp Pulse Resp BP Pulse Ox 36.7 C 87 18 152/97 H 90 L 08/08/16 08:30 08/08/16 08:30 08/08/16 08:30 08/08/16 08:30 08/08/16 08:30 Laboratory Results 08/07/16 12:38 08/08/16 06:20 08/07/16 08/08/16 08/09/16 05:59 05:59 05:59 Intake Total 500 2400.2 Output Total 1975 700 250 Balance -1475 1700.2 -250 PT 13.3 SEC (12.0-15.0) 08/08/16 06:20 INR 1.02 (0.83-1.16) 08/08/16 06:20 ICD10 Worksheet Patient Problems: Problems Problem Status Onset Abdominal pain Acute Colon cancer Acute Liver metastases Acute Partial bowel obstruction Acute Liver lesion Acute Partial small bowel obstruction Acute
[2016-08-08] MEDS ORDERED: LIDOCAINE 1% 30 ML SDV ONE (13:30)
[2016-08-08] MEDS ORDERED: NA BICARBONATE 50 MEQ/50 ML VIAL ONE (13:30)
--- NOTE | 2016-08-08 15:29 | SOAPPROG ---
SOAP Progress Note Assessment/Plan: Assessment: Colon cancer, mets to liver. Pt has been on FOLFOX/Avastin with excellent response on imaging and 90%+ reduction in CEA. Now admitted with SBO. s/p lysis of adhesions 07/31. Brought back to OR 08/05 for persistent ascites and lack of bowel function. No gross evidence of cancer. CEA is lower- suggests ongoing response. 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 Plan: - ascites fluid analysis pending - will speak to radiologist about whether CT shows cirrhosis or not. - continue to hold chemo until this acute complication is resolved. spent 25 min w/ patient and in coordination of care. Subjective: passing flatus. taking liquids but still not much appetite. Objective: Vital Signs Temp Pulse Resp BP Pulse Ox 36.4 C 109 H 18 135/91 H 94 08/08/16 12:55 08/08/16 12:55 08/08/16 12:55 08/08/16 12:55 08/08/16 12:55 Laboratory Results 08/07/16 12:38 08/08/16 06:20 08/07/16 08/08/16 08/09/16 05:59 05:59 05:59 Intake Total 500 2400.2 Output Total 1975 700 250 Balance -1475 1700.2 -250 PT 13.3 SEC (12.0-15.0) 08/08/16 06:20 INR 1.02 (0.83-1.16) 08/08/16 06:20 ICD10 Worksheet Patient Problems: Problems Problem Status Onset Abdominal pain Acute Colon cancer Acute Liver metastases Acute Partial bowel obstruction Acute Liver lesion Acute Partial small bowel obstruction Acute
--- NOTE | 2016-08-08 15:48 | HOSPPROG ---
Hospitalist Progress Note Assessment/Plan: 56-year-old male with PMH of stage IV colon cancer on chemotherapy. He was admitted with a small-bowel obstruction and underwent small bowel resection and then subsequently underwent a lysis of adhesions. Patient has eaten poorly for the last 8-10 days. He has been taking clear liquids and today reports he has moved flatus and a small bowel movement. -small-bowel obstruction, status post SOLO and SB resection and small enterotomy postop day #9. The ileus now has resolved postoperatively and he has been placed on a full diet by surgery. -status post exploratory lap with washout, SOLO, postop day 3. Patient is very slowly progressing. Bowels are now moving and he has been placed on a full and regular diet. -severe protein caloric malnutrition: Patient has not had significant nutrition in the last 8-10 days and appears weak and cachectic. Examination shows ascites with probably secondary from metastatic disease and liver Mets. Regarding the nutritional status the patient is now on a full regular diet and appears to be eating well. Regarding the ascites there is a question as to whether it is malignant ascites. A paracentesis has been ordered with analysis. -abdominal pain: By report is poorly controlled. As his bowels now functional I have stopped the TEMPERING KILN TENDER pump and will use only oral pain medication. Plan: DC the TEMPERING KILN TENDER pump unchanged oral medication only. -diabetes mellitus type 2: Mild hyper glycemia but in good control. He may require SSI coverage as he eats more. We will watch this closely -stage IV colon cancer with liver Mets, last chemotherapy 07/11. -tobacco use: Current no signs of pulmonary disease today. patient has agreed that he will not smoke in or out of the hospital while he is hospitalized. -code status: DNR -the SUJATHA prophylaxis: Lovenox -disposition: No anticipated date of discharge Plan: Regular diet, p.o. narcotic pain medication for pain relief, close watch of his glucose regarding his diabetes. Subjective: Reports he is feeling improved has moved his bowels and is moving flatus without nausea or vomiting. Says the abdomen is less tender. No fever cough Objective: Vital Signs Temp Pulse Resp BP Pulse Ox 36.4 C 109 H 18 135/91 H 94 08/08/16 12:55 08/08/16 12:55 08/08/16 12:55 08/08/16 12:55 08/08/16 12:55 Laboratory Results 08/07/16 12:38 08/08/16 06:20 08/07/16 08/08/16 08/09/16 05:59 05:59 05:59 Intake Total 500 2400.2 Output Total 1975 700 250 Balance -1475 1700.2 -250 PT 13.3 SEC (12.0-15.0) 08/08/16 06:20 INR 1.02 (0.83-1.16) 08/08/16 06:20 - Time Spent With Patient Time Spent with Patient: greater than 35 minutes Time Spent with Patient: Greater than 35 minutes spent on this patients care, greater than 50% of time spent counseling, educating, and coordinating care regarding the above mentioned plan. - Pending Discharge Pending Discharge Within 24 Hours: No Pending Discharge Within 48 Hours: Yes Pending Discharge Date: 08/10/16 Pending Discharge Time: 11:00 - Physical Exam Constitutional: chronically ill appearing Eyes: PERRL Ears, Nose, Mouth, Throat: moist mucous membranes Cardiovascular: regular rate and rhythym, no murmur, rub, or gallop Respiratory: no respiratory distress, rhonchi Gastrointestinal: normoactive bowel sounds, tenderness ( tenderness overall again without a palpable mass or rebound. Patient moves about the stretcher quite easily and I believe his pain is well managed.) Genitourinary: no bladder fullness Skin: warm Musculoskeletal: full muscle strength Neurologic: AAOx3, CN II-XII Intact Psychiatric: interacting appropriately ICD10 Worksheet Patient Problems: Problems Problem Status Onset Liver lesion Acute Abdominal pain Acute Partial small bowel obstruction Acute Colon cancer Acute Liver metastases Acute Partial bowel obstruction Acute
[2016-08-08] MEDS: INSULIN LISPRO 100 UNIT/ML SC SCH (18:00)
[2016-08-09] MEDS: oxyCODONE IR 15 MG TAB PO PRN ×5 (00:49→21:27)
[2016-08-09] MEDS: LORazepam 2 MG/ML INJ IVP PRN ×2 (00:54→21:27)
[2016-08-09] MEDS: SENNOSIDES/DOCUSATE SODIUM TAB PO SCH ×2 (08:07→16:47)
[2016-08-09] MEDS: ENOXAPARIN 40 MG/0.4 ML SYR SC SCH (08:09)
[2016-08-09] MEDS: ASCORBIC ACID 500 MG TAB PO SCH (08:10)
[2016-08-09 08:22] VITALS: RESP 16
[2016-08-09] MEDS: INSULIN LISPRO 100 UNIT/ML SC SCH ×3 (11:48→18:34)
--- NOTE | 2016-08-09 14:44 | HOSPPROG ---
Hospitalist Progress Note Assessment/Plan: 56-year-old male with PMH of stage IV colon cancer on chemotherapy. He was admitted with a small-bowel obstruction and underwent small bowel resection and then subsequently underwent a lysis of adhesions. Patient has eaten poorly for the last 8-10 days. He has been taking clear liquids and today reports he has moved flatus and a small bowel movement. -small-bowel obstruction, status post SOLO and SB resection and small enterotomy postop day #10. The ileus now has resolved postoperatively and he has been placed on a full diet by surgery. Despite the the regular diet the patient is not eating much. He reports he can only take liquids and declines to eat Ensure. -status post exploratory lap with washout, SOLO, postop day 5. Ileus has resolved. -severe protein caloric malnutrition: Patient has not had significant nutrition in the last 8-10 days and appears weak and cachectic. Examination shows ascites with probably secondary from metastatic disease and liver Mets. Regarding the nutritional status the patient is now on a full regular diet Though today he reports that he can only take liquids and has eaten very little. Regarding the ascites there is a question as to whether it is malignant ascites. A paracentesis has been ordered with analysis And the analysis is pending. -abdominal pain: Well controlled now. He is up walking about in the [place] and probably goes outside and smoke cigarettes. He is on p.o. narcotic medication which will not be increased from its current level. -diabetes mellitus type 2: Mild hyper glycemia but in good control. He may require SSI coverage as he eats more. We will watch this closely -stage IV colon cancer with liver Mets, last chemotherapy 07/11. -tobacco use: Current no signs of pulmonary disease today. patient has agreed that he will not smoke in or out of the hospital while he is hospitalized. -code status: DNR -the SUJATHA prophylaxis: Lovenox -disposition: Discharge in 2 days to a [facility] bed over the weekend. Despite the gentleman's insistence that he is unable to eat I believe he can eat any only willfully does not take nutrition ordered does not admit the nutrition he is eating. It appears he can be safely discharged to the [facility] with some pain medication and he will manage his nutrition on his own. From the [facility] he can apply for the [facility] summer bed program. We do await the findings of his ascitic fluid as to whether it is malignant or not. This will determine his future Cancer Care. Plan: Regular diet, p.o. narcotic pain medication for pain relief, close watch of his glucose regarding his diabetes. Subjective: Reports he is able only to take liquids and is drinking a self per chest liquid Kale drink. He reports that ensure makes him nauseated. He also reports severe abdominal pain although he is ambulatory on the tomlin moves about the bed during examination without any difficulty. Objective: Vital Signs Temp Pulse Resp BP Pulse Ox 36.6 C 77 16 104/76 91 L 08/09/16 08:00 08/09/16 08:00 08/09/16 08:00 08/09/16 08:00 08/09/16 08:00 Laboratory Results 08/07/16 12:38 08/08/16 06:20 08/08/16 08/09/16 08/10/16 05:59 05:59 05:59 Intake Total 2400.2 1480 Output Total 700 250 Balance 1700.2 1230 PT 13.3 SEC (12.0-15.0) 08/08/16 06:20 INR 1.02 (0.83-1.16) 08/08/16 06:20 - Time Spent With Patient Time Spent with Patient: greater than 35 minutes Time Spent with Patient: Greater than 35 minutes spent on this patients care, greater than 50% of time spent counseling, educating, and coordinating care regarding the above mentioned plan. - Pending Discharge Pending Discharge Within 24 Hours: No Pending Discharge Within 48 Hours: Yes Pending Discharge Date: 08/11/16 Pending Discharge Time: 11:00 - Physical Exam Constitutional: no apparent distress, chronically ill appearing Eyes: PERRL Ears, Nose, Mouth, Throat: moist mucous membranes, hearing normal Cardiovascular: regular rate and rhythym, no murmur, rub, or gallop Respiratory: no respiratory distress, no rales or rhonchi, clear to auscultation Gastrointestinal: other ( Surgical site sutures are in place and the wound is healing well. Normal bowel sounds are heard. He subjectively has some tenderness overall without rebound. There is possibly some exaggeration of his problem of pain and tenderness.) Genitourinary: no bladder fullness Skin: warm Musculoskeletal: full muscle strength Neurologic: AAOx3, CN II-XII Intact ICD10 Worksheet Patient Problems: Problems Problem Status Onset Liver lesion Acute Abdominal pain Acute Partial small bowel obstruction Acute Colon cancer Acute Liver metastases Acute Partial bowel obstruction Acute
--- NOTE | 2016-08-09 19:42 | SOAPPROG ---
SOAP Progress Note Assessment/Plan: Assessment/Plan: 56 yo man with hx of stage 4 colon cancer with hepatic mets POD#10/5 s/p exlap gael with enterectomy/ washout Failing to thrive. Possible malignant ascites Feels better today tolerating po Flatus per patient Severe protein calorie malnutrition Afebrile normal wbc No peritonitis on exam More distended fluid wave Normal expected post op course encourage ambulation and po protein calories with meals Ascitic fluid does not appear to be from hepatic failure or leak ? malignant Await cytology 08/08/16 10:26 08/09/16 19:41 Objective: Vital Signs Temp Pulse Resp BP Pulse Ox 36.6 C 98 16 130/80 H 93 08/09/16 19:04 08/09/16 19:04 08/09/16 19:04 08/09/16 19:04 08/09/16 19:04 Laboratory Results 08/07/16 12:38 08/08/16 06:20 08/08/16 08/09/16 08/10/16 05:59 05:59 05:59 Intake Total 2400.2 1480 750 Output Total 700 250 Balance 1700.2 1230 750 PT 13.3 SEC (12.0-15.0) 08/08/16 06:20 INR 1.02 (0.83-1.16) 08/08/16 06:20 ICD10 Worksheet Patient Problems: Problems Problem Status Onset Abdominal pain Acute Colon cancer Acute Liver metastases Acute Partial bowel obstruction Acute Liver lesion Acute Partial small bowel obstruction Acute
[2016-08-10] MEDS: oxyCODONE IR 15 MG TAB PO PRN ×4 (06:12→23:25)
[2016-08-10] MEDS: SENNOSIDES/DOCUSATE SODIUM TAB PO SCH ×2 (06:12→10:08)
[2016-08-10] MEDS: LORazepam 2 MG/ML INJ IVP PRN ×2 (06:12→23:33)
[2016-08-10] MEDS: ASCORBIC ACID 500 MG TAB PO SCH (10:08)
[2016-08-10] MEDS: INSULIN LISPRO 100 UNIT/ML SC SCH ×3 (10:09→19:23)
[2016-08-10] MEDS: ENOXAPARIN 40 MG/0.4 ML SYR SC SCH (10:09)
[2016-08-10] MEDS: fentaNYL 75 MCG PATCH TD SCH (12:58)
--- NOTE | 2016-08-10 14:33 | SOAPPROG ---
SOJOSE MIGUEL Progress Note Assessment/Plan: Assessment: Colon cancer, mets to liver. Pt has been on FOLFOX/Avastin with excellent response on imaging and 90%+ reduction in CEA. Now admitted with SBO. s/p lysis of adhesions 07/31. Brought back to OR 08/05 for persistent ascites and lack of bowel function. No gross evidence of cancer. CEA is lower- suggests ongoing response. 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 I discussed this with Dr. Hamm ([facility]) who said the scan is consistent with this, including slight dilation of the portal vein and mild splenomegaly. Plan: - ascites fluid analysis pending - continue to hold chemo until this acute complication is resolved. May need to convert pt to 5FU/Avastin alone. spent 25 min w/ patient and in coordination of care. 08/10/16 14:32 Subjective: ate a normal breakfast (though small for him). feels OK. Objective: exam: cachectic, NAD Lungs CTAB CV RRR no MGR Abd: +BS NT ND Ext: no edema Vital Signs Temp Pulse Resp BP Pulse Ox 36.6 C 111 H 16 120/79 91 L 08/10/16 10:00 08/10/16 10:00 08/10/16 10:00 08/10/16 10:00 08/10/16 10:00 Laboratory Results 08/07/16 12:38 08/08/16 06:20 08/09/16 08/10/16 08/11/16 05:59 05:59 05:59 Intake Total 1480 1000 Output Total 250 Balance 1230 1000 PT 13.3 SEC (12.0-15.0) 08/08/16 06:20 INR 1.02 (0.83-1.16) 08/08/16 06:20 ICD10 Worksheet Patient Problems: Problems Problem Status Onset Abdominal pain Acute Colon cancer Acute Liver metastases Acute Partial bowel obstruction Acute Liver lesion Acute Partial small bowel obstruction Acute
--- NOTE | 2016-08-10 14:44 | SOAPPROG ---
SOAP Progress Note Assessment/Plan: Assessment: POD 11/ s/p ex lap gael with enterectomy/ washout. Patient currently resting in bed. Up ambulating this morning. Admits to diet/ appetite still poor with failure to thrive. + Flatus and small loose bowel movement this morning. Pain controlled. No new labs today. afeb, VSS. A&O x 3, abd: soft, distended, tenderness, incision: florentino intact, clean and dry. Ascites fluid pathology pending. Plan: ambulate, await cytology. Plan: 08/10/16 14:40 Objective: Vital Signs Temp Pulse Resp BP Pulse Ox 36.6 C 111 H 16 120/79 91 L 08/10/16 10:00 08/10/16 10:00 08/10/16 10:00 08/10/16 10:00 08/10/16 10:00 Laboratory Results 08/07/16 12:38 08/08/16 06:20 08/09/16 08/10/16 08/11/16 05:59 05:59 05:59 Intake Total 1480 1000 Output Total 250 Balance 1230 1000 PT 13.3 SEC (12.0-15.0) 08/08/16 06:20 INR 1.02 (0.83-1.16) 08/08/16 06:20 ICD10 Worksheet Patient Problems: Problems Problem Status Onset Abdominal pain Acute Colon cancer Acute Liver metastases Acute Partial bowel obstruction Acute Liver lesion Acute Partial small bowel obstruction Acute
[2016-08-10 17:05] LABS: HEMOGLOBIN A1C 6.5 % (4.0-6.0)
--- NOTE | 2016-08-10 17:08 | HOSPPROG ---
Hospitalist Progress Note Assessment/Plan: 56-year-old male with PMH of stage IV colon cancer on chemotherapy. He was admitted with a small-bowel obstruction and underwent small bowel resection and then subsequently underwent a lysis of adhesions. Patient has eaten poorly though in the last 2 days his dietary intake is improved. His dietary intake and nutritional intake are limited only by his willingness to eat. -colon cancer with mets to the liver. Patient has been on full [place]/ABS a statin with a good response and 90% reduction in the CEA. He was admitted for small-bowel obstruction. He is status post lysis of adhesions on 07/31 and repeat lysis of adhesions with persistent ascites on 08/05. There was no gross evidence of cancer noted. Peritoneal fluid analysis shows no malignant cells. Last chemotherapy 07/11 Plan: Chemotherapy will be held until the acute complications of his bowel and ileus and nutrition are fully resolved. Oncology note appreciate -small-bowel obstruction, status post SOLO and SB resection. The ileus now has resolved postoperatively and he has been placed on a full diet by surgery. Despite the the regular diet the patient is not eating much. Patient is probably eating more than he claims. It is difficult to do calorie counts as he wonders and is out of the room frequently. -status post exploratory lap with washout, SOLO: Ileus has resolved and he has some of functioning well. Surgical florentino remain in place. -severe protein caloric malnutrition: Patient has not had significant nutrition in the last 8-10 days and appears weak and cachectic. -abdominal pain: Well controlled now. He is up walking about in the [place] and probably goes outside and smoke cigarettes. He is on p.o. narcotic medication which will not be increased from its current level. -diabetes mellitus type 2: Mild hyper glycemia but in good control. He may require SSI coverage as he eats more. We will watch this closely -tobacco use: Current no signs of pulmonary disease today. patient has agreed that he will not smoke in or out of the hospital while he is hospitalized. -code status: DNR -the SUJATHA prophylaxis: Lovenox -disposition: Discharge in 2 days to a long term bed over the weekend. Plan: Regular diet, p.o. narcotic pain medication for pain relief, close watch of his glucose regarding his diabetes. Subjective: No complaints patient is ambulatory and wonders the hospital Objective: Vital Signs Temp Pulse Resp BP Pulse Ox 36.6 C 111 H 16 120/79 91 L 08/10/16 10:00 08/10/16 10:00 08/10/16 10:00 08/10/16 10:00 08/10/16 10:00 Laboratory Results 08/07/16 12:38 08/08/16 06:20 08/09/16 08/10/16 08/11/16 05:59 05:59 05:59 Intake Total 1480 1000 Output Total 250 Balance 1230 1000 PT 13.3 SEC (12.0-15.0) 08/08/16 06:20 INR 1.02 (0.83-1.16) 08/08/16 06:20 - Time Spent With Patient Time Spent with Patient: greater than 25 minutes Time Spent with Patient: Greater than 25 minutes spent on this patients care, greater than 50% of time spent counseling, educating, and coordinating care regarding the above mentioned plan. - Pending Discharge Pending Discharge Within 24 Hours: Yes Pending Discharge Date: 08/11/16 Pending Discharge Time: 11:00 - Physical Exam Constitutional: no apparent distress Eyes: PERRL Ears, Nose, Mouth, Throat: moist mucous membranes Cardiovascular: regular rate and rhythym, no murmur, rub, or gallop Respiratory: no respiratory distress, no rales or rhonchi Gastrointestinal: normoactive bowel sounds, soft, non-tender abdomen, no palpable masses ICD10 Worksheet Patient Problems: Problems Problem Status Onset Abdominal pain Acute Colon cancer Acute Liver metastases Acute Partial bowel obstruction Acute Liver lesion Acute Partial small bowel obstruction Acute
[2016-08-10 20:11] VITALS: BP 112/72; PULSE 110; O2SAT 92
[2016-08-10 20:26] VITALS: TEMP 97.7
[2016-08-11] MEDS: ENOXAPARIN 40 MG/0.4 ML SYR SC SCH (08:50)
[2016-08-11] MEDS: INSULIN LISPRO 100 UNIT/ML SC SCH ×2 (08:51→11:58)
[2016-08-11] MEDS: LORazepam 2 MG/ML INJ IVP PRN (09:42)
[2016-08-11] MEDS: ASCORBIC ACID 500 MG TAB PO SCH (09:42)
[2016-08-11] MEDS: oxyCODONE IR 15 MG TAB PO PRN ×2 (09:42→16:35)
[2016-08-11] MEDS: SENNOSIDES/DOCUSATE SODIUM TAB PO SCH (09:42)
--- NOTE | 2016-08-11 10:46 | SOAPPROG ---
SOAP Progress Note Assessment/Plan: Assessment: 1. Colon cancer, mets to liver. 2. 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 Cytology was negative for malignancy 3. Small bowel obstruction s/p enterolysis Pt doing well, OK for discharge from my perspetive. Recs: - f/u with Dr. Lott in 1-2 weeks - consider adding lasix +/- spironolactone if ascites remains an issue 25 min spent w/ pt and in coordination of care. Subjective: eating a full diet. some abd pain but its better. Objective: exam; NAD Lungs: CTAB CV RRR no MGR ABd: +BS. mild distension Ext: no edema Vital Signs Temp Pulse Resp BP Pulse Ox 36.5 C 110 H 16 112/72 92 08/10/16 20:00 08/10/16 20:00 08/10/16 20:00 08/10/16 20:00 08/10/16 20:00 Laboratory Results 08/07/16 12:38 08/08/16 06:20 08/10/16 08/11/16 08/12/16 05:59 05:59 05:59 Intake Total 1000 600 Balance 1000 600 PT 13.3 SEC (12.0-15.0) 08/08/16 06:20 INR 1.02 (0.83-1.16) 08/08/16 06:20 ICD10 Worksheet Patient Problems: Problems Problem Status Onset Abdominal pain Acute Colon cancer Acute Liver metastases Acute Partial bowel obstruction Acute Liver lesion Acute Partial small bowel obstruction Acute
--- NOTE | 2016-08-11 15:13 | GDS ---
[f rep st] DISCHARGE SUMMARY DIAGNOSES: New and acute diagnoses on this admission: 1. Acute small bowel obstruction, status post enterolysis and lysis of adhesions on 07/30 and statu s post lysis of adhesions and washout on 08/05. 2. Colon carcinoma, in remission, on chemotherapy. 3. Severe protein-caloric malnutrition with an albumin of 2.5. 4. Abdominal pain, narcotic dependent. 5. Diabetes mellitus, on glyburide. 6. Failure to thrive. 7. Tobacco abuse. CONSULTATIONS: 1. General Surgery. 2. Oncology. PROCEDURES: Abdominal x-ray x2. On 07/30, he had a laparotomy with enterolysis and repair of enterotomy and repair of an internal he morrhoid by Dr. Otto Burgos. On 08/05, he had an exploratory laparotomy, washout, and lysis of adhesions by Dr. Javan Gonzalez. HOSPITAL COURSE: This is a 56-year-old male with known colon cancer metastatic to the liver, which has been responsive to chemotherapy. He presented with a small bowel obstruction and ultimately und erwent 2 surgical procedures. Initially, the procedure on 07/30 was an enterolysis with lysis of ad hesions and repair of an enterotomy, and the 2nd procedure on 08/05 was an abdominal washout with ly sis of adhesions. He did well following these and had a slow recovery of his ileus, but a slow and progressive recovery. He had nutritional issues with SPCM and had limited nutritional intake, yet a t the time of discharge he was eating well. Abdominal pain initially required considerable narcotic medications to control, but at his discharge he required minimal narcotic pain medicine. His diabe megan mellitus was managed by SSI medication. He continued to smoke tobacco while in the hospital. Arrangements are being made for this gentleman to be living in a jail here in [place]. On discha rge, he will be able to go to the jail for the night, stay there for the next 2 nights, and then is eligible for long-term jail placement. I have been assured by case management that this will be occurring. The gentleman needs jail so that he can manage the pain adequately so that he can take adequate nutrition and ultimately receive his chemotherapy as an outpatient. DISCHARGE MEDICATIONS: New medications are Tylenol 325 mg tablets and he is to take 650-975 mg p.o. q.6.h. p.r.n. pain, Senna-S to be taken 1-2 tablets p.o. b.i.d. His continued medications are Phenergan 25 mg p.o. q.6 hours p.r.n. nausea, multivitamins, glyburide 2.5 mg daily, vitamin D3 1000 international units daily, vitamin C 1000 mg daily, ibuprofen 200-800 mg p.o. q.4-6h. p.r.n. pain, Ativan 1-2 mg p.o. daily p.r.n., oxycodone IR 15 mg p.o. q.i.d. p.r.n. pain. PLAN: Oseas currently does have florentino remaining in his abdomen, which will be removed. His p marcella is to either have these removed by Dr. Javan Gonzalez or Dr. Darlene Neal in approximately 5-7 day s. As noted above, arrangements have been made for him to be staying in a jail so that he can ga in adequate nutrition and pain management so that he can continue to receive his outpatient chemothe rapy. His oncologist is Dr. Chino Lott. PCPs are Dr. Chino Lott, Darlene Neal, Javan Gonzalez, and Ann-Marie Hsieh. TIME: This discharge required 55 minutes, greater than 50% to retirement plan counselor and coordinate care. /[id number]/[id number]
== END 2016-08-11 16:47 | disposition home or self-care (01) | DRG 329 ==
LOC: EDUNIT# → INTOOBSV 15:51 → F1N 16:45 → OBSVTOIN 07-29 13:21 → F1N 07-31 14:53
PROVIDERS: ADMIT Internal Medicine; ATTEND Internal Medicine
PROC: 0DN84ZZ Release Small Intestine, Percutaneous Endoscopic Approach (ICD-10-PCS; principal; 2016-07-30 13:40)
PROC: 0DN80ZZ Release Small Intestine, Open Approach (ICD-10-PCS; principal; 2016-07-30 13:40)
PROC: 0DQ80ZZ Repair Small Intestine, Open Approach (ICD-10-PCS; principal; 2016-07-30 13:40)
PROC: 0DB80ZZ Excision of Small Intestine, Open Approach (ICD-10-PCS; principal; 2016-07-30 13:40)
PROC: 3E1M38Z Irrigation of Peritoneal Cavity using Irrigating Substance, Percutaneous Approach (ICD-10-PCS; 2016-08-04)
PROC: 0DN84ZZ Release Small Intestine, Percutaneous Endoscopic Approach (ICD-10-PCS; 2016-08-04)
PROC: 0W9G3ZX Drainage of Peritoneal Cavity, Percutaneous Approach, Diagnostic (ICD-10-PCS; 2016-08-08)
DX: K56.5 Intestinal adhesions [bands] with obstruction (postinfection) (principal); R18.8 Other ascites; Z85.038 Personal history of other malignant neoplasm of large intestine; R62.7 Adult failure to thrive; E43 Unspecified severe protein-calorie malnutrition; C78.7 Secondary malignant neoplasm of liver and intrahepatic bile duct; E11.9 Type 2 diabetes mellitus without complications; Z53.31 Laparoscopic surgical procedure converted to open procedure; F11.20 Opioid dependence, uncomplicated; F17.210 Nicotine dependence, cigarettes, uncomplicated; Z59.0 Homelessness; Z66 Do not resuscitate
CPT/HCPCS: 82947-QW; 84134-90; 96374; 97165-GO; 97535-GO; G0378; J0330; J0690; J1100; J1170; J1335; J1642; J1650; J1885; J2001; J2060; J2250; J2370; J2405; J2704; J3010; J3490; Q9967

== ENCOUNTER 2018-05-01 21:21 | Inpatient (IN) | payer MEDICAID ==
[2018-05-01] MEDS ORDERED: NS 1,000 ML IV ONE (21:36)
--- NOTE | 2018-05-01 21:40 | EDPHY ---
H & P Stated Complaint: worsening abd pain x 10 days Time Seen by Provider: 05/01/18 21:36 HPI/ROS: CHIEF COMPLAINT: Abdominal distension, jaundice, decreased appetite HISTORY OF PRESENT ILLNESS: Patient presents the ED with abdominal distension, jaundice decreased appetite. The patient has a history of metastatic colon cancer. Patient is currently not receiving chemotherapy. He has been pursuing alternative treatments over the past several months. The patient denies any fever. He does report weakness and early satiety. The patient reports he did have a small bowel movement earlier today. He feels as if he is developing fluid retention side of his abdomen. REVIEW OF SYSTEMS: A comprehensive 10 point review of systems is otherwise negative aside from elements mentioned in the history of present illness. Source: Patient Exam Limitations: No limitations - Medical/Surgical History Hx Asthma: No Hx Chronic Respiratory Disease: No Hx Diabetes: Yes Hx Cardiac Disease: No Hx Renal Disease: No Hx Cirrhosis: No Hx Alcoholism: No Hx HIV/AIDS: No Hx Splenectomy or Spleen Trauma: No Other PMH: diabetes type 2, Colon CA, stage 4 colon cancer, SBO - Social History Smoking Status: Current every day smoker - Physical Exam Exam: General Appearance: Thin male, cachectic Head: Temporal wasting Eyes: Scleral icterus ENT, Mouth: Mucous membranes moist Respiratory: There are no retractions, lungs are clear to auscultation Cardiovascular: Regular rate and rhythm Gastrointestinal: Abdominal distension, questionable fluid wave, mild tenderness Neurological: 5/5 strength noted all 4 extremities Skin: Warm and dry, no rashes Musculoskeletal: Neck is supple nontender Extremities: Muscular wasting Psychiatric: Patient is oriented X 3, there is no agitation Constitutional: Initial Vital Signs Temperature (C) 36.5 C 05/01/18 21:24 Heart Rate 81 05/01/18 21:24 Respiratory Rate 18 05/01/18 21:24 Blood Pressure 123/82 H 05/01/18 21:24 O2 Sat (%) 96 05/01/18 21:24 O2 Delivery Mode Room Air Allergies/Adverse Reactions: No Known Allergies Allergy (Verified 07/22/16 09:00) Home Medications: Medication Instructions Recorded Ascorbic Acid [Vitamin C 500 mg 500 mg PO DAILY 07/28/16 (*)] Cholecalciferol Vit D3 [Vitamin D3 1,000 units PO DAILY 07/28/16 (*)] Ibuprofen [Motrin (*)] 200 - 400 mg PO Q6H PRN 07/28/16 Multivitamins [Multivitamin (*)] 1 each PO DAILY 07/28/16 glyBURIDE [Glyburide] 2.5 mg PO DAILY 07/28/16 Acetaminophen [Tylenol ES 500 mg 500 - 1,000 mg PO Q8H PRN 05/01/18 (*)] LORazepam [Ativan (*)] 0.5 mg PO BID PRN 05/01/18 oxyCODONE IR 20 mg PO Q6H PRN 05/01/18 Medical Decision Making ED Course/Re-evaluation: Patient presents to the ED with worsening metastatic colon cancer. The patient has ascites, early satiety and has now developed jaundice. The patient reports he is no longer receiving traditional chemotherapy. He has been attempting some alternative therapies without success. The patient feels as if "the end is near for him." The patient had an IV established. He was treated with IV pain medications. Laboratory studies have been obtained which demonstrate elevated bilirubin The patient will require admission to the hospital for further management of his condition. CT scan of the abdomen pelvis has been ordered for prognosis. Consultation was made with Dr. Montero from the hospitalist service who will admit the patient this evening. Differential Diagnosis: Differential diagnosis considered includes obstruction, perforation, abscess, worsening metastatic disease, hepatitis, cholecystitis - Data Points Laboratory Results: Laboratory Results 05/01/18 21:31 05/01/18 21:31 05/01/18 05/01/18 05/01/18 21:31 21:31 21:31 WBC 9.85 10^3/uL H 10^3/uL (3.80-9.50) RBC 5.33 10^6/uL 10^6/uL (4.40-6.38) Hgb 15.7 g/dL g/dL (13.7-17.5) Hct 46.2 % % (40.0-51.0) MCV 86.7 fL fL (81.5-99.8) MCH 29.5 pg pg (27.9-34.1) MCHC 34.0 g/dL g/dL (32.4-36.7) RDW 18.4 % H % (11.5-15.2) Plt Count 178 10^3/uL 10^3/uL (150-400) MPV 10.3 fL fL (8.7-11.7) Neut % (Auto) 71.1 % % (39.3-74.2) Lymph % (Auto) 18.7 % % (15.0-45.0) Harvey % (Auto) 7.2 % % (4.5-13.0) Eos % (Auto) 1.7 % % (0.6-7.6) Baso % (Auto) 0.6 % % (0.3-1.7) Nucleat RBC Rel Count 0.0 % % (0.0-0.2) Absolute Neuts (auto) 7.00 10^3/uL H 10^3/uL (1.70-6.50) Absolute Lymphs (auto) 1.84 10^3/uL 10^3/uL (1.00-3.00) Absolute Monos (auto) 0.71 10^3/uL 10^3/uL (0.30-0.80) Absolute Eos (auto) 0.17 10^3/uL 10^3/uL (0.03-0.40) Absolute Basos (auto) 0.06 10^3/uL 10^3/uL (0.02-0.10) Absolute Nucleated RBC 0.00 10^3/uL 10^3/uL (0-0.01) Immature Gran % 0.7 % % (0.0-1.1) Immature Gran # 0.07 10^3/uL 10^3/uL (0.00-0.10) Sodium 132 mEq/L L mEq/L (135-145) Potassium 4.4 mEq/L mEq/L (3.5-5.2) Chloride 101 mEq/L mEq/L (97-110) Carbon Dioxide 25 mEq/l mEq/l (22-31) Anion Gap 6 mEq/L mEq/L (6-14) BUN 11 mg/dL mg/dL (7-23) Creatinine 0.6 mg/dL L mg/dL (0.7-1.3) Estimated GFR > 60 Glucose 132 mg/dL H mg/dL (70-100) Calcium 8.4 mg/dL L mg/dL (8.5-10.4) Total Bilirubin 12.1 mg/dL H mg/dL (0.1-1.4) Conjugated Bilirubin 10.5 mg/dL H mg/dL (0.0-0.5) Unconjugated Bilirubin 1.6 mg/dL H mg/dL (0.0-1.1) Icterus Index 6 AST 198 IU/L H IU/L (17-59) ALT 104 IU/L H IU/L (21-72) Alkaline Phosphatase Pending Total Protein 6.5 g/dL g/dL (6.3-8.2) Albumin 3.0 g/dL L g/dL (3.5-5.0) Lipase 130 IU/L IU/L (23-300) Medications Given: Discontinued Medications Sodium Chloride (Ns) 1,000 mls @ 0 mls/hr IV EDNOW ONE; Wide Open PRN Reason: Protocol Stop: 05/01/18 21:37 Last Admin: 05/01/18 21:52 Dose: 1,000 mls Morphine Sulfate (Morphine) 4 mg IVP EDNOW ONE Stop: 05/01/18 22:00 Last Admin: 05/01/18 22:03 Dose: 4 mg Departure - Departure Disposition: [facility] Acute Clinical Impression: Metastatic colon cancer to liver, Failure to thrive in adult, Dehydration Condition: Serious
[2018-05-01 21:43] LABS: PLATELET COUNT 178 10^3/uL (150-400)
[2018-05-01] MEDS ORDERED: IOHEXOL 300 mgI/ML (OMNIPAQUE) 150 ML BTL IV ONE (21:53)
[2018-05-01] MEDS ORDERED: diphenhydrAMINE 25 MG CAP PO PRN (22:08)
[2018-05-01] MEDS ORDERED: ACETAMINOPHEN 325 MG TAB PO PRN (22:08)
[2018-05-01] MEDS ORDERED: ONDANSETRON 4 MG/2 ML VIAL IVP PRN (22:08)
[2018-05-01] MEDS ORDERED: LORazepam 0.5 MG TAB PO PRN (22:08)
[2018-05-01] MEDS ORDERED: ONDANSETRON DISINTEGRATING 4 MG TAB PO PRN (22:08)
--- NOTE | 2018-05-02 00:03 | PDGENHP ---
History and Physical - Chief Complaint jaundice, abdominal distension - History of Present Illness Source - Patient provides history is a fair historian. EMR reviewed and case discussed with ED provider. HPI - 58-year-old gentleman with past medical history significant for metastatic colon cancer, diabetes type 2 presents emergency department today with complaints several-day history of increasing abdominal distension and 1 day history of jaundice. Patient was diagnosed with colon cancer 2 years ago. He underwent chemotherapy however the last several months he opted to pursue homeopathic remedies. In the past week patient has also noted increasing satiety and decreased appetite. He has had observed increasing abdominal discomfort and distention. Patient reports that normally his abdomen is nondistended and flat. He was still exercising up until last week. Patient reports currently he has no energy. He has had increasing lower extremity edema particularly in his ankles. He denies any fevers but has been having some chills. Patient had a BM earlier in the day. He does have a remote history of S recurrent small bowel obstructions and last being in 2017 requiring enterolysis and lysis of adhesions. Patient reports that in the upcoming weeks he was scheduled to have a ventral hernia repair as he is currently off of his chemotherapy. Patient is in transitional on dosing. He does have a case management director assigned which she states is not really spoken to. He would be interested in additional services and evaluation with palliative/ hospice care. History Information - Allergies/Home Medication List Allergies/Adverse Reactions: No Known Allergies Allergy (Verified 07/22/16 09:00) Home Medications: Ascorbic Acid [Vitamin C 500 mg (*)] 500 mg PO DAILY 07/28/16 [Last Taken ] Cholecalciferol Vit D3 [Vitamin D3 (*)] 1,000 units PO DAILY 07/28/16 [Last Taken 04/30/18] Ibuprofen [Motrin (*)] 200 - 400 mg PO Q6H PRN 07/28/16 [Last Taken Unknown] Multivitamins [Multivitamin (*)] 1 each PO DAILY 07/28/16 [Last Taken 05/01/18] glyBURIDE [Glyburide] 2.5 mg PO DAILY 07/28/16 [Last Taken 04/28/18] Acetaminophen [Tylenol ES 500 mg (*)] 500 - 1,000 mg PO Q8H PRN 05/01/18 [Last Taken Unknown] LORazepam [Ativan (*)] 0.5 mg PO BID PRN 05/01/18 [Last Taken 04/29/18] oxyCODONE IR 20 mg PO Q6H PRN 05/01/18 [Last Taken 05/01/18 12:00] I have personally reviewed and updated: family history, medical history, social history, surgical history Past Medical History: recurrent SBO. metastatic colon cancer dx fall 2015 with lever mets s/p 8 rounds FOLFOX. DM. Depression - Past Medical History cancer (metastatic colon cancer), diabetes type 2 - Surgical History Reports: appendectomy Additional surgical history: sigmoid colon resection 01/2016, 2017 enterolysis/ lysis of adhesions. appy - Family History Positive for: non-pertinent - Social History Smoking Status: Current every day smoker Alcohol Use: Occasionally Drug Use: Marijuana Additional social history: homeless resides in apartment currently. COR - DNR/ DNI. pt completed advanced directives previously. Review of Systems Review of Systems: ROS: 10pt was reviewed & negative except for what was stated in HPI & below Physical Exam Physical Exam: Temp Pulse Resp BP Pulse Ox 36.0 C 70 16 116/82 H 95 05/01/18 23:12 05/01/18 23:12 05/01/18 23:12 05/01/18 23:12 05/01/18 23:12 Constitutional: chronically ill appearing, other (Chronically ill-appearing gentleman is lying comfortably in bed. Jaundice. Abdomen is quite distended.) Eyes: PERRL (Decreased reactivity light bilaterally but symmetric. Glasses in place.), EOMI (Grossly intact), icteric sclera Ears, Nose, Mouth, Throat: poor dentition, dry mucous membranes Cardiovascular: regular rate and rhythym, no murmur, rub, or gallop, edema Peripheral Pulses: 2+: dorsalis-pedis (R), dorsalis-pedis (L) Respiratory: no respiratory distress, no rales or rhonchi, clear to auscultation , No respiratory distress Gastrointestinal: normoactive bowel sounds, tenderness, ascites, hepatosplenomegally, distension, other (Distended abdomen. Tenderness in the right upper quadrant. Positive fluid wave. Well-healed midline surgical scar) Genitourinary: no bladder tenderness, No jordan in urethra Skin: warm, no rashes or abrasions, other (Jaundice) Musculoskeletal: generalized weakness, other (Patient is able to move all extremities) Neurologic: AAOx3 (Patient does forget questions he has been meaning to ask several times during the interview.) Psychiatric: interacting appropriately, thought process linear, anxious, No encephalopathic, No depressed, No flat affect Lab Data & Imaging Review 05/01/18 21:31 05/01/18 21:31 WBC 9.85 10^3/uL (3.80-9.50) H 05/01/18 21:31 RBC 5.33 10^6/uL (4.40-6.38) 05/01/18 21:31 Hgb 15.7 g/dL (13.7-17.5) 05/01/18 21:31 Hct 46.2 % (40.0-51.0) 05/01/18 21:31 MCV 86.7 fL (81.5-99.8) 05/01/18 21:31 MCH 29.5 pg (27.9-34.1) 05/01/18 21:31 MCHC 34.0 g/dL (32.4-36.7) 05/01/18 21:31 RDW 18.4 % (11.5-15.2) H 05/01/18 21:31 Plt Count 178 10^3/uL (150-400) 05/01/18 21:31 MPV 10.3 fL (8.7-11.7) 05/01/18 21:31 Neut % (Auto) 71.1 % (39.3-74.2) 05/01/18 21:31 Lymph % (Auto) 18.7 % (15.0-45.0) 05/01/18 21:31 [place] % (Auto) 7.2 % (4.5-13.0) 05/01/18 21:31 Eos % (Auto) 1.7 % (0.6-7.6) 05/01/18 21:31 Baso % (Auto) 0.6 % (0.3-1.7) 05/01/18 21:31 Nucleat RBC Rel Count 0.0 % (0.0-0.2) 05/01/18 21:31 Absolute Neuts (auto) 7.00 10^3/uL (1.70-6.50) H 05/01/18 21:31 Absolute Lymphs (auto) 1.84 10^3/uL (1.00-3.00) 05/01/18 21:31 Absolute Monos (auto) 0.71 10^3/uL (0.30-0.80) 05/01/18 21:31 Absolute Eos (auto) 0.17 10^3/uL (0.03-0.40) 05/01/18 21:31 Absolute Basos (auto) 0.06 10^3/uL (0.02-0.10) 05/01/18 21:31 Absolute Nucleated RBC 0.00 10^3/uL (0-0.01) 05/01/18 21:31 Immature Gran % 0.7 % (0.0-1.1) 05/01/18 21:31 Immature Gran # 0.07 10^3/uL (0.00-0.10) 05/01/18 21:31 Sodium 132 mEq/L (135-145) L 05/01/18 21:31 Potassium 4.4 mEq/L (3.5-5.2) 05/01/18 21:31 Chloride 101 mEq/L (97-110) 05/01/18 21:31 Carbon Dioxide 25 mEq/l (22-31) 05/01/18 21:31 Anion Gap 6 mEq/L (6-14) 05/01/18 21:31 BUN 11 mg/dL (7-23) 05/01/18 21:31 Creatinine 0.6 mg/dL (0.7-1.3) L 05/01/18 21:31 Estimated GFR > 60 05/01/18 21:31 Glucose 132 mg/dL (70-100) H 05/01/18 21:31 Calcium 8.4 mg/dL (8.5-10.4) L 05/01/18 21:31 Total Bilirubin 12.1 mg/dL (0.1-1.4) H 05/01/18 21:31 Conjugated Bilirubin 10.5 mg/dL (0.0-0.5) H 05/01/18 21:31 Unconjugated Bilirubin 1.6 mg/dL (0.0-1.1) H 05/01/18 21:31 Icterus Index 6 05/01/18 21:31 AST 198 IU/L (17-59) H 05/01/18 21:31 ALT 104 IU/L (21-72) H 05/01/18 21:31 Alkaline Phosphatase 1425 IU/L (38-126) H 05/01/18 21:31 Total Protein 6.5 g/dL (6.3-8.2) 05/01/18 21:31 Albumin 3.0 g/dL (3.5-5.0) L 05/01/18 21:31 Lipase 130 IU/L (23-300) 05/01/18 21:31 Imaging Review: CT Abdomen and Pelvis With Contrast, 22:03 History: Distention, jaundice, history of metastatic colon cancer Technique: 128 slice volumetric data set helical CT obtained through the abdomen and pelvis during bolus administration of 85 mL Isovue-300 nonionic contrast without complication. Images are reviewed on the computer workstation. Dose reduction techniques were utilized. Comparison: August 04, 2016 Findings: On the current sales performance manager view the abdomen is much more distended than it was previously. There is now a large amount of ascites compared to the prior smaller amount of ascites. The patient has developed extensive infiltrative hepatic metastatic disease compared to the treated metastases previously present. The liver margin is more nodular than it was previously. Despite being homogeneous, the spleen is larger currently measuring 14.3 cm compared to prior 13.4 cm. The splenic , portal vein and superior mesenteric veins remain patent. Metastatic disease infiltrates the dome of the central liver in the region of the 3 hepatic veins, none of which are identified. This could be consistent with Budd-Chiari condition or merely represent lack of contrast opacification due to the timing of this single portal venous contrast phase. There is no bowel obstruction. There is no free air. Urinary bladder looks normal. Neither kidney is obstructed. There is a stable large left renal peripelvic-transcortical cyst. Previous small bowel wall thickening has resolved. A surgical anastomosis remains in the left mid abdomen. No retroperitoneal or mesenteric adenopathy is identified. 2 new small noncalcified right lower lobe lung nodules could potentially represent new lung metastases. There are no bone metastases. Impression: 1. Increased ascites and progressive hepatic metastatic disease. 2. Metastatic obstruction of the hepatic veins versus nonvisualization due to contrast phase. 3. 2 new small right lower lobe lung nodules. Results discussed with Dr. Taran Jimenez at 10:35 PM. General information for patients regarding this examination can be found at [email or web address]. If you have questions or comments about this report, please contact me at (hospital) or [phone] (cell). Dictated By: Cecilio Ewing MD Assessment & Plan Assessment: 58-year-old gentleman with past medical history significant for metastatic colon cancer, diabetes type 2 presents emergency department today with complaints several-day history of increasing abdominal distension and 1 day history of jaundice. Metastatic colon cancer to liver (Acute) - CT results discussed with the patient regarding progression his liver metastases. Patient has been preparing for end of life decisions. He is a DNR DNI. He is interested in evaluation by hospice at this time. His concerns are that he is significantly weakened and he is not able to care for himself any longer. Jaundice with transaminitis and hyperbilirubinemia. Ascites - due to metastatic disease. Ultrasound-guided paracentesis for the morning pending coags. Additional discussion on tomorrow regarding palliative versus hospice care. Given the progressive patient's symptoms at some point may benefit from a drain for therapeutic paracentesis.. Abdominal pain - pain is improved at this time status post morphine received in the ED. Failure to thrive in adult (Acute) - palliative/hospice care evaluation as per day team. Hyponatremia - patient has reported declined appetite has been tolerating food. He does appear volume overloaded and hyponatremia is likely due to hypovolemia. The discussed with the patient diuretic therapy which he is amenable to the more starting in the morning. Will 1st have patient assess for a therapeutic ultrasound-guided paracentesis. DM II - holding patient's glipizide at this time. Blood sugars are acceptable for now. Will check with a.m. Labs and consider use of sliding scale insulin. FEN - SLIV. Electrolytes adequate this time. NPO after midnight for paracentesis in the morning. PPX-SCDs if tolerated. Holding anticoagulation in setting liver failure and anticipated paracentesis in the morning. Cor status-DNR DNI. Disposition-patient admitted observation status pending further dispo planning with palliative/hospice care.
[2018-05-02] MEDS: oxyCODONE IR 5 MG TAB PO PRN ×2 (00:11→21:37)
[2018-05-02 06:02] LABS: INR 1.13 (0.83-1.16); PROTIME(PATIENT) 14.7 SEC (12.0-15.0)
--- NOTE | 2018-05-02 08:06 | PDMN ---
Medical Necessity Medical necessity: Pt meets IP criteria as of 05/01/2018 per and DEVIN M-570 ( liver Disease Complications); est los > 2 mn for ongoing tx and management of ascites, jaundice, abdominal pain and hyponatremia secondary to colon cancer that has new metastatic disease to the liver; requiring US guided paracentesis, hospice consultation, serial labs, and management of DM II.
[2018-05-02] MEDS ORDERED: LORazepam 0.5 MG TAB PO PRN (08:26)
[2018-05-02] MEDS: glyBURIDE 2.5 MG TAB PO SCH (08:48)
--- NOTE | 2018-05-02 09:23 | HOSPPROG ---
Hospitalist Progress Note Assessment/Plan: 58-year-old gentleman with past medical history significant for metastatic colon cancer, diabetes type 2 presents emergency department today with complaints several-day history of increasing abdominal distension and 1 day history of jaundice. First encounter, chart reviewed. * Metastatic colon cancer w metastasis to the liver -will ask for a palliative evaluation- to help figure what he needs at this time -he had a bad experience w hospice -last chemo was 2 months ago *Jaundice with transaminitis and hyperbilirubinemia -due to the above. *Ascites - due to metastatic disease - Ultrasound-guided paracentesis today (14:00) - could do a trial of Lasix and Aldactone at ne to help with the ascites - if this fails could have a drain placed *Abdominal pain -much improved w oxy and morphine *Failure to thrive in adult (Acute) -he is better today and was able to sleep with the pain meds -he may need home care to check in on him *Hyponatremia -mild, has had poor intake. *DM II - - glipizide *plan: I spoke w Dr Mclaughlin, the patient's primary care doctor. He agrees with the plan as described above. He would like to see Ed in 1-2 weeks. Ed thinks he doesn't have this long to live. He does not want me to call oncology. For now , will give supportive care. Subjective: Ed said his abdominal pain is better today. Objective: Vital Signs Temp Pulse Resp BP Pulse Ox 36.4 C 85 16 126/78 H 93 05/02/18 08:00 05/02/18 08:00 05/02/18 08:00 05/02/18 08:00 05/02/18 08:00 Laboratory Results 05/02/18 04:33 05/02/18 04:33 PT 14.7 SEC (12.0-15.0) 05/02/18 04:33 INR 1.13 (0.83-1.16) 05/02/18 04:33 - Physical Exam Constitutional: chronically ill appearing, uncomfortable Eyes: icteric sclera Ears, Nose, Mouth, Throat: hearing normal Cardiovascular: regular rate and rhythym Respiratory: no respiratory distress Gastrointestinal: ascites, No tenderness Skin: warm, No normal color (pale) Musculoskeletal: full muscle strength Neurologic: AAOx3 Psychiatric: interacting appropriately ICD10 Worksheet Patient Problems: Problems Problem Status Onset Dehydration Acute Failure to thrive in adult Acute Metastatic colon cancer to liver Acute Abdominal pain Acute Colon cancer Acute Liver lesion Acute Liver metastases Acute Partial bowel obstruction Acute Partial small bowel obstruction Acute
[2018-05-02] MEDS: CHOLECALCIFEROL VIT D3 1,000 UNITS TAB PO SCH (09:51)
[2018-05-02] MEDS: ASCORBIC ACID 500 MG TAB PO SCH (09:52)
[2018-05-02] MEDS: MULTIVITAMINS 1 EACH TAB PO SCH (09:52)
[2018-05-02] MEDS ORDERED: LIDOCAINE 1% 300 MG/30 ML SDV ONE (13:31)
--- NOTE | 2018-05-02 13:46 | ASMTCMCOM ---
CM Note CM Note Notes: Met with pt, he is admitted to the hospital for FTT, he has a diagnosis of metastatic colon ca. Pt accepts that he is "in the last stretch of his life" He is going for a paracentesis at 2pm. Jonah from the carmen's office also here to speak with pt and schedule a palliative consult. Pt lives at [facility], he states he does not want to in the hospital. DC Plan: TBD Date Signed: 05/02/2018 01:46 PM Electronically Signed By:mAerica Arredondo RN
[2018-05-02] MEDS ORDERED: ALBUMIN 25% 100 ML IV ONE (15:37)
--- NOTE | 2018-05-02 15:51 | ASMTCMCOM ---
CM Note CM Note Notes: Spoke w/Juan Carlos, pt would like pall referral to go to [facility]. They will come meet with pt tomorrow at 11am. Date Signed: 05/02/2018 03:50 PM Electronically Signed By:America Arredondo RN
[2018-05-03] MEDS: MULTIVITAMINS 1 EACH TAB PO SCH (08:18)
[2018-05-03] MEDS: ASCORBIC ACID 500 MG TAB PO SCH (08:18)
[2018-05-03] MEDS: CHOLECALCIFEROL VIT D3 1,000 UNITS TAB PO SCH (08:18)
[2018-05-03] MEDS: glyBURIDE 2.5 MG TAB PO SCH (08:19)
[2018-05-03 12:21] VITALS: BP 125/80
--- NOTE | 2018-05-03 12:24 | ASMTCMCOM ---
KENYA Note KENYA Note Notes: Jailene from [facility] here to meet with pt, he is interested in hospice. He wants to call his PCP personally to talk with him before signing final paperwork. KENYA w/f. DC Plan: Home with Hospice Date Signed: 05/03/2018 12:23 PM Electronically Signed By:America Arredondo RN
--- NOTE | 2018-05-03 14:28 | ASMTLACE ---
BRIGITTEE Length of stay for Answers: 2 days current admission Acuity / Level of Answers: Yes Care: Did the patient have an inpatient admission? Comorbidities - select Answers: Any tumor (including all that apply lymphoma or leukemia) Diabetes (uncontrolled or controlled) # of Emergency department Answers: 1-2 visits in the last 6 months Social determinants Answers: Mental health diagnosis (anxiety, depression, pers onality disorders, etc.) Score: 12 Date Signed: 05/03/2018 02:28 PM Electronically Signed By:America Arredondo RN
--- NOTE | 2018-05-03 15:28 | ASDISCHSUM ---
Discharge Information Plan Status:Hospice-Home Medically Cleared to Leave: Discharge Date:05/03/2018 03:22 PM CM D/C Disposition:Hospice Home ADT D/C Disposition:Hospice Home Projected Discharge Date:05/03/2018 11:00 AM Transportation at D/C:Cab Voucher Discharge Delay Reason: Follow-Up Date:05/03/2018 11:00 AM Discharge Slot: Final Diagnosis: Placement Information Referral Type:Palliative Care Referral ID:[id number] Provider Name: Address 1: Phone Number: Address 2: Fax Number: City: Selection Factors: State: Referral Type:*Hospice Referral ID:[id number] Provider Name:[facility] Address 1:[address] Phone Number: Address 2: Fax Number: [facility]:[place] Selection Factors: State:[place] Patient Contact Information Contact Name:VAMSI Relationship:Other Address:[address] [place] [address] [address] Work Phone: City:[place] Alternate Phone: [facility]/Zip Code:[place] [address] Email: Financial Information Financial Class:Medicaid Primary Plan Desc:MEDICAID [facility] Primary Plan Number:[id number] Secondary Plan Desc: Secondary Plan Number: Assessment Information LACE LACE Length of stay for Answers: 2 days current admission Acuity / Level of Answers: Yes Care: Did the patient have an inpatient admission? Comorbidities - select Answers: Any tumor (including all that apply lymphoma or leukemia) Diabetes (uncontrolled or controlled) # of Emergency department Answers: 1-2 visits in the last 6 months Social determinants Answers: Mental health diagnosis (anxiety, depression, pers onality disorders, etc.) Score: 12 Date Signed: 05/03/2018 02:28 PM Electronically Signed By:America Arredondo RN [facility] CM Progress Note CM Note CM Note Notes: Met with pt, he is admitted to the hospital for FTT, he has a diagnosis of metastatic colon ca. Pt accepts that he is "in the last stretch of his life" He is going for a paracentesis at 2pm. Jonah from the juan carlos's office also here to speak with pt and schedule a palliative consult. Pt lives at [facility] apts, he states he does not want to in the hospital. DC Plan: TBD Date Signed: 05/02/2018 01:46 PM Electronically Signed By:America Arredondo RN [facility] CM Progress Note CM Note CM Note Notes: Spoke w/Juan Carlos, pt would like pall referral to go to [facility]. They will come meet with pt tomorrow at 11am. Date Signed: 05/02/2018 03:50 PM Electronically Signed By:America Arredondo RN [facility] CM Progress Note CM Note CM Note Notes: Jailene from [facility] here to meet with pt, he is interested in hospice. He wants to call his PCP personally to talk with him before signing final paperwork. CM w/f. DC Plan: Home with Hospice Date Signed: 05/03/2018 12:23 PM Electronically Signed By:America Arredondo RN Case Management Discharge Plan Note Case Management Discharge Discharge Order Complete? Answers: Yes Patient to Obtain Answers: Other Notes: [facility] Transportation Arranged Answers: Taxi - Voucher Transport will Pick (Date 05/03/2018 03:00 PM & Time) Faxed Final Orders Answers: Yes Discharge Comments Notes: D/w SIGNAL SYSTEM TESTING MAINTAINER, final orders faxed to [facility]. Dent from Hospice here, she will arrange for RN to meet pt at home. Pt requests assistance with transportation home. CM will provide a cab voucher. Medications filled by Fatuma Davis. Date Signed: 05/03/2018 02:48 PM Electronically Signed By:America Arredondo RN Intervention Information
--- NOTE | 2018-05-03 16:01 | GDS ---
[f rep st] DISCHARGE SUMMARY DISCHARGE DIAGNOSES: 1. Metastatic colon cancer with metastatic liver disease. 2. Jaundice with transaminitis. 3. Ascites. 4. Abdominal pain. 5. Failure to thrive. 6. Hyponatremia. 7. Diabetes mellitus type 2. PROCEDURES DONE: 1. CT of the abdomen. 2. Paracentesis. CONSULTATIONS: Palliative Care and Hospice. PHYSICAL EXAM: GENERAL: The patient is alert. VITAL SIGNS: Afebrile at 36.4, pulse is 98, respira tory rate 16, blood pressure is 125/80, saturating 92% on room air. I have seen and evaluated the alicia moore on the day of discharge. HOSPITAL COURSE: The patient is a 58-year-old male with past medical history significant for metasta tic colon cancer admitted to the hospital with abdominal pain. He was evaluated and diagnosed with: 1. Metastatic colon cancer with metastatic process to the liver. During this hospitalization, he re ceived a consultation from Palliative Care as well as Hospice. The patient will be discharged on [facility] pice care. 2. Jaundice with transaminitis is secondary to the patient's metastatic process. There is no furthe r intervention warranted for his metastatic process. 3. Ascites. Did receive a paracentesis during this hospitalization. Again, the patient will be fabrizio maykel on hospice care. 4. Abdominal pain. This is multifactorial, and medications have been prescribed. 5. Failure to thrive. He will continue to have supportive care in the outpatient setting. 6. Disposition: The patient will be discharged home with hospice care. I have discussed the kelsy t's disposition with the case mgr as well as the hospice manufacturing sales representative. PENDING STUDIES: There are no pending studies. DISCHARGE MEDICATIONS: Please refer to EMR form. I have provided prescriptions for Zofran, oxycodon e IR, and Ativan. I have discontinued the patient's previously prescribed Tylenol. TIME SPENT WITH PATIENT: I spent greater than 35 minutes in the care, coordination, and management o f patient's disposition. /[id number]/MODL
== END 2018-05-03 15:22 | disposition hospice, home (50) | DRG 281 ==
LOC: EDUNIT# → F3E 23:08
PROVIDERS: ADMIT Internal Medicine; ATTEND Internal Medicine
PROC: 0W9G3ZZ Drainage of Peritoneal Cavity, Percutaneous Approach (ICD-10-PCS; principal; 2018-05-02)
DX: C78.7 Secondary malignant neoplasm of liver and intrahepatic bile duct (principal); E86.0 Dehydration; E87.1 Hypo-osmolality and hyponatremia; R62.7 Adult failure to thrive; E11.9 Type 2 diabetes mellitus without complications; Z66 Do not resuscitate; Z85.038 Personal history of other malignant neoplasm of large intestine; Z51.5 Encounter for palliative care
CPT/HCPCS: 96374; J2270; P9047; Q9967

== ENCOUNTER 2018-05-05 23:14 | Emergency (ER) | payer MEDICAID ==
[2018-05-05 23:56] LABS: PLATELET COUNT 180 10^3/uL (150-400)
[2018-05-06] MEDS ORDERED: HYDROmorphONE/DILAUDID 2 MG/ML INJ IVP ONE (00:10)
[2018-05-06] MEDS ORDERED: HYDROmorphONE/DILAUDID 1 MG/ML INJ ONE (00:46)
[2018-05-06] MEDS ORDERED: HYDROmorphONE/DILAUDID 1 MG/ML INJ IVP ONE (00:49)
--- NOTE | 2018-05-06 01:18 | EDPHY ---
H & P Stated Complaint: abd pain Time Seen by Provider: 05/05/18 23:28 HPI/ROS: HPI The patient presents brought in by ambulance with abdominal distension and pain. He has a known history of colon cancer with metastases to the liver and resultant ascites. He was admitted to the hospital from May 01 to and underwent therapeutic paracentesis which helped with his symptoms significantly. He was discharged home with hospice in place. He has his 1st meeting with his hospice nurse tomorrow at his house. He has been taking lorazepam and oxycodone for pain. He describes a pressure sensation that he feels throughout his abdomen and makes it difficult for him to breathe. He has not had a fever. REVIEW OF SYSTEMS 10 systems were reviewed and negative with the exception of the elements mentioned in the history of present illness. PMHx: Colon cancer with liver metastases, not on any medications Soc Hx: Housed independently PHYSICAL General Appearance: Alert, no distress Eyes: Scleral icterus ENT, Mouth: Mucous membranes moist Respiratory: There are no retractions, lungs are clear to auscultation Cardiovascular: Regular rate and rhythm Gastrointestinal: Abdomen is tensely distended, nontender Neurological: A&O, moves all extremities Skin: Jaundice is present Musculoskeletal: Neck is supple non tender Extremities: symmetrical, full range of motion Psychiatric: Patient is oriented X 3, there is no agitation Source: Patient - Personal History Current Tetanus Diphtheria and Acellular Pertussis (TDAP): Unsure - Medical/Surgical History Hx Asthma: No Hx Chronic Respiratory Disease: No Hx Diabetes: Yes Hx Cardiac Disease: No Hx Renal Disease: No Hx Cirrhosis: No Hx Alcoholism: No Hx HIV/AIDS: No Hx Splenectomy or Spleen Trauma: No Other PMH: diabetes type 2, Colon CA stage 4 colon cancer mets to lung and liver, SBO,jaundice. ascites - Social History Smoking Status: Current every day smoker Constitutional: Initial Vital Signs Temperature (C) 36.4 C 05/05/18 23:19 Heart Rate 75 05/05/18 23:19 Respiratory Rate 16 05/05/18 23:19 Blood Pressure 116/77 05/05/18 23:19 O2 Sat (%) 92 05/05/18 23:19 O2 Delivery Mode Room Air O2 (L/minute) 2 Allergies/Adverse Reactions: No Known Allergies Allergy (Verified 07/22/16 09:00) Home Medications: Medication Instructions Recorded Ascorbic Acid [Vitamin C 500 mg 500 mg PO DAILY 07/28/16 (*)] Cholecalciferol Vit D3 [Vitamin D3 1,000 units PO DAILY 07/28/16 (*)] glyBURIDE [Glyburide] 2.5 mg PO DAILY 07/28/16 LORazepam [Ativan (*)] 0.5 mg PO BID PRN #10 tab 05/03/18 Ondansetron Odt [Zofran Odt 4 mg 4 mg PO Q4HRS PRN #30 tab 05/03/18 (*)] oxyCODONE IR [Oxycodone Ir (*)] 5 - 10 mg PO Q3HRS PRN #30 tab 05/03/18 Medical Decision Making Procedures: Procedure: Paracentesis. Indication: Large ascites fluid collection I used the ultrasound to locate a fluid pocket in the right lower quadrant. I explained to the patient the risk included infection, bleeding, bowel injury, and hypotension. The area on the abdomen was prepped and draped in the usual fashion. The area was anesthetized with 1% lidocaine with epinephrine with adequate anesthesia. With a paracentesis needle the straw-colored fluid was aspirated. The appearance of the fluid was clear. The volume that was aspirated was 3900 cc of fluid. The patient tolerated the procedure well. There were no complications. The procedure was performed by myself. Differential Diagnosis: 58-year-old man with metastatic colon cancer to the liver and lung presents with abdominal pain and distension related to malignant ascites. Vital signs are normal, he appears jaundiced. He has tense ascites. I have offered him admission to the hospital for IR drainage of the ascites. Given that he is on hospice and his goals are palliative, he may benefit from indwelling catheter for ongoing drainage if he is a candidate for this. However , he would really like to return home so he can meet with his hospice nurse tomorrow. Because of this I have offered him bedside paracentesis in the emergency department and he would like to do this. Basic labs demonstrate findings consistent with extensive liver metastases. Paracentesis performed, we were able to remove total of approx 4L. Given that this is a palliative procedure, I will not check for SBP. Patient was observed after the procedure for about 1 hr and felt well without any hypotension or dizziness. He will be discharged home via taxi. He is happy with this plan. - Data Points Laboratory Results: Laboratory Results 05/05/18 23:20 05/05/18 23:20 Medications Given: Discontinued Medications Diphenhydramine HCl (Benadryl) 25 mg PO EDNOW ONE Stop: 05/06/18 02:54 Last Admin: 05/06/18 02:58 Dose: 25 mg Hydromorphone HCl (Dilaudid) 1 mg IVP EDNOW ONE Stop: 05/06/18 00:11 Last Admin: 05/06/18 00:21 Dose: 1 mg Hydromorphone HCl (Dilaudid) 1 mg IVP EDNOW ONE Stop: 05/06/18 00:50 Last Admin: 05/06/18 00:51 Dose: 1 mg Departure - Departure Disposition: Home, Routine, Self-Care Clinical Impression: Metastatic colon cancer to liver, Ascites, malignant Abdominal pain Qualifiers: Abdominal location: generalized Qualified Code(s): R10.84 - Generalized abdominal pain Condition: Fair Instructions: Palliative Care (ED) Referrals: NONE *PRIMARY CARE P,. [Primary Care Provider] - As per Instructions
[2018-05-06 01:47] VITALS: BP 111/77
[2018-05-06] MEDS ORDERED: diphenhydrAMINE 25 MG CAP PO ONE ×2 (02:53→02:54)
== END 2018-05-06 02:44 | disposition home or self-care (01) ==
LOC: EDUNIT#
PROC: 0W9G3ZZ Drainage of Peritoneal Cavity, Percutaneous Approach (ICD-10-PCS; principal; 2018-05-05)
DX: R10.84 Generalized abdominal pain (principal); C78.7 Secondary malignant neoplasm of liver and intrahepatic bile duct; C18.9 Malignant neoplasm of colon, unspecified; R18.0 Malignant ascites; E11.9 Type 2 diabetes mellitus without complications; F17.200 Nicotine dependence, unspecified, uncomplicated
CPT/HCPCS: 96374; J1170

== ENCOUNTER 2018-05-09 00:22 | Observation (INO) | payer MEDICAID ==
[2018-05-09] MEDS ORDERED: HYDROmorphONE/DILAUDID 2 MG/ML INJ IVP ONE (00:27)
[2018-05-09] MEDS ORDERED: ONDANSETRON 4 MG/2 ML VIAL IVP ONE (00:27)
[2018-05-09] MEDS ORDERED: NS 1,000 ML IV ONE (00:27)
--- NOTE | 2018-05-09 00:31 | EDPHY ---
H & P Time Seen by Provider: 05/09/18 00:29 HPI/ROS: HPI CHIEF COMPLAINT: Abdominal distension, increasing jaundice HISTORY OF PRESENT ILLNESS: This is a 58-year-old male, metastatic colon cancer , metastatic to his liver with jaundice, failure to thrive, and last time he was here in the 03 of May he was due to be discharged to hospice however he declined hospice care. He presents emergency room by EMS with increasing abdominal distension and being uncomfortable. He denies any chest pain or shortness of breath denies fever. States urine is very dark. He denies taking any medications at this time. He states he was offered hospice care but declined this. He also reports to me that he went the naturalpathic way to treat his colon cancer. Past Medical History: Colon cancer metastatic to liver. Jaundice, failure to thrive, diabetes. Past Surgical History: Previous multiple paracentesis. Social History: Denies current use of drugs or alcohol. Does smoke tobacco. Family History: Noncontributory ROS REVIEW OF SYSTEMS: 10 Systems were reviewed and negative with the exception of the elements mentioned in the history of present illness. Exam Constitutional nontoxic triage nursing summary reviewed, vital signs reviewed, awake/alert. Jaundice on exam. Eyes normal conjunctivae and sclera, EOMI, PERRLA. HENT icteric eyes. normal inspection, atraumatic, dry mucus membranes, no epistaxis, neck supple/ no meningismus, no raccoon eyes. Respiratory clear to auscultation bilaterally, normal breath sounds, no respiratory distress, no wheezing. Cardiovascular rate normal, regular rhythm, no murmur, no edema, distal pulses normal. Gastrointestinal large distended abdomen but not tense, fluid wave positive, no significant tenderness, non-tender, no rebound, no guarding, normal bowel sounds, no distension, no pulsatile mass. Genitourinary no CVA tenderness. Musculoskeletal no midline vertebral tenderness, full range of motion, no calf swelling, no tenderness of extremities, no meningismus, good pulses, neurovascularly intact. Skin jaundiced skin. Neurologic awake, alert and oriented x 3, AAOx3, moves all 4 extremities equally, motor intact, sensory intact, CN II-XII intact, normal cerebellar, normal vision, normal speech. Psychiatric normal mood/affect. Heme/Lymph/Immune no lymphadenopathy. Differential Diagnosis: Includes but is not limited to in a particular order metastatic colon cancer, metastatic to liver disease, underlying liver disease, underlying metastatic cancer, failure to thrive, dehydration, large volume ascites, hepatorenal syndrome Medical Decision Making: Plan for this patient IV establishment blood draw, IV Dilaudid for pain control IV Zofran, gentle IV fluids. Observe in the ER. Re-evaluation: 2:25 a.m. patient be admitted to the hospital for pain control. IV Dilaudid ordered in the emergency room. Patient has metastatic colon cancer to liver Patient here with large amount of ascites but no respiratory distress. He is afebrile. Plan for this patient admission to the hospital service for pain control. Dr. Chávez Consulted. Agrees to admit. Source: Patient, EMS - Medical/Surgical History Hx Asthma: No Hx Chronic Respiratory Disease: No Hx Diabetes: Yes Hx Cardiac Disease: No Hx Renal Disease: No Hx Cirrhosis: No Hx Alcoholism: No Hx HIV/AIDS: No Hx Splenectomy or Spleen Trauma: No Other PMH: diabetes type 2, Colon CA stage 4 colon cancer mets to lung and liver, SBO,jaundice. ascites - Social History Smoking Status: Current every day smoker Constitutional: Initial Vital Signs Temperature (C) 37.0 C 05/09/18 00:25 Heart Rate 85 05/09/18 00:25 Respiratory Rate 18 05/09/18 00:25 Blood Pressure 117/77 05/09/18 00:25 O2 Sat (%) 96 05/09/18 00:25 O2 Delivery Mode Room Air O2 (L/minute) 2 Allergies/Adverse Reactions: No Known Allergies Allergy (Verified 05/09/18 13:09) Home Medications: Medication Instructions Recorded Ascorbic Acid [Vitamin C 500 mg 500 mg PO DAILY 07/28/16 (*)] Cholecalciferol Vit D3 [Vitamin D3 1,000 units PO DAILY 07/28/16 (*)] glyBURIDE [Glyburide] 2.5 mg PO DAILY 07/28/16 LORazepam [Ativan (*)] 0.5 mg PO BID PRN #10 tab 05/03/18 Ondansetron Odt [Zofran Odt 4 mg 4 mg PO Q4HRS PRN #30 tab 05/03/18 (*)] oxyCODONE IR [Oxycodone Ir (*)] 5 - 10 mg PO Q3HRS PRN #30 tab 05/03/18 Medical Decision Making - Data Points Laboratory Results: Laboratory Results 05/09/18 00:26 05/09/18 00:26 Medications Given: Discontinued Medications Diphenhydramine HCl (Benadryl) 25 mg PO EDNOW ONE Stop: 05/09/18 03:22 Last Admin: 05/09/18 03:21 Dose: 25 mg Hydromorphone HCl (Dilaudid) 1 mg IVP EDNOW ONE Stop: 05/09/18 00:28 Last Admin: 05/09/18 00:40 Dose: 1 mg Sodium Chloride (Ns) 1,000 mls @ 0 mls/hr IV EDNOW ONE; Wide Open PRN Reason: Protocol Stop: 05/09/18 00:28 Last Admin: 05/09/18 00:39 Dose: 1,000 mls Ondansetron HCl (Zofran) 4 mg IVP EDNOW ONE Stop: 05/09/18 00:28 Last Admin: 05/09/18 00:40 Dose: 4 mg Departure - Departure Disposition: [facility] Clinical Impression: Colon cancer Qualifiers: Colon location: unspecified part of colon Qualified Code(s): C18.9 - Malignant neoplasm of colon, unspecified Ascites Qualifiers: Ascites type: malignant Qualified Code(s): R18.0 - Malignant ascites Condition: Fair
[2018-05-09 01:03] LABS: PLATELET COUNT 230 10^3/uL (150-400)
[2018-05-09] MEDS ORDERED: HYDROmorphONE/DILAUDID 1 MG/ML INJ IVP PRN (02:14)
[2018-05-09] MEDS ORDERED: PROMETHAZINE HCL 25 MG/ML INJ IVP PRN (02:14)
[2018-05-09] MEDS ORDERED: ONDANSETRON 4 MG/2 ML VIAL IVP PRN (02:14)
[2018-05-09] MEDS ORDERED: ONDANSETRON DISINTEGRATING 4 MG TAB PO PRN (02:14)
[2018-05-09] MEDS ORDERED: oxyCODONE IR 5 MG TAB PO PRN (02:14)
[2018-05-09] MEDS ORDERED: ACETAMINOPHEN 325 MG TAB PO PRN (02:14)
--- NOTE | 2018-05-09 02:47 | PDGENHP ---
History and Physical - Chief Complaint Abdominal distention - History of Present Illness 58 yo M w/ hx of metastatic colon CA presents with recurrent ascites. The patient was admitted here from 05/01-05/03; per documentation it had been planned for him to discharge to hospice care. He tells me that he changed his mind, however, and did not start hospice care. Over the last few days he has developed progressive abdominal distention, pain, and difficulty breathing related to his abdominal distention. He denies fever, chills. His last paracentesis was on Sunday, 4 days prior to admission. Of note, he has not been on diuretics. He also does not take any pain medications. He also tells me that he had chemotherapy scheduled for today. His oncologist previously was Dr. Lott. Case discussed with ED physician Dr. Fatima; records reviewed and summarized above. History Information - Allergies/Home Medication List Allergies/Adverse Reactions: No Known Allergies Allergy (Verified 05/09/18 00:28) Home Medications: Ascorbic Acid [Vitamin C 500 mg (*)] 500 mg PO DAILY 07/28/16 [Last Taken ] Cholecalciferol Vit D3 [Vitamin D3 (*)] 1,000 units PO DAILY 07/28/16 [Last Taken 04/30/18] glyBURIDE [Glyburide] 2.5 mg PO DAILY 07/28/16 [Last Taken 04/28/18] I have personally reviewed and updated: family history, medical history Past Medical History: recurrent SBO. metastatic colon cancer dx fall 2015 with lever mets s/p 8 rounds FOLFOX. DM. Depression - Past Medical History cancer (metastatic colon cancer), diabetes type 2 - Surgical History Reports: appendectomy Additional surgical history: sigmoid colon resection 01/2016, 2017 enterolysis/ lysis of adhesions. appy - Family History Positive for: non-pertinent - Social History Smoking Status: Current every day smoker Additional social history: homeless resides in apartment currently. COR - DNR/ DNI. pt completed advanced directives previously. Review of Systems Review of Systems: ROS: 10pt was reviewed & negative except for what was stated in HPI & below Physical Exam Physical Exam: Temp Pulse Resp BP Pulse Ox 37.0 C 85 18 117/77 96 05/09/18 00:25 05/09/18 00:25 05/09/18 00:25 05/09/18 00:25 05/09/18 00:25 Constitutional: chronically ill appearing, uncomfortable Eyes: PERRL, EOMI, icteric sclera Ears, Nose, Mouth, Throat: moist mucous membranes, no oral mucosal ulcers Cardiovascular: regular rate and rhythym, no murmur, rub, or gallop Respiratory: no respiratory distress, clear to auscultation Gastrointestinal: tenderness (Mild), ascites, distension Skin: warm, other (Jaundiced) Musculoskeletal: full muscle strength, no muscle tenderness Neurologic: AAOx3, CN II-XII Intact Psychiatric: interacting appropriately, not anxious Lab Data & Imaging Review 05/09/18 00:26 05/09/18 00:26 WBC 11.12 10^3/uL (3.80-9.50) H 05/09/18 00:26 RBC 5.25 10^6/uL (4.40-6.38) 05/09/18 00:26 Hgb 15.6 g/dL (13.7-17.5) 05/09/18 00:26 Hct 44.6 % (40.0-51.0) 05/09/18 00:26 MCV 85.0 fL (81.5-99.8) 05/09/18 00:26 MCH 29.7 pg (27.9-34.1) 05/09/18 00:26 MCHC 35.0 g/dL (32.4-36.7) 05/09/18 00:26 RDW 20.4 % (11.5-15.2) H 05/09/18 00:26 Plt Count 230 10^3/uL (150-400) 05/09/18 00:26 MPV 10.0 fL (8.7-11.7) 05/09/18 00:26 Neut % (Auto) 72.3 % (39.3-74.2) 05/09/18 00:26 Lymph % (Auto) 15.6 % (15.0-45.0) 05/09/18 00:26 [place] % (Auto) 9.4 % (4.5-13.0) 05/09/18 00:26 Eos % (Auto) 1.2 % (0.6-7.6) 05/09/18 00:26 Baso % (Auto) 0.4 % (0.3-1.7) 05/09/18 00:26 Nucleat RBC Rel Count 0.0 % (0.0-0.2) 05/09/18 00:26 Absolute Neuts (auto) 8.04 10^3/uL (1.70-6.50) H 05/09/18 00:26 Absolute Lymphs (auto) 1.73 10^3/uL (1.00-3.00) 05/09/18 00:26 Absolute Monos (auto) 1.05 10^3/uL (0.30-0.80) H 05/09/18 00:26 Absolute Eos (auto) 0.13 10^3/uL (0.03-0.40) 05/09/18 00:26 Absolute Basos (auto) 0.05 10^3/uL (0.02-0.10) 05/09/18 00:26 Absolute Nucleated RBC 0.00 10^3/uL (0-0.01) 05/09/18 00:26 Immature Gran % 1.1 % (0.0-1.1) 05/09/18 00:26 Immature Gran # 0.12 10^3/uL (0.00-0.10) H 05/09/18 00:26 Sodium 131 mEq/L (135-145) L 05/09/18 00:26 Potassium 5.2 mEq/L (3.5-5.2) 05/09/18 00:26 Chloride 102 mEq/L (97-110) 05/09/18 00:26 Carbon Dioxide 21 mEq/l (22-31) L 05/09/18 00:26 Anion Gap 8 mEq/L (6-14) 05/09/18 00:26 BUN 15 mg/dL (7-23) 05/09/18 00:26 Creatinine 0.7 mg/dL (0.7-1.3) 05/09/18 00:26 Estimated GFR > 60 05/09/18 00:26 Glucose 154 mg/dL (70-100) H 05/09/18 00:26 Calcium 8.4 mg/dL (8.5-10.4) L 05/09/18 00:26 Total Bilirubin 14.2 mg/dL (0.1-1.4) H 05/09/18 00:26 Conjugated Bilirubin 12.4 mg/dL (0.0-0.5) H 05/09/18 00:26 Unconjugated Bilirubin 1.8 mg/dL (0.0-1.1) H 05/09/18 00:26 Icterus Index 9 05/09/18 00:26 AST 183 IU/L (17-59) H 05/09/18 00:26 ALT 104 IU/L (21-72) H 05/09/18 00:26 Alkaline Phosphatase 1678 IU/L (38-126) H 05/09/18 00:26 Total Protein 6.2 g/dL (6.3-8.2) L 05/09/18 00:26 Albumin 2.8 g/dL (3.5-5.0) L 05/09/18 00:26 Lipase 94 IU/L (23-300) 05/09/18 00:26 Assessment & Plan Assessment: 58 yo M w/ metastatic colon CA presents with recurrent ascites. Plan: 1. Recurrent ascites - This is likely a representation of advancing malignancy. His last paracentesis was on Sunday, 4 days prior to admission. He has not been on diuretics as an outpatient. - Therapeutic and diagnostic paracentesis ordered - Will start furosemide 20 mg PO BID and spironolactone 25 mg qD 2. Metastatic colon CA - S/p multiple rounds of chemotherapy. He has extensive metastasis to his liver and his liver appears to be failing with steadily rising bilirubin noted. Patient tells me he has chemotherapy scheduled for later today, although I am not sure if this is accurate. Of note, documentation states he was discharged with hospice care after last admission but he tells me he changed his mind. He continues to be DNR. - Pain control ordered - Will likely benefit from additional palliative care counseling - Oncology consult in the morning 3. Abnormal LFTs - Due to malignant infiltration of the liver. Steadily rising bilirubin is of particular concern. - Monitor LFTs - Rule out SBP with paracentesis as above 4. Hyponatremia - Likely hypervolemic, will address ascites as above. 5. NIDDM - On glyburide as outpatient. Noting deteriorating liver function, I will simply observe blood glucose without starting therapy at this time. - Monitor BG ACHS - D50 IV PRN for hypoglycemia Diet - NPO pending paracentesis Code - DNR, confirmed with patient Ppx - SCDs Dispo - Admit under observation status
[2018-05-09 02:51] LABS: INR 1.13 (0.83-1.16); PROTIME(PATIENT) 14.7 SEC (12.0-15.0)
[2018-05-09] MEDS ORDERED: D50W 25 GM/50 ML VIAL IVP PRN (02:54)
[2018-05-09] MEDS ORDERED: diphenhydrAMINE 25 MG CAP PO ONE ×2 (03:17→03:21)
[2018-05-09 05:39] VITALS: BP 103/77
[2018-05-09] MEDS ORDERED: SPIRONOLACTONE 25 MG TAB PO SCH (09:00)
[2018-05-09] MEDS ORDERED: FUROSEMIDE 20 MG TAB PO SCH (09:00)
== END 2018-05-09 06:30 | disposition left against medical advice (07) ==
LOC: EDUNIT# → F1N 05:33
PROVIDERS: ADMIT Student in an Organized Health Care Education/Training Program; ATTEND Student in an Organized Health Care Education/Training Program
DX: R18.8 Other ascites (principal); C18.9 Malignant neoplasm of colon, unspecified; C78.7 Secondary malignant neoplasm of liver and intrahepatic bile duct; R17 Unspecified jaundice; R62.7 Adult failure to thrive; E11.9 Type 2 diabetes mellitus without complications; F17.200 Nicotine dependence, unspecified, uncomplicated; E86.9 Volume depletion, unspecified
CPT/HCPCS: 96361; 96374; 96375; 99285; G0378; J1170; J2405

== ENCOUNTER 2018-05-09 12:57 | Emergency (ER) | payer MEDICAID ==
--- NOTE | 2018-05-09 14:11 | EDPHY ---
H & P Time Seen by Provider: 05/09/18 13:59 HPI/ROS: Chief complaint. Recurrent ascites HPI. 58year-old male presents emergency department with abdominal distension. He has chronic and recurrent ascites. He requesting paracentesis. No pain, no fever. No other complaints. He feels his abdomen is pressure and tight. His last paracentesis was May 05. No chest pain or shortness of breath. Patient has a history of metastatic colon cancer. He also has had jaundice. ROS 10 systems were reviewed and negative with the exception of the elements mentioned in the history of present illness Past Medical/Surgical History: Past medical history consistent with diabetes, colon cancer that is metastatic, small-bowel obstruction, jaundice, recurrent ascites Social History: Single, daily smoker, no alcohol Smoking Status: Current every day smoker Physical Exam: General Appearance: Alert well-developed male mild distress vital signs are stable Eyes: Pupils equal and round no pallor. Mild scleral icterus ENT, Mouth: Mucous membranes are moist. Respiratory: There are no retractions, lungs are clear to auscultation. Cardiovascular: Regular rate and rhythm. Gastrointestinal: Abdomen is distended consistent with ascites. Nontender. Neurological: Awake and alert, sensory and motor exams grossly normal. Skin: Warm and dry, no rashes. Musculoskeletal: Neck is supple nontender. Extremities symmetrical, full range of motion. Psychiatric: Patient is oriented X 3, there is no agitation. Constitutional: Initial Vital Signs Temperature (C) 36.4 C 05/09/18 13:10 Heart Rate 105 H 05/09/18 13:10 Respiratory Rate 18 05/09/18 13:10 Blood Pressure 129/78 H 05/09/18 13:10 O2 Sat (%) 97 05/09/18 13:10 O2 Delivery Mode Room Air Allergies/Adverse Reactions: No Known Allergies Allergy (Verified 05/09/18 13:09) Home Medications: Medication Instructions Recorded Ascorbic Acid [Vitamin C 500 mg 500 mg PO DAILY 07/28/16 (*)] Cholecalciferol Vit D3 [Vitamin D3 1,000 units PO DAILY 07/28/16 (*)] glyBURIDE [Glyburide] 2.5 mg PO DAILY 07/28/16 LORazepam [Ativan (*)] 0.5 mg PO BID PRN #10 tab 05/03/18 Ondansetron Odt [Zofran Odt 4 mg 4 mg PO Q4HRS PRN #30 tab 05/03/18 (*)] oxyCODONE IR [Oxycodone Ir (*)] 5 - 10 mg PO Q3HRS PRN #30 tab 05/03/18 Medical Decision Making Procedures: Paracentesis ED Course/Re-evaluation: Re-evaluation 4:30 p.m. Patient feels much improved. He request to be discharged. Patient and I discussed treatment plan including criteria for return importance of follow-up and further evaluation. He expresses understanding and agreement Differential Diagnosis: Recurrent ascites in a man with metastatic colon cancer. No evidence for SBP - Data Points Medications Given: Discontinued Medications Morphine Sulfate (Morphine) 6 mg IVP EDNOW ONE Stop: 05/09/18 14:11 Last Admin: 05/09/18 14:30 Dose: 6 mg Departure - Departure Disposition: Home, Routine, Self-Care Clinical Impression: Ascites Qualifiers: Ascites type: malignant Qualified Code(s): R18.0 - Malignant ascites Condition: Good Instructions: Ascites (ED) Additional Instructions: Return for worsening symptoms. Follow-up with Dr. Lott Referrals: NONE *PRIMARY CARE P,. [Primary Care Provider] - As per Instructions Chino Lott MD [Medical Doctor] - 2-3 days, call for appt.
[2018-05-09] MEDS ORDERED: LIDOCAINE 1% 300 MG/30 ML SDV ONE (14:15)
[2018-05-09 16:51] VITALS: BP 120/75
== END 2018-05-09 16:58 | disposition home or self-care (01) ==
PROC: 0W9G3ZZ Drainage of Peritoneal Cavity, Percutaneous Approach (ICD-10-PCS; principal; 2018-05-09)
DX: C78.7 Secondary malignant neoplasm of liver and intrahepatic bile duct (principal); C18.9 Malignant neoplasm of colon, unspecified; R18.0 Malignant ascites; E11.9 Type 2 diabetes mellitus without complications; Z79.4 Long term (current) use of insulin; F17.200 Nicotine dependence, unspecified, uncomplicated
CPT/HCPCS: 96374; J2270

== ENCOUNTER 2018-05-14 16:51 | Emergency (ER) | payer MEDICAID ==
[2018-05-14] MEDS ORDERED: ONDANSETRON 4 MG/2 ML VIAL IVP ONE (17:25)
[2018-05-14] MEDS ORDERED: LIDOCAINE 1% 300 MG/30 ML SDV ONE (18:38)
--- NOTE | 2018-05-14 18:55 | ASMTCMCOM ---
CM Note CM Note Notes: Spoke with patient at length about the plan this evening. He would like to get "water taken off of my belly" (Tap) and then go home. This creative writer asked him if he would be willing to stay overnight for observation if the doctor felt it was necessary. He said that he was not inclined to stay. The notes from his last admission showed [facility] was now involved in his care. Mr. Martinez said that he decided that he didn't want to continue with hospice because of differences opinions. He also mentioned that his primary doctor's family independence case manager had mentioned palliative care but he was not interested. Patient has two children 24, 35 daughters in [facility]. It made him sad that he was dying and couldn't make amends with his girls. He wishes to NOT be alone when he dies. This creative writer will notify Sana, Dr. Danielle's CM, to let her know of this discussion. She may have some ideas around getting the family to come to see him in his last day. A Cab voucher was offered to Mr. Martinez for this evening if he decides to return home. He said he was open to staying in the hospital over night but not on the Oncology floor. Dr. Day made aware of this conversation. Date Signed: 05/14/2018 06:55 PM Electronically Signed By:Kathie Gay RN
--- NOTE | 2018-05-14 20:31 | EDPHY ---
H & P Stated Complaint: abd pain and pressure - Personal History Current Tetanus/Diphtheria Vaccine: Unsure Current Tetanus Diphtheria and Acellular Pertussis (TDAP): Unsure - Medical/Surgical History Hx Asthma: No Hx Chronic Respiratory Disease: No Hx Diabetes: Yes Hx Cardiac Disease: No Hx Renal Disease: No Hx Cirrhosis: No Hx Alcoholism: No Hx HIV/AIDS: No Hx Splenectomy or Spleen Trauma: No Other PMH: diabetes type 2, Colon CA stage 4 colon cancer mets to lung and liver, SBO,jaundice. ascites - Social History Smoking Status: Current every day smoker Alcohol Use: Sober Drug Use: None Time Seen by Provider: 05/14/18 17:36 HPI/ROS: CHIEF COMPLAINT: Abdominal distension, requests paracentesis HISTORY OF PRESENT ILLNESS: 58-year-old male with stage IV colon cancer presents with abdominal distension. History of recurrent ascites requiring paracentesis. Last paracentesis was 03/08/2019. Today he presents because worsening abdominal distention and discomfort. 6 weeks ago, he decided to discontinue chemotherapy. He has been using alternative the natural chemotherapeutic agents for 6 weeks. No fever or vomiting. No shortness of breath. REVIEW OF SYSTEMS: complete 10 point ROS reviewed and is negative except for the noted elements in the HPI (Theodora Day) - Physical Exam Exam: General Appearance: Alert, pleasant Eyes: Pupils equal and round, scleral icterus ENT, Mouth: Mucous membranes moist Neck: Normal inspection Respiratory: Lungs are clear to auscultation Cardiovascular: Regular rate and rhythm Gastrointestinal: Abdomen is distended, nontender Neurological: A&O, nonfocal exam Skin: Warm and dry, jaundiced Extremities: Nontender, no pedal edema Psychiatric: Mood and affect normal (Theodora Day S) Constitutional: Initial Vital Signs Heart Rate 98 05/14/18 16:55 Respiratory Rate 20 05/14/18 16:55 Blood Pressure 131/93 H 05/14/18 16:55 O2 Sat (%) 95 05/14/18 16:55 O2 Delivery Mode Room Air Allergies/Adverse Reactions: No Known Allergies Allergy (Verified 05/09/18 13:09) Home Medications: Medication Instructions Recorded Ascorbic Acid [Vitamin C 500 mg 500 mg PO DAILY 07/28/16 (*)] Cholecalciferol Vit D3 [Vitamin D3 1,000 units PO DAILY 07/28/16 (*)] glyBURIDE [Glyburide] 2.5 mg PO DAILY 07/28/16 LORazepam [Ativan (*)] 0.5 mg PO BID PRN #10 tab 05/03/18 Ondansetron Odt [Zofran Odt 4 mg 4 mg PO Q4HRS PRN #30 tab 05/03/18 (*)] oxyCODONE IR [Oxycodone Ir (*)] 5 - 10 mg PO Q3HRS PRN #30 tab 05/03/18 Medical Decision Making - Diagnostics Imaging Results: Imaging Impressions Paracentesis Ultrasound 05/14/18 17:59 Impression: Ultrasound-guided paracentesis as above. ED Course/Re-evaluation: This patient presents with jaundice and recurrent ascites. Bilirubin more elevated than previous, c/w worsening obstruction. Admission advised for this patient, however he declines. He requests that we do paracentesis today and discharge him home. I had a prolonged discussion with this patient and as the manager acquisition to talk with him as well. He continues to decline admission. Paracentesis performed and pt tolerated the procedure well. Feels much better and wants to go home. Strongly encouraged him to follow up with Oncology. ( Theodora Day) Differential Diagnosis: includes though not limited to SBO, bowel perf, infectious process, worsening CA. (Theodora Day) Other Provider: I assumed care of the patient at 9:00 p.m. pending paracentesis. (Sbe Jimenez) - Data Points Laboratory Results: Laboratory Results 05/14/18 17:20 05/14/18 17:20 Medications Given: Discontinued Medications Morphine Sulfate (Morphine) 4 mg IVP EDNOW ONE Stop: 05/14/18 17:21 Last Admin: 05/14/18 17:24 Dose: 4 mg Ondansetron HCl (Zofran) 4 mg IVP EDNOW ONE Stop: 05/14/18 17:26 Last Admin: 05/14/18 22:53 Dose: Not Given Departure - Departure Disposition: Home, Routine, Self-Care Clinical Impression: Ascites Qualifiers: Ascites type: malignant Qualified Code(s): R18.0 - Malignant ascites Colon cancer Qualifiers: Colon location: unspecified part of colon Qualified Code(s): C18.9 - Malignant neoplasm of colon, unspecified Condition: Fair Instructions: Ascites (ED), Paracentesis (DC) Additional Instructions: Return for worsening symptoms or any concerns. Referrals: Otto Mclaughlin MD [Primary Care Provider] - 1-2 days without fail
[2018-05-14 20:32] LABS: PLATELET COUNT 238 10^3/uL (150-400)
[2018-05-14 20:40] LABS: INR 1.14 (0.83-1.16); PROTIME(PATIENT) 14.8 SEC (12.0-15.0)
[2018-05-14 21:22] VITALS: BP 110/68
== END 2018-05-14 21:34 | disposition home or self-care (01) ==
LOC: EDUNIT#
PROC: 0W9F3ZZ Drainage of Abdominal Wall, Percutaneous Approach (ICD-10-PCS; principal; 2018-05-14)
DX: R18.0 Malignant ascites (principal); C18.9 Malignant neoplasm of colon, unspecified; C78.00 Secondary malignant neoplasm of unspecified lung; C78.7 Secondary malignant neoplasm of liver and intrahepatic bile duct; E11.9 Type 2 diabetes mellitus without complications
CPT/HCPCS: 96374; J2270

== ENCOUNTER 2018-05-19 07:37 | Observation (INO) | payer MEDICAID ==
--- NOTE | 2018-05-19 07:40 | EDPHY ---
H & P Time Seen by Provider: 05/19/18 07:40 HPI/ROS: CHIEF COMPLAINT: Ascites, here requesting paracentesis HISTORY OF PRESENT ILLNESS: 58-year-old man arrives by EMS requesting paracentesis for his ascites. He tells me that he has had the procedure done 7 times in the last 16 days. History of metastatic colon cancer, discontinue chemotherapy 6-7 weeks ago. Was seen here on the 14 of May and admission was recommended but the patient declined. Patient presents with abdominal pain that is worse since 4 days ago. Not better worse with anything. Affecting his appetite with associated decreased oral intake. Moderate to severe at this time. REVIEW OF SYSTEMS: Eye: no change in vision ENT: no sore throat Cardiac: no chest pain or syncope Pulmonary: no cough or SOB Abdomen: no vomiting, diarrhea, has some abdominal pain with his distension Musculoskeletal: no back pain Skin: no rash Neuro: no headache Constitutional: no fever : no urinary symptoms A comprehensive 10 point review of systems is otherwise negative aside from elements mentioned in the history of present illness. PAST MEDICAL HISTORY: History and physical dated 05/09/2018 personally reviewed includes metastatic colon cancer, ascites, diabetes, hyponatremia. Social history: Tobacco smoker General Appearance: Alert and conversant, cooperative. Eyes: Icteric. ENT, Mouth: Normal mucous membranes. Respiratory: Normal respiratory effort, breath sounds equal, lungs are clear to auscultation. Cardiovascular: Regular rate and rhythm. Gastrointestinal: Abdomen distended with mild tenderness but no rebound or guarding. Neurological: Alert, face symmetric, normal motor and sensory in extremities. Skin: Jaundiced. Musculoskeletal: No peripheral edema. Psychiatric: Not agitated. Emergency Department course/MDM: 826: [place] [facility] [place]. Admission for further evaluation, paracentesis. Possibility of SBP considered, he is afebrile with normal WBC count. I think it is reasonable to wait for paracentesis results. Smoking Status: Current every day smoker Constitutional: Initial Vital Signs Temperature (C) 36.6 C 05/19/18 07:45 Heart Rate 79 05/19/18 07:45 Respiratory Rate 16 05/19/18 07:45 Blood Pressure 107/74 05/19/18 07:45 O2 Sat (%) 95 05/19/18 07:45 O2 Delivery Mode Room Air Allergies/Adverse Reactions: No Known Allergies Allergy (Verified 05/09/18 13:09) Home Medications: Medication Instructions Recorded Ascorbic Acid [Vitamin C 500 mg 500 mg PO DAILY 07/28/16 (*)] Cholecalciferol Vit D3 [Vitamin D3 1,000 units PO DAILY 07/28/16 (*)] LORazepam [Ativan (*)] 0.5 mg PO BID PRN #10 tab 05/03/18 oxyCODONE IR [Oxycodone Ir (*)] 5 - 10 mg PO Q3HRS PRN #30 tab 05/03/18 Herbals/Supplements -Info Only 1 ea PO DAILY 05/19/18 Promethazine HCl [Phenergan 12.5mg 12.5 mg PO Q4H PRN 05/19/18 tab] Medical Decision Making Differential Diagnosis: Differential considered including but not limited to intra-abdominal bleeding, ascites, bacterial peritonitis, intestinal perforation or obstruction. - Data Points Laboratory Results: Laboratory Results 05/19/18 08:01 05/19/18 08:01 05/19/18 05/19/18 05/19/18 08:01 08:01 08:01 WBC 9.47 10^3/uL 10^3/uL (3.80-9.50) RBC 4.76 10^6/uL 10^6/uL (4.40-6.38) Hgb 13.9 g/dL g/dL (13.7-17.5) Hct 39.5 % L % (40.0-51.0) MCV 83.0 fL fL (81.5-99.8) MCH 29.2 pg pg (27.9-34.1) MCHC 35.2 g/dL g/dL (32.4-36.7) RDW 20.2 % H % (11.5-15.2) Plt Count 216 10^3/uL 10^3/uL (150-400) MPV 9.7 fL fL (8.7-11.7) Neut % (Auto) 77.1 % H % (39.3-74.2) Lymph % (Auto) 11.2 % L % (15.0-45.0) Butts % (Auto) 8.4 % % (4.5-13.0) Eos % (Auto) 0.6 % % (0.6-7.6) Baso % (Auto) 0.6 % % (0.3-1.7) Nucleat RBC Rel Count 0.0 % % (0.0-0.2) Absolute Neuts (auto) 7.29 10^3/uL H 10^3/uL (1.70-6.50) Absolute Lymphs (auto) 1.06 10^3/uL 10^3/uL (1.00-3.00) Absolute Monos (auto) 0.80 10^3/uL 10^3/uL (0.30-0.80) Absolute Eos (auto) 0.06 10^3/uL 10^3/uL (0.03-0.40) Absolute Basos (auto) 0.06 10^3/uL 10^3/uL (0.02-0.10) Absolute Nucleated RBC 0.00 10^3/uL 10^3/uL (0-0.01) Immature Gran % 2.1 % H % (0.0-1.1) Immature Gran # 0.20 10^3/uL H 10^3/uL (0.00-0.10) PT 15.1 SEC H SEC (12.0-15.0) INR 1.17 H (0.83-1.16) APTT 33.2 SEC SEC (23.0-38.0) Sodium 129 mEq/L L mEq/L (135-145) Potassium 4.2 mEq/L mEq/L (3.5-5.2) Chloride 105 mEq/L mEq/L (97-110) Carbon Dioxide 18 mEq/l L mEq/l (22-31) Anion Gap 6 mEq/L mEq/L (6-14) BUN 25 mg/dL H mg/dL (7-23) Creatinine 0.8 mg/dL mg/dL (0.7-1.3) Estimated GFR > 60 Glucose 177 mg/dL H mg/dL (70-100) Calcium 7.9 mg/dL L mg/dL (8.5-10.4) Total Bilirubin 20.7 mg/dL H mg/dL (0.1-1.4) Conjugated Bilirubin 19.0 mg/dL H mg/dL (0.0-0.5) Unconjugated Bilirubin 1.7 mg/dL H mg/dL (0.0-1.1) Icterus Index 18 AST 147 IU/L H IU/L (17-59) ALT 83 IU/L H IU/L (21-72) Alkaline Phosphatase 1454 IU/L H IU/L (38-126) Total Protein 5.7 g/dL L g/dL (6.3-8.2) Albumin 2.4 g/dL L g/dL (3.5-5.0) Medications Given: Discontinued Medications Hydromorphone HCl (Dilaudid) 1 mg IVP EDNOW ONE Stop: 05/19/18 08:22 Last Admin: 05/19/18 08:23 Dose: 1 mg Departure - Departure Disposition: [facility] Clinical Impression: Ascites Qualifiers: Ascites type: malignant Qualified Code(s): R18.0 - Malignant ascites Condition: Fair
[2018-05-19 08:18] LABS: PLATELET COUNT 216 10^3/uL (150-400)
[2018-05-19] MEDS ORDERED: HYDROmorphONE/DILAUDID 1 MG/ML INJ ONE (08:20)
[2018-05-19] MEDS ORDERED: HYDROmorphONE/DILAUDID 2 MG/ML INJ IVP ONE (08:21)
[2018-05-19 08:29] LABS: INR 1.17 (0.83-1.16); PROTIME(PATIENT) 15.1 SEC (12.0-15.0)
[2018-05-19] MEDS ORDERED: LIDOCAINE 1% 300 MG/30 ML SDV ONE (09:56)
[2018-05-19] MEDS ORDERED: HYDROmorphONE/DILAUDID 1 MG/ML INJ IVP ONE (11:15)
[2018-05-19 11:41] VITALS: BP 98/70
--- NOTE | 2018-05-19 12:21 | ASMTLACE ---
BHASKAR Acuity / Level of Answers: Yes Care: Did the patient have an inpatient admission? Comorbidities - select Answers: Any tumor (including all that apply lymphoma or leukemia) Diabetes (uncontrolled or controlled) Moderate or severe liver or renal disease Palliative care / End of life trajectory Other Notes: colon cancer w/mets, ascites # of Emergency department Answers: 5-8 visits in the last 6 months Social determinants Answers: Mental health diagnosis (anxiety, depression, pers onality disorders, etc.) Lack of community resources and/or lack of social support (no pcp, lives alone, transportation, lissette d) Score: 24 Date Signed: 05/19/2018 12:20 PM Electronically Signed By:Candi Zafar RN
[2018-05-19] MEDS ORDERED: HYDROmorphONE/DILAUDID 1 MG/ML INJ IVP PRN (12:34)
[2018-05-19] MEDS ORDERED: ONDANSETRON DISINTEGRATING 4 MG TAB PO PRN (12:34)
[2018-05-19] MEDS ORDERED: ONDANSETRON 4 MG/2 ML VIAL IVP PRN (12:34)
[2018-05-19] MEDS ORDERED: PROMETHAZINE HCL 25 MG/ML INJ IVP PRN (12:34)
[2018-05-19] MEDS ORDERED: oxyCODONE IR 5 MG TAB PO PRN (12:34)
[2018-05-19] MEDS ORDERED: LORazepam 0.5 MG TAB PO PRN (12:38)
--- NOTE | 2018-05-19 13:24 | PDGENHP ---
History and Physical - Chief Complaint abdominal pain - History of Present Illness 58 yo M with PMH of metastatic colon cancer with significant hepatic involvement and associated jaundice and recurrent ascites presenting with worsening abdominal pain in the setting of increased abdominal distension. Patient has presented to the hospital 6 times this month for these symptoms, and this is his third hospitalization. Patient notes that he did not realize he was going to be admitted and that all he wanted was to have a paracentesis which has been performed previously in the ER and discharged after. Patient notes that he is no longer undergoing any treatment for his cancer, and has a plan to establish care with hospice and that hospice has arranged for placement of a [place] drain, which he states is to occur tomorrow. His request is that we have paracentesis performed and discharge him after that to follow up with hospice. He states he has been told he has only 2 weeks to live, and that he believes that to be the case and is at peace with that eventuality. History Information - Allergies/Home Medication List Allergies/Adverse Reactions: No Known Allergies Allergy (Verified 05/09/18 13:09) Home Medications: Ascorbic Acid [Vitamin C 500 mg (*)] 500 mg PO DAILY 07/28/16 [Last Taken ] Cholecalciferol Vit D3 [Vitamin D3 (*)] 1,000 units PO DAILY 07/28/16 [Last Taken 04/30/18] Herbals/Supplements -Info Only 1 ea PO DAILY 05/19/18 [Last Taken Unknown] Promethazine HCl [Phenergan 12.5mg tab] 12.5 mg PO Q4H PRN 05/19/18 [Last Taken Unknown] I have personally reviewed and updated: family history, medical history, social history, surgical history Past Medical History: recurrent SBO. metastatic colon cancer dx fall 2015 with lever mets s/p 8 rounds FOLFOX. DM. Depression - Past Medical History cancer (metastatic colon cancer), diabetes type 2 Additional medical history: chronic pain, continuous opiate use and dependency - Surgical History Reports: appendectomy Additional surgical history: sigmoid colon resection 01/2016, 2017 enterolysis/ lysis of adhesions. appy - Family History Positive for: non-pertinent - Social History Smoking Status: Current every day smoker Alcohol Use: Occasionally Drug Use: Marijuana Additional social history: COR - DNR/DNI. Patient establishing care with hospice Review of Systems Review of Systems: ROS: 10pt was reviewed & negative except for what was stated in HPI & below Physical Exam Physical Exam: Temp Pulse Resp BP Pulse Ox 36.3 C 75 18 98/70 L 97 05/19/18 11:37 05/19/18 11:37 05/19/18 11:37 05/19/18 11:37 05/19/18 11:37 Constitutional: chronically ill appearing, cachectic Eyes: PERRL, icteric sclera Ears, Nose, Mouth, Throat: moist mucous membranes, hearing normal Cardiovascular: regular rate and rhythym, no murmur, rub, or gallop, No edema Respiratory: no respiratory distress, reduced air movement Gastrointestinal: normoactive bowel sounds, ascites Genitourinary: no bladder tenderness Skin: warm, normal color Musculoskeletal: no muscle tenderness Neurologic: AAOx3 Psychiatric: interacting appropriately, not anxious, not encephalopathic Lab Data & Imaging Review 05/19/18 08:01 05/19/18 08:01 WBC 9.47 10^3/uL (3.80-9.50) 05/19/18 08:01 RBC 4.76 10^6/uL (4.40-6.38) 05/19/18 08:01 Hgb 13.9 g/dL (13.7-17.5) 05/19/18 08:01 Hct 39.5 % (40.0-51.0) L 05/19/18 08:01 MCV 83.0 fL (81.5-99.8) 05/19/18 08:01 MCH 29.2 pg (27.9-34.1) 05/19/18 08:01 MCHC 35.2 g/dL (32.4-36.7) 05/19/18 08:01 RDW 20.2 % (11.5-15.2) H 05/19/18 08:01 Plt Count 216 10^3/uL (150-400) 05/19/18 08:01 MPV 9.7 fL (8.7-11.7) 05/19/18 08:01 Neut % (Auto) 77.1 % (39.3-74.2) H 05/19/18 08:01 Lymph % (Auto) 11.2 % (15.0-45.0) L 05/19/18 08:01 [place]alier % (Auto) 8.4 % (4.5-13.0) 05/19/18 08:01 Eos % (Auto) 0.6 % (0.6-7.6) 05/19/18 08:01 Baso % (Auto) 0.6 % (0.3-1.7) 05/19/18 08:01 Nucleat RBC Rel Count 0.0 % (0.0-0.2) 05/19/18 08:01 Absolute Neuts (auto) 7.29 10^3/uL (1.70-6.50) H 05/19/18 08:01 Absolute Lymphs (auto) 1.06 10^3/uL (1.00-3.00) 05/19/18 08:01 Absolute Monos (auto) 0.80 10^3/uL (0.30-0.80) 05/19/18 08:01 Absolute Eos (auto) 0.06 10^3/uL (0.03-0.40) 05/19/18 08:01 Absolute Basos (auto) 0.06 10^3/uL (0.02-0.10) 05/19/18 08:01 Absolute Nucleated RBC 0.00 10^3/uL (0-0.01) 05/19/18 08:01 Immature Gran % 2.1 % (0.0-1.1) H 05/19/18 08:01 Immature Gran # 0.20 10^3/uL (0.00-0.10) H 05/19/18 08:01 PT 15.1 SEC (12.0-15.0) H 05/19/18 08:01 INR 1.17 (0.83-1.16) H 05/19/18 08:01 APTT 33.2 SEC (23.0-38.0) 05/19/18 08:01 Sodium 129 mEq/L (135-145) L 05/19/18 08:01 Potassium 4.2 mEq/L (3.5-5.2) 05/19/18 08:01 Chloride 105 mEq/L (97-110) 05/19/18 08:01 Carbon Dioxide 18 mEq/l (22-31) L 05/19/18 08:01 Anion Gap 6 mEq/L (6-14) 05/19/18 08:01 BUN 25 mg/dL (7-23) H 05/19/18 08:01 Creatinine 0.8 mg/dL (0.7-1.3) 05/19/18 08:01 Estimated GFR > 60 05/19/18 08:01 Glucose 177 mg/dL (70-100) H 05/19/18 08:01 Calcium 7.9 mg/dL (8.5-10.4) L 05/19/18 08:01 Total Bilirubin 20.7 mg/dL (0.1-1.4) H 05/19/18 08:01 Conjugated Bilirubin 19.0 mg/dL (0.0-0.5) H 05/19/18 08:01 Unconjugated Bilirubin 1.7 mg/dL (0.0-1.1) H 05/19/18 08:01 Icterus Index 18 05/19/18 08:01 AST 147 IU/L (17-59) H 05/19/18 08:01 ALT 83 IU/L (21-72) H 05/19/18 08:01 Alkaline Phosphatase 1454 IU/L (38-126) H 05/19/18 08:01 Total Protein 5.7 g/dL (6.3-8.2) L 05/19/18 08:01 Albumin 2.4 g/dL (3.5-5.0) L 05/19/18 08:01 Assessment & Plan Assessment: Ascites (Acute) 58 yo M w/hx of metastatic colon cancer with hepatic involvement and associated recurrent ascites here for abdominal pain and distension related to ascites # abdominal pain/distension: related to recurrent ascites as above, will get IR paracentesis today and discharge after that. Patient very clear of his goals of care and has plan for [place] drain to be placed this week. # metastatic colon cancer: patient off of therapy and pursuing hospice care, he states he believes he has only weeks to live and would rather be home than in the hospital over night for the little time he has left, will dc to hospice care.Personally reviewed and interpreted recent abd ct showing extensive liver mets. # hyponatremia: hypervolemic hyponatremia, chronic and at baseline # jaundice/elevated lfts: related to liver metastatic disease, progressive, as above # observation status Patient new to my care. Old records reviewed and summarizes as above. Care plan reviewed with ER doctor.
--- NOTE | 2018-05-19 13:25 | PDIAF ---
- Diagnosis Code Status: Do Not Resuscitate - Medication Management Discharge Medications: electronically signed and located in the Home Medication List. - Orders Services needed: Home Care, Registered Nurse, Certified Perfect Binder Operator Home Care Face to Face: I certify that this patient was under my care and that I had the required [id number] encounter meeting the encounter requirements on the discharge day. My findings support the fact that the patient is homebound as defined in Home Care Face to Face Continued: CMS Chapter 7 Medicare Benefits Manual 30.1.1 , The condition of the patient is such that there exists a normal inability to leave home and consequently, leaving home would require a considerable and taxing effort. Isolation Type: None Diet Recommendation: no restrictions on diet - Follow Up Care Current Providers and Referrals: Otto Mclaughlin MD [Primary Care Provider] - As per Instructions
--- NOTE | 2018-05-19 13:25 | PDDCSUM ---
Discharge Summary Discharge Summary: Admit and discharge 05/19/28 Consultations: none Procedures performed: US guided paracentesis Hospital course by problem: 58 yo M w/hx of metastatic colon cancer with hepatic involvement and associated recurrent ascites here for abdominal pain and distension related to ascites # abdominal pain/distension: related to recurrent ascites, US guided paracentesis performed. Patient very clear of his goals of care and has plan for [place] drain to be placed this week. # metastatic colon cancer: patient off of therapy and pursuing hospice care, he states he believes he has only weeks to live and would rather be home than in the hospital over night for the little time he has left, will dc to hospice care. # hyponatremia: hypervolemic hyponatremia, chronic and at baseline # jaundice/elevated lfts: related to liver metastatic disease, progressive, as above DC home with hospice f/u with hospice MD for [place] drain placement and ongoing palliative/comfort care > 35 min spent in dc more than half in coordination of care
[2018-05-19] MEDS ORDERED: ALBUMIN 25% 100 ML IV ONE (14:36)
--- NOTE | 2018-05-19 16:05 | ASMTDCNOTE ---
Case Management Discharge Discharge Order Complete? Answers: Yes Patient to Obtain Answers: Independently Medications Transportation Arranged Answers: Taxi - Voucher Discharge Comments Notes: Taxi voucher provided to get patient home. No needs. Date Signed: 05/19/2018 04:05 PM Electronically Signed By:Christine Bassett RN
--- NOTE | 2018-05-19 17:32 | ASDISCHSUM ---
Discharge Information Plan Status:Home with No Needs Medically Cleared to Leave: Discharge Date:05/19/2018 04:08 PM CM D/C Disposition:Home, Routine, Self-Care ADT D/C Disposition:Hospice Home Projected Discharge Date:05/19/2018 04:08 PM Transportation at D/C:Cab Voucher Discharge Delay Reason: Follow-Up Date:05/19/2018 04:08 PM Discharge Slot: Final Diagnosis: Placement Information Patient Contact Information Contact Name:VAMSI Relationship:Other Address:[address] [place] [address] [address] Work Phone: City:[place] Alternate Phone: [facility]/Zip Code:[place] [address] Email: Financial Information Financial Class:Medicaid Primary Plan Desc:[employer] Primary Plan Number:[id number] Secondary Plan Desc: Secondary Plan Number: Assessment Information [facility] CM Progress Note CM Note CM Note Notes: Pt presented to the ED via EMS this morning for ascites and requesting a paracentesis. Pt admitted for paracentesis and further monitoring. 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 Please see previous CM Reports, H&Ps and Palliative Care consult notes for additional background info Per chart review, pt was referred to [facility] / Palliative Care but wasn't set up w/their services as of his last ED visit 05/14/18. CM called [facility] ([phone]) and spoke w/the on-call RN who states pt was set up w/their hospice services but discontinued them on 05/07/18 but they are planning on calling the patient tomorrow and following up with him re:enrolling in their Palliative Care services. Per H&P, pt is hoping to discuss having a [place] drain placed. Pt lives in the [facility]. Pt's PCP is Dr Otto Mclaughlin at [facility] and pt has been in contact w/Dr Mclaughlin's RN Material Liaison, Sana Robbins ([phone]). Pt was discharged home after receiving a paracentesis. Pt provided a cab voucher home. Date Signed: 05/19/2018 05:31 PM Electronically Signed By:Candi Zafar RN LACE LACE Acuity / Level of Answers: Yes Care: Did the patient have an inpatient admission? Comorbidities - select Answers: Any tumor (including all that apply lymphoma or leukemia) Diabetes (uncontrolled or controlled) Moderate or severe liver or renal disease Palliative care / End of life trajectory Other Notes: colon cancer w/mets, ascites # of Emergency department Answers: 5-8 visits in the last 6 months Social determinants Answers: Mental health diagnosis (anxiety, depression, pers onality disorders, etc.) Lack of community resources and/or lack of social support (no pcp, lives alone, transportation, lissette d) Score: 24 Date Signed: 05/19/2018 12:20 PM Electronically Signed By:Candi Zafar RN Case Management Discharge Plan Note Case Management Discharge Discharge Order Complete? Answers: Yes Patient to Obtain Answers: Independently Medications Transportation Arranged Answers: Taxi - Voucher Discharge Comments Notes: Taxi voucher provided to get patient home. No needs. Date Signed: 05/19/2018 04:05 PM Electronically Signed By:Christine Bassett RN Intervention Information
[2018-05-20] MEDS ORDERED: CHOLECALCIFEROL VIT D3 1,000 UNITS TAB PO SCH (09:00)
[2018-05-20] MEDS ORDERED: ASCORBIC ACID 500 MG TAB PO SCH (09:00)
== END 2018-05-19 16:08 | disposition hospice, home (50) ==
LOC: EDUNIT# → INTOOBSV 08:27 → F3E 10:02
PROVIDERS: ADMIT Internal Medicine; ATTEND Internal Medicine
DX: R18.0 Malignant ascites (principal); C18.9 Malignant neoplasm of colon, unspecified; C78.00 Secondary malignant neoplasm of unspecified lung; C18.7 Malignant neoplasm of sigmoid colon; E11.9 Type 2 diabetes mellitus without complications; Z66 Do not resuscitate; F17.210 Nicotine dependence, cigarettes, uncomplicated
CPT/HCPCS: 49083; 96374; 96376; 99285; G0378; J1170; P9047

== ENCOUNTER 2018-05-24 08:37 | Day surgery (SDC) | payer MEDICAID ==
[2018-05-24] MEDS ORDERED: NALOXONE HCL 0.4 MG/ML INJ IVP PRN (08:59)
[2018-05-24] MEDS ORDERED: fentaNYL 100 MCG/2 ML INJ IVP PRN (08:59)
[2018-05-24] MEDS ORDERED: HEPARIN 10,000 UNIT/10 ML MDV (1,000 UNIT/ML) IVP PRN (08:59)
[2018-05-24] MEDS ORDERED: PROTAMINE SULFATE 50 MG/5 ML VIAL IVP PRN (08:59)
[2018-05-24] MEDS ORDERED: ceFAZolin 2 GM/DEXTROSE 100 ML IV ONE (08:59)
[2018-05-24] MEDS ORDERED: FLUMAZENIL 0.5 MG/5 ML MDV IVP PRN (08:59)
[2018-05-24] MEDS ORDERED: GLUCAGON HCL 1 MG VIAL IVP PRN (08:59)
[2018-05-24] MEDS ORDERED: MEPERIDINE 25 MG/ML SYR IVP PRN (08:59)
[2018-05-24] MEDS ORDERED: ALTEPLASE 2 MG VIAL IVP PRN (08:59)
[2018-05-24] MEDS ORDERED: MIDAZOLAM 2 MG/2 ML VIAL IVP PRN (08:59)
[2018-05-24] MEDS ORDERED: NS 1,000 ML IV SCH (09:00)
--- NOTE | 2018-05-24 09:13 | PDRADPRE ---
Radiology History & Physical Indication for procedure: cancer Home medications: Promethazine HCl [Phenergan 12.5mg tab] 12.5 mg PO Q4H PRN 05/19/18 [Last Taken Unknown] Allergies/Adverse Reactions: No Known Allergies Allergy (Verified 05/09/18 13:09) Mental status: A&Ox3
--- NOTE | 2018-05-24 09:14 | PDPROPOC ---
Sedation Plan of Care ASA Classification: ASA 3 Mallampati Score: Class 2 Mallampati Reference Image:
[2018-05-24] MEDS ORDERED: ONDANSETRON 4 MG/2 ML VIAL ONE (09:30)
[2018-05-24] MEDS ORDERED: ONDANSETRON 4 MG/2 ML VIAL IVP ONE (09:32)
[2018-05-24] MEDS ORDERED: fentaNYL 100 MCG/2 ML INJ ONE ×2 (10:14→11:14)
[2018-05-24] MEDS ORDERED: MIDAZOLAM 2 MG/2 ML VIAL ONE ×2 (10:14→11:14)
[2018-05-24] MEDS ORDERED: LIDOCAINE 1% 300 MG/30 ML SDV ONE (10:29)
[2018-05-24] MEDS ORDERED: NA BICARBONATE 50 MEQ/50 ML VIAL ONE (11:06)
[2018-05-24] MEDS ORDERED: ALBUMIN 25% 100 ML SOLN IV ONE (11:24)
[2018-05-24] MEDS ORDERED: ONDANSETRON 4 MG/2 ML VIAL IVP PRN (11:39)
[2018-05-24] MEDS ORDERED: ACETAMINOPHEN 325 MG TAB PO PRN (11:39)
--- NOTE | 2018-05-24 11:41 | PDRADPN ---
Radiology Procedure Note Date of Procedure: 05/24/18 Radiologist: Noelle Eng Anesthesia: IV Sedation Pre-op Diagnosis: malignant ascites Post-op Diagnosis: same Procedure: pleurx drain placement Inf/Abcess present in the surg proc area at time of surgery?: No
[2018-05-24] MEDS ORDERED: ALBUMIN 25% 100 ML IV ONE (12:00)
[2018-05-24 13:00] VITALS: BP 99/65
[2018-05-24] MEDS ORDERED: oxyCODONE IR 5 MG TAB ONE (13:09)
[2018-05-24] MEDS ORDERED: oxyCODONE IR 5 MG TAB PO ONE (13:15)
== END 2018-05-24 13:47 | disposition home or self-care (01) ==
LOC: FIMAGING 08:37
PROVIDERS: ATTEND Radiology Diagnostic Radiology
PROC: 0W9930Z Drainage of Right Pleural Cavity with Drainage Device, Percutaneous Approach (ICD-10-PCS; principal; 2018-05-24 12:58)
PROC: BW40ZZZ Ultrasonography of Abdomen (ICD-10-PCS; principal; 2018-05-24 12:58)
DX: C18.9 Malignant neoplasm of colon, unspecified (principal); R18.0 Malignant ascites
CPT/HCPCS: C2617; J0690; J2250; J2405; J3010; P9047